=== PATIENT | male | born 1945 | race Caucasian/White ===

== ENCOUNTER 2016-05-08 03:45 | Inpatient (IN) | payer MEDICARE, OTHER ==
[~2016-05-08] VITALS: Ht 177.8 cm; Wt 119.7 kg
[2016-05-08] VITALS (16 sets, daily range): BP systolic 125–166; BP diastolic 60–72; PULSE 86–108; RESP 14–28; TEMP 97.5–98.9; O2SAT 96–100
[~2016-05-08 03:45] MED LIST: ALLO100T PO; ALPR.25 PO; AMLO5 PO; APIX5 PO; CETI10 PO; CODE30TA2; FLUO20TA20 PO; FLUT50SP EACH NARE; FOLI5CAP; GABA300C3 PO; IRON325T2 PO; LEVO.075 PO; LISI-363 PO; MAGN1TAB14; SILD20TA PO; TERA2CAP3 PO; VITA50LO PO; ZOCO80TA PO
[2016-05-08] MEDS ORDERED: PANTOPRAZOLE SODIUM 40 MG VIAL IVP ONE (04:00)
[2016-05-08] MEDS ORDERED: SODIUM CHLORIDE 0.9% FLUSH 5 ML FLUSH IVF PRN (04:00)
[2016-05-08 04:18] LABS: AUTOMATED NEUTROPHIL # 7.2 TH/MM3 (1.8-7.7); BASOPHIL % 0.5 % (0.0-2.0); EOSINOPHIL # 0.2 TH/MM3 (0-0.4); EOSINOPHIL % 2.5 % (0.0-4.0); LYMPH % 12.2 % (9.0-44.0); LYMPHOCYTE # 1.1 TH/MM3 (1.0-4.8); MEAN CELL VOLUME 81.4 FL (80.0-100.0); MEAN CORPUSCULAR HEMOGLOBIN 28.9 PG (27.0-34.0); MEAN CORPUSCULAR HGB CONC 35.5 % (32.0-36.0); MONO % 7.1 % (0.0-8.0); NEUT % 77.7 % (16.0-70.0); PLATELET COUNT 170 TH/MM3 (150-450); RED BLOOD COUNT 1.82 MIL/MM3 (4.50-5.90); RED CELL DISTRIBUTION WIDTH 16.4 % (11.6-17.2); WHITE BLOOD COUNT 9.3 TH/MM3 (4.0-11.0)
[2016-05-08] MEDS ORDERED: SPIR25TA PO (04:18)
[2016-05-08] MEDS ORDERED: MULT-65 PO (04:18)
[2016-05-08] MEDS ORDERED: ALPR.5 PO (04:18)
[2016-05-08] MEDS ORDERED: ATOR20TA15 PO (04:18)
[2016-05-08] MEDS ORDERED: NORC5TAB PO (04:18)
[2016-05-08] MEDS ORDERED: ASPI-110 PO (04:18)
[2016-05-08] MEDS ORDERED: CLOTCRE TOPICAL (04:18)
[2016-05-08] MEDS ORDERED: POTA-163 PO (04:18)
[2016-05-08] MEDS ORDERED: DILT30TA PO (04:18)
[2016-05-08] MEDS ORDERED: FURO1TAB60 PO (04:18)
[2016-05-08 04:25] LABS: HEMO FLAGS DIFF FINAL
[2016-05-08 04:27] LABS: HEMATOCRIT 14.8 % (39.0-51.0)
[2016-05-08 04:29] LABS: APTT (PATIENT) 27.1 SEC (24.3-30.1); INTERNATIONAL NORMALIZED RATIO 1.6 RATIO; PROTHROMBIN TIME - PATIENT 18.5 SEC (9.8-11.6)
[2016-05-08] MEDS ORDERED: SODIUM CHLOR 0.9% 250 ML INJ 250 ML IV ONE (04:30)
--- NOTE | 2016-05-08 04:38 | PD ---
HPI Chief Complaint: Bleeding Time Seen by Provider: 03:50 Travel History International Travel<30 days: No Contact w/Intl Traveler<30days: No Traveled to known affect area: No History of Present Illness HPI The patient is 70 years old. He has a history of rheumatoid arthritis anxiety depression and alcoholism. He arrives from assisted facility because dark red stool is found in his bed about 1 hour prior to ER arrival. During the initial evaluation the patient states "I'm trying to pee." EMS reports the patient is typically a and O 3. Patient was able to report that 4 years prior he underwent colonoscopy which was normal. Secondary to preoccupation with urination the patient cannot provide any additional history at time of arrival to ER or upon reassessment at approximately 30 minutes after arrival at which time a Antonio catheter was placed and urinalysis was sent as well. PFSH Past Medical History Arthritis: Yes (RA) Blood Disorders: No Anxiety: Yes Depression: Yes Heart Rhythm Problems: No Cancer: No Cardiovascular Problems: Yes High Cholesterol: No Chest Pain: No Congestive Heart Failure: No Diabetes: No Endocrine: Yes Gout: Yes Genitourinary: No Hypertension: Yes Musculoskeletal: Yes (RA) Neurologic: No Psychiatric: Yes Reproductive: No Respiratory: Yes Thyroid Disease: Yes Past Surgical History Other Surgery: Yes (shoulder sx) Social History Alcohol Use: Yes (05/17 vodka) Tobacco Use: No Substance Use: No Allergies-Medications (Allergen,Severity, Reaction): Coded Allergies: Buspirone (Verified Allergy, Unknown, 05/08/16) pt states "more anxiety" Reported Meds & Prescriptions Reported Meds & Active Scripts Active Norvasc (Amlodipine Besylate) 5 Mg Tab 5 Mg PO DAILY 30 Days Terazosin Hcl (Terazosin HCl) 2 Mg Cap 4 Mg PO HS Reported Diltiazem (Diltiazem HCl) 30 Mg Tab 30 Mg PO BID Atorvastatin (Atorvastatin Calcium) 20 Mg Tab 20 Mg PO HS Aspirin 81 (Aspirin) 81 Mg Tabdr 81 Mg PO DAILY Lasix (Furosemide) 40 Mg Tab 40 Mg PO BID Clotrimazole-Betamethasone Topical (Betamethasone/Clotrimazole) 1-0.05% Cream 1 Applic TOPICAL BID Potassium Chloride ER (Potassium Chloride) 20 Meq Tab 20 Meq PO DAILY Spironolactone 25 Mg Tab 25 Mg PO BIDPC Xanax (Alprazolam) 0.5 Mg Tab 0.5 Mg PO Q8H PRN [place] (Hydrocodone-Acetaminophen) 5-325 mg Tab 1 Tab PO Q6H PRN Multi-Vitamin Daily (Multiple Vitamin) 1 Tab Tab 1 Tab PO DAILY Fluoxetine Hcl (Fluoxetine HCl) 20MG Cap 40 Mg PO DAILY Iron (Ferrous Sulfate) 325 Mg Tab 325 Mg PO Vitamin B-12 (Cyanocobalamin) 50 Mcg Tab 50 Mcg PO Synthroid (Levothyroxine Sodium) 75 Mcg Tab 75 Mcg PO DAILY Gabapentin 300 Mg Cap 300 Mg PO TID Folic Acid 5 Mg Cap Fluticasone Propionate (Nasal) 50 Mcg Spr 1 [place] EACH NARE BID Allopurinol 100 Mg Tab 100 Mg PO DAILY Review of Systems Except as stated in HPI: all other systems reviewed are Neg Physical Exam Narrative GENERAL: 70-year-old male mild to moderate distress RECTAL: External hemorrhoid. Black stool about anus. Grade 1 pressure would about saccrum with approx 2-3 cm of dermis exposure on the R aspect of saccrum. SKIN: Warm and dry. HEAD: Atraumatic. Normocephalic. EYES: Pupils equal and round. No scleral icterus. No injection or drainage. ENT: No nasal bleeding or discharge. Mucous membranes pink and moist. NECK: Trachea midline. No JVD. CARDIOVASCULAR: Sinus. Tachycardia. RESPIRATORY: No accessory muscle use. Clear to auscultation. Breath sounds equal bilaterally. GASTROINTESTINAL: Abdomen soft, non-tender, nondistended. Hepatic and splenic margins not palpable. MUSCULOSKELETAL: 4+ pitting edema. Moves all extremities normally. Cranial nerves are normal. Patient is AOx3. NEUROLOGICAL: Awake and alert. No obvious cranial nerve deficits. Motor grossly within normal limits. Normal speech. PSYCHIATRIC: Appropriate mood and affect; insight and judgment normal. Data Data Last Documented VS Vital Signs Date Time Temp Pulse Resp B/P Pulse Ox O2 Delivery O2 Flow Rate FiO2 05/08/16 03:59 18 100 Room Air 05/08/16 03:48 97.5 95 125/60 Orders Complete Blood Count With Diff (05/08/16 03:50) Comprehensive Metabolic Panel (05/08/16 03:50) Prothrombin Time / Inr (Pt) (05/08/16 03:50) Act Partial Throm Time (Ptt) (05/08/16 03:50) Urinalysis - C+S If Indicated (05/08/16 03:50) Type And Screen (05/08/16 03:50) Ecg Monitoring (05/08/16 03:50) Iv Access Insert/Monitor (05/08/16 03:50) Oximetry (05/08/16 03:50) Pantoprazole Inj (Protonix Inj) (05/08/16 04:00) Sodium Chloride 0.9% Flush (Ns Flush) (05/08/16 04:00) B-Type Natriuretic Peptide (05/08/16 03:50) Blood Culture (05/08/16 04:04) Lactic Acid (05/08/16 04:04) Blood Product Administration .UPON TRANSFUSION (05/08/16 04:29) Sodium Chlor 0.9% 250 Ml Inj (Ns 250 Ml (05/08/16 04:30) Red Blood Cells (Rbc) (05/08/16 04:00) Urinary Catheter Insert/Apply (05/08/16 04:38) Ceftriaxone Inj (Rocephin Inj) (05/08/16 05:00) Pantoprazole Inj (Protonix Inj) (05/08/16 05:15) Admit Order (Ed Use Only) (05/08/16 05:08) Labs Laboratory Tests Test 05/08/16 05/08/16 05/08/16 05/08/16 04:00 04:06 04:45 04:46 White Blood Count 9.3 TH/MM3 Red Blood Count 1.82 MIL/MM3 Hemoglobin 5.3 GM/DL Hematocrit 14.8 % Mean Corpuscular Volume 81.4 FL Mean Corpuscular Hemoglobin 28.9 PG Mean Corpuscular Hemoglobin 35.5 % Concent Red Cell Distribution Width 16.4 % Platelet Count 170 TH/MM3 Mean Platelet Volume 7.8 FL Neutrophils (%) (Auto) 77.7 % Lymphocytes (%) (Auto) 12.2 % Monocytes (%) (Auto) 7.1 % Eosinophils (%) (Auto) 2.5 % Basophils (%) (Auto) 0.5 % Neutrophils # (Auto) 7.2 TH/MM3 Lymphocytes # (Auto) 1.1 TH/MM3 Monocytes # (Auto) 0.7 TH/MM3 Eosinophils # (Auto) 0.2 TH/MM3 Basophils # (Auto) 0.0 TH/MM3 CBC Comment DIFF FINAL Differential Comment Prothrombin Time 18.5 SEC Prothromb Time International 1.6 RATIO Ratio Activated Partial 27.1 SEC Thromboplast Time Sodium Level 137 MEQ/L Potassium Level 3.4 MEQ/L Chloride Level 103 MEQ/L Carbon Dioxide Level 18.8 MEQ/L Anion Gap 15 MEQ/L Blood Urea Nitrogen 48 MG/DL Creatinine 1.71 MG/DL Estimat Glomerular Filtration 40 ML/MIN Rate Random Glucose 117 MG/DL Calcium Level 8.0 MG/DL Total Bilirubin 1.0 MG/DL Aspartate Amino Transf 33 U/L (AST/SGOT) Alanine Aminotransferase 21 U/L (ALT/SGPT) Alkaline Phosphatase 136 U/L B-Type Natriuretic Peptide 45 PG/ML Total Protein 6.3 GM/DL Albumin 1.9 GM/DL Blood Type O NEGATIVE O NEGATIVE Antibody Screen NEGATIVE Crossmatch Leukocyte-Reduced Red Blood Cells Blood Bank Comment Lactic Acid Level 4.9 mmol/L Urine Color YELLOW Urine Turbidity CLEAR Urine pH 5.5 Urine Specific [place] 1.012 Urine Protein NEG mg/dL Urine Glucose (UA) NEG mg/dL Urine Ketones NEG mg/dL Urine Occult Blood MOD Urine Nitrite NEG Urine Bilirubin NEG Urine Urobilinogen LESS THAN 2.0 MG/DL Urine Leukocyte Esterase NEG Urine RBC 5 /hpf Urine WBC 1 /hpf Urine Renal Epithelial Cells <1 /hpf Urine Bacteria RARE /hpf Urine Hyaline Casts 1 /lpf Microscopic Urinalysis Comment CULT NOT INDICATED MDM Medical Decision Making Medical Screen Exam Complete: Yes Emergency Medical Condition: Yes Medical Record Reviewed: Yes Differential Diagnosis UGIB, LGIB, sepsis, MODS, anemia Narrative Course CBC & BMP Diagram 05/08/16 04:00 LA 4.9 BNP 45 Albumin 1.9 UA: no UTI Coags: 18.5 / 1.6 / 27.1 case d/w Dr Agrawal for GI. Protonix bolus and drip started. Rocephin started. 2 units PRBCs started Case discussed with Dr. Iglesias for casting machine adjuster service. Critical Care Narrative Aggregate critical care time was 35 minutes. Time to perform other separately billable procedures was not included in the critical care time. My time did not include minutes spent treating any other patients simultaneously or on activities that did not directly contribute to the patient's treatment. The services I provided to this patient were to treat and/or prevent clinically significant deterioration that could result in: hemorrhagic shock I provided critical care services requiring my management, as noted below: Chart data review, documentation time, medication orders and management, vital sign assessments/reviewing monitor data, ordering and reviewing lab tests, ordering and interpreting/reviewing x-rays and diagnostic studies, care of the patient and discussion of the patient with the admitting physicians. Sepsis Criteria SIRS Criteria (2 or more): Heart rate over 90, RR > 20 or PaCO2 < 32 Severe Sepsis (+one): Organ Dysfunction Septic Shock Criteria: Lactic acid >=4 Diagnosis Primary Impression: GIB (gastrointestinal bleeding) Qualified Code: K92.2 - Gastrointestinal hemorrhage, unspecified gastrointestinal hemorrhage type Additional Impression: Anemia Qualified Code: D62 - Acute posthemorrhagic anemia Admitting Information Admitting Physician Requests: Admit Jose Loja MD May 08, 2016 04:38
[2016-05-08 04:40] LABS: ALT (GPT) 21 U/L (12-78); ANION GAP 15 MEQ/L (5-15); AST (GOT) 33 U/L (15-37); BICARBONATE 18.8 MEQ/L (21.0-32.0); BLOOD UREA NITROGEN 48 MG/DL (7-18); CHLORIDE 103 MEQ/L (98-107); GLOMERULAR FILTRATION RATE 40 ML/MIN (>89); POTASSIUM 3.4 MEQ/L (3.5-5.1); SODIUM (NA) 137 MEQ/L (136-145)
[2016-05-08 04:43] LABS: ALKALINE PHOSPHATASE 136 U/L (45-117)
[2016-05-08] MEDS ORDERED: cefTRIAXone INJ 1,000 MG in SODIUM CHLORIDE 0.9% INJ 100 ML IV ONE (05:00)
[2016-05-08 05:03] LABS: BACTERIA, URINE RARE /hpf; BLOOD, URINE MOD (NEG); COMMENT (UR) CULT NOT INDICATED; CULTURE IF INDICATED CULT NOT INDICATED; GLUCOSE,URINE NEG (NEG); HYALINE CAST, URINE 1 /lpf (RARE); KETONE, URINE NEG (NEG); NITRITE,URINE NEG (NEG); PH, URINE 5.5 (5.0-8.5); RENAL EPITHELIAL CELLS <1 /hpf; URINE COLOR YELLOW (YELLW/STRAW)
[2016-05-08] MEDS ORDERED: RESP: ALBUTEROL 2.5 MG/IPRATROPIUM 0.5 MG NEB (PRN) INH (05:45)
[2016-05-08] MEDS ORDERED: SODIUM CHLORIDE 0.9% FLUSH 5 ML FLUSH IV FLUSH PRN (05:45)
[2016-05-08] MEDS ORDERED: LORazepam 2 MG/ML VIAL IV PRN (05:45)
[2016-05-08] MEDS ORDERED: ACETAMINOPHEN 325 MG TAB PO PRN (05:45)
[2016-05-08] MEDS ORDERED: MISCELLANEOUS NURSING INFORMATION XX SCH (05:45)
[2016-05-08] MEDS ORDERED: CHLORHEXIDINE GLUCONATE 2 % 1 PACK (2 CLOTHS) TOP PRN (05:45)
[2016-05-08] MEDS ORDERED: ZOLPIDEM TARTRATE 5 MG TAB PO PRN (05:45)
--- NOTE | 2016-05-08 06:09 | HHI.HP ---
HPI Service Critical Care Medicine Primary Care Physician No Primary Care Physician Admission Diagnosis Acute Anemia, GI Bleed Diagnosis: Travel History International Travel<30 Days: No Contact w/Intl Traveler <30 Da: No Traveled to Known Affected Are: No History of Present Illness 70 years old with a history of rheumatoid arthritis anxiety depression and alcoholism. Per patient he didn't have a drink for last months. He arrives from [facility] facility because of dark red stool is found in his bed about 1 hour prior to ER arrival. Review of Systems Constitutional: DENIES: Diaphoretic episodes, Fatigue, Fever, Weight gain, Weight loss, Chills, Dizziness, Change in appetite, Night Sweats Endocrine: DENIES: Heat/cold intolerance, Polydipsia, Polyuria, Polyphagia Eyes: DENIES: Blurred vision, Diplopia, Eye inflammation, Eye pain, Vision loss , Photosensitivity, Double Vision Ears, nose, mouth, throat: DENIES: Tinnitus, Hearing loss, Vertigo, Nasal discharge, Oral lesions, Throat pain, Hoarseness, Ear Pain, Running Nose, Epistaxis, Sinus Pain, Toothache, Odynophagia Respiratory: DENIES: Apneas, Cough, Snoring, Wheezing, Hemoptysis, Sputum production, Shortness of breath Cardiovascular: DENIES: Chest pain, Palpitations, Syncope, Dyspnea on Exertion , PND, Lower Extremity Edema, Orthopnea, Claudication Gastrointestinal: COMPLAINS OF: Abdominal pain, DENIES: Black stools, Bloody stools, Constipation, Diarrhea, Nausea, Vomiting, Difficulty Swallowing, Anorexia Genitourinary: DENIES: Sexual dysfunction, Urinary frequency, Urinary incontinence, Urgency, Hematuria, Dysuria, Nocturia, Penile Discharge, Testicular Pain, Testicular Swelling Musculoskeletal: DENIES: Joint pain, Muscle aches, Stiffness, Joint Swelling, Back pain, Neck pain Integumentary: DENIES: Abnormal pigmentation, Nail changes, Pruritus, Rash Hematologic/lymphatic: DENIES: Bruising, Lymphadenopathy Immunologic/allergic: DENIES: Eczema, Urticaria Neurologic: DENIES: Abnormal gait, Headache, Localized weakness, Paresthesias, Seizures, Speech Problems, Tremor, Poor Balance Psychiatric: DENIES: Anxiety, Confusion, Mood changes, Depression, Hallucinations, Agitation, Suicidal Ideation, Homicidal Ideation, Delusions Past Family Social History Allergies: Coded Allergies: Buspirone (Verified Allergy, Unknown, 05/08/16) pt states "more anxiety" Past Medical History Rheumatoid arthritis Alcohol use Anxiety Reported Medications Reported Meds & Active Scripts Active Norvasc (Amlodipine Besylate) 5 Mg Tab 5 Mg PO DAILY 30 Days Terazosin Hcl (Terazosin HCl) 2 Mg Cap 4 Mg PO HS Reported Diltiazem (Diltiazem HCl) 30 Mg Tab 30 Mg PO BID Atorvastatin (Atorvastatin Calcium) 20 Mg Tab 20 Mg PO HS Aspirin 81 (Aspirin) 81 Mg Tabdr 81 Mg PO DAILY Lasix (Furosemide) 40 Mg Tab 40 Mg PO BID Clotrimazole-Betamethasone Topical (Betamethasone/Clotrimazole) 1-0.05% Cream 1 Applic TOPICAL BID Potassium Chloride ER (Potassium Chloride) 20 Meq Tab 20 Meq PO DAILY Spironolactone 25 Mg Tab 25 Mg PO BIDPC Xanax (Alprazolam) 0.5 Mg Tab 0.5 Mg PO Q8H PRN [place] (Hydrocodone-Acetaminophen) 5-325 mg Tab 1 Tab PO Q6H PRN Multi-Vitamin Daily (Multiple Vitamin) 1 Tab Tab 1 Tab PO DAILY Fluoxetine Hcl (Fluoxetine HCl) 20MG Cap 40 Mg PO DAILY Iron (Ferrous Sulfate) 325 Mg Tab 325 Mg PO Vitamin B-12 (Cyanocobalamin) 50 Mcg Tab 50 Mcg PO Synthroid (Levothyroxine Sodium) 75 Mcg Tab 75 Mcg PO DAILY Gabapentin 300 Mg Cap 300 Mg PO TID Folic Acid 5 Mg Cap Fluticasone Propionate (Nasal) 50 Mcg Spr 1 [place] EACH NARE BID Allopurinol 100 Mg Tab 100 Mg PO DAILY Active Ordered Medications Current Medications Medications (Trade) Dose Ordered Sig/Ana Route PRN Reason Start Time Stop Time Status Last Admin Dose Admin IV Flush 2 ml 2 ml UNSCH PRN IVF FLUSH AFTER USING IV ACCESS 05/08/16 04:00 Sodium Chloride 250 ml @ 15 mls/hr ONCE ONCE IV 05/08/16 04:30 05/08/16 21:09 Pantoprazole Sodium 80 mg/ Sodium Chloride 100 ml @ 10 mls/hr Q10H IV 05/08/16 05:15 Sodium Chloride (NS 1000 ml Inj) 1,000 ml @ 84 mls/hr [id number] IV 05/08/16 05:39 IV Flush (NS Flush) 2 ml UNSCH PRN IV FLUSH FLUSH AFTER USING IV ACCESS 05/08/16 05:45 IV Flush (NS Flush) 2 ml BID IV FLUSH 05/08/16 09:00 Acetaminophen (Tylenol) 650 mg Q6H PRN PO PAIN 1-5 AND/OR FEVER >101F 05/08/16 05:45 Morphine Sulfate (Morphine Inj) 2 mg Q2H PRN IV PAIN SCALE 6 TO 10 05/08/16 05:45 Pantoprazole Sodium (Protonix Inj) 40 mg Q12H IV 05/08/16 18:00 Lorazepam (Ativan Inj) 1 mg Q4H PRN IV Agitation/Sedation 05/08/16 05:45 Docusate Sodium (Colace) 100 mg BID PO 05/08/16 09:00 Zolpidem Tartrate (Ambien) 5 mg HS PRN PO INSOMNIA 05/08/16 05:45 Miscellaneous Information 1 [id number] 05/08/16 05:45 Chlorhexidine Gluconate (Chlorhexidine 2% Cloth) 3 pack Taper DAILY@04 TOP 05/09/16 04:00 05/05/17 03:59 Chlorhexidine Gluconate (Chlorhexidine 2% Cloth) 3 pack UNSCH PRN TOP HYGIENIC CARE 05/08/16 05:45 Alprazolam (Xanax) 0.5 mg Q8H PRN PO ANXIETY 05/08/16 06:15 UNV Atorvastatin Calcium (Lipitor) 20 mg HS PO 05/08/16 21:00 UNV Acetaminophen/ Hydrocodone Bitart ([place] 5-325 Mg) 1 tab Q6H PRN PO PAIN 05/08/16 06:15 UNV Levothyroxine Sodium (Synthroid) 75 mcg DAILY PO 05/08/16 09:00 UNV Multivitamins (Theragran) 1 tab DAILY PO 05/08/16 09:00 UNV Non-Formulary Medication 40 mg DAILY PO 05/08/16 09:00 UNV Family History Noncontributory Social History Quit drinking alcohol about a month ago Negative for smoking or illicit drug abuse Physical Exam Vital Signs Vital Signs Date Time Temp Pulse Resp B/P Pulse Ox O2 Delivery O2 Flow Rate FiO2 05/08/16 05:40 18 100 Room Air 05/08/16 03:59 18 100 Room Air 05/08/16 03:48 97.5 95 22 125/60 100 Laboratory Laboratory Tests Test 05/08/16 05/08/16 05/08/16 05/08/16 04:00 04:06 04:45 04:46 White Blood Count 9.3 Red Blood Count 1.82 Hemoglobin 5.3 Hematocrit 14.8 Mean Corpuscular Volume 81.4 Mean Corpuscular Hemoglobin 28.9 Mean Corpuscular Hemoglobin 35.5 Concent Red Cell Distribution Width 16.4 Platelet Count 170 Mean Platelet Volume 7.8 Neutrophils (%) (Auto) 77.7 Lymphocytes (%) (Auto) 12.2 Monocytes (%) (Auto) 7.1 Eosinophils (%) (Auto) 2.5 Basophils (%) (Auto) 0.5 Neutrophils # (Auto) 7.2 Lymphocytes # (Auto) 1.1 Monocytes # (Auto) 0.7 Eosinophils # (Auto) 0.2 Basophils # (Auto) 0.0 CBC Comment DIFF FINAL Differential Comment Prothrombin Time 18.5 Prothromb Time International 1.6 Ratio Activated Partial 27.1 Thromboplast Time Sodium Level 137 Potassium Level 3.4 Chloride Level 103 Carbon Dioxide Level 18.8 Anion Gap 15 Blood Urea Nitrogen 48 Creatinine 1.71 Estimat Glomerular Filtration 40 Rate Random Glucose 117 Calcium Level 8.0 Total Bilirubin 1.0 Aspartate Amino Transf 33 (AST/SGOT) Alanine Aminotransferase 21 (ALT/SGPT) Alkaline Phosphatase 136 B-Type Natriuretic Peptide 45 Total Protein 6.3 Albumin 1.9 Blood Type O NEGATIVE O NEGATIVE Antibody Screen NEGATIVE Crossmatch Leukocyte-Reduced Red Blood Cells Blood Bank Comment Lactic Acid Level 4.9 Urine Color YELLOW Urine Turbidity CLEAR Urine pH 5.5 Urine Specific [place] 1.012 Urine Protein NEG Urine Glucose (UA) NEG Urine Ketones NEG Urine Occult Blood MOD Urine Nitrite NEG Urine Bilirubin NEG Urine Urobilinogen LESS THAN 2.0 Urine Leukocyte Esterase NEG Urine RBC 5 Urine WBC 1 Urine Renal Epithelial Cells <1 Urine Bacteria RARE Urine Hyaline Casts 1 Microscopic Urinalysis Comment CULT NOT INDICATED Date/Time Procedure Status Source Growth 05/08/16 04:04 Aerobic Blood Culture Received Blood Peripheral Pending 05/08/16 04:04 Anaerobic Blood Culture Received Blood Peripheral Pending Result Diagram: 05/08/1639905/08/16399 Assessment and Plan Problem List: (1) Degenerative disc disease, lumbar ICD Code: M51.36 Status: Chronic (2) GIB (gastrointestinal bleeding) ICD Code: K92.2 Status: Acute (3) Anemia ICD Code: D64.9 Status: Acute Assessment and Plan GI bleed - Protonix IV twice a day - Nothing by mouth - Further per GI consult Anemia - Due to above - Transfuse 4 units of PRBC - Monitor H&H Coagulopathy - Underlying alcohol disease - Vitamin K and FFP's History of alcohol abuse - [facility] protocol - Ativan when necessary - Thiamine folate and multivitamins Rheumatoid arthritis - Supportive care - Pain control Lactic acidosis - IV fluids - Monitor treatment Hypertension - Hold all hypertensive medications now - due to GI bleed DVT GI prophylaxis - Teds SCDs Protonix Critical Care: The total critical care time was 35 minutes. Time to perform other separately billable procedures was not included in the critical care time. Problem Qualifiers (1) GIB (gastrointestinal bleeding): Qualified Code: K92.2 - Gastrointestinal hemorrhage, unspecified gastrointestinal hemorrhage type (2) Anemia: Qualified Code: D62 - Acute posthemorrhagic anemia Wojciech Iglesias MD May 08, 2016 06:09
[2016-05-08] MEDS ORDERED: ALPRAZolam 0.5 MG TAB PO PRN (06:15)
[2016-05-08] MEDS: SODIUM CHLOR 0.9% 1000 ML INJ 1,000 ML IV SCH ×2 (06:21→16:46)
[2016-05-08] MEDS ORDERED: PHYTONADIONE 10 MG/ML VIAL SQ ONE (06:30)
[2016-05-08] MEDS: LEVOTHYROXINE SODIUM 75 MCG TAB PO SCH (06:30)
[2016-05-08] MEDS: PANTOPRAZOLE INJ 80 MG in SODIUM CHLORIDE 0.9% INJ 100 ML IV SCH ×2 (06:54→16:45)
[2016-05-08] MEDS ORDERED: FUROSEMIDE 20 MG/2 ML VIAL IV PUSH ONE (07:45)
[2016-05-08] MEDS: SODIUM CHLORIDE 0.9% FLUSH 5 ML FLUSH IV FLUSH SCH ×2 (09:28→21:00)
[2016-05-08] MEDS: DOCUSATE SODIUM 100 MG CAP PO SCH ×2 (09:29→21:00)
[2016-05-08] MEDS: MORPHINE SULFATE 4 MG/ML INJ IV PRN (09:29)
[2016-05-08] MEDS: FLUoxetine HCL 20 MG CAP PO SCH (09:29)
[2016-05-08] MEDS: MULTIVITAMIN TAB PO SCH (09:29)
--- NOTE | 2016-05-08 10:09 | PD.CONS ---
HPI History of Present Illness This is a 70 year old male who came to the ER for evaluation of rectal bleed. He was admitted to [facility] for UTI/Sepsis/possible pancreatitis on 04/19. While he was there, he was found to have an enlarged liver. He was also told that he would need a egd/colonoscopy as outpatient. He was then discharged to a rehab center for rehabilitation. He woke up last night and was incontinent of a large amount of dark red blood. He does not believe there was any stool mixed within this. He denies any nausea, vomiting, abdominal pain. He reports that his appetite has been okay. He does report that he has probably lost about 25 lbs since August. He last had a colonoscopy with Dr. Delgado 4-5 years ago, and states this was noraml with no polyps. He did have a non-occlusive blood clot in his lower extremity in August and was on Eliquis x 1 month, but has since been off. He does take Ibuprofen every other day up to 4 tablets a day for back pain. He denies any hx of stomach ulcers. He denies any family hx of esophageal, gastric, colon cancer. Of note, he did have a negative cardiac catheterization back in January after having a positive stress test. He does drink daily etoh, sometimes3-4x a day, but has not had any since his hospitalization in the beginning of April. He was told that he had "borderline liver cirrhosis." PFSH Past Medical History Rheumatoid arthritis Suspected CHF Recent positive stress test, s/p cardiac catheterization was negative in January, Dr. Nobles Chronic back pain Gout Neuropathy Hypothyroidism Depression Hepatomegaly, Splenomegaly Suspected liver disease. Recent hospitalization for sepsis, uti, possible pancreatitis Past Surgical History Bilateral hand surgery Lumbar spine injections Coded Allergies: Buspirone (Verified Allergy, Unknown, 05/08/16) pt states "more anxiety" Medications Allergies Coded Allergies Type Severity Reaction Last Updated Verified Buspirone Allergy Unknown 05/08/16 Yes Active Scripts Medications Dose Route/Sig Days Date Category Diltiazem (Diltiazem HCl) 30 Mg Tab 30 Mg PO BID 05/08/16 Reported Atorvastatin (Atorvastatin Calcium) 20 Mg Tab 20 Mg PO HS 05/08/16 Reported Aspirin 81 (Aspirin) 81 Mg Tabdr 81 Mg PO DAILY 05/08/16 Reported Lasix (Furosemide) 40 Mg Tab 40 Mg PO BID 05/08/16 Reported Clotrimazole-Betamethasone Topical (Betamethasone/Clotrimazole) 1-0.05% Cream 1 Applic TOPICAL BID 05/08/16 Reported Potassium Chloride ER (Potassium Chloride) 20 Meq Tab 20 Meq PO DAILY 05/08/16 Reported Spironolactone 25 Mg Tab 25 Mg PO BIDPC 05/08/16 Reported Xanax (Alprazolam) 0.5 Mg Tab 0.5 Mg PO Q8H PRN 05/08/16 Reported [place] (Hydrocodone-Acetaminophen) 5-325 mg Tab 1 Tab PO Q6H PRN 05/08/16 Reported Multi-Vitamin Daily (Multiple Vitamin) 1 Tab Tab 1 Tab PO DAILY 05/08/16 Reported Norvasc (Amlodipine Besylate) 5 Mg Tab 5 Mg PO DAILY 30 09/12/15 Rx Terazosin Hcl (Terazosin HCl) 2 Mg Cap 4 Mg PO HS 09/12/15 Rx Fluoxetine Hcl (Fluoxetine HCl) 20MG Cap 40 Mg PO DAILY 09/10/15 Reported Iron (Ferrous Sulfate) 325 Mg Tab 325 Mg PO 09/10/15 Reported Vitamin B-12 (Cyanocobalamin) 50 Mcg Tab 50 Mcg PO 09/10/15 Reported Synthroid (Levothyroxine Sodium) 75 Mcg Tab 75 Mcg PO DAILY 09/10/15 Reported Gabapentin 300 Mg Cap 300 Mg PO TID 09/10/15 Reported Folic Acid 5 Mg Cap 09/10/15 Reported Fluticasone Propionate (Nasal) 50 Mcg Spr 1 [place] EACH NARE BID 09/10/15 Reported Allopurinol 100 Mg Tab 100 Mg PO DAILY 09/10/15 Reported Family History Mother had carotid artery disease Father had [place] Social History No tobacco. Was drinking 3-4 Vodkas per day up until he was hospitalized on 04/19 , none since that time. Review of Systems Constitutional: COMPLAINS OF: Fatigue, Weight loss, Change in appetite (mild) Ears, nose, mouth, throat: DENIES: Throat pain Respiratory: DENIES: Cough, Shortness of breath Cardiovascular: COMPLAINS OF: Lower Extremity Edema Gastrointestinal: COMPLAINS OF: Bloody stools, Swelling of Abdomen (mild), DENIES: Abdominal pain, Black stools, Constipation, Diarrhea, Anorexia, Heartburn, Hematemesis Musculoskeletal: COMPLAINS OF: Joint pain, Back pain Integumentary: DENIES: Jaundice Neurologic: DENIES: Headache Psychiatric: DENIES: Confusion GI Exam Vitals I&O Vital Signs Date Time Temp Pulse Resp B/P Pulse Ox O2 Delivery O2 Flow Rate FiO2 05/08/16 09:00 97.7 104 16 155/69 100 Nasal Cannula 2 05/08/16 08:43 97.8 104 16 150/72 100 Nasal Cannula 2 05/08/16 07:15 97.7 108 20 151/69 98 Nasal Cannula 2 05/08/16 07:10 97.7 108 20 150/69 98 Nasal Cannula 2 05/08/16 07:10 108 20 98 Nasal Cannula 2 05/08/16 06:57 99 Nasal Cannula 2 05/08/16 06:55 101 18 150/68 96 Room Air 05/08/16 06:19 97.7 96 18 154/65 100 Nasal Cannula 2 05/08/16 05:40 18 100 Room Air 05/08/16 03:59 18 100 Room Air 05/08/16 03:48 97.5 95 22 125/60 100 Laboratory Test 05/08/16 05/08/16 05/08/16 05/08/16 04:00 04:06 04:45 04:46 White Blood Count 9.3 TH/MM3 Red Blood Count 1.82 MIL/MM3 Hemoglobin 5.3 GM/DL Hematocrit 14.8 % Mean Corpuscular Volume 81.4 FL Mean Corpuscular Hemoglobin 28.9 PG Mean Corpuscular Hemoglobin 35.5 % Concent Red Cell Distribution Width 16.4 % Platelet Count 170 TH/MM3 Mean Platelet Volume 7.8 FL Neutrophils (%) (Auto) 77.7 % Lymphocytes (%) (Auto) 12.2 % Monocytes (%) (Auto) 7.1 % Eosinophils (%) (Auto) 2.5 % Basophils (%) (Auto) 0.5 % Neutrophils # (Auto) 7.2 TH/MM3 Lymphocytes # (Auto) 1.1 TH/MM3 Monocytes # (Auto) 0.7 TH/MM3 Eosinophils # (Auto) 0.2 TH/MM3 Basophils # (Auto) 0.0 TH/MM3 CBC Comment DIFF FINAL Differential Comment Prothrombin Time 18.5 SEC Prothromb Time International 1.6 RATIO Ratio Activated Partial 27.1 SEC Thromboplast Time Sodium Level 137 MEQ/L Potassium Level 3.4 MEQ/L Chloride Level 103 MEQ/L Carbon Dioxide Level 18.8 MEQ/L Anion Gap 15 MEQ/L Blood Urea Nitrogen 48 MG/DL Creatinine 1.71 MG/DL Estimat Glomerular Filtration 40 ML/MIN Rate Random Glucose 117 MG/DL Calcium Level 8.0 MG/DL Total Bilirubin 1.0 MG/DL Aspartate Amino Transf 33 U/L (AST/SGOT) Alanine Aminotransferase 21 U/L (ALT/SGPT) Alkaline Phosphatase 136 U/L B-Type Natriuretic Peptide 45 PG/ML Total Protein 6.3 GM/DL Albumin 1.9 GM/DL Blood Type O NEGATIVE O NEGATIVE Antibody Screen NEGATIVE Crossmatch Leukocyte-Reduced Red Blood Cells Blood Bank Comment Lactic Acid Level 4.9 mmol/L Urine Color YELLOW Urine Turbidity CLEAR Urine pH 5.5 Urine Specific [place] 1.012 Urine Protein NEG mg/dL Urine Glucose (UA) NEG mg/dL Urine Ketones NEG mg/dL Urine Occult Blood MOD Urine Nitrite NEG Urine Bilirubin NEG Urine Urobilinogen LESS THAN 2.0 MG/DL Urine Leukocyte Esterase NEG Urine RBC 5 /hpf Urine WBC 1 /hpf Urine Renal Epithelial Cells <1 /hpf Urine Bacteria RARE /hpf Urine Hyaline Casts 1 /lpf Microscopic Urinalysis Comment CULT NOT INDICATED Test 05/08/16 06:19 Crossmatch Leukocyte-Reduced Red Blood Cells Blood Bank Comment Date/Time Procedure Status Source Growth 05/08/16 04:04 Aerobic Blood Culture Received Blood Peripheral Pending 05/08/16 04:04 Anaerobic Blood Culture Received Blood Peripheral Pending Physical Examination HEENT: Normocephalic; atraumatic; no jaundice. Throat is clear. NECK: Neck is supple, no JVD, no lymphadenopathy. CHEST: CTA CARDIAC: RRR ABDOMEN: Soft, mildly bloated, nondistended, nontender; no hepatosplenomegaly; bowel sounds are present in all four quadrants. EXTREMITIES: BLE edema with 4+ pedal edema. SKIN: Normal; no rash; no jaundice. 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 Assessment and Plan Plan ASSESSMENT: - GIB, Rectal bleeding. Woke up with large amount dark red blood from rectum, x 1 episode. Some weight loss. No pain, n/v. Questionable hx of liver disease, was drinking daily 3-4 Vodka's, none since 04/19. Last colonoscopy ~ [address] Delgado and reported by patient as normal. Takes Ibuprofen - Anemia, acute blood loss. Severe anemia with HH 5.3/14.8. Getting 2 units of PRBC. 2 units of FFP. - Mild coagulopathy. PT 18.5, INR 1.6. S/P 2 units FFP - JIMI, Creat 1.71. - Suspected liver disease with hepatomegaly, splenomegaly. Long hx of drinking 3-4 ETOH drinks per day, none since 2016. T. Bili 1.0, AST 33, ALT 21, ALk Phosph 136. Plt okay, mild coagulopathy and hypoalbuminemia. - BLE edema, suspected CHF per family. He had a positive stress test in January and then had a cardiac catheterization with Dr. Nobles and the patient' s son reports this as normal. - Chronic back pain. Pt states that he had a lumbar injection for this in the past and is hoping this can be done during this hospitalization. - Neuropathy, Hypothyroidism, Depression, Gout, RA per primary - Hx nonocclusive dvt in August, was tx'd with Eliquis x 1 month- not on now PLAN: - Plan for egd/colonoscopy in am - Obtain consents - Clear liquids - NPO after MN - Golytely prep - Protonix gtt - Monitor HH - Transfuse as necessary - CBC, BMP in am - Supportive care - Obtain records from [facility], recent hospitalization this month to see what cardiac/liver workup he had. - Further recommendations to follow based on results of above - PT seen and examined by Dr. Liang and myself and this note is written on his behalf Abby Garza May 08, 2016 10:09
[2016-05-08] MEDS ORDERED: PEG (High)/E-LYTE SOLN 4000 ML BTL PO ONE (16:00)
[2016-05-08 17:21] LABS: HEMATOCRIT 20.4 % (39.0-51.0); REVIEW FLAG FINAL
[2016-05-08] MEDS ORDERED: PANTOPRAZOLE SODIUM 40 MG VIAL IV SCH (18:00)
--- NOTE | 2016-05-08 19:37 | EKG ---
Date Performed: 05/08/2016 Time Performed: 03:54:09 PTAGE: 70 years EKG: Sinus rhythm NONSPECIFIC T-WAVE ABNORMALITY BORDERLINE ECG NO PREVIOUS TRACING DOCTOR: Law Loja Interpretating Date/Time 05/08/2016 19:37:19
[2016-05-08] MEDS: ATORVASTATIN 20 MG TAB PO SCH (22:48)
[2016-05-09] VITALS (14 sets, daily range): BP systolic 147–177; BP diastolic 61–74; PULSE 64–95; RESP 22–27; TEMP 97.9–98.2; O2SAT 96–100
[2016-05-09] MEDS: PANTOPRAZOLE INJ 80 MG in SODIUM CHLORIDE 0.9% INJ 100 ML IV SCH ×2 (02:33→15:43)
[2016-05-09] MEDS: CHLORHEXIDINE GLUCONATE 2 % 1 PACK (2 CLOTHS) TOP SCH ×2 (02:46→21:18)
[2016-05-09] MEDS: hydrALAZINE HCL 20 MG/ML VIAL IV PRN ×2 (05:05→09:32)
[2016-05-09] MEDS: LEVOTHYROXINE SODIUM 75 MCG TAB PO SCH (05:05)
[2016-05-09] MEDS: SODIUM CHLOR 0.9% 1000 ML INJ 1,000 ML IV SCH ×2 (05:06→22:47)
[2016-05-09] MEDS: MORPHINE SULFATE 4 MG/ML INJ IV PRN ×3 (05:11→21:11)
[2016-05-09 05:12] LABS: AUTOMATED NEUTROPHIL # 5.8 TH/MM3 (1.8-7.7); BASOPHIL % 0.4 % (0.0-2.0); EOSINOPHIL # 0.4 TH/MM3 (0-0.4); EOSINOPHIL % 5.5 % (0.0-4.0); HEMATOCRIT 28.3 % (39.0-51.0); HEMO FLAGS DIFF FINAL; LYMPH % 15.1 % (9.0-44.0); LYMPHOCYTE # 1.2 TH/MM3 (1.0-4.8); MEAN CORPUSCULAR HEMOGLOBIN 29.3 PG (27.0-34.0); MEAN CORPUSCULAR HGB CONC 34.5 % (32.0-36.0); MONO % 7.1 % (0.0-8.0); NEUT % 71.9 % (16.0-70.0); PLATELET COUNT 118 TH/MM3 (150-450); RED BLOOD COUNT 3.33 MIL/MM3 (4.50-5.90); RED CELL DISTRIBUTION WIDTH 16.2 % (11.6-17.2)
[2016-05-09 05:19] LABS: INTERNATIONAL NORMALIZED RATIO 1.3 RATIO; PROTHROMBIN TIME - PATIENT 14.8 SEC (9.8-11.6)
[2016-05-09 05:50] LABS: ALKALINE PHOSPHATASE 129 U/L (45-117); ALT (GPT) 24 U/L (12-78); ANION GAP 10 MEQ/L (5-15); AST (GOT) 33 U/L (15-37); BICARBONATE 24.5 MEQ/L (21.0-32.0); BLOOD UREA NITROGEN 33 MG/DL (7-18); CHLORIDE 106 MEQ/L (98-107); GLOMERULAR FILTRATION RATE 58 ML/MIN (>89); POTASSIUM 3.2 MEQ/L (3.5-5.1); SODIUM (NA) 140 MEQ/L (136-145); TOTAL BILIRUBIN ADULT 1.6 MG/DL (0.2-1.0)
[2016-05-09] MEDS ORDERED: POTASSIUM CHLOR 20 MEQ PREMIX 100 ML IV ONE (08:45)
[2016-05-09] MEDS: DOCUSATE SODIUM 100 MG CAP PO SCH ×2 (09:00→21:12)
[2016-05-09] MEDS: FLUoxetine HCL 20 MG CAP PO SCH (09:32)
[2016-05-09] MEDS: SODIUM CHLORIDE 0.9% FLUSH 5 ML FLUSH IV FLUSH SCH ×2 (09:32→21:19)
[2016-05-09] MEDS: MULTIVITAMIN TAB PO SCH (09:32)
[2016-05-09] MEDS ORDERED: PHENYLEPH/NS 1000 MCG/10 ML SYR IV ONE (11:10)
[2016-05-09] MEDS ORDERED: PROPOFOL 200 MG/20 ML AMP IV ONE (11:10)
[2016-05-09] MEDS ORDERED: GLYCOPYRROLATE 0.4 MG/2 ML VIAL IV ONE (11:10)
[2016-05-09] MEDS ORDERED: MIDAZOLAM HCL 2 MG/2 ML VIAL ONE (12:53)
[2016-05-09] MEDS ORDERED: KETAMINE HCL 500 MG/5 ML VIAL ONE (12:53)
--- NOTE | 2016-05-09 15:11 | PD.TRANSFR ---
Transfer Summary Admission Date May 08, 2016 at 05:11 Admitting Diagnosis Acute Anemia, GI Bleed Diagnoses: (1) GIB (gastrointestinal bleeding) Diagnosis: Principal (2) Anemia requiring transfusions Diagnosis: Principal (3) DU (duodenal ulcer) Diagnosis: Principal (4) Esophageal varices Diagnosis: Principal (5) Colon polyps Diagnosis: Principal Transfer Summary/Subjective 70 years old with a history of rheumatoid arthritis anxiety depression and alcoholism. Per patient he didn't have a drink for last months. He arrives from custodial facility because of dark red stool is found in his bed about 1 hour prior to ER arrival. His hemoglobin on arrival was 5.3 SUBJ 05/09 received total of 5 units PRBC and 2 units of FFP since admission. Reports no GI bleed now. Getting EGD and colonoscopy today Objective Vital Signs Date Time Temp Pulse Resp B/P Pulse Ox O2 Delivery O2 Flow Rate FiO2 05/09/16 14:00 85 05/09/16 12:04 97.8 12 153/57 95 Nasal Cannula 2 Intake and Output 05/08/16 05/08/16 05/09/16 08:00 16:00 00:00 Intake Total 240 ml 1889 ml Output Total 400 ml 600 ml Balance -160 ml 1289 ml Result Diagram: 05/09/16 0450 05/09/16 0450 Objective Remarks GEN: Lying in bed pain no acute distress HEENT: Normocephalic; atraumatic; no jaundice. Throat is clear. NECK: Neck is supple, no JVD, no lymphadenopathy. CHEST: Air entry equal bilaterally no wheezes or crackles CARDIAC: S1S2 murmurs ABDOMEN: Soft, mildly bloated, nondistended, nontender; no hepatosplenomegaly; bowel sounds are present in all four quadrants. EXTREMITIES: BLE edema with 2+ pedal edema. SKIN: Normal; no rash; no jaundice. 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 A/P Problem List: (1) GIB (gastrointestinal bleeding) ICD Code: K92.2 Status: Acute (2) Anemia ICD Code: D64.9 Status: Acute (3) Degenerative disc disease, lumbar ICD Code: M51.36 Status: Chronic Assessment and Plan GI bleed Duodenal ulcer and esophageal varices - Protonix gtt, started on Inderal 10 mg twice a day - EGD Colonoscopy today. (EGD showed duodenal ulcer and esophageal varices per RN, colonoscopy showed colon polyps-procedure report is pending at this time) - Further recommendations per GI - Rocephin for SBP prophylaxis Anemia - Due to above - Transfused 5 units of PRBC yesterday - Monitor H&H Coagulopathy - Underlying alcoholic liver disease - Vitamin K and FFP's History of alcohol abuse - [facility] protocol - Ativan when necessary - Thiamine folate and multivitamins Rheumatoid arthritis - Supportive care - Pain control Lactic acidosis - IV fluids - Monitor treatment Hypertension - Hold all hypertensive medications now - due to GI bleed DVT GI prophylaxis - TEDs SCDs Protonix Critical Care: Level 2 Consult hospitalist to assume care in am 05/10/16 Problem Qualifiers (1) GIB (gastrointestinal bleeding): Qualified Code: K92.2 - Gastrointestinal hemorrhage, unspecified gastrointestinal hemorrhage type (2) Anemia: Qualified Code: D62 - Acute posthemorrhagic anemia Mary Ordaz MD May 09, 2016 15:11
[2016-05-09] MEDS ORDERED: POTASSIUM CHLOR 20 MEQ PREMIX 100 ML IV PRN ×2 (15:30)
[2016-05-09] MEDS ORDERED: POTASSIUM PHOSPHATE INJ 30 MMOL in SODIUM CHLOR 0.9% 250 ML INJ 250 ML IV PRN (15:30)
[2016-05-09] MEDS ORDERED: POTASSIUM CL 40 MEQ/30 ML LIQ UDC PO/TUBE PRN ×2 (15:30)
[2016-05-09] MEDS ORDERED: MAGNESIUM SULFATE INJ 4 GM in SODIUM CHLORIDE 0.9% INJ 92 ML IV PRN (15:30)
[2016-05-09] MEDS ORDERED: POTASSIUM PHOSPHATE MONOBASIC 500 MG TAB PO PRN (15:30)
[2016-05-09] MEDS ORDERED: POTASSIUM CHLOR 40 MEQ PREMIX 100 ML IV PRN ×2 (15:30)
[2016-05-09] MEDS ORDERED: POTASSIUM PHOSPHATE MONOBASIC 500 MG TAB PO/TUBE PRN (15:30)
[2016-05-09] MEDS ORDERED: MAGNESIUM SULFATE INJ 2 GM in SODIUM CHLORIDE 0.9% INJ 96 ML IV PRN (15:30)
[2016-05-09] MEDS ORDERED: SODIUM PHOSPHATE INJ 30 MMOL in SODIUM CHLOR 0.9% 250 ML INJ 240 ML IV PRN (15:30)
[2016-05-09] MEDS ORDERED: MAGNESIUM OXIDE 400 MG TAB PO PRN (15:30)
[2016-05-09] MEDS: cefTRIAXone INJ 1,000 MG in SODIUM CHLORIDE 0.9% INJ 100 ML IV SCH (15:32)
[2016-05-09] MEDS: PROPRANOLOL HCL 10 MG TAB PO SCH ×2 (15:32→21:12)
[2016-05-09] MEDS: ATORVASTATIN 20 MG TAB PO SCH (21:18)
[2016-05-09 22:41] LABS: REVIEW FLAG FINAL
[2016-05-10] VITALS (14 sets, daily range): BP systolic 132–170; BP diastolic 62–82; PULSE 61–72; RESP 20–43; TEMP 97.9–98.3; O2SAT 93–98
--- NOTE | 2016-05-10 04:42 | RADRPT ---
EXAM DATE/TIME: 05/10/2016 03:43 [place] COMPARISON: No previous studies available for comparison. INDICATIONS : Shortness of breath, possible pulmonary disease. MEDICAL HISTORY : None. SURGICAL HISTORY : None. ENCOUNTER: Initial ACUITY: 1 day PAIN SCORE: 0/10 LOCATION: Bilateral chest FINDINGS: Mild left mid to lower lung parenchymal airspace disease suspected. Cardiomegaly. Degenerative change s of the spine. Right lung is clear. CONCLUSION: Left lung airspace disease. Lauri Clark MD on May 10, 2016 at 4:40 Board Certified Radiologist. This report was verified electronically.
[2016-05-10 05:12] LABS: AUTOMATED NEUTROPHIL # 5.7 TH/MM3 (1.8-7.7); BASOPHIL % 0.4 % (0.0-2.0); EOSINOPHIL # 0.7 TH/MM3 (0-0.4); EOSINOPHIL % 8.3 % (0.0-4.0); HEMATOCRIT 25.7 % (39.0-51.0); HEMO FLAGS DIFF FINAL; LYMPHOCYTE # 1.4 TH/MM3 (1.0-4.8); MEAN CELL VOLUME 86.1 FL (80.0-100.0); MEAN CORPUSCULAR HEMOGLOBIN 30.1 PG (27.0-34.0); MONO % 8.8 % (0.0-8.0); NEUT % 66.5 % (16.0-70.0); PLATELET COUNT 127 TH/MM3 (150-450); RED BLOOD COUNT 2.99 MIL/MM3 (4.50-5.90); RED CELL DISTRIBUTION WIDTH 16.6 % (11.6-17.2); WHITE BLOOD COUNT 8.6 TH/MM3 (4.0-11.0)
[2016-05-10] MEDS: SODIUM CHLOR 0.9% 1000 ML INJ 1,000 ML IV SCH (05:19)
[2016-05-10 05:32] LABS: ALKALINE PHOSPHATASE 126 U/L (45-117); ALT (GPT) 21 U/L (12-78); ANION GAP 9 MEQ/L (5-15); AST (GOT) 29 U/L (15-37); BICARBONATE 24.6 MEQ/L (21.0-32.0); BLOOD UREA NITROGEN 20 MG/DL (7-18); CHLORIDE 106 MEQ/L (98-107); GLOMERULAR FILTRATION RATE 77 ML/MIN (>89); SODIUM (NA) 140 MEQ/L (136-145); TOTAL BILIRUBIN ADULT 1.1 MG/DL (0.2-1.0)
[2016-05-10] MEDS: LEVOTHYROXINE SODIUM 75 MCG TAB PO SCH (06:34)
[2016-05-10] MEDS: PANTOPRAZOLE INJ 80 MG in SODIUM CHLORIDE 0.9% INJ 100 ML IV SCH ×2 (07:15→12:58)
--- NOTE | 2016-05-10 08:25 | HHI.GIFU ---
Subjective Remarks Resting in bed. Tolerating liquid diet. No active bleeding. No abdominal pain , nausea, vomiting. Objective Vitals I&O Vital Signs Date Time Temp Pulse Resp B/P Pulse Ox O2 Delivery O2 Flow Rate FiO2 05/10/16 06:00 61 05/10/16 04:00 97.9 62 26 148/65 96 05/10/16 04:00 62 05/10/16 02:00 63 05/10/16 00:00 98.2 62 30 132/62 94 05/10/16 00:00 62 05/09/16 22:00 64 05/09/16 20:40 96 Nasal Cannula 2.00 05/09/16 20:00 74 26 160/69 97 05/09/16 20:00 74 05/09/16 19:15 98.0 05/09/16 18:00 80 05/09/16 16:00 98.2 76 22 147/61 97 05/09/16 16:00 76 05/09/16 15:48 23 05/09/16 14:00 85 05/09/16 12:04 97.8 101 12 153/57 95 Nasal Cannula 2 05/09/16 12:00 90 05/09/16 12:00 97.9 95 22 147/66 98 05/09/16 10:00 89 I/O 05/09/16 05/09/16 05/09/16 05/10/16 05/10/16 05/10/16 07:00 15:00 23:00 07:00 15:00 23:00 Intake Total 3400 ml 986 ml 600 ml 2319 ml Output Total 1150 ml 1250 ml 825 ml Balance 2250 ml -264 ml 600 ml 1494 ml Intake Oral 2500 ml 480 ml 600 ml 800 ml IV Total 600 ml 506 ml 1519 ml Packed Cells 300 ml Output Urine Total 650 ml 600 ml 825 ml Stool Total 500 ml 650 ml # Bowel Movements 3 Laboratory Laboratory Tests Test 05/09/16 05/10/16 22:30 04:20 Hemoglobin 8.7 9.0 Hematocrit 25.0 25.7 White Blood Count 8.6 Red Blood Count 2.99 Mean Corpuscular Volume 86.1 Mean Corpuscular Hemoglobin 30.1 Mean Corpuscular Hemoglobin 35.0 Concent Red Cell Distribution Width 16.6 Platelet Count 127 Mean Platelet Volume 8.0 Neutrophils (%) (Auto) 66.5 Lymphocytes (%) (Auto) 16.0 Monocytes (%) (Auto) 8.8 Eosinophils (%) (Auto) 8.3 Basophils (%) (Auto) 0.4 Neutrophils # (Auto) 5.7 Lymphocytes # (Auto) 1.4 Monocytes # (Auto) 0.8 Eosinophils # (Auto) 0.7 Basophils # (Auto) 0.0 CBC Comment DIFF FINAL Differential Comment Sodium Level 140 Potassium Level 3.0 Chloride Level 106 Carbon Dioxide Level 24.6 Anion Gap 9 Blood Urea Nitrogen 20 Creatinine 0.97 Estimat Glomerular Filtration 77 Rate Random Glucose 82 Calcium Level 7.7 Total Bilirubin 1.1 Aspartate Amino Transf 29 (AST/SGOT) Alanine Aminotransferase 21 (ALT/SGPT) Alkaline Phosphatase 126 Total Protein 6.7 Albumin 2.1 Date/Time Procedure Status Source Growth 05/08/16 04:04 Aerobic Blood Culture - Preliminary Resulted Blood Peripheral NO GROWTH IN 1 DAY 05/08/16 04:04 Anaerobic Blood Culture - Preliminary Resulted Blood Peripheral NO GROWTH IN 1 DAY Imaging Last Impressions Chest X-Ray 05/10/16 0600 Signed Impressions: Service Date/Time: Thursday, May 10, 2016 03:43 - CONCLUSION: Left lung airspace disease. Lauri Clark MD Physical Exam HEENT: Normocephalic; atraumatic; no jaundice. CHEST: CTA CARDIAC: RRR ABDOMEN: Soft, nondistended, nontender; no hepatosplenomegaly; bowel sounds are present in all four quadrants. EXTREMITIES: BLE edema. SKIN: Normal; no rash; no jaundice. 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 Assessment and Plan Plan ASSESSMENT: - GIB, Rectal bleeding. Woke up with large amount dark red blood from rectum, x 1 episode. Some weight loss. No pain, n/v. Questionable hx of liver disease, was drinking daily 3-4 Vodka's, none since 04/19. Last colonoscopy ~ [address] Delgado and reported by patient as normal. Takes Ibuprofen at home. S/P EGD ()------> Duodenal ulcer, gastropathy, grade II esophageal varices, colon polyps. Pathology pending. Protonix Gtt. S/P 5 units PRBC. 9.0/25.7. - Anemia, acute blood loss. Severe anemia with HH 5.3/14.8 on admission. S/P 5 units PRBC. HH 9.0/25.7. Protonix gtt. - Mild coagulopathy. PT 14.8, INR 1.3. S/P 2 units FFP - JIMI, Improved. - Suspected liver disease with hepatomegaly, splenomegaly. Long hx of drinking 3-4 ETOH drinks per day, none since 2016. T. Bili 1.0, AST 29, ALT 21, ALk Phosph 126. Plt okay, mild coagulopathy and hypoalbuminemia. - BLE edema, suspected CHF per family. He had a positive stress test in January and then had a cardiac catheterization with Dr. Nobles and the patient' s son reports this as normal. - Chronic back pain. Pt states that he had a lumbar injection for this in the past and is hoping this can be done during this hospitalization. - Neuropathy, Hypothyroidism, Depression, Gout, RA per primary - Hx nonocclusive dvt in August, was tx'd with Eliquis x 1 month- not on now PLAN: - Heart healthy diet - Await pathology - D/C Protonix Gtt in am - Start Protonix 40mg po BID in am - Monitor HH - Transfuse as necessary - CBC in am - Supportive care - No NSAIDs- D/W patient - No ETOH- D/W patient - Further recommendations to follow based on results of above - PT seen and examined by Dr. Liang and myself and this note is written on his behalf Abby Garza May 10, 2016 08:25
--- NOTE | 2016-05-10 08:27 | HHI.PR ---
Subjective Remarks Patient reports that he is feeling better. No bleeding. Tolerating his diet. Objective Vitals Vital Signs Date Time Temp Pulse Resp B/P Pulse Ox O2 Delivery O2 Flow Rate FiO2 05/10/16 06:00 61 05/10/16 04:00 97.9 62 26 148/65 96 05/10/16 04:00 62 05/10/16 02:00 63 05/10/16 00:00 98.2 62 30 132/62 94 05/10/16 00:00 62 05/09/16 22:00 64 05/09/16 20:40 96 Nasal Cannula 2.00 05/09/16 20:00 74 26 160/69 97 05/09/16 20:00 74 05/09/16 19:15 98.0 05/09/16 18:00 80 05/09/16 16:00 98.2 76 22 147/61 97 05/09/16 16:00 76 05/09/16 15:48 23 05/09/16 14:00 85 05/09/16 12:04 97.8 101 12 153/57 95 Nasal Cannula 2 05/09/16 12:00 90 05/09/16 12:00 97.9 95 22 147/66 98 05/09/16 10:00 89 I/O 05/09/16 05/09/16 05/09/16 05/10/16 05/10/16 05/10/16 07:00 15:00 23:00 07:00 15:00 23:00 Intake Total 3400 ml 986 ml 600 ml 2319 ml Output Total 1150 ml 1250 ml 825 ml Balance 2250 ml -264 ml 600 ml 1494 ml Intake Oral 2500 ml 480 ml 600 ml 800 ml IV Total 600 ml 506 ml 1519 ml Packed Cells 300 ml Output Urine Total 650 ml 600 ml 825 ml Stool Total 500 ml 650 ml # Bowel Movements 3 Result Diagram: 05/10/1641905/10/16 042 Imaging Last Impressions Chest X-Ray 05/10/16 06 Signed Impressions: Service Date/Time: Tuesday, May 10, 2016 03:43 - CONCLUSION: Left lung airspace disease. Lauri Clark MD Objective Remarks GENERAL: This is a well-nourished, well-developed patient, in no apparent distress. CARDIOVASCULAR: Normal rate and regular rhythm without murmurs, gallops, or rubs. RESPIRATORY: Good respiratory efforts. Breath sounds equal and clear to auscultation bilaterally. GASTROINTESTINAL: Abdomen soft, non-tender, non-distended. Normal active bowel sounds MUSCULOSKELETAL: There are 2+ bilateral lower extremity edema. NEURO: Alert & Oriented x4 to person, place, time, situation. Moves all ext x4 PSYCH: Appropriate mood and affect. A/P Problem List: (1) GIB (gastrointestinal bleeding) ICD Code: K92.2 Status: Acute (2) Anemia requiring transfusions ICD Code: D64.9 Status: Acute (3) DU (duodenal ulcer) ICD Code: K26.9 Status: Acute (4) Esophageal varices ICD Code: I85.00 Status: Acute (5) Colon polyps ICD Code: K63.5 Status: Acute Assessment and Plan 70 Y/O male with GI bleeding: Duodenal ulcer, gastropathy, grade II, esophageal varices, colon polyps on endoscopy. Pathology pending. - Appreciate GI following. Continue Protonix drip. Plan to transition to oral PPI in a.m. per GI. - On Inderal 10 mg twice a day - Rocephin for SBP prophylaxis Anemia secondary to blood loss from GI bleeding. - s/p transfusion of 5 units of PRBC - Monitor H&H and transfuse for hgb<8 Coagulopathy - Underlying alcoholic liver disease - s/p Vitamin K and FFP's Bilateral lower extremity edema: Patient probably has underlying CHF. He is supposed to be on Lasix and Aldactone per his med rec. - We'll give him a dose of IV Lasix 40 mg 1 and resume home dose Lasix. Will obtain a 2-D echocardiogram. History of alcohol abuse - [facility] protocol - Ativan when necessary - Thiamine folate and multivitamins Rheumatoid arthritis - Supportive care - Pain control Hypokalemia: Replace and monitor. Hypertension - Resume home dose antihypertensives. DVT GI prophylaxis - TEDs SCDs Protonix Discharge Planning Stable to transfer to floor today. Problem Qualifiers (1) GIB (gastrointestinal bleeding): Qualified Code: K92.2 - Gastrointestinal hemorrhage, unspecified gastrointestinal hemorrhage type Nichol Weber MD May 10, 2016 08:27
[2016-05-10] MEDS: FLUoxetine HCL 20 MG CAP PO SCH (09:00)
[2016-05-10] MEDS: MULTIVITAMIN TAB PO SCH (09:11)
[2016-05-10] MEDS: DOCUSATE SODIUM 100 MG CAP PO SCH ×2 (09:12→21:00)
[2016-05-10] MEDS: hydrALAZINE HCL 20 MG/ML VIAL IV PRN ×2 (09:12→20:39)
[2016-05-10] MEDS: SODIUM CHLORIDE 0.9% FLUSH 5 ML FLUSH IV FLUSH SCH ×2 (09:12→21:00)
[2016-05-10] MEDS: PROPRANOLOL HCL 10 MG TAB PO SCH ×2 (09:12→21:10)
[2016-05-10] MEDS: MORPHINE SULFATE 4 MG/ML INJ IV PRN ×2 (12:28→21:14)
[2016-05-10] MEDS ORDERED: FUROSEMIDE 40 MG/4 ML VIAL IV PUSH ONE (15:00)
[2016-05-10] MEDS ORDERED: POTASSIUM CHLORIDE 10 MEQ CONTROLLED RELEASE TAB PO ONE (15:00)
[2016-05-10] MEDS: cefTRIAXone INJ 1,000 MG in SODIUM CHLORIDE 0.9% INJ 100 ML IV SCH (16:00)
[2016-05-10] MEDS: ACETAMINOPHEN/HYDROcodone 325 MG/5 MG TAB PO PRN (16:48)
[2016-05-10] MEDS: SPIRONOLACTONE 25 MG TAB PO SCH (16:48)
--- NOTE | 2016-05-10 18:07 | MR ---
cc: LINA LIANG DATE: 05/09/2016. DATE OF : 1945 PROCEDURE PERFORMED: 1. Upper gastrointestinal endoscopy with ablation of gastric ulcer and biopsy. 2. Colonoscopy with ablation of polyps and removal of flat lesion in the ascending colon. ENDOSCOPIST: Lina Liang MD. INDICATIONS FOR THE PROCEDURE: 70-year-old gentleman who has severe anemia, GI bleed. The patient is a heavy alcohol drinker on a daily basis. DESCRIPTION OF THE PROCEDURE IN DETAIL: After informing the patient about the procedure and complications, consent was signed. The patient was placed on his left lateral decubitus and adequate sedation was achieved by propofol. The scope was placed in the mouth and advanced under video guidance to the second portion of the duodenum. The scope was drawn back to the stomach. Retroflexion was performed. Biopsy was done. Ablation of duodenal ulcer was done to prevent bleeding. After that, the scope was drawn back without immediate complication. Rectal exam was performed. The scope was placed in the rectum and advanced under video guidance to the cecum which was identified by the ileocecal valve and appendiceal orifice. The scope was drawn back. There were two small polyp 5 mm each in the ascending colon which were ablated with heat. There was a flat 2 cm lesion in the ascending colon, which was removed in multiple pieces and cauterized and removed via snare. The scope was drawn back to the rectum. Retroflexion was performed and then the scope was drawn back without any immediate complications. FINDINGS: 1. Esophagus: Grade 2 esophageal varices. No active bleeding. Decreased in size with insufflation. 2. Stomach: Gastropathy. Biopsy was done. 3. Duodenum: Large multiple ulcers deep with two of them having obvious vessels that were ablated and most likely that is the source of the bleeding. 4. In the colon, three polyps, two small 5 mm each ablated with heat, and one 2-cm flat lesion that was removed in multiple pieces. 5. Small hemorrhoids. 6. Some stool may have obscured vision of a small lesion. RECOMMENDATIONS: 1. Clear liquids. 2. CBC in the morning. 3. No NSAIDs. 4. No alcohol. 5. Protonix 40 milligrams daily. 6. Inderal 20 milligrams p.o. daily to prevent esophageal varices bleed. 7. Colonoscopy in one year. 8. Followup biopsy. MD REGINA Patel/SHANTEL /11:59 AM /5:58 PM
[2016-05-10] MEDS: DILTIAZEM HCL 30 MG TAB PO SCH (21:09)
[2016-05-10] MEDS: ATORVASTATIN 20 MG TAB PO SCH (21:10)
[2016-05-11] VITALS (10 sets, daily range): BP systolic 122–148; BP diastolic 52–74; PULSE 63–72; RESP 17–37; TEMP 96.6–98.3; O2SAT 95–97
[2016-05-11] MEDS: CHLORHEXIDINE GLUCONATE 2 % 1 PACK (2 CLOTHS) TOP SCH ×2 (04:00→20:00)
[2016-05-11] MEDS: TERAZOSIN HCL 1 MG CAP PO SCH ×2 (05:40→19:59)
[2016-05-11] MEDS: LEVOTHYROXINE SODIUM 75 MCG TAB PO SCH (05:40)
[2016-05-11 07:45] LABS: AUTOMATED NEUTROPHIL # 4.8 TH/MM3 (1.8-7.7); BASOPHIL # 0.1 TH/MM3 (0-0.2); BASOPHIL % 0.7 % (0.0-2.0); EOSINOPHIL # 0.5 TH/MM3 (0-0.4); EOSINOPHIL % 6.6 % (0.0-4.0); HEMATOCRIT 25.9 % (39.0-51.0); HEMO FLAGS DIFF FINAL; LYMPH % 17.9 % (9.0-44.0); LYMPHOCYTE # 1.3 TH/MM3 (1.0-4.8); MEAN CELL VOLUME 87.9 FL (80.0-100.0); MEAN CORPUSCULAR HEMOGLOBIN 29.8 PG (27.0-34.0); MEAN CORPUSCULAR HGB CONC 33.9 % (32.0-36.0); MONO % 9.1 % (0.0-8.0); NEUT % 65.7 % (16.0-70.0); PLATELET COUNT 105 TH/MM3 (150-450); RED BLOOD COUNT 2.94 MIL/MM3 (4.50-5.90); RED CELL DISTRIBUTION WIDTH 17.5 % (11.6-17.2); WHITE BLOOD COUNT 7.2 TH/MM3 (4.0-11.0)
[2016-05-11] MEDS: SPIRONOLACTONE 25 MG TAB PO SCH ×2 (07:56→16:49)
[2016-05-11] MEDS: PROPRANOLOL HCL 10 MG TAB PO SCH ×2 (07:56→20:00)
[2016-05-11] MEDS: PANTOPRAZOLE SOD 40 MG DELAYED RELEASE TAB PO SCH ×2 (07:56→20:00)
[2016-05-11] MEDS: DOCUSATE SODIUM 100 MG CAP PO SCH ×2 (07:56→19:59)
[2016-05-11] MEDS: FLUoxetine HCL 20 MG CAP PO SCH (07:56)
[2016-05-11] MEDS: DILTIAZEM HCL 30 MG TAB PO SCH ×2 (07:56→20:00)
[2016-05-11] MEDS: amLODIPine BESYLATE 5 MG TAB PO SCH (07:56)
[2016-05-11] MEDS: MULTIVITAMIN TAB PO SCH (07:56)
[2016-05-11] MEDS: FUROSEMIDE 40 MG TAB PO SCH ×2 (07:56→16:49)
[2016-05-11] MEDS: SODIUM CHLORIDE 0.9% FLUSH 5 ML FLUSH IV FLUSH SCH ×2 (07:57→19:59)
[2016-05-11] MEDS: MORPHINE SULFATE 4 MG/ML INJ IV PRN ×2 (07:57→10:05)
[2016-05-11 08:09] LABS: BICARBONATE 21.2 MEQ/L (21.0-32.0); POTASSIUM 3.4 MEQ/L (3.5-5.1)
[2016-05-11] MEDS: ACETAMINOPHEN/HYDROcodone 325 MG/5 MG TAB PO PRN ×2 (10:04→16:52)
--- NOTE | 2016-05-11 11:30 | HHI.GIFU ---
Subjective Remarks 70 yo male lying in bed in no apparent distress. Tolerating diet. No active bleeding. No nausea, vomiting, or abdominal pain. Objective Vitals I&O Vital Signs Date Time Temp Pulse Resp B/P Pulse Ox O2 Delivery O2 Flow Rate FiO2 05/11/16 10:00 68 05/11/16 08:33 97 Nasal Cannula 2.00 05/11/16 08:02 16 05/11/16 08:00 98.3 69 37 148/67 96 05/11/16 08:00 71 05/11/16 06:00 68 05/11/16 04:00 98.3 71 37 144/63 96 05/11/16 04:00 71 05/11/16 02:00 68 05/11/16 00:00 72 05/11/16 00:00 98.3 66 31 122/74 95 05/10/16 22:00 72 05/10/16 20:37 95 21 05/10/16 20:00 65 05/10/16 20:00 98.3 67 43 168/72 93 05/10/16 18:05 18 05/10/16 18:00 61 05/10/16 16:00 97.9 72 20 158/82 96 05/10/16 16:00 68 05/10/16 14:00 61 05/10/16 12:00 68 05/10/16 12:00 98.2 69 20 138/63 94 I/O 05/10/16 05/10/16 05/10/16 05/11/16 05/11/16 05/11/16 07:00 15:00 23:00 07:00 15:00 23:00 Intake Total 2319 ml 2506 ml 479 ml Output Total 825 ml 2550 ml 225 ml Balance 1494 ml -44 ml 254 ml Intake Oral 800 ml 960 ml 360 ml IV Total 1519 ml 1546 ml 119 ml Output Urine Total 825 ml 2550 ml 225 ml # Bowel Movements 1 Laboratory Laboratory Tests Test 05/11/16 05/11/16 06:51 06:57 White Blood Count 7.2 Red Blood Count 2.94 Hemoglobin 8.8 Hematocrit 25.9 Mean Corpuscular Volume 87.9 Mean Corpuscular Hemoglobin 29.8 Mean Corpuscular Hemoglobin 33.9 Concent Red Cell Distribution Width 17.5 Platelet Count 105 Mean Platelet Volume 8.1 Neutrophils (%) (Auto) 65.7 Lymphocytes (%) (Auto) 17.9 Monocytes (%) (Auto) 9.1 Eosinophils (%) (Auto) 6.6 Basophils (%) (Auto) 0.7 Neutrophils # (Auto) 4.8 Lymphocytes # (Auto) 1.3 Monocytes # (Auto) 0.7 Eosinophils # (Auto) 0.5 Basophils # (Auto) 0.1 CBC Comment DIFF FINAL Differential Comment Sodium Level 138 Potassium Level 3.4 Chloride Level 105 Carbon Dioxide Level 21.2 Anion Gap 12 Blood Urea Nitrogen 18 Creatinine 1.17 Estimat Glomerular Filtration 62 Rate Random Glucose 71 Calcium Level 7.8 Date/Time Procedure Status Source Growth 05/08/16 04:04 Aerobic Blood Culture - Preliminary Resulted Blood Peripheral NO GROWTH IN 3 DAYS 05/08/16 04:04 Anaerobic Blood Culture - Preliminary Resulted Blood Peripheral NO GROWTH IN 3 DAYS Imaging Last Impressions Chest X-Ray 05/10/16 0600 Signed Impressions: Service Date/Time: Thursday, May 10, 2016 03:43 - CONCLUSION: Left lung airspace disease. Lauri Clark MD Physical Exam HEENT: PERRLA. Normocephalic; atraumatic; no jaundice. CHEST: CTA CARDIAC: RRR ABDOMEN: Soft, nondistended, nontender; no hepatosplenomegaly; bowel sounds x 4 quadrants. EXTREMITIES: BLE edema. SKIN: Normal; no rash; no jaundice. FILM MOUNTER: A&O x 3. Assessment and Plan Plan ASSESSMENT: - GIB, Rectal bleeding. Woke up with large amount dark red blood from rectum, x 1 episode. Some weight loss. No pain, n/v. Questionable hx of liver disease, was drinking daily 3-4 Vodka's, none since 04/19. Last colonoscopy ~ [address] Delgado and reported by patient as normal. Takes Ibuprofen at home. S/P EGD ()------> Duodenal ulcer, gastropathy, grade II esophageal varices, colon polyps. Pathology pending. Protonix Gtt. S/P 5 units PRBC. HH 8.8/25.9. - Anemia, acute blood loss. Severe anemia with HH 5.3/14.8 on admission. S/P 5 units PRBC. HH 8.8/25.9. Protonix gtt. - Mild coagulopathy. PT 14.8, INR 1.3. S/P 2 units FFP - [facility], Improved. - Suspected liver disease with hepatomegaly, splenomegaly. Long hx of drinking 3-4 ETOH drinks per day, none since 2016. T. Bili 1.1, AST 29, ALT 21, ALk Phosph 126. Plt okay, mild coagulopathy and hypoalbuminemia. - BLE edema, suspected CHF per family. He had a positive stress test in January and then had a cardiac catheterization with Dr. Nobles and the patient' s son reports this as normal. - Chronic back pain. Pt states that he had a lumbar injection for this in the past and is hoping this can be done during this hospitalization. - Neuropathy, Hypothyroidism, Depression, Gout, RA per primary - Hx nonocclusive dvt in August, was tx'd with Eliquis x 1 month- not on now PLAN: - [facility] - Await pathology - Protonix 40mg po BID - Monitor HH - Transfuse as necessary - CBC in AM - Supportive care - No NSAIDs- D/W patient - No ETOH- D/W patient - Further recommendations to follow based on results of above PT seen and examined by Dr. Liang and myself and this note is written on his behalf Jaja Anton May 11, 2016 11:30
--- NOTE | 2016-05-11 11:34 | HHI.PR ---
Subjective Remarks Patient reports that he is feeling better compared to yesterday. No bleeding. No chest pressure or increase in shortness of breath. He is agreeable to assisted facility placement. Objective Vitals Vital Signs Date Time Temp Pulse Resp B/P Pulse Ox O2 Delivery O2 Flow Rate FiO2 05/11/16 10:00 68 05/11/16 08:33 97 Nasal Cannula 2.00 05/11/16 08:02 16 05/11/16 08:00 98.3 69 37 148/67 96 05/11/16 08:00 71 05/11/16 06:00 68 05/11/16 04:00 98.3 71 37 144/63 96 05/11/16 04:00 71 05/11/16 02:00 68 05/11/16 00:00 72 05/11/16 00:00 98.3 66 31 122/74 95 05/10/16 22:00 72 05/10/16 20:37 95 21 05/10/16 20:00 65 05/10/16 20:00 98.3 67 43 168/72 93 05/10/16 18:05 18 05/10/16 18:00 61 05/10/16 16:00 97.9 72 20 158/82 96 05/10/16 16:00 68 05/10/16 14:00 61 05/10/16 12:00 68 05/10/16 12:00 98.2 69 20 138/63 94 I/O 05/10/16 05/10/16 05/10/16 05/11/16 05/11/16 05/11/16 07:00 15:00 23:00 07:00 15:00 23:00 Intake Total 2319 ml 2506 ml 479 ml Output Total 825 ml 2550 ml 225 ml Balance 1494 ml -44 ml 254 ml Intake Oral 800 ml 960 ml 360 ml IV Total 1519 ml 1546 ml 119 ml Output Urine Total 825 ml 2550 ml 225 ml # Bowel Movements 1 Result Diagram: 05/11/16 0651 05/11/16 0657 Objective Remarks GENERAL: This is a well-nourished, well-developed patient, in no apparent distress. CARDIOVASCULAR: Normal rate and regular rhythm without murmurs, gallops, or rubs. RESPIRATORY: Good respiratory efforts. Breath sounds equal and clear to auscultation bilaterally. GASTROINTESTINAL: Abdomen soft, non-tender, non-distended. Normal active bowel sounds MUSCULOSKELETAL: There are 2+ bilateral lower extremity pitting edema. NEURO: Alert & Oriented x4 to person, place, time, situation. Moves all ext x4 PSYCH: Appropriate mood and affect. A/P Problem List: (1) GIB (gastrointestinal bleeding) ICD Code: K92.2 Status: Acute (2) Anemia requiring transfusions ICD Code: D64.9 Status: Acute (3) DU (duodenal ulcer) ICD Code: K26.9 Status: Acute (4) Esophageal varices ICD Code: I85.00 Status: Acute (5) Colon polyps ICD Code: K63.5 Status: Acute Assessment and Plan 70 Y/O male with GI bleeding: Duodenal ulcer, gastropathy, grade II, esophageal varices, colon polyps on endoscopy. Pathology pending. - Appreciate GI following. Status post Protonix drip. Transition to oral PPI today. - On Inderal 10 mg twice a day - Patient has been on Rocephin for SBP prophylaxis. Appear to be stable, will discontinue Rocephin. Anemia secondary to blood loss from GI bleeding. - s/p transfusion of 5 units of PRBC - Monitor H&H and transfuse for hgb<8 Coagulopathy - Underlying alcoholic liver disease - s/p Vitamin K and FFP's Bilateral lower extremity edema: Patient probably has underlying CHF. He is supposed to be on Lasix and Aldactone per his med rec. -Status post IV Lasix 40 mg 1. resume home dose Lasix. obtain a 2-D echocardiogram. History of alcohol abuse - [facility] protocol - Ativan when necessary - Thiamine folate and multivitamins Rheumatoid arthritis - Supportive care - Pain control Physical deconditioning: Secondary to above comorbid conditions. Patient needs rehabilitation. He is agreeable to SNF placement. Hypokalemia: Replace and monitor. Hypertension - Resume home dose antihypertensives. DVT GI prophylaxis - TEDs SCDs Protonix Discharge Planning Stable to transfer to floor today. Problem Qualifiers (1) GIB (gastrointestinal bleeding): Qualified Code: K92.2 - Gastrointestinal hemorrhage, unspecified gastrointestinal hemorrhage type Nichol Weber MD May 11, 2016 11:34
--- NOTE | 2016-05-11 13:56 | EC ---
Study Study Date:05/11/2016 STUDY CONCLUSIONS SUMMARY - Left ventricle: The cavity size was normal. Wall thickness was normal. Systolic function was normal. The estimated ejection fraction was in the range of 55% to 60%. Wall motion was normal; there were no regional wall motion abnormalities. - Aortic valve: Valve area: 3.01cm^2(VTI). Valve area: 2.79cm^2 (Vmax). - Mitral valve: Valve area by continuity equation (using LVOT flow): 2.95cm^2. If LV function is below 40, please consider prescribing an ACEI or ARB or document rationale for non-use. PROCEDURE DATA STUDY STATUS: Elective. Procedure: Transthoracic echocardiography. Image quality was good. Scanning was performed from the parasternal, apical, and subcostal acoustic windows. Study completion: The patient tolerated the procedure well. Transthoracic echocardiography. M-mode, complete 2D, complete spectral Doppler, and color Doppler. Height: Height: 70in. Weight: Weight: 248.5lb. Body mass index: BMI: 35.7kg/m^2. Body surface area: BSA: 2.29m^2. Patient status: Inpatient. CARDIAC ANATOMY LEFT VENTRICLE: The cavity size was normal. Wall thickness was normal. Systolic function was normal. The estimated ejection fraction was in the range of 55% to 60%. Wall motion was normal; there were no regional wall motion abnormalities. AORTIC VALVE: Trileaflet; normal thickness leaflets. Doppler: Transvalvular velocity was within the normal range. There was no stenosis. No regurgitation. Valve area: 3.01cm^2(VTI). Indexed valve area: 1.31cm^2/m^2 (VTI). Valve area: 2.79cm^2 (Vmax). Indexed valve area: 1.22cm^2/m^2 (Vmax). Mean gradient: 7mm Hg (S). Peak gradient: 14mm Hg (S). AORTA: Aortic root: The aortic root was normal in size. MITRAL VALVE: Structurally normal valve. Doppler: Transvalvular velocity was within the normal range. There was no evidence for stenosis. No regurgitation. Valve area by continuity equation (using LVOT flow): 2.95cm^2. Indexed valve area by continuity equation (using LVOT flow): 1.29cm^2/m^2. Mean gradient: 1mm Hg (D). Peak gradient: 4mm Hg (D). LEFT ATRIUM: The atrium was normal in size. RIGHT VENTRICLE: The cavity size was normal. Wall thickness was normal. PULMONIC VALVE: Doppler: Transvalvular velocity was within the normal range. There was no evidence for stenosis. No regurgitation. TRICUSPID VALVE: Structurally normal valve. Doppler: Transvalvular velocity was within the normal range. No regurgitation. PULMONARY ARTERY: The main pulmonary artery was normal-sized. Systolic pressure was within the normal range. RIGHT ATRIUM: The atrium was normal in size. PERICARDIUM: There was no pericardial effusion. SYSTEMIC VEINS: Inferior vena cava: The vessel was normal in size. Patient weight: 248.5lb _Ejection fraction:_ 65-75% _Fractional shortening:_ 32% up to 5Kg 5-11.5Kg 11.6-22.9Kg 23-45Kg 45-57Kg Aortic Root 7-13 <17 13-22 17-27 17-27 LA diam 6-13 <23 24-38 33-47 37-40 RVID 10-17 7-15 7-15 7-18 8-17 LVIDd 12-22 <32 24-38 33-47 37-40 LVPW 2-4 3-6 5-7 6-8 7-8 IVS 2-4 3-6 5-7 6-8 7-8 BASIC MEASUREMENTS ADULT NORMAL Left ventricle LV internal dimension, ED, chordal 43.5 mm 43-52 level, PLAX LV internal dimension, ES, chordal 30.1 mm 23-38 level, PLAX Fractional shortening, chordal level, 31 % >29 PLAX LV posterior wall thickness, ED 12 mm IVS/LVPW ratio, ED 1 <1.3 Ventricular septum Septal thickness, ED 12 mm Aortic valve Leaflet separation 21 mm 15-26 Aorta Root diameter, ED 34 mm Left atrium Anterior-posterior dimension 38 mm Anterior-posterior dimension index 1.66 cm/m^2 <2.2 BASIC MEASUREMENTS ADULT NORMAL Aortic valve Leaflet separation 21 mm 15-26 DOPPLER MEASUREMENTS ADULT NORMAL Aortic valve Peak velocity, S 185 cm/s Mean velocity, S 118 cm/s VTI, S 41.8 cm Mean gradient, S 7 mm Hg Peak gradient, S 14 mm Hg Valve area, VTI 3.01 cm^2 Valve area index, VTI 1.31 cm^2/m^2 Valve area, Vmax 2.79 cm^2 Valve area index, Vmax 1.22 cm^2/m^2 Mitral valve Peak E-wave velocity 86.9 cm/s Peak A-wave velocity 73.1 cm/s Mean velocity, D 55.9 cm/s Deceleration time *261 ms 150-230 Mean gradient, D 1 mm Hg Peak gradient, D 4 mm Hg Peak E/A ratio 1.2 Valve area, LVOT continuity 2.95 cm^2 Valve area index, LVOT continuity 1.29 cm^2/m^2 Tricuspid valve Regurgitant peak velocity 101 cm/s Peak RV-RA gradient, S 4 mm Hg Maximal regurgitant velocity 101 cm/s Pulmonic valve Peak velocity, S 85.7 cm/s LEGEND: Mean values are shown as u=mean value. Asterisk (*) sandoval values outside specified normal range. Prepared and signed by Hasmukh Loya [id number]
[2016-05-11] MEDS: cefTRIAXone INJ 1,000 MG in SODIUM CHLORIDE 0.9% INJ 100 ML IV SCH (16:49)
[2016-05-11] MEDS: ATORVASTATIN 20 MG TAB PO SCH (20:00)
[2016-05-12] VITALS: BP 126/60; PULSE 63; RESP 17; TEMP 96; O2SAT 97
[2016-05-12] MEDS: LEVOTHYROXINE SODIUM 75 MCG TAB PO SCH (05:18)
[2016-05-12 08:00] VITALS: BP 136/63; PULSE 77; RESP 18; TEMP 98.4; O2SAT 97
--- NOTE | 2016-05-12 10:22 | HHI.GIFU ---
Subjective Remarks Resting in bed. No n/v. No GI bleeding. No abdominal pain. (Abby Garza) Objective Vitals I&O Vital Signs Date Time Temp Pulse Resp B/P Pulse Ox O2 Delivery O2 Flow Rate FiO2 05/12/16 08:00 98.4 77 18 136/63 97 05/12/16 00:00 96.0 63 17 126/60 97 05/11/16 20:00 96.6 63 17 130/61 97 05/11/16 17:52 20 05/11/16 16:00 97.8 65 19 134/52 95 05/11/16 12:00 97.9 67 20 132/59 96 05/11/16 12:00 71 I/O 05/11/16 05/11/16 05/11/16 05/12/16 05/12/16 05/12/16 07:00 15:00 23:00 07:00 15:00 23:00 Intake Total 479 ml 360 ml 240 ml Output Total 225 ml 900 ml 400 ml Balance 254 ml -540 ml -160 ml Intake Oral 360 ml 360 ml 240 ml IV Total 119 ml Output Urine Total 225 ml 900 ml 400 ml # Bowel Movements 1 1 Laboratory Date/Time Procedure Status Source Growth 05/08/16 04:04 Aerobic Blood Culture - Preliminary Resulted Blood Peripheral NO GROWTH IN 3 DAYS 05/08/16 04:04 Anaerobic Blood Culture - Preliminary Resulted Blood Peripheral NO GROWTH IN 3 DAYS Imaging Last Impressions Chest X-Ray 05/10/16 0600 Signed Impressions: Service Date/Time: Tuesday, May 10, 2016 03:43 - CONCLUSION: Left lung airspace disease. Lauri Clark MD Physical Exam HEENT: PERRLA. Normocephalic; atraumatic; no jaundice. CHEST: CTA CARDIAC: RRR ABDOMEN: Soft, nondistended, nontender; no hepatosplenomegaly; bowel sounds x 4 quadrants. EXTREMITIES: BLE edema. SKIN: Normal; no rash; no jaundice. CARE TRANSITION MGR: A&O x 3. (Abby Garza) Assessment and Plan Plan ASSESSMENT: - GIB, Rectal bleeding. Woke up with large amount dark red blood from rectum, x 1 episode. Some weight loss. No pain, n/v. Questionable hx of liver disease, was drinking daily 3-4 Vodka's, none since 04/19. Last colonoscopy ~ [address] Delgado and reported by patient as normal. Takes Ibuprofen at home. S/P EGD ()------> Duodenal ulcer, gastropathy, grade II esophageal varices, colon polyps. Pathology pending. Protonix Gtt. S/P 5 units PRBC. HH 8.8/25.9 yesterday. - Anemia, acute blood loss. Severe anemia with HH 5.3/14.8 on admission. S/P 5 units PRBC. HH 8.8/25.9 yesterday. Protonix - Mild coagulopathy. S/P 2 units FFP - JIMI, Improved. - Suspected liver disease with hepatomegaly, splenomegaly. Long hx of drinking 3-4 ETOH drinks per day, none since 2016. T. Bili 1.1, AST 29, ALT 21, ALk Phosph 126 on 05/10. Plt okay, mild coagulopathy and hypoalbuminemia. - BLE edema, suspected CHF per family. He had a positive stress test in January and then had a cardiac catheterization with Dr. Nobles and the patient' s son reports this as normal. Per cardiology. S/P 2D echo. - Chronic back pain. Pt states that he had a lumbar injection for this in the past and is hoping this can be done during this hospitalization. - Neuropathy, Hypothyroidism, Depression, Gout, RA per primary - Hx nonocclusive dvt in August, was tx'd with Eliquis x 1 month- not on now PLAN: - CAROL - Await pathology - Protonix 40mg po BID - Monitor HH - Transfuse as necessary - CBC in AM - Supportive care - No NSAIDs- D/W patient - No ETOH- D/W patient - Further recommendations to follow based on results of above - PT seen and examined by Dr. Hernandez and myself and this note is written on his behalf (Abby Garza) Physician Comments Patient seen and examined Agree with above Continue with current supportive care Monitor labs (Rasheed Hernandez MD) Abby Garza May 12, 2016 10:22 Rasheed Hernandez MD May 13, 2016 00:28
[2016-05-12] MEDS: ACETAMINOPHEN/HYDROcodone 325 MG/5 MG TAB PO PRN ×2 (10:54→16:22)
[2016-05-12] MEDS: MULTIVITAMIN TAB PO SCH (10:54)
[2016-05-12] MEDS: amLODIPine BESYLATE 5 MG TAB PO SCH (10:54)
[2016-05-12] MEDS: FUROSEMIDE 40 MG TAB PO SCH ×2 (10:54→16:22)
[2016-05-12] MEDS: SPIRONOLACTONE 25 MG TAB PO SCH ×2 (10:54→16:22)
[2016-05-12] MEDS: FLUoxetine HCL 20 MG CAP PO SCH (10:55)
[2016-05-12] MEDS: DOCUSATE SODIUM 100 MG CAP PO SCH ×2 (10:55→19:45)
[2016-05-12] MEDS: PROPRANOLOL HCL 10 MG TAB PO SCH ×2 (10:55→19:46)
[2016-05-12] MEDS: DILTIAZEM HCL 30 MG TAB PO SCH ×2 (10:56→19:45)
[2016-05-12] MEDS: PANTOPRAZOLE SOD 40 MG DELAYED RELEASE TAB PO SCH ×2 (10:56→19:46)
[2016-05-12] MEDS: MORPHINE SULFATE 4 MG/ML INJ IV PRN ×2 (11:15→18:20)
--- NOTE | 2016-05-12 11:18 | HHI.PR ---
Subjective Remarks Patient reports worsening of his chronic back pain today requiring IV morphine. Otherwise reports feeling better overall. Patient is family requested [facility] instead of going to a alf facility. Objective Vitals Vital Signs Date Time Temp Pulse Resp B/P Pulse Ox O2 Delivery O2 Flow Rate FiO2 05/12/16 08:00 98.4 77 18 136/63 97 05/12/16 00:00 96.0 63 17 126/60 97 05/11/16 20:00 96.6 63 17 130/61 97 05/11/16 17:52 20 05/11/16 16:00 97.8 65 19 134/52 95 05/11/16 12:00 97.9 67 20 132/59 96 05/11/16 12:00 71 I/O 05/11/16 05/11/16 05/11/16 05/12/16 05/12/16 05/12/16 07:00 15:00 23:00 07:00 15:00 23:00 Intake Total 479 ml 360 ml 240 ml Output Total 225 ml 900 ml 400 ml Balance 254 ml -540 ml -160 ml Intake Oral 360 ml 360 ml 240 ml IV Total 119 ml Output Urine Total 225 ml 900 ml 400 ml # Bowel Movements 1 1 Result Diagram: 05/11/16 0651 05/11/16 0657 Objective Remarks GENERAL: This is a well-nourished, well-developed patient, in no apparent distress. SKIN: Some desquamation and redness over the sacral area. CARDIOVASCULAR: Normal rate and regular rhythm without murmurs, gallops, or rubs. RESPIRATORY: Good respiratory efforts. Breath sounds equal and clear to auscultation bilaterally. GASTROINTESTINAL: Abdomen soft, non-tender, non-distended. Normal active bowel sounds MUSCULOSKELETAL: There are 2+ bilateral lower extremity pitting edema. NEURO: Alert & Oriented x4 to person, place, time, situation. Moves all ext x4 PSYCH: Appropriate mood and affect. A/P Problem List: (1) GIB (gastrointestinal bleeding) ICD Code: K92.2 Status: Acute (2) Anemia requiring transfusions ICD Code: D64.9 Status: Acute (3) DU (duodenal ulcer) ICD Code: K26.9 Status: Acute (4) Esophageal varices ICD Code: I85.00 Status: Acute (5) Colon polyps ICD Code: K63.5 Status: Acute Assessment and Plan 70 Y/O male with GI bleeding: Duodenal ulcer, gastropathy, grade II, esophageal varices, colon polyps on endoscopy. Pathology pending. - Appreciate GI following. Status post Protonix drip. Transitioned to oral PPI. - On Inderal 10 mg twice a day - Patient has been on Rocephin for SBP prophylaxis. Appear to be stable, will discontinue antibiotics. Monitor off antibiotics. Anemia secondary to blood loss from GI bleeding. - s/p transfusion of 5 units of PRBC - Monitor H&H and transfuse for hgb<8 Stage 2 sacral pressure ulcer: Present on admission. Consult wound care. Dressing changes per nursing. Coagulopathy - Underlying alcoholic liver disease - s/p Vitamin K and FFP's Bilateral lower extremity edema: Patient reports this comes and goes. Initially denied history of CHF but reports he was diagnosed at an outside hospital. 2-D echocardiogram here revealed preserved LVEF. He is on Lasix and Aldactone at home. -Status post IV Lasix 40 mg 1. Continue home dose Lasix and spironolactone. Monitor I/O's. Monitor for progress. History of alcohol abuse - [facility] protocol - Ativan when necessary - Thiamine folate and multivitamins Rheumatoid arthritis - Supportive care - Pain control Physical deconditioning: Secondary to above comorbid conditions. Patient needs rehabilitation. Family requested [facility]. Will have [facility] evaluate him. If he does not qualify, will need to go to a alf facility. Hypokalemia: Replace and monitor. Hypertension - Resume home dose antihypertensives. DVT GI prophylaxis - TEDs SCDs Protonix Discharge Planning Case management following. [facility] to evaluate. Problem Qualifiers (1) GIB (gastrointestinal bleeding): Qualified Code: K92.2 - Gastrointestinal hemorrhage, unspecified gastrointestinal hemorrhage type Nichol Weber MD May 12, 2016 11:18
[2016-05-12 12:00] VITALS: BP 159/68; PULSE 67; RESP 18; TEMP 97.2; O2SAT 98
[2016-05-12 16:00] VITALS: BP 142/68; PULSE 72; RESP 18; TEMP 98.4; O2SAT 97
[2016-05-12] MEDS: TERAZOSIN HCL 1 MG CAP PO SCH (19:45)
[2016-05-12] MEDS: CHLORHEXIDINE GLUCONATE 2 % 1 PACK (2 CLOTHS) TOP SCH (19:46)
[2016-05-12] MEDS: ATORVASTATIN 20 MG TAB PO SCH (19:46)
[2016-05-12] MEDS: SODIUM CHLORIDE 0.9% FLUSH 5 ML FLUSH IV FLUSH SCH (19:48)
[2016-05-12 20:00] VITALS: BP 108/55; PULSE 69; RESP 18; TEMP 97.5; O2SAT 98
[2016-05-13] VITALS: BP 102/55; PULSE 61; RESP 16; TEMP 96.8; O2SAT 96
[2016-05-13] MEDS: LEVOTHYROXINE SODIUM 75 MCG TAB PO SCH (05:05)
[2016-05-13 06:07] LABS: BICARBONATE 24.2 MEQ/L (21.0-32.0)
[2016-05-13 07:14] LABS: AUTOMATED NEUTROPHIL # 3.4 TH/MM3 (1.8-7.7); BASOPHIL % 0.6 % (0.0-2.0); EOSINOPHIL # 0.4 TH/MM3 (0-0.4); EOSINOPHIL % 7.1 % (0.0-4.0); HEMATOCRIT 26.3 % (39.0-51.0); LYMPH % 21.5 % (9.0-44.0); LYMPHOCYTE # 1.2 TH/MM3 (1.0-4.8); MEAN CELL VOLUME 88.3 FL (80.0-100.0); MEAN CORPUSCULAR HEMOGLOBIN 29.6 PG (27.0-34.0); MEAN CORPUSCULAR HGB CONC 33.5 % (32.0-36.0); MONO % 9.5 % (0.0-8.0); NEUT % 61.3 % (16.0-70.0); PLATELET COUNT 83 TH/MM3 (150-450); RED BLOOD COUNT 2.98 MIL/MM3 (4.50-5.90); RED CELL DISTRIBUTION WIDTH 17.9 % (11.6-17.2); WHITE BLOOD COUNT 5.5 TH/MM3 (4.0-11.0)
[2016-05-13 07:43] LABS: HEMO FLAGS AUTO DIFF
[2016-05-13 07:45] LABS: PLATELET ESTIMATE SMEAR LOW (NORMAL); PLATELET MORPHOLOGY NORMAL (NORMAL); SCAN/DIFF AUTO DIFF CONFIRMED
[2016-05-13 08:30] VITALS: BP 117/56; PULSE 72; RESP 17; TEMP 97.1; O2SAT 97
[2016-05-13] MEDS: SPIRONOLACTONE 25 MG TAB PO SCH (09:00)
[2016-05-13] MEDS: amLODIPine BESYLATE 5 MG TAB PO SCH (09:00)
[2016-05-13] MEDS: PROPRANOLOL HCL 10 MG TAB PO SCH (09:00)
[2016-05-13] MEDS: DILTIAZEM HCL 30 MG TAB PO SCH (09:00)
--- NOTE | 2016-05-13 09:39 | HHI.PR ---
Subjective Remarks Follow-up GI bleed 05/13/16-patient seen and examined, currently stable and denies any GI bleed. BP soft however no complaint of dizziness. Only complains now of back pain. Objective Vitals Vital Signs Date Time Temp Pulse Resp B/P Pulse Ox O2 Delivery O2 Flow Rate FiO2 05/13/16 08:30 97.1 72 17 117/56 97 05/13/16 00:00 96.8 61 16 102/55 96 05/12/16 20:00 97.5 69 18 108/55 98 05/12/16 16:00 98.4 72 18 142/68 97 05/12/16 12:00 97.2 67 18 159/68 98 I/O 05/12/16 05/12/16 05/12/16 05/13/16 05/13/16 05/13/16 07:00 15:00 23:00 07:00 15:00 23:00 Intake Total 240 ml 120 ml 240 ml 240 ml Output Total 400 ml 975 ml 1350 ml 200 ml Balance -160 ml -855 ml -1110 ml 40 ml Intake Oral 240 ml 120 ml 240 ml 240 ml Output Urine Total 400 ml 975 ml 1350 ml 200 ml # Bowel Movements 2 0 0 Result Diagram: 05/13/16 0510 05/13/16 0510 Imaging Last Impressions Chest X-Ray 05/10/16 0600 Signed Impressions: Service Date/Time: Tuesday, May 10, 2016 03:43 - CONCLUSION: Left lung airspace disease. Lauri Clark MD Objective Remarks GENERAL: NAD SKIN: Warm and dry. HEAD: Normocephalic. EYES: No scleral icterus. No injection or drainage. NECK: Supple, trachea midline. No JVD or lymphadenopathy. CARDIOVASCULAR: Regular rate and rhythm without murmurs, gallops, or rubs. RESPIRATORY: Breath sounds equal bilaterally. No accessory muscle use. GASTROINTESTINAL: Abdomen soft, non-tender, nondistended. MUSCULOSKELETAL: No cyanosis; +2 edema. BACK: Nontender without obvious deformity. No CVA tenderness. A/P Problem List: (1) GIB (gastrointestinal bleeding) ICD Code: K92.2 Status: Acute (2) Anemia requiring transfusions ICD Code: D64.9 Status: Acute (3) DU (duodenal ulcer) ICD Code: K26.9 Status: Acute (4) Esophageal varices ICD Code: I85.00 Status: Acute (5) Colon polyps ICD Code: K63.5 Status: Acute Assessment and Plan 70 Y/O male with GI bleeding: Duodenal ulcer, gastropathy, grade II, esophageal varices, colon polyps on endoscopy. Pathology pending. Currently on Protonix 40 mg twice a day and continue and Hold Inderal 10 mg twice a day. Status post Rocephin for SBP prophylaxis. Appreciate input from GI and continue H&H monitoring. Anemia secondary to blood loss from GI bleeding. - s/p transfusion of 5 units of PRBC - Monitor H&H and transfuse for hgb<8 Stage 2 sacral pressure ulcer: Present on admission. Appreciate input from wound care nurse Coagulopathy - Underlying alcoholic liver disease - s/p Vitamin K and FFP's Bilateral lower extremity edema: 2-D echocardiogram here revealed preserved LVEF. Continue home dose Lasix and spironolactone. Monitor I/O's. Monitor for progress. History of alcohol abuse - [facility] protocol - Ativan when necessary - Thiamine folate and multivitamins Rheumatoid arthritis - Supportive care - Pain control Physical deconditioning: Secondary to above comorbid conditions. Continue with PT Hypokalemia: Replace and monitor. Hypertension: Secondary to BPD and soft, will hold Cardizem 30 mg twice a day, Norvasc 5 mg, Inderal 10 mg twice a day, Aldactone 25 mg twice a day, Hytrin 5mg HS. and only give this morning Lasix DVT GI prophylaxis - TEDs SCDs Protonix Problem Qualifiers (1) GIB (gastrointestinal bleeding): Qualified Code: K92.2 - Gastrointestinal hemorrhage, unspecified gastrointestinal hemorrhage type Chaz Gutierrez MD May 13, 2016 09:39
[2016-05-13] MEDS: FUROSEMIDE 40 MG TAB PO SCH (10:18)
[2016-05-13] MEDS: PANTOPRAZOLE SOD 40 MG DELAYED RELEASE TAB PO SCH (10:18)
[2016-05-13] MEDS: DOCUSATE SODIUM 100 MG CAP PO SCH (10:18)
[2016-05-13] MEDS: MULTIVITAMIN TAB PO SCH (10:19)
[2016-05-13] MEDS: ACETAMINOPHEN/HYDROcodone 325 MG/5 MG TAB PO PRN ×2 (10:19→16:18)
[2016-05-13] MEDS: FLUoxetine HCL 20 MG CAP PO SCH (10:21)
[2016-05-13] MEDS: SODIUM CHLORIDE 0.9% FLUSH 5 ML FLUSH IV FLUSH SCH (10:21)
--- NOTE | 2016-05-13 11:02 | HHI.DS ---
Discharge Summary Admission Date May 08, 2016 at 05:11 Discharge Date: May 13, 2016 Admitting Diagnosis Acute Anemia, GI Bleed (1) GIB (gastrointestinal bleeding) ICD Code: K92.2 Diagnosis: Principal (2) Anemia requiring transfusions ICD Code: D64.9 Diagnosis: Principal (3) DU (duodenal ulcer) ICD Code: K26.9 Diagnosis: Principal (4) Esophageal varices ICD Code: I85.00 Diagnosis: Principal (5) Colon polyps ICD Code: K63.5 Diagnosis: Principal Procedures none Brief History - From Admission 70 years old with a history of rheumatoid arthritis anxiety depression and alcoholism. Per patient he didn't have a drink for last months. He arrives from [facility] because of dark red stool is found in his bed about 1 hour prior to ER arrival. CBC/BMP: 05/13/16 0510 05/13/16 0510 Significant Findings Laboratory Tests Test 05/11/16 05/11/16 05/13/16 06:51 06:57 05:10 Red Blood Count 2.94 MIL/MM3 2.98 MIL/MM3 (4.50-5.90) (4.50-5.90) Hemoglobin 8.8 GM/DL 8.8 GM/DL (13.0-17.0) (13.0-17.0) Hematocrit 25.9 % 26.3 % (39.0-51.0) (39.0-51.0) Red Cell Distribution Width 17.5 % 17.9 % (11.6-17.2) (11.6-17.2) Platelet Count 105 TH/MM3 83 TH/MM3 (150-450) (150-450) Monocytes (%) (Auto) 9.1 % (0.0-8.0) 9.5 % (0.0-8.0) Eosinophils (%) (Auto) 6.6 % (0.0-4.0) 7.1 % (0.0-4.0) Eosinophils # (Auto) 0.5 TH/MM3 (0-0.4) Potassium Level 3.4 MEQ/L 3.0 MEQ/L (3.5-5.1) (3.5-5.1) Estimat Glomerular Filtration 62 ML/MIN (>89) 52 ML/MIN (>89) Rate Random Glucose 71 MG/DL (74-106) Calcium Level 7.8 MG/DL 8.0 MG/DL (8.5-10.1) (8.5-10.1) Platelet Estimate LOW (NORMAL) Creatinine 1.36 MG/DL (0.60-1.30) Imaging Last Impressions Chest X-Ray 05/10/16 0600 Signed Impressions: Service Date/Time: Thursday, May 10, 2016 03:43 - CONCLUSION: Left lung airspace disease. Lauri Clark MD PE at Discharge GENERAL: NAD SKIN: Warm and dry. HEAD: Normocephalic. EYES: No scleral icterus. No injection or drainage. NECK: Supple, trachea midline. No JVD or lymphadenopathy. CARDIOVASCULAR: Regular rate and rhythm without murmurs, gallops, or rubs. RESPIRATORY: Breath sounds equal bilaterally. No accessory muscle use. GASTROINTESTINAL: Abdomen soft, non-tender, nondistended. MUSCULOSKELETAL: No cyanosis; +2 edema. BACK: Nontender without obvious deformity. No CVA tenderness. Transfer Summary 70 years old with a history of rheumatoid arthritis anxiety depression and alcoholism. Per patient he didn't have a drink for last months. He arrives from [facility] because of dark red stool is found in his bed about 1 hour prior to ER arrival. His hemoglobin on arrival was 5.3 SUBJ 05/09 received total of 5 units PRBC and 2 units of FFP since admission. Reports no GI bleed now. Getting EGD and colonoscopy today Hospital Course Patient was admitted secondary to GI bleed for which gastroenterology was consulted and he underwent panendoscopy. The serum PPI drip which was subsequently switched to by mouth. He was transfused 5 units of packed red blood cell with serial monitoring of H&H. Coagulopathy resolved with transfusion of vitamin K and FFP. Rally pack and CIWA were initiated secondary to patient history of alcohol abuse. All electrolyte abnormalities were corrected accordingly including hypokalemia. Wound care nurse was consulted secondary to patient history of decubitus ulcer. Treatment for other chronic medical conditions were continued, and physical therapy was consulted. Pt Condition on Discharge: Fair Discharge Disposition: Disch w/ Home Health Serv Discharge Time: > 30 minutes Discharge Instructions DIET: Follow Instructions for: Heart Healthy Diet Activities you can perform: Regular-No Restrictions Follow up Referrals: Gastroenterology PCP Follow-up - 2-3 Days New Medications: Alprazolam (Xanax) 0.5 Mg Tab 0.5 MG PO Q8H PRN ANXIETY #10 TAB Hydrocodone-Acetaminophen (Hydrocodone-Acetaminophen) 5-325 mg Tab 1 TAB PO Q6H PRN PAIN 1-5 #10 TAB Pantoprazole (Pantoprazole) 40 Mg Tab 40 MG PO Q12HR Manage Heartburn #60 TAB Continued Medications: Allopurinol (Allopurinol) 100 Mg Tab 100 MG PO DAILY TAB Aspirin DR (Aspirin 81) 81 Mg Tabdr 81 MG PO DAILY Ref 0 TAB Atorvastatin (Atorvastatin) 20 Mg Tab 20 MG PO HS Cholesterol Management #30 Ref 0 TAB Clotrimazole-Betamethasone Topical (Clotrimazole-Betamethasone Topical) 1-0.05% Cream 1 APPLIC TOPICAL BID Fungal Infection #15 Ref 0 GM Cyanocobalamin (Vitamin B-12) 50 Mcg Tab 50 MCG PO TAB Diltiazem (Diltiazem) 30 Mg Tab 30 MG PO BID Angina #120 Ref 0 TAB Ferrous Sulfate (Iron) 325 Mg Tab 325 MG PO TAB Fluoxetine Hcl (Fluoxetine Hcl) 20MG Cap 40 MG PO DAILY CAP Fluticasone Propionate (Nasal) (Fluticasone Propionate (Nasal)) 50 Mcg Spr 1 SPRAY EACH NARE BID BTLE Folic Acid (Folic Acid) 5 Mg Cap Furosemide (Lasix) 40 Mg Tab 40 MG PO BID #60 Ref 0 TAB Gabapentin (Gabapentin) 300 Mg Cap 300 MG PO TID CAP Levothyroxine Sodium (Synthroid) 75 Mcg Tab 75 MCG PO DAILY TAB Multiple Vitamin (Multi-Vitamin Daily) 1 Tab Tab 1 TAB PO DAILY Nutritional Supplement Ref 0 TAB Potassium Chloride ER (Potassium Chloride ER) 20 Meq Tab 20 MEQ PO DAILY Electrolyte Replacement #30 Ref 0 TAB Spironolactone (Spironolactone) 25 Mg Tab 25 MG PO BIDPC #60 Ref 0 TAB Discontinued Medications: Alprazolam (Xanax) 0.5 Mg Tab 0.5 MG PO Q8H PRN ANXIETY Ref 0 TAB Amlodipine Besylate (Norvasc) 5 Mg Tab 5 MG PO DAILY Blood Pressure Management Days 30 TAB Hydrocodone-Acetaminophen (Delta) 5-325 mg Tab 1 TAB PO Q6H PRN PAIN Ref 0 TAB Terazosin Hcl (Terazosin Hcl) 2 Mg Cap 4 MG PO HS Blood Pressure Management #0 Chaz Hoang MD May 13, 2016 11:02 Fluticasone Propionate (Nasal) (Fluticasone Propionate (Nasal)) 50 Mcg Spr 1 SPRAY EACH NARE BID BTLE Folic Acid (Folic Acid) 5 Mg Cap Furosemide (Lasix) 40 Mg Tab 40 MG PO BID #60 Ref 0 TAB Gabapentin (Gabapentin) 300 Mg Cap 300 MG PO TID CAP Levothyroxine Sodium (Synthroid) 75 Mcg Tab 75 MCG PO DAILY TAB Multiple Vitamin (Multi-Vitamin Daily) 1 Tab Tab 1 TAB PO DAILY Nutritional Supplement Ref 0 TAB Potassium Chloride ER (Potassium Chloride ER) 20 Meq Tab 20 MEQ PO DAILY Electrolyte Replacement #30 Ref 0 TAB Spironolactone (Spironolactone) 25 Mg Tab 25 MG PO BIDPC #60 Ref 0 TAB Discontinued Medications: Alprazolam (Xanax) 0.5 Mg Tab 0.5 MG PO Q8H PRN ANXIETY Ref 0 TAB Amlodipine Besylate (Norvasc) 5 Mg Tab 5 MG PO DAILY Blood Pressure Management Days 30 TAB Hydrocodone-Acetaminophen (Delta) 5-325 mg Tab 1 TAB PO Q6H PRN PAIN Ref 0 TAB Terazosin Hcl (Terazosin Hcl) 2 Mg Cap 4 MG PO HS Blood Pressure Management #0 Chaz Hoang MD May 13, 2016 11:02
[2016-05-13] MEDS ORDERED: ALPR.5 PO (11:05)
[2016-05-13] MEDS ORDERED: PANT40TA3 PO (11:05)
[2016-05-13] MEDS ORDERED: HYDR-3516 PO (11:05)
[2016-05-13 12:30] VITALS: BP 120/63; PULSE 65; RESP 16; TEMP 96.9; O2SAT 99
[2016-05-13 16:06] VITALS: BP 146/65; PULSE 79; RESP 18; TEMP 97.5; O2SAT 97
[2016-05-13] MEDS ORDERED: VITA50TA10 PO (17:50)
[2016-05-13] MEDS ORDERED: FERR325T PO (17:52)
[2016-05-13] MEDS ORDERED: FLUT50SP EACH NARE (17:58)
[2016-05-13] MEDS ORDERED: FLUO20CA4 PO (17:59)
[2016-05-13] MEDS ORDERED: GABA300C5 PO (18:01)
[2016-05-13] MEDS ORDERED: LEVO75TA3 PO (18:02)
[2016-05-22] MEDS ORDERED: WHEEMIS3 (10:44)
[2016-05-27] MEDS ORDERED: METR-1 PO (13:16)
[2016-05-27] MEDS ORDERED: FOLI1TAB4 PO (13:16)
[2016-05-27] MEDS ORDERED: LIDO5DIS35 TD (13:16)
[2016-05-27] MEDS ORDERED: FLUO20CA4 PO (13:16)
[2016-05-27] MEDS ORDERED: VITA100T2 PO (13:16)
[2016-05-27] MEDS ORDERED: POTA20TA5 PO (13:16)
[2016-05-27] MEDS ORDERED: HYDR-3516 PO (13:16)
[2016-05-27] MEDS ORDERED: ALLO100 PO (13:16)
[2016-05-27] MEDS ORDERED: COZA25TA PO (13:16)
[2016-05-27] MEDS ORDERED: FLUT50SP EACH NARE (13:16)
[2016-05-27] MEDS ORDERED: LIPI20TA PO (13:16)
[2016-05-27] MEDS ORDERED: VITA100T PO (13:16)
[2016-05-27] MEDS ORDERED: LACT PO (13:16)
[2016-05-27] MEDS ORDERED: Spironolactone PO (13:16)
[2016-05-27] MEDS ORDERED: ALPR.25 PO (13:16)
[2016-05-27] MEDS ORDERED: FURO20TA PO (13:16)
[2016-05-27] MEDS ORDERED: DILT31TA PO (13:16)
[2016-05-27] MEDS ORDERED: PANT40TA3 PO (13:16)
[2016-05-27] MEDS ORDERED: FERR325T PO (13:16)
[2016-05-27] MEDS ORDERED: NEUR300C PO (13:16)
[2016-05-27] MEDS ORDERED: THERTAB15 PO (13:16)
[2016-05-27] MEDS ORDERED: LOTR15T TOPICAL (13:16)
[2016-05-27] MEDS ORDERED: LEVO.075 PO (13:16)
[2016-05-27] MEDS ORDERED: HYDRO.5%T TOPICAL (13:16)
== END 2016-05-13 16:34 | DRG 378 ==
LOC: NEPC 03:45 → NEDA 05:11 → HIMN 12:10 → N07B 05-11 14:20
PROVIDERS: ADMIT Hospitalist; ATTEND Hospitalist
PROC: 0DBK8ZX Excision of Ascending Colon, Via Natural or Artificial Opening Endoscopic, Diagnostic (ICD-10-PCS; 2016-05-09)
PROC: 0W3P8ZZ Control Bleeding in Gastrointestinal Tract, Via Natural or Artificial Opening Endoscopic (ICD-10-PCS; principal; 2016-05-09 10:30)
PROC: 0DB68ZX Excision of Stomach, Via Natural or Artificial Opening Endoscopic, Diagnostic (ICD-10-PCS; 2016-05-09 10:30)
DX: K26.4 Chronic or unspecified duodenal ulcer with hemorrhage (principal); D62 Acute posthemorrhagic anemia; N17.9 Acute kidney failure, unspecified; E87.2 Acidosis; D68.4 Acquired coagulation factor deficiency; G62.9 Polyneuropathy, unspecified; Y90.0 Blood alcohol level of less than 20 mg/100 ml; F10.20 Alcohol dependence, uncomplicated; F32.9 Major depressive disorder, single episode, unspecified; M51.36 Other intervertebral disc degeneration, lumbar region; I10 Essential (primary) hypertension; M06.9 Rheumatoid arthritis, unspecified; D12.2 Benign neoplasm of ascending colon; F41.9 Anxiety disorder, unspecified; I85.00 Esophageal varices without bleeding; E87.6 Hypokalemia; K70.9 Alcoholic liver disease, unspecified
CPT/HCPCS: 36430; 51702; 71010; 80048; 80053; 81001; 83605; 83880; 84100; 85014; 85018; 85025; 85610; 85730; 86850; 86900; 86901; 86920; 86927; 87040; 87641; 88305; 88312; 93005; 93306; C9113; J0360; J0696; J1940; J2060; J2250; J2270; J2370; J3430; J3480; J7030; J7050; P9016; P9017

== ENCOUNTER 2016-08-11 10:36 | Inpatient (IN) | payer MEDICARE, OTHER ==
[~2016-08-11] VITALS: Ht 175.3 cm; Wt 90.0 kg
[~2016-08-11 10:36] MED LIST changes: +ALLO100 PO; -ALLO100T PO; +ALPR.5 PO; -AMLO5 PO; -APIX5 PO; +ASPI-110 PO; -CETI10 PO; -CODE30TA2; +COZA25TA PO; +DILT31TA PO; +FERR325T PO; +FLUO20CA4 PO; -FLUO20TA20 PO; +FOLI1TAB4 PO; -FOLI5CAP; +FURO1TAB60 PO; +FURO20TA PO; -GABA300C3 PO; +HYDR-3516 PO; +HYDRO.5%T TOPICAL; -IRON325T2 PO; +LACT PO; +LIDO5DIS35 TD; +LIPI20TA PO; -LISI-363 PO; +LOTR15T TOPICAL; -MAGN1TAB14; +METR-1 PO; +MULT-65 PO; +NEUR300C PO; +PANT40TA3 PO; +POTA20TA5 PO; -SILD20TA PO; +Spironolactone PO; -TERA2CAP3 PO; +THERTAB15 PO; +VITA100T PO; +VITA100T2 PO; -VITA50LO PO; +VITA50TA10 PO; +WHEEMIS3; -ZOCO80TA PO
[2016-08-11 10:38] VITALS: BP 133/96; PULSE 106; RESP 28; TEMP 97.7; O2SAT 93
[2016-08-11 10:56] VITALS: BP 172/89; PULSE 94; RESP 19; O2SAT 88
[2016-08-11 12:04] LABS: AUTOMATED NEUTROPHIL # 11.4 TH/MM3 (1.8-7.7); BASOPHIL % 0.1 % (0.0-2.0); EOSINOPHIL # 0.1 TH/MM3 (0-0.4); EOSINOPHIL % 0.6 % (0.0-4.0); HEMATOCRIT 42.4 % (39.0-51.0); LYMPHOCYTE # 0.9 TH/MM3 (1.0-4.8); MEAN CORPUSCULAR HEMOGLOBIN 29.5 PG (27.0-34.0); MEAN CORPUSCULAR HGB CONC 33.9 % (32.0-36.0); MONO % 7.9 % (0.0-8.0); NEUT % 84.4 % (16.0-70.0); PLATELET COUNT 89 TH/MM3 (150-450); RED BLOOD COUNT 4.88 MIL/MM3 (4.50-5.90); WHITE BLOOD COUNT 13.5 TH/MM3 (4.0-11.0)
[2016-08-11 12:09] LABS: HEMO FLAGS AUTO DIFF
--- NOTE | 2016-08-11 12:13 | PD ---
HPI Chief Complaint: Respiratory Symptoms Time Seen by Provider: 11:00 Travel History International Travel<30 days: No Contact w/Intl Traveler<30days: No Traveled to known affect area: No History of Present Illness HPI This 70-year-old male with a history of cirrhosis, GI bleed related to varices and peptic ulcer disease, rheumatoid arthritis, hypertension, presents to the emergency department with worsening fatigue shortness of breath is been ongoing for weeks. Is been some question of CHF in the past. He had an echo that was reportedly fairly normal and a heart catheter that was normal after an abnormal stress test back in January 2016. He states symptoms of been progressively worsening over the past week or so. No nausea or vomiting. He has had some belly pain. No melena. He states his shortness of breath is gotten progressively worse. He has lower extremity edema that is worse today than is typical for him but he reports this is up and down. History Past Medical History Narrative Medical GI bleed Rheumatoid arthritis Cirrhosis Alcoholism, no alcohol since April Hypothyroidism Hypertension Social History Alcohol Use: No ( ) Tobacco Use: No Allergies-Medications (Allergen,Severity, Reaction): Coded Allergies: Buspirone (Verified Allergy, Unknown, 05/08/16) pt states "more anxiety" Reported Meds & Prescriptions Reported Meds & Active Scripts Active Potassium Chloride Microencaps 20 Meq Tab 10 Meq PO DAILY 30 Days Thera/Beta-Carotene (Multiple Vitamin) 1 Tab Tab 1 Tab PO DAILY@1700 30 Days Flagyl (Metronidazole) 500 Mg Tab 500 Mg PO Q8HR 1 Days Cozaar (Losartan Potassium) 25 Mg Tab 50 Mg PO DAILY 30 Days Lidoderm Patch 12 HR (Lidocaine) 5% Patch 1 Patch TD DAILY 30 Days Synthroid (Levothyroxine Sodium) 75 Mcg Tab 75 Mcg PO DAILY@06 30 Days Acidophilus/l-Sporogenes (Lactobacillus Acidophilus) 1 Tab Tab 1 Tab PO TID 30 Days Hydrocortisone Topical (Hydrocortisone) 0.5% Cream 1 Applic TOPICAL Q8H 10 Days Neurontin (Gabapentin) 300 Mg Cap 300 Mg PO TID 30 Days Folate (Folic Acid) 1 Mg Tab 1 Mg PO DAILY@1700 30 Days Fluticasone Nasal Clements 50 Mcg/Act Naspr 1 Clements EACH NARE BID 30 Days Fluoxetine (Fluoxetine HCl) 20 Mg Cap 20 Mg PO DAILY 30 Days Ferrous Sulfate 325 Mg Tab 325 Mg PO BID@12,17 30 Days Cardizem (Diltiazem HCl) 30 Mg Tab 30 Mg PO BID 30 Days Vitamin B-12 (Cyanocobalamin) 100 Mcg Tab 50 Mcg PO DAILY@1700 30 Days Lotrisone Topical (Betamethasone/Clotrimazole) 1-0.05% Cream 1 Applic TOPICAL BID 10 Days Lipitor (Atorvastatin Calcium) 20 Mg Tab 20 Mg PO HS 30 Days Xanax (Alprazolam) 0.25 Mg Tab 0.25 Mg PO Q8HR Zyloprim (Allopurinol) 100 Mg Tab 100 Mg PO DAILY 30 Days Xanax (Alprazolam) 0.5 Mg Tab 0.5 Mg PO Q8H PRN Reported Protonix (Pantoprazole Sodium) 40 Mg Tab 40 Mg PO Q12HR Vitamin B-1 (Thiamine HCl) 100 Mg Tab 100 Mg PO DAILY Aldactone (Spironolactone) 25 Mg Tab 25 Mg PO BIDPC Ferrous Sulfate 325 Mg Tab 325 Mg PO DAILY Vitamin B-12 (Cyanocobalamin) 50 Mcg Tab 50 Mcg PO DAILY Lasix (Furosemide) 40 Mg Tab 40 Mg PO BID Multi-Vitamin Daily (Multiple Vitamin) 1 Tab Tab 1 Tab PO DAILY Review of Systems Except as stated in HPI: all other systems reviewed are Neg Physical Exam Narrative GENERAL: 70-year-old man, mild respiratory distress. SKIN: Focused skin assessment warm/dry. CARDIOVASCULAR: Regular rate and rhythm. No murmur appreciated. RESPIRATORY: Mild respiratory distress, noted was begun. Sentences. Distal bronchial breath sounds on the bottom right. No wheezing or rhonchi. GASTROINTESTINAL: Abdomen soft, non-tender, nondistended. Hepatic and splenic margins not palpable. MUSCULOSKELETAL: No obvious deformities. Marked edema both lower extremities. NEUROLOGICAL: Awake and alert. No obvious cranial nerve deficits. Motor grossly within normal limits. Normal speech. PSYCHIATRIC: Appropriate mood and affect; insight and judgment normal. Data Data Last Documented VS Vital Signs Date Time Temp Pulse Resp B/P Pulse Ox O2 Delivery O2 Flow Rate FiO2 08/11/16 10:59 95 19 88 Nasal Cannula 2 08/11/16 10:56 172/89 08/11/16 10:38 97.7 Orders Complete Blood Count With Diff (08/11/16 11:21) Comprehensive Metabolic Panel (08/11/16 11:21) Chest, Pa & Lat (08/11/16 ) Troponin I (08/11/16 11:21) Electrocardiogram (08/11/16 ) B-Type Natriuretic Peptide (08/11/16 11:28) Electrocardiogram (08/11/16 ) Act Partial Throm Time (Ptt) (08/11/16 13:11) Prothrombin Time / Inr (Pt) (08/11/16 13:11) Vascular Access Team Consult/P PRN (08/11/16 13:11) Vascular Poc Ultrasound (08/11/16 ) Admit Order (Ed Use Only) (08/11/16 ) Labs Laboratory Tests Test 08/11/16 08/11/16 11:50 13:20 White Blood Count 13.5 TH/MM3 Red Blood Count 4.88 MIL/MM3 Hemoglobin 14.4 GM/DL Hematocrit 42.4 % Mean Corpuscular Volume 87.0 FL Mean Corpuscular Hemoglobin 29.5 PG Mean Corpuscular Hemoglobin 33.9 % Concent Red Cell Distribution Width 17.0 % Platelet Count 89 TH/MM3 Mean Platelet Volume 7.6 FL Neutrophils (%) (Auto) 84.4 % Lymphocytes (%) (Auto) 7.0 % Monocytes (%) (Auto) 7.9 % Eosinophils (%) (Auto) 0.6 % Basophils (%) (Auto) 0.1 % Neutrophils # (Auto) 11.4 TH/MM3 Lymphocytes # (Auto) 0.9 TH/MM3 Monocytes # (Auto) 1.1 TH/MM3 Eosinophils # (Auto) 0.1 TH/MM3 Basophils # (Auto) 0.0 TH/MM3 CBC Comment AUTO DIFF Differential Total Cells 100 Counted Neutrophils % (Manual) 91 % Band Neutrophils % 1 % Lymphocytes % 3 % Monocytes % 4 % Neutrophils # (Manual) 12.6 TH/MM3 Metamyelocytes 1 % Differential Comment FINAL DIFF MANUAL Platelet Estimate LOW Platelet Morphology Comment NORMAL Red Cell Morphology Comment NORMAL Sodium Level 131 MEQ/L Potassium Level 4.4 MEQ/L Chloride Level 97 MEQ/L Carbon Dioxide Level 24.3 MEQ/L Anion Gap 10 MEQ/L Blood Urea Nitrogen 27 MG/DL Creatinine 1.21 MG/DL Estimat Glomerular Filtration 59 ML/MIN Rate Random Glucose 89 MG/DL Calcium Level 9.1 MG/DL Total Bilirubin 1.9 MG/DL Aspartate Amino Transf 70 U/L (AST/SGOT) Alanine Aminotransferase 114 U/L (ALT/SGPT) Alkaline Phosphatase 234 U/L Troponin I 0.09 NG/ML B-Type Natriuretic Peptide 116 PG/ML Total Protein 6.5 GM/DL Albumin 3.0 GM/DL Prothrombin Time 11.2 SEC Prothromb Time International 1.0 RATIO Ratio Activated Partial 24.2 SEC Thromboplast Time MDM Medical Decision Making Medical Screen Exam Complete: Yes Emergency Medical Condition: Yes Interpretation(s) My review of EKG: Normal sinus rhythm at a rate of 91, slightly leftward axis, no definite evidence of acute ischemia. LABS: CBC Mild leukocytosis, platelet 89 CMP remarkable for abnormal liver enzymes Troponin 0.09 BNP 116 Chest x-ray: Large opacity in the right hemithorax characteristic of a large pleural effusion with associated volume loss and/or airspace consolidation. Differential Diagnosis Volume overload, pleural effusion, pneumothorax, pneumonia, liver failure, heart failure, other Narrative Course Medical decision making INITIAL: 70 year [facility] emergency department complaining of increasing shortness of breath, abnormal asymmetric lung sounds, marked pitting edema bilateral extremities. We'll check x-ray, labs, reassess. Diagnosis Primary Impression: Pleural effusion Additional Impressions: Hypoxia Respiratory distress Admitting Information Admitting Physician Requests: Admit Wu Perdomo MD August 11, 2016 12:13
[2016-08-11 12:22] LABS: ANION GAP 10 MEQ/L (5-15); AST (GOT) 70 U/L (15-37); BICARBONATE 24.3 MEQ/L (21.0-32.0); BLOOD UREA NITROGEN 27 MG/DL (7-18); CHLORIDE 97 MEQ/L (98-107); GLOMERULAR FILTRATION RATE 59 ML/MIN (>89); POTASSIUM 4.4 MEQ/L (3.5-5.1); SODIUM (NA) 131 MEQ/L (136-145)
[2016-08-11 12:26] LABS: ALKALINE PHOSPHATASE 234 U/L (45-117); ALT (GPT) 114 U/L (12-78); TOTAL BILIRUBIN ADULT 1.9 MG/DL (0.2-1.0)
[2016-08-11] MEDS ORDERED: VITA100T54 PO (12:29)
[2016-08-11] MEDS ORDERED: PROT40TA PO (12:29)
[2016-08-11] MEDS ORDERED: SPIR25 PO (12:29)
--- NOTE | 2016-08-11 12:34 | RADRPT ---
EXAM DATE/TIME: 08/11/2016 12:04 [place] COMPARISON: CHEST SINGLE AP, May 14, 2016, 16:23. INDICATIONS : Short of breath today MEDICAL HISTORY : asthma SURGICAL HISTORY : None. ENCOUNTER: Initial ACUITY: 1 day PAIN SCORE: 0/10 LOCATION: Bilateral chest FINDINGS: AP and lateral views of the chest demonstrate a normal-sized cardiac silhouette. There is a large rig ht pleural-parenchymal opacity. There is little remaining aerated lung in the right upper lung zone. Left lung demonstrates no acute finding. No pneumothorax is seen. Bones and soft tissues demonstrate no acute finding. CONCLUSION: Large opacity in the right hemithorax characteristic of a large pleural effusion with associated volu me loss and/or airspace consolidation. This finding is new compared to the prior study from May. Orlin Nelson MD on August 11, 2016 at 12:31 Board Certified Radiologist. This report was verified electronically.
[2016-08-11 12:40] LABS: BANDS 1 % (0-6); METAMYELOCYTES 1 % (0-1); NEUTROPHIL # MANUAL DIFF 12.6 TH/MM3 (1.8-7.7); PLATELET ESTIMATE SMEAR LOW (NORMAL); PLATELET MORPHOLOGY NORMAL (NORMAL); POLYS (SEG NEUTROPHILS) 91 % (16-70); SCAN/DIFF FINAL DIFF MANUAL; WBC DIFF SAMPLE 100
[2016-08-11 13:36] LABS: APTT (PATIENT) 24.2 SEC (24.3-30.1); PROTHROMBIN TIME - PATIENT 11.2 SEC (9.8-11.6)
[2016-08-11] MEDS ORDERED: SODIUM CHLOR 0.9% 1000 ML INJ 1,000 ML IV SCH (13:51)
[2016-08-11] MEDS ORDERED: SENNOSIDES 8.6 MG TAB PO PRN (14:00)
[2016-08-11] MEDS ORDERED: SODIUM CHLORIDE 0.9% FLUSH 10 ML FLUSH IV FLUSH PRN (14:00)
[2016-08-11] MEDS ORDERED: BISACODYL 10 MG SUPP RECTAL PRN (14:00)
[2016-08-11] MEDS ORDERED: ONDANSETRON HCL 4 MG/2 ML VIAL IVP PRN (14:00)
[2016-08-11] MEDS ORDERED: LACTULOSE SYRUP 20 GM/30 ML CUP PO PRN (14:00)
[2016-08-11] MEDS ORDERED: NALOXONE HCL 0.4 MG/ML AMP IV PRN (14:00)
[2016-08-11] MEDS ORDERED: MAGNESIUM HYDROXIDE SUSP 30 ML CUP PO PRN (14:00)
[2016-08-11] MEDS ORDERED: ACETAMINOPHEN 325 MG TAB PO PRN (14:00)
--- NOTE | 2016-08-11 14:09 | HHI.HP ---
HPI Service [facility] Primary Care Physician Ayla Thomas MD Admission Diagnosis pleural effusion, volume overload Diagnoses: Travel History International Travel<30 Days: No Contact w/Intl Traveler <30 Da: No Traveled to Known Affected Are: No History of Present Illness This is a pleasant 70 y/o Male with Rheumatoid arthritis, Depression, anxiety, Hypertension, EtOH abuse, who was recently admitted to this facility with rectal bleed on May 08, Prior to this patient admission patient was also seen at [facility] and was treated for pancreatitis, UTI, sepsis on 04/19/2016 and was discharged to long term facility [place]. Patient was found to be severely anemic with hemoglobin of 5.3. Patient underwent EGD, and colonoscopy . Patient was found to have a duodenal ulcer, grade 2 esophageal varices, and gastropathy. He also had colon polyps, Coagulopathy with INR 1.6, he was transfused with five unit of PRBCs, FFP, vitamin K, admitted to inpatient Rehab at [facility], on this opportunity he states he has worsening Shortness of breath for weeks, He had an echo that was reportedly fairly normal and a heart catheter that was normal after an abnormal stress test back in January 2016. He states symptoms of been progressively worsening over the past week or so. No nausea or vomiting. He has had some belly pain. No melena. He states his shortness of breath is gotten progressively worse. he has lower extremity edema, Social History Alcohol Use: No ( ) Tobacco Use: No Allergies-Medications Allergies-Medications (Allergen,Severity, Reaction): Coded Allergies: Buspirone (Verified Allergy, Unknown, 05/08/16) pt states "more anxiety" Reported Meds & Prescriptions Reported Meds & Active Scripts Active Potassium Chloride Microencaps 20 Meq Tab 10 Meq PO DAILY 30 Days Thera/Beta-Carotene (Multiple Vitamin) 1 Tab Tab 1 Tab PO DAILY@1700 30 Days Flagyl (Metronidazole) 500 Mg Tab 500 Mg PO Q8HR 1 Days Cozaar (Losartan Potassium) 25 Mg Tab 50 Mg PO DAILY 30 Days Lidoderm Patch 12 HR (Lidocaine) 5% Patch 1 Patch TD DAILY 30 Days Synthroid (Levothyroxine Sodium) 75 Mcg Tab 75 Mcg PO DAILY@06 30 Days Acidophilus/l-Sporogenes (Lactobacillus Acidophilus) 1 Tab Tab 1 Tab PO TID 30 Days Hydrocortisone Topical (Hydrocortisone) 0.5% Cream 1 Applic TOPICAL Q8H 10 Days Neurontin (Gabapentin) 300 Mg Cap 300 Mg PO TID 30 Days Folate (Folic Acid) 1 Mg Tab 1 Mg PO DAILY@1700 30 Days Fluticasone Nasal Blakely 50 Mcg/Act Naspr 1 Blakely EACH NARE BID 30 Days Fluoxetine (Fluoxetine HCl) 20 Mg Cap 20 Mg PO DAILY 30 Days Ferrous Sulfate 325 Mg Tab 325 Mg PO BID@12,17 30 Days Cardizem (Diltiazem HCl) 30 Mg Tab 30 Mg PO BID 30 Days Vitamin B-12 (Cyanocobalamin) 100 Mcg Tab 50 Mcg PO DAILY@1700 30 Days Lotrisone Topical (Betamethasone/Clotrimazole) 1-0.05% Cream 1 Applic TOPICAL BID 10 Days Lipitor (Atorvastatin Calcium) 20 Mg Tab 20 Mg PO HS 30 Days Xanax (Alprazolam) 0.25 Mg Tab 0.25 Mg PO Q8HR Zyloprim (Allopurinol) 100 Mg Tab 100 Mg PO DAILY 30 Days Xanax (Alprazolam) 0.5 Mg Tab 0.5 Mg PO Q8H PRN Reported Protonix (Pantoprazole Sodium) 40 Mg Tab 40 Mg PO Q12HR Vitamin B-1 (Thiamine HCl) 100 Mg Tab 100 Mg PO DAILY Aldactone (Spironolactone) 25 Mg Tab 25 Mg PO BIDPC Ferrous Sulfate 325 Mg Tab 325 Mg PO DAILY Vitamin B-12 (Cyanocobalamin) 50 Mcg Tab 50 Mcg PO DAILY Lasix (Furosemide) 40 Mg Tab 40 Mg PO BID Multi-Vitamin Daily (Multiple Vitamin) 1 Tab Tab 1 Tab PO DAILY ROS Review of Systems Except as stated in HPI: all other systems reviewed are Neg Physical Exam Physical Exam Narrative GENERAL: 70-year-old man, mild respiratory distress. SKIN: Focused skin assessment warm/dry. CARDIOVASCULAR: Regular rate and rhythm. No murmur appreciated. RESPIRATORY: Mild respiratory distress, noted was begun. Sentences. Distal bronchial breath sounds on the bottom right. No wheezing or rhonchi. GASTROINTESTINAL: Abdomen soft, non-tender, nondistended. Hepatic and splenic margins not palpable. MUSCULOSKELETAL: No obvious deformities. Marked edema both lower extremities. NEUROLOGICAL: Awake and alert. No obvious cranial nerve deficits. Motor grossly within normal limits. Normal speech. PSYCHIATRIC: Appropriate mood and affect; insight and judgment normal. Data Data Data Last Documented VS Vital Signs Date Time Temp Pulse Resp B/P Pulse Ox O2 Delivery O2 Flow Rate FiO2 08/11/16 10:59 95 19 88 Nasal Cannula 2 08/11/16 10:56 172/89 08/11/16 10:38 97.7 Orders Complete Blood Count With Diff (08/11/16 11:21) Comprehensive Metabolic Panel (08/11/16 11:21) Chest, Pa & Lat (08/11/16 ) Troponin I (08/11/16 11:21) Electrocardiogram (08/11/16 ) B-Type Natriuretic Peptide (08/11/16 11:28) Electrocardiogram (08/11/16 ) Act Partial Throm Time (Ptt) (08/11/16 13:11) Prothrombin Time / Inr (Pt) (08/11/16 13:11) Vascular Access Team Consult/P PRN (08/11/16 13:11) Vascular Poc Ultrasound (08/11/16 ) Admit Order (Ed Use Only) (08/11/16 ) Labs Laboratory Tests Test 08/11/16 08/11/16 11:50 13:20 White Blood Count 13.5 TH/MM3 Red Blood Count 4.88 MIL/MM3 Hemoglobin 14.4 GM/DL Hematocrit 42.4 % Mean Corpuscular Volume 87.0 FL Mean Corpuscular Hemoglobin 29.5 PG Mean Corpuscular Hemoglobin 33.9 % Concent Red Cell Distribution Width 17.0 % Platelet Count 89 TH/MM3 Mean Platelet Volume 7.6 FL Neutrophils (%) (Auto) 84.4 % Lymphocytes (%) (Auto) 7.0 % Monocytes (%) (Auto) 7.9 % Eosinophils (%) (Auto) 0.6 % Basophils (%) (Auto) 0.1 % Neutrophils # (Auto) 11.4 TH/MM3 Lymphocytes # (Auto) 0.9 TH/MM3 Monocytes # (Auto) 1.1 TH/MM3 Eosinophils # (Auto) 0.1 TH/MM3 Basophils # (Auto) 0.0 TH/MM3 CBC Comment AUTO DIFF Differential Total Cells 100 Counted Neutrophils % (Manual) 91 % Band Neutrophils % 1 % Lymphocytes % 3 % Monocytes % 4 % Neutrophils # (Manual) 12.6 TH/MM3 Metamyelocytes 1 % Differential Comment FINAL DIFF MANUAL Platelet Estimate LOW Platelet Morphology Comment NORMAL Red Cell Morphology Comment NORMAL Sodium Level 131 MEQ/L Potassium Level 4.4 MEQ/L Chloride Level 97 MEQ/L Carbon Dioxide Level 24.3 MEQ/L Anion Gap 10 MEQ/L Blood Urea Nitrogen 27 MG/DL Creatinine 1.21 MG/DL Estimat Glomerular Filtration 59 ML/MIN Rate Random Glucose 89 MG/DL Calcium Level 9.1 MG/DL Total Bilirubin 1.9 MG/DL Aspartate Amino Transf 70 U/L (AST/SGOT) Alanine Aminotransferase 114 U/L (ALT/SGPT) Alkaline Phosphatase 234 U/L Troponin I 0.09 NG/ML B-Type Natriuretic Peptide 116 PG/ML Total Protein 6.5 GM/DL Albumin 3.0 GM/DL Prothrombin Time 11.2 SEC Prothromb Time International 1.0 RATIO Ratio Activated Partial 24.2 SEC Thromboplast Time Exceptions Exceptions [facility] Medical Decision Making Medical Screen Exam Complete: Yes Emergency Medical Condition: Yes Interpretation(s) My review of EKG: Normal sinus rhythm at a rate of 91, slightly leftward axis, no definite evidence of acute ischemia. LABS: CBC Mild leukocytosis, platelet 89 CMP remarkable for abnormal liver enzymes Troponin 0.09 BNP 116 Chest x-ray: Large opacity in the right hemithorax characteristic of a large pleural effusion with associated volume loss and/or airspace consolidation. Differential Diagnosis Volume overload, pleural effusion, pneumothorax, pneumonia, liver failure, heart failure, other Narrative Course Medical decision making INITIAL: 70 year [facility] emergency department complaining of increasing shortness of breath, abnormal asymmetric lung sounds, marked pitting edema bilateral extremities. We'll check x-ray, labs, reassess. Diagnosis Primary Impression: Pleural effusion Additional Impressions: Hypoxia Respiratory distress Admitting Information Admitting Physician Requests: Admit Wu Perdomo MD August 11, 2016 12:13 Review of Systems Respiratory: COMPLAINS OF: Shortness of breath Past Family Social History Past Medical History Anxiety Depression Alcoholism Rheumatoid arthritis Cirrhosis GI bleed Alcoholism, no alcohol since April Hypothyroidism Hypertension Past Surgical History Status post EGD, colonoscopy for duodenal ulcer Reported Medications Reported Meds & Active Scripts Active Potassium Chloride Microencaps 20 Meq Tab 10 Meq PO DAILY 30 Days Thera/Beta-Carotene (Multiple Vitamin) 1 Tab Tab 1 Tab PO DAILY@1700 30 Days Flagyl (Metronidazole) 500 Mg Tab 500 Mg PO Q8HR 1 Days Cozaar (Losartan Potassium) 25 Mg Tab 50 Mg PO DAILY 30 Days Lidoderm Patch 12 HR (Lidocaine) 5% Patch 1 Patch TD DAILY 30 Days Synthroid (Levothyroxine Sodium) 75 Mcg Tab 75 Mcg PO DAILY@06 30 Days Acidophilus/l-Sporogenes (Lactobacillus Acidophilus) 1 Tab Tab 1 Tab PO TID 30 Days Hydrocortisone Topical (Hydrocortisone) 0.5% Cream 1 Applic TOPICAL Q8H 10 Days Neurontin (Gabapentin) 300 Mg Cap 300 Mg PO TID 30 Days Folate (Folic Acid) 1 Mg Tab 1 Mg PO DAILY@1700 30 Days Fluticasone Nasal Blakely 50 Mcg/Act Naspr 1 Blakely EACH NARE BID 30 Days Fluoxetine (Fluoxetine HCl) 20 Mg Cap 20 Mg PO DAILY 30 Days Ferrous Sulfate 325 Mg Tab 325 Mg PO BID@,17 30 Days Cardizem (Diltiazem HCl) 30 Mg Tab 30 Mg PO BID 30 Days Vitamin B-12 (Cyanocobalamin) 100 Mcg Tab 50 Mcg PO DAILY@1700 30 Days Lotrisone Topical (Betamethasone/Clotrimazole) 1-0.05% Cream 1 Applic TOPICAL BID 10 Days Lipitor (Atorvastatin Calcium) 20 Mg Tab 20 Mg PO HS 30 Days Xanax (Alprazolam) 0.25 Mg Tab 0.25 Mg PO Q8HR Zyloprim (Allopurinol) 100 Mg Tab 100 Mg PO DAILY 30 Days Xanax (Alprazolam) 0.5 Mg Tab 0.5 Mg PO Q8H PRN Reported Protonix (Pantoprazole Sodium) 40 Mg Tab 40 Mg PO Q12HR Vitamin B-1 (Thiamine HCl) 100 Mg Tab 100 Mg PO DAILY Aldactone (Spironolactone) 25 Mg Tab 25 Mg PO BIDPC Ferrous Sulfate 325 Mg Tab 325 Mg PO DAILY Vitamin B-12 (Cyanocobalamin) 50 Mcg Tab 50 Mcg PO DAILY Lasix (Furosemide) 40 Mg Tab 40 Mg PO BID Multi-Vitamin Daily (Multiple Vitamin) 1 Tab Tab 1 Tab PO DAILY Allergies: Coded Allergies: Buspirone (Verified Allergy, Unknown, 05/08/16) pt states "more anxiety" Active Ordered Medications Current Medications Medications (Trade) Dose Ordered Sig/Ana Route Start Time Stop Time Status Last Admin (Zyloprim) 100 mg DAILY PO 08/12/16 09:00 (Lipitor) 20 mg HS PO 08/11/16 21:00 (Cardizem) 30 mg BID PO 08/11/16 21:00 (PROzac) 20 mg DAILY PO 08/12/16 09:00 (Flonase Benji Spr) 1 spray BID EACH NARE 08/11/16 21:00 (Folate) 1 mg DAILY@1700 PO 08/11/16 17:00 (Neurontin) 300 mg TID PO 08/11/16 18:00 (Synthroid) 75 mcg DAILY@06 PO 08/12/16 06:00 (Cozaar) 50 mg DAILY PO 08/12/16 09:00 (Protonix) 40 mg Q12HR PO 08/11/16 21:00 (Aldactone) 25 mg BIDPC PO 08/11/16 18:00 Thiamine HCl 100 mg 100 mg DAILY PO 08/12/16 09:00 (NS 1000 ml Inj) 1,000 ml @ 83 mls/hr Q12H3M IV 08/11/16 13:51 UNV (NS Flush) 2 ml UNSCH PRN IV FLUSH 08/11/16 14:00 UNV (NS Flush) 2 ml BID IV FLUSH 08/11/16 21:00 UNV (Tylenol) 650 mg Q4H PRN PO 08/11/16 14:00 UNV (Zofran Inj) 4 mg Q6H PRN IVP 08/11/16 14:00 UNV (Narcan Inj) 0.4 mg UNSCH PRN IV 08/11/16 14:00 UNV (Paula-Colace) 1 tab BID PO 08/11/16 21:00 UNV (Milk Of Magnesia Liq) 30 ml Q12H PRN PO 08/11/16 14:00 UNV (Senokot) 17.2 mg Q12H PRN PO 08/11/16 14:00 UNV (Dulcolax Supp) 10 mg DAILY PRN RECTAL 08/11/16 14:00 UNV (Lactulose Liq) 30 ml DAILY PRN PO 08/11/16 14:00 UNV Family History Mother with ovarian cancer, stroke, CAD Father with heart disease Social History denies Tobacco dependence or other Toxic habits other than alcohol that he does not drink alcohol since April this year. Physical Exam Vital Signs Vital Signs Date Time Temp Pulse Resp B/P Pulse Ox O2 Delivery O2 Flow Rate FiO2 08/11/16 10:59 95 19 88 Nasal Cannula 2 08/11/16 10:56 94 19 172/89 88 Nasal Cannula 2 08/11/16 10:38 97.7 106 28 133/96 93 Room Air Physical Exam GENERAL: Well-developed patient, in no apparent distress. SKIN: Ecchymosis on both arms and legs. HEAD: Atraumatic. Normocephalic. No temporal or scalp tenderness. EYES: Pupils equal round and reactive. Extraocular motions intact. No scleral icterus. No injection or drainage. ENT: Nose without bleeding, purulent drainage or septal hematoma. Throat without erythema, tonsillar hypertrophy or exudate. Uvula midline. Airway patent. NECK: Trachea midline. No JVD or lymphadenopathy. Supple, nontender, no meningeal signs. CARDIOVASCULAR: Regular rate and rhythm without murmurs, gallops, or rubs. RESPIRATORY: Severe decreased breath sounds on right side, no wheezing or crackles. GASTROINTESTINAL: Abdomen soft, non-tender, mild distension. MUSCULOSKELETAL: Extremities without clubbing, cyanosis, has Edema 3+ NEUROLOGICAL: Awake and alert. Cranial nerves II through XII intact. Motor and sensory grossly within normal limits. Five out of 5 muscle strength in all muscle groups. Normal speech. Laboratory Laboratory Tests Test 08/11/16 08/11/16 11:50 13:20 White Blood Count 13.5 Red Blood Count 4.88 Hemoglobin 14.4 Hematocrit 42.4 Mean Corpuscular Volume 87.0 Mean Corpuscular Hemoglobin 29.5 Mean Corpuscular Hemoglobin 33.9 Concent Red Cell Distribution Width 17.0 Platelet Count 89 Mean Platelet Volume 7.6 Neutrophils (%) (Auto) 84.4 Lymphocytes (%) (Auto) 7.0 Monocytes (%) (Auto) 7.9 Eosinophils (%) (Auto) 0.6 Basophils (%) (Auto) 0.1 Neutrophils # (Auto) 11.4 Lymphocytes # (Auto) 0.9 Monocytes # (Auto) 1.1 Eosinophils # (Auto) 0.1 Basophils # (Auto) 0.0 CBC Comment AUTO DIFF Differential Total Cells 100 Counted Neutrophils % (Manual) 91 Band Neutrophils % 1 Lymphocytes % 3 Monocytes % 4 Neutrophils # (Manual) 12.6 Metamyelocytes 1 Differential Comment FINAL DIFF MANUAL Platelet Estimate LOW Platelet Morphology Comment NORMAL Red Cell Morphology Comment NORMAL Sodium Level 131 Potassium Level 4.4 Chloride Level 97 Carbon Dioxide Level 24.3 Anion Gap 10 Blood Urea Nitrogen 27 Creatinine 1.21 Estimat Glomerular Filtration 59 Rate Random Glucose 89 Calcium Level 9.1 Total Bilirubin 1.9 Aspartate Amino Transf 70 (AST/SGOT) Alanine Aminotransferase 114 (ALT/SGPT) Alkaline Phosphatase 234 Troponin I 0.09 B-Type Natriuretic Peptide 116 Total Protein 6.5 Albumin 3.0 Prothrombin Time 11.2 Prothromb Time International 1.0 Ratio Activated Partial 24.2 Thromboplast Time Result Diagram: 08/11/16 1150 08/11/16 1150 Imaging Last Impressions Chest X-Ray 08/11/16 0000 Signed Impressions: Service Date/Time: Thursday, August 11, 2016 12:04 - CONCLUSION: Large opacity in the right hemithorax characteristic of a large pleural effusion with associated volume loss and/or airspace consolidation. This finding is new compared to the prior study from May 2016. Orlin Nelson MD Assessment and Plan Assessment and Plan 1. Respiratory Insufficiency secondary to Right Pleural Effusion, non suspected Pneumonia at this time will perform Right Thoracentesis, his most probable reason will be Cirrhosis , Hypoalbuminemia. Bronchodilator, Mucolytic, incentive spirometry, engagement specialist consult. 2. GI bleed history Duodenal ulcer, Gastropathy, Grade II esophageal varices, colon polyps on endoscopy, hemoglobin 14.4 no further GI bleed. 3. recent admission at [facility] for Pancreatitis and UTI sepsis. 4. Recent Anemia secondary to acute blood loss, GI bleed, had Coagulopathy, status post blood transfusion of 5 units or PRBCs, FFP, and was given vitamin K. now hemoglobin 14.4 5. History of Stage II sacral pressure Ulcer by history continue Wound care for evaluation. 6. Alcoholic liver disease strongly recommended to stop drinking behavior. 7. Rheumatoid arthritis by history. 8. Hypertension mild uncontrol will give low dose of TRICIA inhibitor for systolic blood pressure in 160 mm Hg or over. 9. Anxiety disorder/Depression continue Home medicines. 10. Cirrhosis by history 11. Hypothyroidism continue Hormonal replacement 12. Leukocytosis, probable Pneumonia started on Empiric antibiotics management following blood culture and legionella and Pneumococcal antigen. DVT prop SCDs. Patient unable to anticoagulate secondary to recent GI bleed. GI prop pantoprazole Code Status Full Code Discussed Condition With with patient and Son and Daughter in Law in emergency room all questions answered to the best of my abilities. with ER specialist. Physician Certification 2 Midnight Certification Type: Admission for Inpatient Services Order for Inpatient Services The services are ordered in accordance with Medicare regulations or non- Medicare payer requirements, as applicable. In the case of services not specified as inpatient-only, they are appropriately provided as inpatient services in accordance with the 2-midnight benchmark. Estimated LOS (days): 3 days is the estimated time the patient will need to remain in the hospital, assuming treatment plan goals are met and no additional complications. Post-Hospital Plan: Not yet determined Corey Anderson MD August 11, 2016 14:09
[2016-08-11 15:02] VITALS: BP 179/108; PULSE 100; RESP 20
[2016-08-11 16:00] VITALS: BP 186/110; PULSE 98; RESP 24; TEMP 97; O2SAT 96
[2016-08-11] MEDS: RESP: ALBUTEROL 2.5 MG/IPRATROPIUM 0.5 MG NEB (SCH) NEB ×3 (16:10→23:32)
[2016-08-11] MEDS ORDERED: FURO40TA PO (16:34)
[2016-08-11] MEDS ORDERED: PROZ20CA11 PO (16:34)
[2016-08-11] MEDS: SPIRONOLACTONE 25 MG TAB PO SCH (16:59)
[2016-08-11] MEDS: GABAPENTIN 300 MG CAP PO SCH (16:59)
[2016-08-11] MEDS: CEFEPIME INJ 1,000 MG in SODIUM CHLORIDE 0.9% INJ 100 ML IV SCH (16:59)
[2016-08-11] MEDS: FOLIC ACID 1 MG TAB PO SCH (16:59)
[2016-08-11] MEDS: PIPERACIL-TAZO 3.375 GM PREMIX 50 ML IV SCH (18:11)
--- NOTE | 2016-08-11 18:46 | MB ---
cc: JACK FLOR DATE OF CONSULTATION 08/11/[address] Marcello Johnson REASON FOR CONSULTATION Evaluation for pleural effusion and shortness of breath. HISTORY OF PRESENT ILLNESS Mr. Delgado is a 70-year-old white male with a history of cirrhosis of the liver, recent GI bleed from the varices, he required 5 units of old blood. Also, history of recent pancreatitis and urosepsis. The patient came to the hospital with worsening of his shortness of breath for 1 week but more so over the last 3 days. He is able to walk a mile. He has swelling in his legs. Does not have fever or chills. No cough or sputum production. No wheezing. He does admit to some chronic bronchitis and chronic sinus problem. Does not use an inhaler or nebulizer machine at home. LABORATORY DATA The patient was evaluated in the hospital. His WBC count 13.5, hemoglobin 14.4, hematocrit 42.4, MCV 87, platelet count 89, sodium 131, potassium 4.4, chloride 97, CO2 24, BUN 27, creatinine 1.21, troponin 0.09, albumin 3.0, AST 70, ALT 114. IMAGING STUDIES He had a chest x-ray done which shows a large opacity in the right hemithorax likely pleural effusion associated with atelectasis of underlying pneumonia. PAST MEDICAL HISTORY His past medical history is significant for history of cirrhosis of the liver, rheumatoid arthritis. GI bleed, hypothyroidism, hypertension. Chronic sinus problem. MEDICATIONS He is currently takin. Allopurinol 100 milligrams daily. 2. Prozac 20 milligrams daily. 3. Losartan 50 milligrams daily. 4. Thiamine 100 milligrams daily. 5. Levothyroxine 75 micrograms a day. 6. Lipitor 20 milligrams a day. 7. Diltiazem 30 milligrams twice a day. 8. Flonase nasal spray. 9. Protonix 40 milligrams a day. 10. Neurontin 300 milligrams three times a day. 11. Aldactone 25 milligrams twice a day. 12. Folic acid 1 milligram a day. ALLERGIES HE IS ALLERGIC TO BUSPIRONE. SOCIAL HISTORY He is twice. He lives with his sister. 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 He has two children, one boy and one girl. No history of smoking. History of heavy drinking which he quit two months ago. REVIEW OF SYSTEMS Normally he is up, around and active. He is able to walk about a mile. No DVT or pulmonary embolism. No seizure, stroke or epilepsy. No DVT or ___ malignancy. PHYSICAL EXAMINATION GENERAL: Well-built, well-nourished male not in any acute distress. VITAL SIGNS: Blood pressure 179/108, heart rate 100, respirations 22, temperature 97.7, saturation 93% on room air. HEENT: On examination pupils are equal and reactive to light. Oral mucosa, nasal mucosa normal. NECK: Supple. JVP not raised. CHEST: He has dullness to percussion, markedly decreased breath sounds on the right. CHEST: S1-S2 normal. ABDOMEN: Soft, mildly distended. Bowel sounds present. EXTREMITIES: 2+ pedal edema. 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 No focal deficit. IMPRESSION 1. Large pleural effusion with possible atelectasis and infiltrates. 2. Cirrhosis of the liver. 3. History of recent GI bleed. 4. Hypertension. 5. History of alcohol use. 6. History of pancreatitis. 7. History of recent urosepsis. PLAN I discussed with the patient and his sister he will need a thoracentesis. Interventional radiology is already consulted for ultrasound-guided thoracentesis. Check the pleural fluid studies. Continue his present medications. He is being diuresed. Monitor electrolytes. Further treatment will depend on the course in the hospital. Thank you Dr. Armendariz for this consultation. MD COURT Goldberg/ALLISON /3:28 PM /6:25 PM
[2016-08-11 20:00] VITALS: BP 166/96; PULSE 90; RESP 20; TEMP 97.3; O2SAT 97
[2016-08-11] MEDS ORDERED: FUROSEMIDE 40 MG/4 ML VIAL IV PUSH ONE (20:00)
[2016-08-11] MEDS ORDERED: MORPHINE SULFATE 4 MG/ML INJ IV PUSH ONE (20:00)
--- NOTE | 2016-08-11 20:09 | PD.RAD ---
Post US Procedure Prog Note Pre Procedure Diagnosis: (1) Pleural effusion Post Procedure Diagnosis: (1) Pleural effusion Procedure Date: August 11, 2016 Supervising Radiologist: Orlin Schneider Proceduralist/Assist: Dianne Olivas RDMS Anesthesia: Local Plan of Activity Patient to Unit: Nursing Unit Patient Condition: Fair See PACS Report for procedural detail/treatment Drainage Procedure Procedure 1 Imaging Guidance: Ultrasound Side: Right Procedure Type: Thoracentesis Singaporean: 6 Drainage: Suction Fluid Description: Bhumika, Orlin Blanco MD August 11, 2016 20:09
[2016-08-11] MEDS: SODIUM CHLORIDE 0.9% FLUSH 10 ML FLUSH IV FLUSH SCH (21:00)
[2016-08-11] MEDS: FLUTICASONE PROPIONATE 50 MCG/ACT 16 GM NASAL SPRAY EACH NARE SCH (21:00)
--- NOTE | 2016-08-11 21:03 | RADRPT ---
EXAM DATE/TIME: 08/11/2016 20:13 [facility] COMPARISON: No previous studies available for comparison. INDICATIONS : Post thoracentesis. MEDICAL HISTORY : None. SURGICAL HISTORY : None. ENCOUNTER: Initial ACUITY: 1 day PAIN SCORE: 0/10 LOCATION: Right chest FINDINGS: There is no evidence of pneumothorax status-post right thoracentesis. A tiny right pleural effusion is noted. The heart is normal. The pulmonary vascular pattern is normal. Degenerative changes are noted throughout the thoracic spine. CONCLUSION: 1. No pneumothorax status-post right thoracentesis. 2. Tiny residual right pleural effusion. Reg Michelle MD on August 11, 2016 at 20:41 Board Certified Radiologist. This report was verified electronically.
[2016-08-11] MEDS: DILTIAZEM HCL 30 MG TAB PO SCH (21:16)
[2016-08-11] MEDS: guaiFENesin E.R. 600 MG TAB PO SCH (21:16)
[2016-08-11] MEDS: ATORVASTATIN 20 MG TAB PO SCH (21:16)
[2016-08-11] MEDS: PANTOPRAZOLE SOD 40 MG DELAYED RELEASE TAB PO SCH (21:16)
[2016-08-11] MEDS: DOCUSATE SODIUM 50 MG/SENNA 8.6 MG TAB PO SCH (21:16)
[2016-08-11] MEDS ORDERED: traMADol HCL 50 MG TAB PO ONE (22:00)
[2016-08-11 22:11] LABS: TOTAL PROTEIN,PLEURAL FLUID 0.4 GM/DL
[2016-08-11 22:26] VITALS: PULSE 86
[2016-08-11 22:55] LABS: PLEURAL FLUID LYMPHS 16 %
--- NOTE | 2016-08-11 23:20 | RADRPT ---
EXAM DATE/TIME: 08/11/2016 19:32 [facility] COMPARISON: CHEST EXPIRATION ONLY, August 11, 2016, 20:13. INDICATIONS : Right pleural effusion. MEDICAL HISTORY : Hypercholesterolemia. Arthritis. Thyroid disease. Tinnitus. HTN. Ashtma. Dyspnea. GI bleed. Duodenal ulcer. GERD. Gout. Chronic sciatica. Disc degeneration. Liver disease. PTSD. Anxiety. Clotting probl ems. Cdiff. SURGICAL HISTORY : Cardiac cath. Left rotator cuff. Right hand. Blood transfusions. ENCOUNTER: Initial ACUITY: 1 week PAIN SCORE: 03/25 LOCATION: Right chest FLUID: Total volume of 4450 cc of cloudy, yellow fluid was removed. Fluid was sent to lab for ordered studies. TECHNIQUE: 1. Ultrasound guidance for thoracentesis. 2. Thoracentesis. The risks, benefits, and alternatives to ultrasound guided thoracentesis were explained to the patien t in lay simple terms, including the risk of bleeding and infection. Written and verbal informed con sent was obtained. Appropriate area for thoracentesis was marked under ultrasound guidance with the patient in the uprig ht position. Overlying skin was prepped and draped in the usual sterile fashion and with local anest hetic, a dermatotomy was made with an 11 blade scalpel. A 6 Italian thoracentesis catheter was placed in the pleural space and fluid was removed. Catheter was then removed and a sterile dressing applie d. There were no immediate complications. The patient tolerated the procedure well and the left the ultrasound suite in stable condition. Chest radiograph is to be obtained. CONCLUSION: Uncomplicated ultrasound guided thoracentesis. Orlin Schneider MD on August 11, 2016 at 23:17 Board Certified Radiologist. This report was verified electronically.
[2016-08-12] VITALS (11 sets, daily range): BP systolic 94–161; BP diastolic 51–90; PULSE 88–100; RESP 13–20; TEMP 95.7–98; O2SAT 94–97
[2016-08-12] MEDS: PIPERACIL-TAZO 3.375 GM PREMIX 50 ML IV SCH ×4 (00:10→16:22)
[2016-08-12] MEDS: CEFEPIME INJ 1,000 MG in SODIUM CHLORIDE 0.9% INJ 100 ML IV SCH ×3 (00:10→16:23)
--- NOTE | 2016-08-12 01:14 | HHI.PR ---
Addendum to Inpatient Note Addendum Reason: Additional Documentation Additional Information I was called by patient's nurse because the lactic acid on repeat was elevated at 4.9. Patient had large pleural effusion for which we were initially called prior to his thoracocentesis. At that time, patient was hypertensive which initially was thought to be secondary to anxiety. We had given him Lasix 40 mg IV at that time for hypertension likely secondary to distress from pleural effusion. Patient did well after this and was able to undergo thoracocentesis. 4 L was drained as per nursing report. We were then called because of his labs which includes cardiac enzymes and lactic acid. Repeat serial enzymes and lactic acid were ordered at that time and now reported as elevated. Chart reviewed. Patient admitted with suspected pneumonia and obvious pleural effusions. I do believe that his increased lactic acid is secondary to respiratory issues for which he presented initially and now is more of a washout of lactate. Nurse also confirms that patient is quite stable and doing well without any evidence of hypotension/fever/tachycardia. Therefore will not act on this number at present. We'll continue to monitor patient overnight. Alice Finney MD August 12, 2016 01:14
[2016-08-12 01:37] LABS: BLOOD GAS BASE EXCESS -1.8 mmol/L (-2-2); BLOOD GAS CARBOXYHEMOGLOBIN 1.5 % (0-4); BLOOD GAS HCO3 21 mmol/L (22-26); BLOOD GAS O2 HGB SATURATION 88 % (90-100); BLOOD GAS OXYGEN CONTENT 17.1 Vol % (12.0-20.0); BLOOD GAS PCO2 28 mmHg (38-42); BLOOD GAS PO2 56 mmHg (61-120); BLOOD GAS TOTAL HGB 13.9 G/DL (12.0-16.0); TEMP CORR TO 98.6
[2016-08-12 01:39] LABS: CRITICAL VALUE YES
[2016-08-12 01:40] LABS: DRAW SITE LT RADIAL; FIO2 21 %; NUMBER OF ARTERIAL PUNCTURES 1; OXYGEN DEVICE ROOM AIR; STAT YES; ULNAR PULSE PRESENT
[2016-08-12 02:10] LABS: LACTIC ACID GHOST NOT REPORTABLE
[2016-08-12] MEDS: RESP: ALBUTEROL 2.5 MG/IPRATROPIUM 0.5 MG NEB (SCH) NEB ×5 (03:16→20:43)
[2016-08-12 03:21] LABS: AUTOMATED NEUTROPHIL # 20.2 TH/MM3 (1.8-7.7); BASOPHIL % 0.1 % (0.0-2.0); EOSINOPHIL # 0.1 TH/MM3 (0-0.4); EOSINOPHIL % 0.3 % (0.0-4.0); HEMATOCRIT 41.6 % (39.0-51.0); LYMPH % 3.7 % (9.0-44.0); LYMPHOCYTE # 0.8 TH/MM3 (1.0-4.8); MEAN CELL VOLUME 87.1 FL (80.0-100.0); MEAN CORPUSCULAR HEMOGLOBIN 29.3 PG (27.0-34.0); MEAN CORPUSCULAR HGB CONC 33.7 % (32.0-36.0); MONO % 5.7 % (0.0-8.0); NEUT % 90.2 % (16.0-70.0); PLATELET COUNT 82 TH/MM3 (150-450); RED BLOOD COUNT 4.77 MIL/MM3 (4.50-5.90); RED CELL DISTRIBUTION WIDTH 17.1 % (11.6-17.2); WHITE BLOOD COUNT 22.4 TH/MM3 (4.0-11.0)
[2016-08-12 03:36] LABS: BICARBONATE 25.5 MEQ/L (21.0-32.0); POTASSIUM 4.4 MEQ/L (3.5-5.1)
[2016-08-12 03:39] LABS: HEMO FLAGS AUTO DIFF
[2016-08-12 04:00] LABS: PLATELET ESTIMATE SMEAR LOW (NORMAL); PLATELET MORPHOLOGY NORMAL (NORMAL); SCAN/DIFF AUTO DIFF CONFIRMED
[2016-08-12] MEDS: LEVOTHYROXINE SODIUM 75 MCG TAB PO SCH (06:02)
[2016-08-12] MEDS: GABAPENTIN 300 MG CAP PO SCH ×3 (08:22→16:23)
[2016-08-12] MEDS: PANTOPRAZOLE SOD 40 MG DELAYED RELEASE TAB PO SCH ×2 (08:22→19:45)
[2016-08-12] MEDS: LOSARTAN 25 MG TAB PO SCH (08:22)
[2016-08-12] MEDS: SPIRONOLACTONE 25 MG TAB PO SCH ×2 (08:23→16:23)
[2016-08-12] MEDS: FLUoxetine HCL 20 MG CAP PO SCH (08:23)
[2016-08-12] MEDS: SODIUM CHLORIDE 0.9% FLUSH 10 ML FLUSH IV FLUSH SCH ×2 (08:23→19:47)
[2016-08-12] MEDS: guaiFENesin E.R. 600 MG TAB PO SCH ×2 (08:23→19:44)
[2016-08-12] MEDS: DILTIAZEM HCL 30 MG TAB PO SCH ×2 (08:23→21:00)
[2016-08-12] MEDS: DOCUSATE SODIUM 50 MG/SENNA 8.6 MG TAB PO SCH ×2 (08:23→19:47)
[2016-08-12] MEDS: THIAMINE HCL 100 MG TAB PO SCH (08:23)
[2016-08-12] MEDS: ALLOPURINOL 100 MG TAB PO SCH (08:23)
[2016-08-12] MEDS: FLUTICASONE PROPIONATE 50 MCG/ACT 16 GM NASAL SPRAY EACH NARE SCH ×2 (08:24→19:48)
--- NOTE | 2016-08-12 08:32 | EKG ---
Date Performed: 08/11/2016 Time Performed: 11:41:40 PTAGE: 70 years EKG: Sinus rhythm SEPTAL MYOCARDIAL INFARCTION ABNORMAL ECG NO PREVIOUS TRACING DOCTOR: Alex Poe Interpretating Date/Time 08/12/2016 08:31:07
--- NOTE | 2016-08-12 11:32 | HHI.PR ---
Subjective Remarks Follow-up large pleural effusion/pulmonary infiltrate 08/12/16-patient seen and examined, he is status post right thoracentesis with significant improvement of shortness of breath. Currently afebrile. Objective Vitals Vital Signs Date Time Temp Pulse Resp B/P Pulse Ox O2 Delivery O2 Flow Rate FiO2 08/12/16 08:31 94 08/12/16 08:31 94 Nasal Cannula 2.00 08/12/16 08:05 94 Nasal Cannula 3.00 08/12/16 08:00 96.1 94 20 161/85 94 08/12/16 04:00 97.4 89 20 147/88 97 08/12/16 01:56 94 Nasal Cannula 2.00 08/12/16 01:51 94 Nasal Cannula 2.00 08/12/16 00:00 98.0 88 20 152/90 95 08/11/16 22:26 86 08/11/16 20:00 97.3 90 20 166/96 97 08/11/16 16:00 97.0 98 24 186/110 96 08/11/16 15:02 100 20 179/108 08/11/16 14:41 Nasal Cannula 2.00 I/O 08/11/16 08/11/16 08/11/16 08/12/16 08/12/16 08/12/16 07:00 15:00 23:00 07:00 15:00 23:00 Intake Total 586 ml 420 ml Output Total 0 ml 450 ml Balance 586 ml -30 ml Intake Oral 220 ml 220 ml IV Total 366 ml 200 ml Output Urine Total 0 ml 450 ml # Bowel Movements 0 1 Result Diagram: 08/12/16 0309 08/12/16 0309 Imaging Last Impressions Thoracentesis Ultrasound 08/11/16 0000 Signed Impressions: Service Date/Time: Thursday, August 11, 2016 19:32 - CONCLUSION: Uncomplicated ultrasound guided thoracentesis. Orlin Schneider MD Chest X-Ray 08/11/16 0000 Signed Impressions: Service Date/Time: Thursday, August 11, 2016 20:13 - CONCLUSION: 1. No pneumothorax status-post right thoracentesis. 2. Tiny residual right pleural effusion. Reg Michelle MD Objective Remarks GENERAL: NAD SKIN: Warm and dry. HEAD: Normocephalic. EYES: No scleral icterus. No injection or drainage. NECK: Supple, trachea midline. No JVD or lymphadenopathy. CARDIOVASCULAR: Regular rate and rhythm without murmurs, gallops, or rubs. RESPIRATORY: Breath sounds equal bilaterally. No accessory muscle use. GASTROINTESTINAL: Abdomen soft, non-tender, nondistended. MUSCULOSKELETAL: No cyanosis, or edema. BACK: Nontender without obvious deformity. No CVA tenderness. A/P Problem List: (1) Pleural effusion ICD Code: J90 Status: Acute (2) Pulmonary infiltrate in right lung on chest x-ray ICD Code: R91.8 Status: Acute (3) Bacterial pneumonia ICD Code: J15.9 Status: Acute Assessment and Plan 70-year-old man with Respiratory Insufficiency secondary to Right Pleural Effusion Status post right thoracentesis Large pleural effusion Status post right thoracentesis and appreciate input from pulmonary medicine pending pleural fluid analysis and cytology Continue current treatment including DuoNeb when necessary, maintain oxygen saturation above 90% Bacterial pneumonia Continue with cefepime IV and Zosyn ; monitor culture Pneumococcal and Legionella antigens negative Elevated cardiac enzyme Likely secondary to pleural effusion Denies any chest pain History of GI bleed history Duodenal ulcer, Gastropathy, Grade II esophageal varices, colon polyps on endoscopy, hemoglobin 14.4 no further GI bleed. Recent Anemia secondary to acute blood loss, GI bleed, had Coagulopathy, status post blood transfusion of 5 units or PRBCs, FFP, and was given vitamin K. now hemoglobin 14.4 History of Stage II sacral pressure Ulcer by history continue Wound care for evaluation. Alcoholic liver disease strongly recommended to stop drinking behavior. Rheumatoid arthritis: Chronic continue to monitor. Will resume Toradol the RN Hypertension : Continue Cardizem, Cozaar Anxiety disorder/Depression continue Home medicines. Resume Xanax Cirrhosis by history : Continue Aldactone, lactulose. Monitor ammonia level Hypothyroidism continue Hormonal replacement DVT prop SCDs. Patient unable to anticoagulate secondary to recent GI bleed. GI prop pantoprazole Chaz Gutierrez MD August 12, 2016 11:32
[2016-08-12] MEDS ORDERED: ALPR0.25 PO (15:20)
[2016-08-12] MEDS ORDERED: TRAM50TA PO (15:20)
[2016-08-12] MEDS: FOLIC ACID 1 MG TAB PO SCH (16:23)
[2016-08-12] MEDS: traMADol HCL 50 MG TAB PO PRN (16:24)
[2016-08-12] MEDS: ALPRAZolam 0.5 MG TAB PO PRN (18:02)
--- NOTE | 2016-08-12 19:29 | HHI.PR ---
Subjective Remarks 70 YOWM with large pl eff Had TC 4 Lit fluid removed Breathing much better Objective Vital Signs Vital Signs Date Time Temp Pulse Resp B/P Pulse Ox O2 Delivery O2 Flow Rate FiO2 08/12/16 16:32 97 Nasal Cannula 3.00 08/12/16 16:00 96.0 98 18 94/51 97 08/12/16 12:00 96.4 99 18 130/64 96 08/12/16 08:31 94 08/12/16 08:31 94 Nasal Cannula 2.00 08/12/16 08:05 94 Nasal Cannula 3.00 08/12/16 08:00 96.1 94 20 161/85 94 08/12/16 04:00 97.4 89 20 147/88 97 08/12/16 01:56 94 Nasal Cannula 2.00 08/12/16 01:51 94 Nasal Cannula 2.00 08/12/16 00:00 98.0 88 20 152/90 95 08/11/16 22:26 86 08/11/16 20:00 97.3 90 20 166/96 97 I/O 08/11/16 08/11/16 08/11/16 08/12/16 08/12/16 08/12/16 07:00 15:00 23:00 07:00 15:00 23:00 Intake Total 586 ml 420 ml 800 ml Output Total 0 ml 450 ml 600 ml Balance 586 ml -30 ml 200 ml Intake Oral 220 ml 220 ml 800 ml IV Total 366 ml 200 ml Output Urine Total 0 ml 450 ml 600 ml # Bowel Movements 0 1 0 Result Diagram: 08/12/16 0309 08/12/16 0309 Objective Remarks GENERAL: WBWn male.NAD SKIN: Warm and dry. HEAD: Normocephalic. EYES: No scleral icterus. No injection or drainage. NECK: Supple, trachea midline. No JVD or lymphadenopathy. CARDIOVASCULAR: Regular rate and rhythm without murmurs, gallops, or rubs. RESPIRATORY: Breath sounds equal bilaterally. No accessory muscle use. GASTROINTESTINAL: Abdomen soft, non-tender, nondistended. MUSCULOSKELETAL: No cyanosis, or edema. BACK: Nontender without obvious deformity. No CVA tenderness. A/P Assessment and Plan Large pl effusion, s/p TC / Cirrhosis of liver Recent GIB PLAN: Check pl fluid reuslts Cont Abx Supplement 02 Aneja,Cheikh Dev MD August 12, 2016 19:29
[2016-08-12] MEDS: ATORVASTATIN 20 MG TAB PO SCH (19:45)
[2016-08-13] VITALS (8 sets, daily range): BP systolic 100–127; BP diastolic 53–62; PULSE 90–114; RESP 16–22; TEMP 95.8–98.5; O2SAT 95–97
[2016-08-13] MEDS: PIPERACIL-TAZO 3.375 GM PREMIX 50 ML IV SCH ×4 (00:02→17:00)
[2016-08-13] MEDS: CEFEPIME INJ 1,000 MG in SODIUM CHLORIDE 0.9% INJ 100 ML IV SCH ×3 (00:02→17:00)
[2016-08-13] MEDS: RESP: ALBUTEROL 2.5 MG/IPRATROPIUM 0.5 MG NEB (SCH) NEB ×6 (01:05→20:56)
[2016-08-13 05:16] LABS: BASOPHIL % 0.3 % (0.0-2.0); EOSINOPHIL # 0.1 TH/MM3 (0-0.4); EOSINOPHIL % 0.6 % (0.0-4.0); HEMATOCRIT 38.6 % (39.0-51.0); LYMPH % 4.9 % (9.0-44.0); LYMPHOCYTE # 0.7 TH/MM3 (1.0-4.8); MEAN CELL VOLUME 89.7 FL (80.0-100.0); MEAN CORPUSCULAR HEMOGLOBIN 29.2 PG (27.0-34.0); MEAN CORPUSCULAR HGB CONC 32.6 % (32.0-36.0); MONO % 7.7 % (0.0-8.0); NEUT % 86.5 % (16.0-70.0); PLATELET COUNT 56 TH/MM3 (150-450); RED CELL DISTRIBUTION WIDTH 17.5 % (11.6-17.2); WHITE BLOOD COUNT 13.9 TH/MM3 (4.0-11.0)
[2016-08-13] MEDS: LEVOTHYROXINE SODIUM 75 MCG TAB PO SCH (05:17)
[2016-08-13 05:25] LABS: HEMO FLAGS DIFF FINAL
[2016-08-13 05:44] LABS: ALKALINE PHOSPHATASE 166 U/L (45-117); ALT (GPT) 74 U/L (12-78); ANION GAP 10 MEQ/L (5-15); AST (GOT) 51 U/L (15-37); BICARBONATE 24.7 MEQ/L (21.0-32.0); BLOOD UREA NITROGEN 40 MG/DL (7-18); CHLORIDE 99 MEQ/L (98-107); GLOMERULAR FILTRATION RATE 32 ML/MIN (>89); POTASSIUM 4.3 MEQ/L (3.5-5.1); SODIUM (NA) 134 MEQ/L (136-145)
[2016-08-13] MEDS: guaiFENesin E.R. 600 MG TAB PO SCH ×2 (07:20→22:00)
[2016-08-13] MEDS: ALLOPURINOL 100 MG TAB PO SCH (07:20)
[2016-08-13] MEDS: FLUoxetine HCL 20 MG CAP PO SCH (07:21)
[2016-08-13] MEDS: SPIRONOLACTONE 25 MG TAB PO SCH ×2 (07:21→16:58)
[2016-08-13] MEDS: PANTOPRAZOLE SOD 40 MG DELAYED RELEASE TAB PO SCH ×2 (07:21→21:59)
[2016-08-13] MEDS: THIAMINE HCL 100 MG TAB PO SCH (07:21)
[2016-08-13] MEDS: DILTIAZEM HCL 30 MG TAB PO SCH ×2 (07:21→21:00)
[2016-08-13] MEDS: DOCUSATE SODIUM 50 MG/SENNA 8.6 MG TAB PO SCH ×2 (07:21→21:00)
[2016-08-13] MEDS: GABAPENTIN 300 MG CAP PO SCH ×3 (07:21→16:59)
[2016-08-13] MEDS: LOSARTAN 25 MG TAB PO SCH (07:21)
[2016-08-13] MEDS: traMADol HCL 50 MG TAB PO PRN ×3 (07:26→22:02)
[2016-08-13] MEDS: ALPRAZolam 0.5 MG TAB PO PRN ×2 (07:26→17:04)
[2016-08-13] MEDS: SODIUM CHLORIDE 0.9% FLUSH 10 ML FLUSH IV FLUSH SCH ×2 (07:29→21:00)
[2016-08-13] MEDS: FLUTICASONE PROPIONATE 50 MCG/ACT 16 GM NASAL SPRAY EACH NARE SCH ×2 (07:29→22:04)
--- NOTE | 2016-08-13 10:03 | HHI.PR ---
Subjective Remarks Follow-up large pleural effusion/pulmonary infiltrate 08/12/16-patient seen and examined, he is status post right thoracentesis with significant improvement of shortness of breath. Currently afebrile. 08/13/16-patient seen and examined; denies any shortness of breath and states he is breathing a lot easier now Objective Vitals Vital Signs Date Time Temp Pulse Resp B/P Pulse Ox O2 Delivery O2 Flow Rate FiO2 08/13/16 08:17 97 Nasal Cannula 2.00 08/13/16 08:00 98.3 104 19 127/61 97 08/13/16 07:26 Nasal Cannula 2.00 08/13/16 04:00 98.5 97 16 101/55 96 08/13/16 00:00 95.8 94 16 105/54 95 08/12/16 20:25 93 08/12/16 20:00 95.7 100 13 94/51 96 08/12/16 19:41 2 Nasal Cannula 2.00 08/12/16 16:32 97 Nasal Cannula 3.00 08/12/16 16:00 96.0 98 18 94/51 97 08/12/16 12:00 96.4 99 18 130/64 96 I/O 08/12/16 08/12/16 08/12/16 08/13/16 08/13/16 08/13/16 07:00 15:00 23:00 07:00 15:00 23:00 Intake Total 420 ml 800 ml 350 ml 200 ml Output Total 450 ml 600 ml 75 ml 200 ml Balance -30 ml 200 ml 275 ml 0 ml Intake Oral 220 ml 800 ml 350 ml IV Total 200 ml 200 ml Output Urine Total 450 ml 600 ml 75 ml 200 ml # Bowel Movements 1 0 0 Result Diagram: 08/13/16 0455 08/13/16 0455 Imaging Last Impressions Thoracentesis Ultrasound 08/11/16 0000 Signed Impressions: Service Date/Time: Thursday, August 11, 2016 19:32 - CONCLUSION: Uncomplicated ultrasound guided thoracentesis. Orlin Schneider MD Chest X-Ray 08/11/16 0000 Signed Impressions: Service Date/Time: Thursday, August 11, 2016 20:13 - CONCLUSION: 1. No pneumothorax status-post right thoracentesis. 2. Tiny residual right pleural effusion. Reg Michelle MD Objective Remarks GENERAL: NAD SKIN: Warm and dry. HEAD: Normocephalic. EYES: No scleral icterus. No injection or drainage. NECK: Supple, trachea midline. No JVD or lymphadenopathy. CARDIOVASCULAR: Regular rate and rhythm without murmurs, gallops, or rubs. RESPIRATORY: Breath sounds equal bilaterally. No accessory muscle use. GASTROINTESTINAL: Abdomen soft, non-tender, nondistended. MUSCULOSKELETAL: No cyanosis, or edema. BACK: Nontender without obvious deformity. No CVA tenderness. A/P Problem List: (1) Pleural effusion ICD Code: J90 Status: Acute (2) Pulmonary infiltrate in right lung on chest x-ray ICD Code: R91.8 Status: Acute (3) Bacterial pneumonia ICD Code: J15.9 Status: Acute (4) HTN (hypertension) ICD Code: I10 Status: Chronic (5) Acute renal failure superimposed on stage 3 chronic kidney disease ICD Code: N17.9 Status: Acute (6) Thrombocytopenia ICD Code: D69.6 Status: Acute Assessment and Plan 70-year-old man with Respiratory Insufficiency secondary to Right Pleural Effusion Status post right thoracentesis Large pleural effusion Status post right thoracentesis and appreciate input from pulmonary medicine pending pleural fluid analysis and cytology as well as culture Continue current treatment including DuoNeb when necessary, maintain oxygen saturation above 90% Bacterial pneumonia Continue with cefepime IV and Zosyn ; monitor culture Pneumococcal and Legionella antigens negative Elevated cardiac enzyme Likely secondary to pleural effusion Denies any chest pain History of GI bleed history Duodenal ulcer, Gastropathy, Grade II esophageal varices, colon polyps on endoscopy, hemoglobin 14.4 no further GI bleed. Recent Anemia secondary to acute blood loss, GI bleed, had Coagulopathy, status post blood transfusion of 5 units or PRBCs, FFP, and was given vitamin K. now hemoglobin 14.4 History of Stage II sacral pressure Ulcer by history continue Wound care for evaluation. Alcoholic liver disease strongly recommended to stop drinking behavior. Rheumatoid arthritis: Chronic continue to monitor. continueToradol the RN Hypertension : Continue Cardizem, Cozaar Anxiety disorder/Depression continue Home medicines. Resume Xanax Cirrhosis by history : Continue Aldactone, lactulose. Monitor ammonia level Hypothyroidism continue Hormonal replacement Thrombocytopenia: Secondary to liver disease, continue to monitor Acute on chronic kidney disease: Secondary to volume loss; monitor BUN and creatinine DVT prop SCDs. Patient unable to anticoagulate secondary to recent GI bleed. GI prop pantoprazole Chaz Gutierrez MD August 13, 2016 10:02
[2016-08-13] MEDS: FOLIC ACID 1 MG TAB PO SCH (16:58)
--- NOTE | 2016-08-13 20:50 | HHI.PR ---
Subjective Remarks 70 YOWM with large pl eff Had TC 4 Lit fluid removed Breathing much better No CP,Fever or chills Objective Vital Signs Vital Signs Date Time Temp Pulse Resp B/P Pulse Ox O2 Delivery O2 Flow Rate FiO2 08/13/16 20:39 95 Nasal Cannula 1.00 08/13/16 16:00 98.5 114 18 111/62 96 08/13/16 12:00 97.9 90 18 100/53 97 08/13/16 08:17 97 Nasal Cannula 2.00 08/13/16 08:00 98.3 104 19 127/61 97 08/13/16 07:26 Nasal Cannula 2.00 08/13/16 04:00 98.5 97 16 101/55 96 08/13/16 00:00 95.8 94 16 105/54 95 I/O 08/12/16 08/12/16 08/12/16 08/13/16 08/13/16 08/13/16 07:00 15:00 23:00 07:00 15:00 23:00 Intake Total 420 ml 800 ml 350 ml 200 ml 240 ml Output Total 450 ml 600 ml 75 ml 200 ml 250 ml Balance -30 ml 200 ml 275 ml 0 ml -10 ml Intake Oral 220 ml 800 ml 350 ml 240 ml IV Total 200 ml 200 ml Output Urine Total 450 ml 600 ml 75 ml 200 ml 250 ml # Bowel Movements 1 0 0 1 Result Diagram: 08/13/16 0455 08/13/16 0455 Objective Remarks GENERAL: WBWn male.NAD SKIN: Warm and dry. HEAD: Normocephalic. EYES: No scleral icterus. No injection or drainage. NECK: Supple, trachea midline. No JVD or lymphadenopathy. CARDIOVASCULAR: Regular rate and rhythm without murmurs, gallops, or rubs. RESPIRATORY: Breath sounds equal bilaterally. No accessory muscle use. GASTROINTESTINAL: Abdomen soft, non-tender, nondistended. MUSCULOSKELETAL: No cyanosis, or edema. BACK: Nontender without obvious deformity. No CVA tenderness. A/P Assessment and Plan Large pl effusion, s/p TC / Cirrhosis of liver Recent GIB PLAN: Check pl fluid reuslts Cont Abx Supplement 02 OOB And ambulate DW pt and his sister at Cheikh Goetz MD August 13, 2016 20:49
[2016-08-13] MEDS: ATORVASTATIN 20 MG TAB PO SCH (22:00)
[2016-08-14] VITALS (10 sets, daily range): BP systolic 116–142; BP diastolic 56–68; PULSE 91–103; RESP 16–22; TEMP 95.1–96.7; O2SAT 92–97
[2016-08-14] MEDS: RESP: ALBUTEROL 2.5 MG/IPRATROPIUM 0.5 MG NEB (SCH) NEB ×6 (00:08→20:12)
[2016-08-14] MEDS: PIPERACIL-TAZO 3.375 GM PREMIX 50 ML IV SCH ×2 (05:00)
[2016-08-14] MEDS: traMADol HCL 50 MG TAB PO PRN ×4 (05:00→21:05)
[2016-08-14] MEDS: ALPRAZolam 0.5 MG TAB PO PRN ×2 (05:01→21:05)
[2016-08-14 05:57] LABS: AUTOMATED NEUTROPHIL # 14.3 TH/MM3 (1.8-7.7); BASOPHIL % 0.1 % (0.0-2.0); EOSINOPHIL # 0.1 TH/MM3 (0-0.4); EOSINOPHIL % 0.5 % (0.0-4.0); HEMATOCRIT 40.6 % (39.0-51.0); LYMPH % 5.6 % (9.0-44.0); LYMPHOCYTE # 0.9 TH/MM3 (1.0-4.8); MEAN CELL VOLUME 89.8 FL (80.0-100.0); MEAN CORPUSCULAR HEMOGLOBIN 30.2 PG (27.0-34.0); MEAN CORPUSCULAR HGB CONC 33.6 % (32.0-36.0); MONO % 4.5 % (0.0-8.0); NEUT % 89.3 % (16.0-70.0); PLATELET COUNT 58 TH/MM3 (150-450); RED BLOOD COUNT 4.53 MIL/MM3 (4.50-5.90); RED CELL DISTRIBUTION WIDTH 17.5 % (11.6-17.2); WHITE BLOOD COUNT 16.1 TH/MM3 (4.0-11.0)
[2016-08-14] MEDS: LEVOTHYROXINE SODIUM 75 MCG TAB PO SCH (06:00)
[2016-08-14 06:01] LABS: HEMO FLAGS AUTO DIFF
[2016-08-14 06:20] LABS: ALT (GPT) 88 U/L (12-78); ANION GAP 11 MEQ/L (5-15); AST (GOT) 68 U/L (15-37); BICARBONATE 21.6 MEQ/L (21.0-32.0); BLOOD UREA NITROGEN 50 MG/DL (7-18); CHLORIDE 99 MEQ/L (98-107); GLOMERULAR FILTRATION RATE 26 ML/MIN (>89); POTASSIUM 4.3 MEQ/L (3.5-5.1); SODIUM (NA) 132 MEQ/L (136-145)
[2016-08-14 06:22] LABS: ALKALINE PHOSPHATASE 187 U/L (45-117); TOTAL BILIRUBIN ADULT 1.1 MG/DL (0.2-1.0)
[2016-08-14 06:53] LABS: SCAN/DIFF AUTO DIFF CONFIRMED
[2016-08-14] MEDS: SODIUM CHLORIDE 0.9% FLUSH 10 ML FLUSH IV FLUSH SCH ×2 (09:00→21:06)
[2016-08-14] MEDS: ALLOPURINOL 100 MG TAB PO SCH (09:39)
[2016-08-14] MEDS: SPIRONOLACTONE 25 MG TAB PO SCH (09:39)
[2016-08-14] MEDS: PANTOPRAZOLE SOD 40 MG DELAYED RELEASE TAB PO SCH ×2 (09:39→21:06)
[2016-08-14] MEDS: DILTIAZEM HCL 30 MG TAB PO SCH ×2 (09:39→21:05)
[2016-08-14] MEDS: GABAPENTIN 300 MG CAP PO SCH ×2 (09:39→14:55)
[2016-08-14] MEDS: FLUoxetine HCL 20 MG CAP PO SCH (09:39)
[2016-08-14] MEDS: THIAMINE HCL 100 MG TAB PO SCH (09:39)
[2016-08-14] MEDS: LOSARTAN 25 MG TAB PO SCH (09:39)
[2016-08-14] MEDS: DOCUSATE SODIUM 50 MG/SENNA 8.6 MG TAB PO SCH ×2 (09:39→21:00)
[2016-08-14] MEDS: guaiFENesin E.R. 600 MG TAB PO SCH ×2 (09:40→21:05)
[2016-08-14] MEDS: CEFEPIME INJ 1,000 MG in SODIUM CHLORIDE 0.9% INJ 100 ML IV SCH ×3 (09:40)
[2016-08-14] MEDS: FLUTICASONE PROPIONATE 50 MCG/ACT 16 GM NASAL SPRAY EACH NARE SCH ×2 (09:40→21:07)
--- NOTE | 2016-08-14 10:33 | HHI.PR ---
Subjective Remarks Follow-up for pulmonary fusion Shortness of breath stable, better than yesterday, a febrile. Lives at home. Not short of breath. No nausea or vomiting. No pain. Objective Vitals Vital Signs Date Time Temp Pulse Resp B/P Pulse Ox O2 Delivery O2 Flow Rate FiO2 08/14/16 08:00 95.7 91 16 136/68 97 08/14/16 07:50 92 Nasal Cannula 1.00 08/14/16 04:00 96.0 99 22 119/58 97 08/14/16 00:10 96 Nasal Cannula 1.00 08/14/16 00:00 96.7 97 22 116/56 95 08/13/16 21:45 96 Nasal Cannula 2.00 08/13/16 20:39 95 Nasal Cannula 1.00 08/13/16 20:00 96.9 107 22 100/56 95 08/13/16 16:00 98.5 114 18 111/62 96 08/13/16 12:00 97.9 90 18 100/53 97 I/O 08/13/16 08/13/16 08/13/16 08/14/16 08/14/16 08/14/16 07:00 15:00 23:00 07:00 15:00 23:00 Intake Total 200 ml 240 ml 664 ml 445 ml Output Total 200 ml 250 ml 50 ml 300 ml Balance 0 ml -10 ml 614 ml 145 ml Intake Oral 240 ml 480 ml 240 ml IV Total 200 ml 184 ml 205 ml Output Urine Total 200 ml 250 ml 50 ml 300 ml # Voids 1 # Bowel Movements 1 1 0 Result Diagram: 08/14/16 0538 08/14/16 0538 Objective Remarks GENERAL: NAD SKIN: Warm and dry. HEAD: Normocephalic. EYES: No scleral icterus. No injection or drainage. NECK: Supple, trachea midline. No JVD or lymphadenopathy. CARDIOVASCULAR: Regular rate and rhythm without murmurs, gallops, or rubs. RESPIRATORY: Decreased breath sounds in the right, occasional crackles on the right base, no wheezing. GASTROINTESTINAL: Abdomen soft, non-tender, nondistended. MUSCULOSKELETAL: 1-2+ edema, small bleeding wound left anterior tibial area. BACK: Nontender without obvious deformity. No CVA tenderness. A/P Problem List: (1) Pleural effusion ICD Code: J90 Status: Acute (2) Pulmonary infiltrate in right lung on chest x-ray ICD Code: R91.8 Status: Acute (3) Bacterial pneumonia ICD Code: J15.9 Status: Acute (4) HTN (hypertension) ICD Code: I10 Status: Chronic (5) Acute renal failure superimposed on stage 3 chronic kidney disease ICD Code: N17.9 Status: Acute (6) Thrombocytopenia ICD Code: D69.6 Status: Acute Assessment and Plan 70-year-old man with Respiratory Insufficiency secondary to Right Pleural Effusion-status post thoracenteses 08/11/16, pulmonary following. Pleural fluid analysis showed transudative effusion, likely hepatic. Doubt parapneumonic. Cytology pending, culture pending. Continue duo nebs, oxygen support as needed. Post thoracentesis chest x-ray reviewed showed resolution of consolidation. Stop antibiotics. Pneumococcal legionella antigens negative. Doubt cardiac, echocardiogram recently showed ejection fraction 55-60%. Thrombocytopenia-could be secondary to Zosyn and cefepime, stop antibiotics, follow-up culture results from effusion. Repeat CBC tomorrow, check HIDA panel and TREY.. May also be secondary to cirrhosis Acute renal failure on top of chronic-stop diuretics and losartan, start IVF, monitor creatinine daily. Mildly elevated troponin-likely demand mediated, denies any chest pain. No further workup other than as outpatient. History of GI bleed history Duodenal ulcer, Gastropathy, Grade II esophageal varices, colon polyps on endoscopy, hemoglobin 14.4 no further GI bleed. Recent Anemia secondary to acute blood loss, GI bleed, had Coagulopathy, status post blood transfusion of 5 units or PRBCs, FFP, and was given vitamin K. now hemoglobin 14.4 History of Stage II sacral pressure Ulcer by history continue Wound care for evaluation. Alcoholic liver disease strongly recommended to stop drinking behavior. LFTs stable, monitor. Rheumatoid arthritis: Chronic continue to monitor. continueToradol the RN Hypertension : Continue Cardizem, Cozaar on hold Anxiety disorder/Depression continue Home medicines. Resume Xanax Cirrhosis by history : Continue lactulose. Ammonia within normal limits, hold Aldactone. Hypothyroidism continue Hormonal replacement DVT prop SCDs. Patient unable to anticoagulate secondary to recent GI bleed. GI prop pantoprazole Discharge Planning Consult physical therapy, would likely need home with home healthcare for discharge. Joselo Leon MD Aug 14, 2016 10:33
[2016-08-14] MEDS: SODIUM CHLOR 0.9% 1000 ML INJ 1,000 ML IV SCH ×2 (11:27→21:07)
[2016-08-14] MEDS: FOLIC ACID 1 MG TAB PO SCH (17:08)
--- NOTE | 2016-08-14 20:08 | HHI.PR ---
Subjective Remarks 70 YOWM with large pl eff Had TC 4 Lit fluid removed Breathing much better No CP,Fever or chills Objective Vital Signs Vital Signs Date Time Temp Pulse Resp B/P Pulse Ox O2 Delivery O2 Flow Rate FiO2 08/14/16 16:00 95.3 96 18 139/65 97 08/14/16 12:00 95.1 103 16 127/62 97 08/14/16 10:30 Nasal Cannula 2.00 08/14/16 08:00 95.7 91 16 136/68 97 08/14/16 07:50 92 Nasal Cannula 1.00 08/14/16 04:00 96.0 99 22 119/58 97 08/14/16 00:10 96 Nasal Cannula 1.00 08/14/16 00:00 96.7 97 22 116/56 95 08/13/16 21:45 96 Nasal Cannula 2.00 08/13/16 20:39 95 Nasal Cannula 1.00 I/O 08/13/16 08/13/16 08/13/16 08/14/16 08/14/16 08/14/16 07:00 15:00 23:00 07:00 15:00 23:00 Intake Total 200 ml 240 ml 664 ml 445 ml 903 ml Output Total 200 ml 250 ml 50 ml 300 ml 100 ml Balance 0 ml -10 ml 614 ml 145 ml 803 ml Intake Oral 240 ml 480 ml 240 ml 540 ml IV Total 200 ml 184 ml 205 ml 363 ml Output Urine Total 200 ml 250 ml 50 ml 300 ml 100 ml # Voids 1 2 # Bowel Movements 1 1 0 1 Result Diagram: 08/14/16 0538 08/14/16 0538 Objective Remarks GENERAL: WBWn male.NAD SKIN: Warm and dry. HEAD: Normocephalic. EYES: No scleral icterus. No injection or drainage. NECK: Supple, trachea midline. No JVD or lymphadenopathy. CARDIOVASCULAR: Regular rate and rhythm without murmurs, gallops, or rubs. RESPIRATORY: Breath sounds equal bilaterally. No accessory muscle use. GASTROINTESTINAL: Abdomen soft, non-tender, nondistended. MUSCULOSKELETAL: No cyanosis, or edema. BACK: Nontender without obvious deformity. No CVA tenderness. A/P Assessment and Plan Large pl effusion, s/p TC / Cirrhosis of liver Recent GIB PLAN: Cont Abx Supplement 02 OOB And ambulate DW pt and his sister at [facility] Pleural fluid cytology negative. Cheikh Goetz MD Aug 14, 2016 20:08
[2016-08-14] MEDS: ATORVASTATIN 20 MG TAB PO SCH (21:05)
[2016-08-15] VITALS (10 sets, daily range): BP systolic 111–148; BP diastolic 58–68; PULSE 68–113; RESP 16–21; TEMP 96.1–99.2; O2SAT 93–99
[2016-08-15] MEDS: RESP: ALBUTEROL 2.5 MG/IPRATROPIUM 0.5 MG NEB (SCH) NEB ×6 (00:58→20:44)
[2016-08-15 05:46] LABS: AUTOMATED NEUTROPHIL # 13.3 TH/MM3 (1.8-7.7); BASOPHIL % 0.2 % (0.0-2.0); EOSINOPHIL # 0.1 TH/MM3 (0-0.4); EOSINOPHIL % 0.8 % (0.0-4.0); HEMATOCRIT 40.9 % (39.0-51.0); LYMPH % 6.3 % (9.0-44.0); MEAN CELL VOLUME 90.1 FL (80.0-100.0); MEAN CORPUSCULAR HEMOGLOBIN 29.7 PG (27.0-34.0); MEAN CORPUSCULAR HGB CONC 32.9 % (32.0-36.0); MONO % 6.3 % (0.0-8.0); NEUT % 86.4 % (16.0-70.0); PLATELET COUNT 66 TH/MM3 (150-450); RED BLOOD COUNT 4.54 MIL/MM3 (4.50-5.90); RED CELL DISTRIBUTION WIDTH 17.3 % (11.6-17.2); WHITE BLOOD COUNT 15.4 TH/MM3 (4.0-11.0)
[2016-08-15 05:49] LABS: HEMO FLAGS AUTO DIFF
[2016-08-15] MEDS: LEVOTHYROXINE SODIUM 75 MCG TAB PO SCH (05:50)
[2016-08-15] MEDS: traMADol HCL 50 MG TAB PO PRN ×4 (05:51→21:05)
[2016-08-15 06:07] LABS: BICARBONATE 21.7 MEQ/L (21.0-32.0)
[2016-08-15 06:57] LABS: SCAN/DIFF AUTO DIFF CONFIRMED
[2016-08-15] MEDS: SODIUM CHLOR 0.9% 1000 ML INJ 1,000 ML IV SCH ×2 (08:14→21:05)
[2016-08-15] MEDS: FLUTICASONE PROPIONATE 50 MCG/ACT 16 GM NASAL SPRAY EACH NARE SCH ×2 (08:15→21:07)
[2016-08-15] MEDS: SODIUM CHLORIDE 0.9% FLUSH 10 ML FLUSH IV FLUSH SCH ×2 (08:15→21:00)
[2016-08-15] MEDS: DILTIAZEM HCL 30 MG TAB PO SCH ×2 (08:15→21:04)
[2016-08-15] MEDS: guaiFENesin E.R. 600 MG TAB PO SCH ×2 (08:15→21:04)
[2016-08-15] MEDS: ALLOPURINOL 100 MG TAB PO SCH (08:15)
[2016-08-15] MEDS: FLUoxetine HCL 20 MG CAP PO SCH (08:16)
[2016-08-15] MEDS: GABAPENTIN 300 MG CAP PO SCH (08:16)
[2016-08-15] MEDS: THIAMINE HCL 100 MG TAB PO SCH (08:16)
[2016-08-15] MEDS: DOCUSATE SODIUM 50 MG/SENNA 8.6 MG TAB PO SCH ×3 (08:16→21:05)
[2016-08-15] MEDS: PANTOPRAZOLE SOD 40 MG DELAYED RELEASE TAB PO SCH ×2 (08:16→21:05)
[2016-08-15] MEDS: ALPRAZolam 0.5 MG TAB PO PRN ×2 (11:47→21:05)
--- NOTE | 2016-08-15 15:11 | HHI.PR ---
Subjective Remarks Follow for effusion No fever, no chills. Shortness of breath is better. Creatinine is improving. No nausea or vomiting. Objective Vitals Vital Signs Date Time Temp Pulse Resp B/P Pulse Ox O2 Delivery O2 Flow Rate FiO2 08/15/16 12:00 97.0 106 19 128/60 96 08/15/16 08:30 96 Nasal Cannula 2.00 08/15/16 08:29 97 Nasal Cannula 1.00 08/15/16 08:00 96.1 113 20 112/58 96 08/15/16 04:06 96.4 70 18 130/58 94 08/15/16 04:05 97 Nasal Cannula 1.00 08/15/16 00:59 96 Nasal Cannula 1.00 08/15/16 00:05 98.0 68 21 128/68 93 08/14/16 20:18 96.6 100 21 142/64 96 08/14/16 20:13 96 Nasal Cannula 1.00 08/14/16 20:00 Nasal Cannula 2.00 08/14/16 20:00 100 08/14/16 16:00 95.3 96 18 139/65 97 I/O 08/14/16 08/14/16 08/14/16 08/15/16 08/15/16 08/15/16 07:00 15:00 23:00 07:00 15:00 23:00 Intake Total 445 ml 903 ml 857 ml 783 ml 360 ml Output Total 300 ml 100 ml 500 ml Balance 145 ml 803 ml 857 ml 283 ml 360 ml Intake Oral 240 ml 540 ml 480 ml 380 ml 360 ml IV Total 205 ml 363 ml 377 ml 403 ml Output Urine Total 300 ml 100 ml 500 ml # Voids 2 2 3 # Bowel Movements 0 1 1 1 Result Diagram: 08/15/1642608/15/16426 Objective Remarks GENERAL: NAD SKIN: Warm and dry. HEAD: Normocephalic. EYES: No scleral icterus. No injection or drainage. NECK: Supple, trachea midline. No JVD or lymphadenopathy. CARDIOVASCULAR: Regular rate and rhythm without murmurs, gallops, or rubs. RESPIRATORY: Clear breath sounds bilaterally, mildly decreased at bases GASTROINTESTINAL: Abdomen soft, non-tender, nondistended. MUSCULOSKELETAL: 1+ edema, small bleeding wound left anterior tibial area. BACK: Nontender without obvious deformity. No CVA tenderness. A/P Problem List: (1) Pleural effusion ICD Code: J90 Status: Acute (2) Pulmonary infiltrate in right lung on chest x-ray ICD Code: R91.8 Status: Acute (3) Bacterial pneumonia ICD Code: J15.9 Status: Acute (4) HTN (hypertension) ICD Code: I10 Status: Chronic (5) Acute renal failure superimposed on stage 3 chronic kidney disease ICD Code: N17.9 Status: Acute (6) Thrombocytopenia ICD Code: D69.6 Status: Acute Assessment and Plan 70-year-old man with Respiratory Insufficiency secondary to Right Pleural Effusion-status post thoracenteses 08/11/16, pulmonary following. Pleural fluid analysis showed transudative effusion, likely hepatic. Doubt parapneumonic. Cytology pending, culture pending. Continue duo nebs, oxygen support as needed. Post thoracentesis chest x-ray reviewed showed resolution of consolidation. Stop antibiotics. Pneumococcal legionella antigens negative. Doubt cardiac, echocardiogram recently showed ejection fraction 55-60%. Cytology is negative. Repeat chest x-ray tomorrow Thrombocytopenia-could be secondary to Zosyn and cefepime, stop antibiotics, cultures are negative. Platelets are improving, follow-up HIT panel and TREY.. May also be secondary to cirrhosis Acute renal failure on top of chronic-stop diuretics and losartan, continue IVF , creatinine improving, baseline is around 1.2, recheck BMP tomorrow Mildly elevated troponin-likely demand mediated, denies any chest pain. No further workup other than as outpatient. History of GI bleed history Duodenal ulcer, Gastropathy, Grade II esophageal varices, colon polyps on endoscopy, hemoglobin 14.4 no further GI bleed. Recent Anemia secondary to acute blood loss, GI bleed, had Coagulopathy, status post blood transfusion of 5 units or PRBCs, FFP, and was given vitamin K. now hemoglobin 14.4 History of Stage II sacral pressure Ulcer by history continue Wound care for evaluation. Alcoholic liver disease strongly recommended to stop drinking behavior. LFTs stable, monitor. Rheumatoid arthritis: Chronic continue to monitor. continueToradol the RN Hypertension : Continue Cardizem, Cozaar on hold Anxiety disorder/Depression continue Home medicines. Resume Xanax Cirrhosis by history : Continue lactulose. Ammonia within normal limits, hold Aldactone. Hypothyroidism continue Hormonal replacement DVT prop SCDs. Patient unable to anticoagulate secondary to recent GI bleed. GI prop pantoprazole Discharge Planning Physical therapy cleared patient for home discharge, discharged once kidney function is obviously better Joselo Leon MD Aug 15, 2016 15:10
[2016-08-15] MEDS: FOLIC ACID 1 MG TAB PO SCH (16:20)
--- NOTE | 2016-08-15 18:43 | HHI.PR ---
Subjective Remarks 70 YOWM with large pl eff Had TC 4 Lit fluid removed. Breathing much better No CP,Fever or chills No New complaint Objective Vital Signs Vital Signs Date Time Temp Pulse Resp B/P Pulse Ox O2 Delivery O2 Flow Rate FiO2 08/15/16 16:00 96.3 99 20 148/62 97 08/15/16 15:59 99 Nasal Cannula 1.00 08/15/16 12:00 97.0 106 19 128/60 96 08/15/16 08:30 96 Nasal Cannula 2.00 08/15/16 08:29 97 Nasal Cannula 1.00 08/15/16 08:00 96.1 113 20 112/58 96 08/15/16 04:06 96.4 70 18 130/58 94 08/15/16 04:05 97 Nasal Cannula 1.00 08/15/16 00:59 96 Nasal Cannula 1.00 08/15/16 00:05 98.0 68 21 128/68 93 08/14/16 20:18 96.6 100 21 142/64 96 08/14/16 20:13 96 Nasal Cannula 1.00 08/14/16 20:00 Nasal Cannula 2.00 08/14/16 20:00 100 I/O 08/14/16 08/14/16 08/14/16 08/15/16 08/15/16 08/15/16 06:59 14:59 22:59 06:59 14:59 22:59 Intake Total 445 ml 903 ml 857 ml 783 ml 360 ml 2223 ml Output Total 300 ml 100 ml 500 ml Balance 145 ml 803 ml 857 ml 283 ml 360 ml 2223 ml Intake Oral 240 ml 540 ml 480 ml 380 ml 360 ml IV Total 205 ml 363 ml 377 ml 403 ml 2223 ml Output Urine Total 300 ml 100 ml 500 ml # Voids 2 2 3 # Bowel Movements 0 1 1 1 Result Diagram: 08/15/1642608/15/16426 Objective Remarks GENERAL: WBWn male.NAD SKIN: Warm and dry. HEAD: Normocephalic. EYES: No scleral icterus. No injection or drainage. NECK: Supple, trachea midline. No JVD or lymphadenopathy. CARDIOVASCULAR: Regular rate and rhythm without murmurs, gallops, or rubs. RESPIRATORY: Breath sounds equal bilaterally. No accessory muscle use. GASTROINTESTINAL: Abdomen soft, non-tender, nondistended. MUSCULOSKELETAL: No cyanosis, or edema. BACK: Nontender without obvious deformity. No CVA tenderness. A/P Assessment and Plan Large pl effusion, s/p TC / Cirrhosis of liver Recent GIB PLAN: Cont Abx Supplement 02 OOB And ambulate DW pt and his sister at BS Pleural fluid cytology negative. Stable from pulm standpoint Cheikh Goetz MD Aug 15, 2016 18:43
[2016-08-15] MEDS: ATORVASTATIN 20 MG TAB PO SCH (21:05)
[2016-08-16] VITALS (9 sets, daily range): BP systolic 135–167; BP diastolic 68–88; PULSE 67–118; RESP 18–20; TEMP 95.9–97.3; O2SAT 95–98
[2016-08-16] MEDS: RESP: ALBUTEROL 2.5 MG/IPRATROPIUM 0.5 MG NEB (SCH) NEB ×6 (04:24→20:54)
[2016-08-16 05:34] LABS: BICARBONATE 18.4 MEQ/L (21.0-32.0); POTASSIUM 5.1 MEQ/L (3.5-5.1)
[2016-08-16] MEDS: LEVOTHYROXINE SODIUM 75 MCG TAB PO SCH (05:46)
--- NOTE | 2016-08-16 08:21 | RADRPT ---
EXAM DATE/TIME: 08/16/2016 08:06 [facility] COMPARISON: CHEST PA & LAT, August 11, 2016, 12:04. INDICATIONS : Short of Breath MEDICAL HISTORY : None. SURGICAL HISTORY : None. ENCOUNTER: Subsequent ACUITY: 4 - 6 days PAIN SCORE: 0/10 LOCATION: Bilateral chest FINDINGS: PA and lateral views of the chest. Decrease in size of right pleural effusion. Pleural effusion remai ns moderate to large in size. Right mid to lower lung consolidation versus atelectasis. No evidence o f pneumothorax. CONCLUSION: Decrease in size of right pleural effusion. Persistent right mid to lower lung consolidation versus a telectasis. Derik Stone MD on August 16, 2016 at 8:16 Board Certified Radiologist. This report was verified electronically.
[2016-08-16] MEDS: guaiFENesin E.R. 600 MG TAB PO SCH ×2 (08:49→21:45)
[2016-08-16] MEDS: THIAMINE HCL 100 MG TAB PO SCH (08:49)
[2016-08-16] MEDS: PANTOPRAZOLE SOD 40 MG DELAYED RELEASE TAB PO SCH ×2 (08:49→21:45)
[2016-08-16] MEDS: GABAPENTIN 300 MG CAP PO SCH (08:49)
[2016-08-16] MEDS: FLUTICASONE PROPIONATE 50 MCG/ACT 16 GM NASAL SPRAY EACH NARE SCH ×2 (08:50→21:00)
[2016-08-16] MEDS: ALLOPURINOL 100 MG TAB PO SCH (08:50)
[2016-08-16] MEDS: FLUoxetine HCL 20 MG CAP PO SCH (08:50)
[2016-08-16] MEDS: DILTIAZEM HCL 30 MG TAB PO SCH ×2 (08:50→21:45)
[2016-08-16] MEDS: SODIUM CHLOR 0.9% 1000 ML INJ 1,000 ML IV SCH ×2 (08:51→22:20)
[2016-08-16] MEDS: SODIUM CHLORIDE 0.9% FLUSH 10 ML FLUSH IV FLUSH SCH ×2 (08:51→21:00)
[2016-08-16] MEDS: DOCUSATE SODIUM 50 MG/SENNA 8.6 MG TAB PO SCH ×2 (08:51→21:00)
[2016-08-16] MEDS: ALPRAZolam 0.5 MG TAB PO PRN ×2 (09:24→17:26)
[2016-08-16] MEDS: traMADol HCL 50 MG TAB PO PRN ×3 (09:25→21:56)
[2016-08-16] MEDS: SODIUM CHLORIDE 1 GRAM TAB PO SCH ×2 (12:15→17:26)
--- NOTE | 2016-08-16 13:23 | HHI.PR ---
Subjective Remarks Follow-up for hyponatremia and shortness of breath shortness of breath a lot better, almost back to baseline, patient wants to go home, he does not have oxygen at home. Does not use incentive spirometry. Good urine output Objective Vitals Vital Signs Date Time Temp Pulse Resp B/P Pulse Ox O2 Delivery O2 Flow Rate FiO2 08/16/16 12:00 96.4 111 20 138/73 97 08/16/16 08:52 95 21 08/16/16 08:50 Nasal Cannula 2.00 08/16/16 08:00 96.0 67 18 167/68 98 08/16/16 04:30 98 Nasal Cannula 1.00 08/16/16 04:00 95.9 103 18 144/73 98 08/16/16 00:00 97.1 102 18 152/75 97 08/15/16 20:49 99.2 80 16 111/65 96 08/15/16 20:22 Nasal Cannula 2.00 08/15/16 16:00 96.3 99 20 148/62 97 08/15/16 15:59 99 Nasal Cannula 1.00 I/O 08/15/16 08/15/16 08/15/16 08/16/16 08/16/16 08/16/16 07:00 15:00 23:00 07:00 15:00 23:00 Intake Total 783 ml 360 ml 3013 ml 787 ml Output Total 500 ml 600 ml Balance 283 ml 360 ml 2413 ml 787 ml Intake Oral 380 ml 360 ml 480 ml 120 ml IV Total 403 ml 2533 ml 667 ml Output Urine Total 500 ml 600 ml # Voids 3 2 1 # Bowel Movements 1 2 0 Result Diagram: 08/15/16 0427 08/16/16 0435 Objective Remarks GENERAL: NAD NECK: Supple, trachea midline. No JVD or lymphadenopathy. CARDIOVASCULAR: Regular rate and rhythm without murmurs, gallops, or rubs. RESPIRATORY: Clear breath sounds bilaterally, mildly decreased at bases GASTROINTESTINAL: Abdomen soft, non-tender, nondistended. MUSCULOSKELETAL: 1+ edema, small bleeding wound left anterior tibial area. BACK: Nontender without obvious deformity. No CVA tenderness. A/P Problem List: (1) Pleural effusion ICD Code: J90 Status: Acute (2) Pulmonary infiltrate in right lung on chest x-ray ICD Code: R91.8 Status: Acute (3) Bacterial pneumonia ICD Code: J15.9 Status: Acute (4) HTN (hypertension) ICD Code: I10 Status: Chronic (5) Acute renal failure superimposed on stage 3 chronic kidney disease ICD Code: N17.9 Status: Acute (6) Thrombocytopenia ICD Code: D69.6 Status: Acute Assessment and Plan 70-year-old man with Respiratory Insufficiency secondary to Right Pleural Effusion-status post thoracenteses 08/11/16, pulmonary following. Pleural fluid analysis showed transudative effusion, likely hepatic. Continue duo nebs, oxygen support as needed. Wean from oxygen. Post thoracentesis chest x-ray reviewed showed resolution of consolidation. Stop antibiotics. Pneumococcal legionella antigens negative. Doubt cardiac, echocardiogram recently showed ejection fraction 55-60%. Cytology is negative. Chest x-ray stable however still with right sided atelectasis, incentive spirometry. Thrombocytopenia-could be secondary to Zosyn and cefepime, stop antibiotics, cultures are negative. Platelets are improving, follow-up HIT panel and TREY, results are pending.. May also be secondary to cirrhosis Acute renal failure on top of chronic-stop diuretics and losartan, continue IVF , creatinine improving, recheck BMP tomorrow, baseline is 1.2. Better today. Mildly elevated troponin-likely demand mediated, denies any chest pain. No further workup other than as outpatient. History of GI bleed history Duodenal ulcer, Gastropathy, Grade II esophageal varices, colon polyps on endoscopy, hemoglobin 14.4 no further GI bleed. Recent Anemia secondary to acute blood loss, GI bleed, had Coagulopathy, status post blood transfusion of 5 units or PRBCs, FFP, and was given vitamin K. now hemoglobin 14.4 History of Stage II sacral pressure Ulcer by history continue Wound care for evaluation. Alcoholic liver disease strongly recommended to stop drinking behavior. LFTs stable, monitor. Rheumatoid arthritis: Chronic continue to monitor. continueToradol the RN Hypertension : Continue Cardizem, Cozaar on hold Anxiety disorder/Depression continue Home medicines. Continue Xanax Cirrhosis by history : Continue lactulose. Ammonia within normal limits, hold Aldactone. Hypothyroidism continue Hormonal replacement DVT prop SCDs. Patient unable to anticoagulate secondary to recent GI bleed. GI prop pantoprazole Respiratory walk fit test, might need oxygen and discharge, wean from oxygen. Discharge Planning Physical therapy cleared patient for home discharge, discharged once kidney function is obviously better, likely tomorrow with home healthcare Joselo Leon MD Aug 16, 2016 13:23
--- NOTE | 2016-08-16 13:25 | HHI.FF ---
Face to Face Verification Diagnosis: (1) Acute renal failure superimposed on stage 3 chronic kidney disease (2) HTN (hypertension) (3) Bacterial pneumonia (4) Hypoxia Home Health Nursing Order: Medical education Oxygen administration education Nursing assessment with vital signs I have seen patient Bright Delgado on 08/16/16. My clinical findings support the need for the requested home health care services because: Limited ability to care for self I certify that my clinical findings support that this patient is homebound because: Unsteady gait/balance Joselo Leon MD Aug 16, 2016 13:25
--- NOTE | 2016-08-16 14:02 | HHI.PR ---
Subjective Remarks 70 YOWM with large pl eff Had TC 4 Lit fluid removed. Breathing much better No CP,Fever or chills Objective Vital Signs Vital Signs Date Time Temp Pulse Resp B/P Pulse Ox O2 Delivery O2 Flow Rate FiO2 08/16/16 12:00 96.4 111 20 138/73 97 08/16/16 08:52 95 21 08/16/16 08:50 Nasal Cannula 2.00 08/16/16 08:00 96.0 67 18 167/68 98 08/16/16 04:30 98 Nasal Cannula 1.00 08/16/16 04:00 95.9 103 18 144/73 98 08/16/16 00:00 97.1 102 18 152/75 97 08/15/16 20:49 99.2 80 16 111/65 96 08/15/16 20:22 Nasal Cannula 2.00 08/15/16 16:00 96.3 99 20 148/62 97 08/15/16 15:59 99 Nasal Cannula 1.00 I/O 08/15/16 08/15/16 08/15/16 08/16/16 08/16/16 08/16/16 07:00 15:00 23:00 07:00 15:00 23:00 Intake Total 783 ml 360 ml 3013 ml 787 ml Output Total 500 ml 600 ml Balance 283 ml 360 ml 2413 ml 787 ml Intake Oral 380 ml 360 ml 480 ml 120 ml IV Total 403 ml 2533 ml 667 ml Output Urine Total 500 ml 600 ml # Voids 3 2 1 # Bowel Movements 1 2 0 Result Diagram: 08/15/16 0427 08/16/16 0435 Objective Remarks GENERAL: WBWn male.NAD SKIN: Warm and dry. HEAD: Normocephalic. EYES: No scleral icterus. No injection or drainage. NECK: Supple, trachea midline. No JVD or lymphadenopathy. CARDIOVASCULAR: Regular rate and rhythm without murmurs, gallops, or rubs. RESPIRATORY: Breath sounds equal bilaterally. No accessory muscle use. GASTROINTESTINAL: Abdomen soft, non-tender, nondistended. MUSCULOSKELETAL: No cyanosis, or edema. BACK: Nontender without obvious deformity. No CVA tenderness. A/P Assessment and Plan Large pl effusion, s/p TC / Cirrhosis of liver Recent GIB PLAN: Cont Abx Supplement 02 OOB And ambulate DW pt and his sister at Pleural fluid cytology negative. Stable from pulm standpoint DC plans underway for home. Cheikh Goetz MD Aug 16, 2016 14:02
[2016-08-16] MEDS: FOLIC ACID 1 MG TAB PO SCH (17:26)
[2016-08-16] MEDS: ATORVASTATIN 20 MG TAB PO SCH (21:45)
[2016-08-17] VITALS (7 sets, daily range): BP systolic 153–168; BP diastolic 81–98; PULSE 109–119; RESP 18–21; TEMP 95.6–97.5; O2SAT 95–99
[2016-08-17] MEDS: RESP: ALBUTEROL 2.5 MG/IPRATROPIUM 0.5 MG NEB (SCH) NEB ×5 (00:35→15:13)
[2016-08-17] MEDS: ALPRAZolam 0.5 MG TAB PO PRN (03:03)
[2016-08-17 04:59] LABS: AUTOMATED NEUTROPHIL # 14.8 TH/MM3 (1.8-7.7); BASOPHIL % 0.1 % (0.0-2.0); EOSINOPHIL # 0.2 TH/MM3 (0-0.4); EOSINOPHIL % 1.4 % (0.0-4.0); HEMATOCRIT 41.9 % (39.0-51.0); HEMO FLAGS AUTO DIFF; LYMPH % 6.3 % (9.0-44.0); LYMPHOCYTE # 1.1 TH/MM3 (1.0-4.8); MEAN CORPUSCULAR HEMOGLOBIN 30.2 PG (27.0-34.0); MEAN CORPUSCULAR HGB CONC 33.5 % (32.0-36.0); MONO % 7.7 % (0.0-8.0); NEUT % 84.5 % (16.0-70.0); PLATELET COUNT 97 TH/MM3 (150-450); RED BLOOD COUNT 4.66 MIL/MM3 (4.50-5.90); RED CELL DISTRIBUTION WIDTH 17.6 % (11.6-17.2); WHITE BLOOD COUNT 17.5 TH/MM3 (4.0-11.0)
[2016-08-17 05:10] LABS: BICARBONATE 18.9 MEQ/L (21.0-32.0)
[2016-08-17 05:13] LABS: POTASSIUM 5.2 MEQ/L (3.5-5.1)
[2016-08-17] MEDS: LEVOTHYROXINE SODIUM 75 MCG TAB PO SCH (05:17)
[2016-08-17 05:26] LABS: PLATELET ESTIMATE SMEAR LOW (NORMAL); PLATELET MORPHOLOGY NORMAL (NORMAL); SCAN/DIFF AUTO DIFF CONFIRMED
[2016-08-17] MEDS: FLUTICASONE PROPIONATE 50 MCG/ACT 16 GM NASAL SPRAY EACH NARE SCH (08:26)
[2016-08-17] MEDS: SODIUM CHLORIDE 1 GRAM TAB PO SCH (08:27)
[2016-08-17] MEDS: ALLOPURINOL 100 MG TAB PO SCH (08:27)
[2016-08-17] MEDS: THIAMINE HCL 100 MG TAB PO SCH (08:27)
[2016-08-17] MEDS: PANTOPRAZOLE SOD 40 MG DELAYED RELEASE TAB PO SCH (08:27)
[2016-08-17] MEDS: guaiFENesin E.R. 600 MG TAB PO SCH (08:27)
[2016-08-17] MEDS: LOSARTAN 25 MG TAB PO SCH (08:27)
[2016-08-17] MEDS: DILTIAZEM HCL 30 MG TAB PO SCH (08:27)
[2016-08-17] MEDS: GABAPENTIN 300 MG CAP PO SCH (08:28)
[2016-08-17] MEDS: FLUoxetine HCL 20 MG CAP PO SCH (08:28)
[2016-08-17] MEDS: DOCUSATE SODIUM 50 MG/SENNA 8.6 MG TAB PO SCH (08:28)
[2016-08-17] MEDS: SODIUM CHLORIDE 0.9% FLUSH 10 ML FLUSH IV FLUSH SCH (08:32)
[2016-08-17] MEDS ORDERED: OXYGENTANK NAS.CANULA (09:45)
[2016-08-17] MEDS: SODIUM CHLOR 0.9% 1000 ML INJ 1,000 ML IV SCH (10:15)
[2016-08-17] MEDS: FUROSEMIDE 40 MG TAB PO SCH ×2 (10:30→18:00)
--- NOTE | 2016-08-17 14:04 | HHI.PR ---
Subjective Remarks Follow-up for shortness of breath Shortness of breath a lot better, respiratory walk fit test failed. Cough has improved. No fever or chills. Objective Vitals Vital Signs Date Time Temp Pulse Resp B/P Pulse Ox O2 Delivery O2 Flow Rate FiO2 08/17/16 12:00 97.5 116 20 158/83 95 08/17/16 08:27 96 Nasal Cannula 3.00 08/17/16 08:20 109 08/17/16 08:20 98 Nasal Cannula 2.00 08/17/16 08:00 95.8 111 18 160/82 98 08/17/16 04:00 95.6 112 18 168/91 99 08/17/16 00:00 95.8 114 18 163/81 97 08/16/16 20:54 98 Nasal Cannula 3.00 08/16/16 20:00 96.1 110 18 135/85 97 08/16/16 20:00 Nasal Cannula 2.00 08/16/16 16:00 97.3 118 20 150/88 98 I/O 08/16/16 08/16/16 08/16/16 08/17/16 08/17/16 08/17/16 07:00 15:00 23:00 07:00 15:00 23:00 Intake Total 787 ml 672 ml 240 ml 240 ml 240 ml Output Total 300 ml Balance 787 ml 672 ml 240 ml -60 ml 240 ml Intake Oral 120 ml 240 ml 240 ml 240 ml IV Total 667 ml 672 ml Output Urine Total 300 ml # Voids 2 1 5 # Bowel Movements 2 0 Result Diagram: 08/17/16 0332 08/17/16 0322 Objective Remarks GENERAL: NAD NECK: Supple, trachea midline. No JVD or lymphadenopathy. CARDIOVASCULAR: Regular rate and rhythm without murmurs, gallops, or rubs. RESPIRATORY: Clear breath sounds bilaterally, mildly decreased at bases but breath sounds present GASTROINTESTINAL: Abdomen soft, non-tender, nondistended. MUSCULOSKELETAL: 1+ edema, small bleeding wound left anterior tibial area. BACK: Nontender without obvious deformity. No CVA tenderness. A/P Problem List: (1) Pleural effusion ICD Code: J90 Status: Acute (2) Pulmonary infiltrate in right lung on chest x-ray ICD Code: R91.8 Status: Acute (3) Bacterial pneumonia ICD Code: J15.9 Status: Acute (4) HTN (hypertension) ICD Code: I10 Status: Chronic (5) Acute renal failure superimposed on stage 3 chronic kidney disease ICD Code: N17.9 Status: Acute (6) Thrombocytopenia ICD Code: D69.6 Status: Acute Assessment and Plan 70-year-old man with Respiratory Insufficiency secondary to Right Pleural Effusion-status post thoracenteses 08/11/16, pulmonary following. Pleural fluid analysis showed transudative effusion, likely hepatic. Continue duo nebs, oxygen support as needed. Wean from oxygen. Post thoracentesis chest x-ray reviewed showed resolution of consolidation. Stop antibiotics. Pneumococcal legionella antigens negative. Doubt cardiac, echocardiogram recently showed ejection fraction 55-60%. Cytology is negative. Chest x-ray stable however still with right sided atelectasis, incentive spirometry. Thrombocytopenia-could be secondary to Zosyn and cefepime, culture negative, antibiotics were stopped. Platelets are improving, follow-up HIT panel and TREY , results are pending, doubt they will be positive. May also be secondary to cirrhosis Acute renal failure on top of chronic-stop diuretics and losartan, creatinine improving, BMP stable, almost at baseline of 1.2. Stop IVF. Mildly elevated troponin-likely demand mediated, denies any chest pain. No further workup other than as outpatient. History of GI bleed history Duodenal ulcer, Gastropathy, Grade II esophageal varices, colon polyps on endoscopy, hemoglobin 14.4 no further GI bleed. Recent Anemia secondary to acute blood loss, GI bleed, had Coagulopathy, status post blood transfusion of 5 units or PRBCs, FFP, and was given vitamin K. now hemoglobin 14.4 History of Stage II sacral pressure Ulcer by history continue Wound care for evaluation. Alcoholic liver disease strongly recommended to stop drinking behavior. LFTs stable, monitor. Rheumatoid arthritis: Chronic continue to monitor. continueToradol the RN Hypertension : Continue Cardizem, Cozaar on hold Anxiety disorder/Depression continue Home medicines. Continue Xanax Cirrhosis by history : Continue lactulose. Ammonia within normal limits, hold Aldactone. Hypothyroidism continue Hormonal replacement Mild hyponatremia-could be from hypervolemic hyponatremia, restart Lasix. Hyperkalemia-will restart Lasix. Recheck BMP in a few days. Check BMP today. DVT prop SCDs. Patient unable to anticoagulate secondary to recent GI bleed. GI prop pantoprazole Patient will need oxygen on discharge. Discussed with son, possible discharge today if BMP is better Discharge Planning Physical therapy cleared patient for home discharge, if sodium and potassium are better. Discharge with home health care Joselo Leon MD Aug 17, 2016 14:04
--- NOTE | 2016-08-17 14:06 | HHI.DS ---
Discharge Summary Admission Date August 11, 2016 at 13:47 Discharge Date: Aug 17, 2016 Admitting Diagnosis pleural effusion, volume overload (1) Pleural effusion ICD Code: J90 Diagnosis: Principal (2) Pulmonary infiltrate in right lung on chest x-ray ICD Code: R91.8 Diagnosis: Secondary (3) Bacterial pneumonia ICD Code: J15.9 Diagnosis: Secondary (4) HTN (hypertension) ICD Code: I10 Diagnosis: Secondary (5) Acute renal failure superimposed on stage 3 chronic kidney disease ICD Code: N17.9 Diagnosis: Secondary (6) Thrombocytopenia ICD Code: D69.6 Diagnosis: Secondary Procedures Thoracenteses. Brief History - From Admission This is a pleasant 70 y/o Male with Rheumatoid arthritis, Depression, anxiety, Hypertension, EtOH abuse, who was recently admitted to this facility with rectal bleed on May 08, Prior to this patient admission patient was also seen at [facility] and was treated for pancreatitis, UTI, sepsis on 04/19/2016 and was discharged to halfway facility [facility]. Patient was found to be severely anemic with hemoglobin of 5.3. Patient underwent EGD, and colonoscopy . Patient was found to have a duodenal ulcer, grade 2 esophageal varices, and gastropathy. He also had colon polyps, Coagulopathy with INR 1.6, he was transfused with five unit of PRBCs, FFP, vitamin K, admitted to inpatient Rehab at [place], on this opportunity he states he has worsening Shortness of breath for weeks, He had an echo that was reportedly fairly normal and a heart catheter that was normal after an abnormal stress test back in January 2016. He states symptoms of been progressively worsening over the past week or so. No nausea or vomiting. He has had some belly pain. No melena. He states his shortness of breath is gotten progressively worse. he has lower extremity edema, Social History Alcohol Use: No ( ) Tobacco Use: No Allergies-Medications Allergies-Medications (Allergen,Severity, Reaction): Coded Allergies: Buspirone (Verified Allergy, Unknown, 05/08/16) pt states "more anxiety" Reported Meds & Prescriptions Reported Meds & Active Scripts Active Potassium Chloride Microencaps 20 Meq Tab 10 Meq PO DAILY 30 Days Thera/Beta-Carotene (Multiple Vitamin) 1 Tab Tab 1 Tab PO DAILY@1700 30 Days Flagyl (Metronidazole) 500 Mg Tab 500 Mg PO Q8HR 1 Days Cozaar (Losartan Potassium) 25 Mg Tab 50 Mg PO DAILY 30 Days Lidoderm Patch 12 HR (Lidocaine) 5% Patch 1 Patch TD DAILY 30 Days Synthroid (Levothyroxine Sodium) 75 Mcg Tab 75 Mcg PO DAILY@06 30 Days Acidophilus/l-Sporogenes (Lactobacillus Acidophilus) 1 Tab Tab 1 Tab PO TID 30 Days Hydrocortisone Topical (Hydrocortisone) 0.5% Cream 1 Applic TOPICAL Q8H 10 Days Neurontin (Gabapentin) 300 Mg Cap 300 Mg PO TID 30 Days Folate (Folic Acid) 1 Mg Tab 1 Mg PO DAILY@1700 30 Days Fluticasone Nasal [place] 50 Mcg/Act Naspr 1 [place] EACH NARE BID 30 Days Fluoxetine (Fluoxetine HCl) 20 Mg Cap 20 Mg PO DAILY 30 Days Ferrous Sulfate 325 Mg Tab 325 Mg PO BID@12,17 30 Days Cardizem (Diltiazem HCl) 30 Mg Tab 30 Mg PO BID 30 Days Vitamin B-12 (Cyanocobalamin) 100 Mcg Tab 50 Mcg PO DAILY@1700 30 Days Lotrisone Topical (Betamethasone/Clotrimazole) 1-0.05% Cream 1 Applic TOPICAL BID 10 Days Lipitor (Atorvastatin Calcium) 20 Mg Tab 20 Mg PO HS 30 Days Xanax (Alprazolam) 0.25 Mg Tab 0.25 Mg PO Q8HR Zyloprim (Allopurinol) 100 Mg Tab 100 Mg PO DAILY 30 Days Xanax (Alprazolam) 0.5 Mg Tab 0.5 Mg PO Q8H PRN Reported Protonix (Pantoprazole Sodium) 40 Mg Tab 40 Mg PO Q12HR Vitamin B-1 (Thiamine HCl) 100 Mg Tab 100 Mg PO DAILY Aldactone (Spironolactone) 25 Mg Tab 25 Mg PO BIDPC Ferrous Sulfate 325 Mg Tab 325 Mg PO DAILY Vitamin B-12 (Cyanocobalamin) 50 Mcg Tab 50 Mcg PO DAILY Lasix (Furosemide) 40 Mg Tab 40 Mg PO BID Multi-Vitamin Daily (Multiple Vitamin) 1 Tab Tab 1 Tab PO DAILY ROS Review of Systems Except as stated in HPI: all other systems reviewed are Neg Physical Exam Physical Exam Narrative GENERAL: 70-year-old man, mild respiratory distress. SKIN: Focused skin assessment warm/dry. CARDIOVASCULAR: Regular rate and rhythm. No murmur appreciated. RESPIRATORY: Mild respiratory distress, noted was begun. Sentences. Distal bronchial breath sounds on the bottom right. No wheezing or rhonchi. GASTROINTESTINAL: Abdomen soft, non-tender, nondistended. Hepatic and splenic margins not palpable. MUSCULOSKELETAL: No obvious deformities. Marked edema both lower extremities. NEUROLOGICAL: Awake and alert. No obvious cranial nerve deficits. Motor grossly within normal limits. Normal speech. PSYCHIATRIC: Appropriate mood and affect; insight and judgment normal. Data Data Data Last Documented VS Vital Signs Date Time Temp Pulse Resp B/P Pulse Ox O2 Delivery O2 Flow Rate FiO2 08/11/16 10:59 95 19 88 Nasal Cannula 2 08/11/16 10:56 172/89 08/11/16 10:38 97.7 Orders Complete Blood Count With Diff (08/11/16 11:21) Comprehensive Metabolic Panel (08/11/16 11:21) Chest, Pa & Lat (08/11/16 ) Troponin I (08/11/16 11:21) Electrocardiogram (08/11/16 ) B-Type Natriuretic Peptide (08/11/16 11:28) Electrocardiogram (08/11/16 ) Act Partial Throm Time (Ptt) (08/11/16 13:11) Prothrombin Time / Inr (Pt) (08/11/16 13:11) Vascular Access Team Consult/P PRN (08/11/16 13:11) Vascular Poc Ultrasound (08/11/16 ) Admit Order (Ed Use Only) (08/11/16 ) Labs Laboratory Tests Test 08/11/16 08/11/16 11:50 13:20 White Blood Count 13.5 TH/MM3 Red Blood Count 4.88 MIL/MM3 Hemoglobin 14.4 GM/DL Hematocrit 42.4 % Mean Corpuscular Volume 87.0 FL Mean Corpuscular Hemoglobin 29.5 PG Mean Corpuscular Hemoglobin 33.9 % Concent Red Cell Distribution Width 17.0 % Platelet Count 89 TH/MM3 Mean Platelet Volume 7.6 FL Neutrophils (%) (Auto) 84.4 % Lymphocytes (%) (Auto) 7.0 % Monocytes (%) (Auto) 7.9 % Eosinophils (%) (Auto) 0.6 % Basophils (%) (Auto) 0.1 % Neutrophils # (Auto) 11.4 TH/MM3 Lymphocytes # (Auto) 0.9 TH/MM3 Monocytes # (Auto) 1.1 TH/MM3 Eosinophils # (Auto) 0.1 TH/MM3 Basophils # (Auto) 0.0 TH/MM3 CBC Comment AUTO DIFF Differential Total Cells 100 Counted Neutrophils % (Manual) 91 % Band Neutrophils % 1 % Lymphocytes % 3 % Monocytes % 4 % Neutrophils # (Manual) 12.6 TH/MM3 Metamyelocytes 1 % Differential Comment FINAL DIFF MANUAL Platelet Estimate LOW Platelet Morphology Comment NORMAL Red Cell Morphology Comment NORMAL Sodium Level 131 MEQ/L Potassium Level 4.4 MEQ/L Chloride Level 97 MEQ/L Carbon Dioxide Level 24.3 MEQ/L Anion Gap 10 MEQ/L Blood Urea Nitrogen 27 MG/DL Creatinine 1.21 MG/DL Estimat Glomerular Filtration 59 ML/MIN Rate Random Glucose 89 MG/DL Calcium Level 9.1 MG/DL Total Bilirubin 1.9 MG/DL Aspartate Amino Transf 70 U/L (AST/SGOT) Alanine Aminotransferase 114 U/L (ALT/SGPT) Alkaline Phosphatase 234 U/L Troponin I 0.09 NG/ML B-Type Natriuretic Peptide 116 PG/ML Total Protein 6.5 GM/DL Albumin 3.0 GM/DL Prothrombin Time 11.2 SEC Prothromb Time International 1.0 RATIO Ratio Activated Partial 24.2 SEC Thromboplast Time Exceptions Exceptions [facility] Medical Decision Making Medical Screen Exam Complete: Yes Emergency Medical Condition: Yes Interpretation(s) My review of EKG: Normal sinus rhythm at a rate of 91, slightly leftward axis, no definite evidence of acute ischemia. LABS: CBC Mild leukocytosis, platelet 89 CMP remarkable for abnormal liver enzymes Troponin 0.09 BNP 116 Chest x-ray: Large opacity in the right hemithorax characteristic of a large pleural effusion with associated volume loss and/or airspace consolidation. Differential Diagnosis Volume overload, pleural effusion, pneumothorax, pneumonia, liver failure, heart failure, other Narrative Course Medical decision making INITIAL: 70 year [facility] emergency department complaining of increasing shortness of breath, abnormal asymmetric lung sounds, marked pitting edema bilateral extremities. We'll check x-ray, labs, reassess. Diagnosis Primary Impression: Pleural effusion Additional Impressions: Hypoxia Respiratory distress Admitting Information Admitting Physician Requests: Admit Wu Perdomo MD August 11, 2016 12:13 CBC/BMP: 08/17/16 0332 08/17/16 0322 Significant Findings Laboratory Tests Test 08/15/16 08/16/16 08/17/16 08/17/16 04:27 04:35 03:22 03:32 White Blood Count 15.4 TH/MM3 17.5 TH/MM3 (4.0-11.0) (4.0-11.0) Red Cell Distribution Width 17.3 % 17.6 % (11.6-17.2) (11.6-17.2) Platelet Count 66 TH/MM3 97 TH/MM3 (150-450) (150-450) Neutrophils (%) (Auto) 86.4 % 84.5 % (16.0-70.0) (16.0-70.0) Lymphocytes (%) (Auto) 6.3 % 6.3 % (9.0-44.0) (9.0-44.0) Neutrophils # (Auto) 13.3 TH/MM3 14.8 TH/MM3 (1.8-7.7) (1.8-7.7) Monocytes # (Auto) 1.0 TH/MM3 1.3 TH/MM3 (0-0.9) (0-0.9) Sodium Level 129 MEQ/L 128 MEQ/L 129 MEQ/L (136-145) (136-145) (136-145) Chloride Level 97 MEQ/L (98-107) Blood Urea Nitrogen 50 MG/DL (7-18) 54 MG/DL (7-18) 44 MG/DL (7-18) Creatinine 2.04 MG/DL 1.82 MG/DL 1.35 MG/DL (0.60-1.30) (0.60-1.30) (0.60-1.30) Estimat Glomerular Filtration 33 ML/MIN (>89) 37 ML/MIN (>89) 52 ML/MIN (>89) Rate Carbon Dioxide Level 18.4 MEQ/L 18.9 MEQ/L (21.0-32.0) (21.0-32.0) Potassium Level 5.2 MEQ/L (3.5-5.1) Platelet Estimate LOW (NORMAL) Imaging Last Impressions Chest X-Ray 08/16/16 2556 Signed Impressions: Service Date/Time: Tuesday, August 16, 2016 08:06 - CONCLUSION: Decrease in size of right pleural effusion. Persistent right mid to lower lung consolidation versus atelectasis. Derik Stone MD Thoracentesis Ultrasound 08/11/16 0000 Signed Impressions: Service Date/Time: Thursday, August 11, 2016 19:32 - CONCLUSION: Uncomplicated ultrasound guided thoracentesis. Orlin Schneider MD PE at Discharge GENERAL: NAD NECK: Supple, trachea midline. No JVD or lymphadenopathy. CARDIOVASCULAR: Regular rate and rhythm without murmurs, gallops, or rubs. RESPIRATORY: Clear breath sounds bilaterally, mildly decreased at bases but breath sounds present GASTROINTESTINAL: Abdomen soft, non-tender, nondistended. MUSCULOSKELETAL: 1+ edema, small bleeding wound left anterior tibial area. BACK: Nontender without obvious deformity. No CVA tenderness. Hospital Course This is a 70-year-old man hospitalized for respiratory insufficiency secondary to right Pleural Effusion, he was status post thoracenteses 08/11/16, pulmonary consulted. Pleural fluid analysis showed transudative effusion, likely hepatic. Patient was also placed on empiric antibiotics. Continue duo nebs, oxygen support as needed. Post thoracentesis chest x-ray reviewed showed resolution of consolidation. Pneumococcal legionella antigens negative. Doubt cardiac, echocardiogram recently showed ejection fraction 55-60%. Cytology is negative. Chest x-ray stable however still with right sided atelectasis, incentive spirometry. He should finish his course of antibiotics with Zosyn and cefepime which were also stopped because of thrombocytopenia. Effusion culture remained negative. HIT panel was negative including TREY. Thrombocytopenia thought to be secondary to liver cirrhosis. Patient also had acute renal failure and top of chronic, diuretics regimen was changed and held temporarily but restarted upon discharge.. Renal failure improved. Patient also had mild troponin elevation which is likely demand mediated without any chest pain. No further workup other than as outpatient. Pt Condition on Discharge: Good Discharge Disposition: Disch w/ Home Health Serv Discharge Time: > 30 minutes Discharge Instructions DIET: Follow Instructions for: As Tolerated, No Restrictions, Renal Failure Diet Activities you can perform: Regular-No Restrictions Follow up Referrals: Appointment for Follow Up - As Per Protocol with Cheikh Goetz MD PCP Follow-up - 1 Week New Orders: BASIC METABOLIC PROF - 2-3 Days New Medications: Oxygen tank (Oxygen tank) 1 Ea Tank 2 LITER FELISHA.CANULA CONTINUOUS Oxygen Concentrator Portable Gaseous 2 L/min via Nasal Cannula Continuous For 99 months HYPOXEMIA PREVENTION #1 CYLINDER Continued Medications: Allopurinol (Zyloprim) 100 Mg Tab 100 MG PO DAILY Days 30 TAB Alprazolam (Alprazolam) 0.25 Mg Tab 0.25 MG PO Q8H PRN ANXIETY Ref 0 TAB Atorvastatin (Lipitor) 20 Mg Tab 20 MG PO HS Days 30 TAB Diltiazem (Cardizem) 30 Mg Tab 30 MG PO BID Days 30 TAB Fluoxetine (Prozac) 20 Mg Cap 20 MG PO DAILY #30 Ref 0 CAP Fluticasone Nasal [place] (Fluticasone Nasal [place]) 50 Mcg/Act Naspr 1 SPRAY EACH NARE BID Days 30 BOTTLE Furosemide (Furosemide) 40 Mg Tab 40 MG PO BID #60 Ref 0 TAB Gabapentin (Neurontin) 300 Mg Cap 300 MG PO TID Days 30 CAP Lactobacillus Acidophilus (Acidophilus/l-Sporogenes) 1 Tab Tab 1 TAB PO TID Days 30 TAB Levothyroxine (Synthroid) 75 Mcg Tab 75 MCG PO DAILY@06 Days 30 TAB Losartan (Cozaar) 25 Mg Tab 50 MG PO DAILY Days 30 TAB Multiple Vitamin (Multi-Vitamin Daily) 1 Tab Tab 1 TAB PO DAILY Nutritional Supplement Ref 0 TAB Pantoprazole (Protonix) 40 Mg Tab 40 MG PO Q12HR Reflux #30 Ref 0 TAB Thiamine (Vitamin B-1) 100 Mg Tab 100 MG PO DAILY Nutritional Supplement Ref 0 TAB Tramadol (Tramadol) 50 Mg Tab 50 MG PO Q4H PRN PAIN Ref 0 TAB Discontinued Medications: Alprazolam (Xanax) 0.5 Mg Tab 0.5 MG PO Q8H PRN ANXIETY #10 TAB Alprazolam (Xanax) 0.25 Mg Tab 0.25 MG PO Q8HR #30 TAB Ferrous Sulfate (Ferrous Sulfate) 325 Mg Tab 325 MG PO DAILY Nutritional Supplement #30 Ref 0 TAB Metronidazole (Flagyl) 500 Mg Tab 500 MG PO Q8HR Days 1 TAB Potassium Chloride Microencaps (Potassium Chloride Microencaps) 20 Meq Tab 10 MEQ PO DAILY Days 30 TAB Spironolactone (Aldactone) 25 Mg Tab 25 MG PO BIDPC #60 Ref 0 TAB Joselo Leon MD Aug 17, 2016 14:06
--- NOTE | 2016-08-17 14:47 | HHI.PR ---
Subjective Remarks 70 YOWM with large pl eff Had TC 4 Lit fluid removed. Breathing much better No CP,Fever or chills Ambulates in hallway Objective Vital Signs Vital Signs Date Time Temp Pulse Resp B/P Pulse Ox O2 Delivery O2 Flow Rate FiO2 08/17/16 12:00 97.5 116 20 158/83 95 08/17/16 08:27 96 Nasal Cannula 3.00 08/17/16 08:20 109 08/17/16 08:20 98 Nasal Cannula 2.00 08/17/16 08:00 95.8 111 18 160/82 98 08/17/16 04:00 95.6 112 18 168/91 99 08/17/16 00:00 95.8 114 18 163/81 97 08/16/16 20:54 98 Nasal Cannula 3.00 08/16/16 20:00 96.1 110 18 135/85 97 08/16/16 20:00 Nasal Cannula 2.00 08/16/16 16:00 97.3 118 20 150/88 98 I/O 08/16/16 08/16/16 08/16/16 08/17/16 08/17/16 08/17/16 07:00 15:00 23:00 07:00 15:00 23:00 Intake Total 787 ml 672 ml 240 ml 240 ml 240 ml Output Total 300 ml Balance 787 ml 672 ml 240 ml -60 ml 240 ml Intake Oral 120 ml 240 ml 240 ml 240 ml IV Total 667 ml 672 ml Output Urine Total 300 ml # Voids 2 1 5 # Bowel Movements 2 0 Result Diagram: 08/17/16 0332 08/17/16 0322 Objective Remarks GENERAL: WBWn male.NAD SKIN: Warm and dry. HEAD: Normocephalic. EYES: No scleral icterus. No injection or drainage. NECK: Supple, trachea midline. No JVD or lymphadenopathy. CARDIOVASCULAR: Regular rate and rhythm without murmurs, gallops, or rubs. RESPIRATORY: Breath sounds equal bilaterally. No accessory muscle use. GASTROINTESTINAL: Abdomen soft, non-tender, nondistended. MUSCULOSKELETAL: No cyanosis, or edema. BACK: Nontender without obvious deformity. No CVA tenderness. A/P Assessment and Plan Large pl effusion, s/p TC / Cirrhosis of liver Recent GIB PLAN: Cont Abx Supplement 02 OOB And ambulate DW pt and his sister at Pleural fluid cytology negative. DC plans underway for home. Cheikh Goetz MD Aug 17, 2016 14:47
[2016-08-17 16:42] LABS: BICARBONATE 17.5 MEQ/L (21.0-32.0); POTASSIUM 4.7 MEQ/L (3.5-5.1)
[2016-08-17] MEDS: FOLIC ACID 1 MG TAB PO SCH (17:18)
[2016-08-17] MEDS ORDERED: SODIUM CHLORIDE 1 GRAM TAB PO SCH (21:00)
[2016-08-18 10:54] LABS: HEPARIN INDUCED PLATELET AB NEGATIVE (NEGATIVE)
[2016-08-19 23:54] LABS: UFH SEROTONIN RELEASE RESULT NEGATIVE (NEGATIVE)
== END 2016-08-17 18:13 | disposition home health service (06) | DRG 186 ==
LOC: NEPC 10:36 → NEDA 13:47 → N07B 15:45
PROVIDERS: ADMIT Hospitalist; ATTEND Hospitalist
PROC: 0W993ZZ Drainage of Right Pleural Cavity, Percutaneous Approach (ICD-10-PCS; principal; 2016-08-11)
DX: J90 Pleural effusion, not elsewhere classified (principal); J15.9 Unspecified bacterial pneumonia; N17.9 Acute kidney failure, unspecified; D69.59 Other secondary thrombocytopenia; K70.30 Alcoholic cirrhosis of liver without ascites; E87.1 Hypo-osmolality and hyponatremia; E87.70 Fluid overload, unspecified; N18.3 Chronic kidney disease, stage 3 (moderate); J98.11 Atelectasis; I12.9 Hypertensive chronic kidney disease with stage 1 through stage 4 chronic kidney disease, or unspecified chronic kidney disease; E87.5 Hyperkalemia; M06.9 Rheumatoid arthritis, unspecified; R09.02 Hypoxemia; E03.9 Hypothyroidism, unspecified; F41.9 Anxiety disorder, unspecified; F32.9 Major depressive disorder, single episode, unspecified; E78.00 Pure hypercholesterolemia, unspecified; M19.90 Unspecified osteoarthritis, unspecified site; K21.9 Gastro-esophageal reflux disease without esophagitis; M10.9 Gout, unspecified; F43.10 Post-traumatic stress disorder, unspecified; F10.21 Alcohol dependence, in remission; Z86.010 Personal history of colon polyps; Z87.11 Personal history of peptic ulcer disease; R60.0 Localized edema
CPT/HCPCS: 32555; 36600; 71010; 71020; 76937; 80048; 80053; 82140; 82150; 82550; 82805; 82945; 83605; 83615; 83880; 83986; 84157; 84484; 85007; 85025; 85027; 85610; 85730; 86022; 87015; 87040; 87070; 87102; 87116; 87205; 87206; 87449; 88112; 88305; 89051; 93005; 94150; 94640; 94664; 99285; C1729; J0692; J2543; J7030

== ENCOUNTER 2016-08-21 15:09 | Inpatient (IN) | payer MEDICARE, OTHER ==
[~2016-08-21] VITALS: Ht 175.3 cm; Wt 80.0 kg
[~2016-08-21 15:09] MED LIST changes: -ALPR.25 PO; -ALPR.5 PO; +ALPR0.25 PO; -ASPI-110 PO; -FLUO20CA4 PO; -FURO1TAB60 PO; -FURO20TA PO; +FURO40TA PO; -HYDR-3516 PO; -METR-1 PO; +OXYGENTANK NAS.CANULA; -PANT40TA3 PO; -POTA20TA5 PO; +PROT40TA PO; +PROZ20CA11 PO; -Spironolactone PO; +TRAM50TA PO; -VITA100T2 PO; +VITA100T54 PO; -VITA50TA10 PO; -WHEEMIS3
[2016-08-21 15:52] VITALS: BP 174/98; PULSE 108; RESP 20; TEMP 97.7; O2SAT 93
[2016-08-21 15:55] VITALS: BP 174/98; PULSE 105; RESP 25; O2SAT 98
--- NOTE | 2016-08-21 15:59 | PD ---
HPI Chief Complaint: Edema Time Seen by Provider: 15:59 Travel History International Travel<30 days: No Contact w/Intl Traveler<30days: No Traveled to known affect area: No History of Present Illness HPI 70-year-old male with a history of hypertension, RA, depression, anxiety, pleural effusion with chronic supplemental oxygen presents to the emergency department by EMS for evaluation of lower extremity edema and shortness of breath. The patient has had 3 prolonged hospitalizations over the last 4 months. The initial hospitalization for UTI and sepsis with discharge to rehabilitation facility, second hospitalization for GI bleed with discharge to rehabilitation facility and his most recent hospitalization for pleural effusion requiring thoracentesis with discharge to home. Patient was just discharged 4 days ago to home. The patient states that over the past 4 days he' s had worsening swelling in his legs and feet which causes him pain and states he is unable to walk on his feet due to the pain. States that he is unable to get himself up and go to the bathroom or take care of himself. He states he feels as though his shortness of breath has worsened as well over the past several days. He denies any chest pain, lightheadedness, dizziness, nausea, vomiting, abdominal pain, diarrhea. No other complaints. PFSH Past Medical History Arthritis: Yes Asthma: Yes Blood Disorders: No Anxiety: Yes Depression: Yes Heart Rhythm Problems: No Cancer: No Cardiovascular Problems: No High Cholesterol: Yes Chemotherapy: No Chest Pain: No Congestive Heart Failure: No COPD: No Cerebrovascular Accident: No Diabetes: No Endocrine: Yes Gastrointestinal Disorders: Yes (GI BLEED) GERD: Yes Gout: Yes Genitourinary: No Hiatal Hernia: No Hypertension: Yes Immune Disorder: No Implanted Vascular Access Dvce: Yes Kidney Stones: No Musculoskeletal: Yes Neurologic: No Psychiatric: Yes Reproductive: No Respiratory: Yes Migraines: No Radiation Therapy: No Renal Failure: No Seizures: No Sickle Cell Disease: No Sleep Apnea: No Thyroid Disease: Yes Ulcer: Yes (duodenal ulcer) Past Surgical History Abdominal Surgery: No AICD: No Arteriovenous Shunt: No Body Medical Devices: Antonio Cardiac Surgery: Yes (cath) Ear Surgery: No Endocrine Surgery: No Eye Surgery: No Genitourinary Surgery: No Gynecologic Surgery: No Insulin Pump: No Joint Replacement: Yes (right hand/wrist) Neurologic Surgery: Yes (carpal tunnel) Oral Surgery: No Pacemaker: No Thoracic Surgery: No Other Surgery: Yes (shoulder sx) Social History Alcohol Use: No ( ) Tobacco Use: No Substance Use: No Allergies-Medications (Allergen,Severity, Reaction): Coded Allergies: Buspirone (Verified Allergy, Unknown, 05/08/16) pt states "more anxiety" Reported Meds & Prescriptions Reported Meds & Active Scripts Active Oxygen tank (Oxygen) 1 Ea Tank 2 Liter FELISHA.CANULA CONTINUOUS Oxygen Concentrator Portable Gaseous 2 L/min via Nasal Cannula Continuous For 99 months Cozaar (Losartan Potassium) 25 Mg Tab 50 Mg PO DAILY 30 Days Synthroid (Levothyroxine Sodium) 75 Mcg Tab 75 Mcg PO DAILY@06 30 Days Acidophilus/l-Sporogenes (Lactobacillus Acidophilus) 1 Tab Tab 1 Tab PO TID 30 Days Neurontin (Gabapentin) 300 Mg Cap 300 Mg PO TID 30 Days Fluticasone Nasal [place] 50 Mcg/Act Naspr 1 [place] EACH NARE BID 30 Days Cardizem (Diltiazem HCl) 30 Mg Tab 30 Mg PO BID 30 Days Lipitor (Atorvastatin Calcium) 20 Mg Tab 20 Mg PO HS 30 Days Zyloprim (Allopurinol) 100 Mg Tab 100 Mg PO DAILY 30 Days Reported Folic Acid 400 Mcg Tab 1 Mg PO DAILY Feosol (Ferrous Sulfate) 200 Mg Tab 325 Mg PO BID Vitamin B-12 (Cyanocobalamin) 500 Mcg Tab 50 Mcg PO HS Tramadol (Tramadol HCl) 50 Mg Tab 50 Mg PO Q4H PRN Alprazolam 0.25 Mg Tab 0.25 Mg PO Q8H PRN Prozac (Fluoxetine HCl) 20 Mg Cap 20 Mg PO DAILY Furosemide 40 Mg Tab 40 Mg PO BID Protonix (Pantoprazole Sodium) 40 Mg Tab 40 Mg PO Q12HR Vitamin B-1 (Thiamine HCl) 100 Mg Tab 100 Mg PO DAILY Multi-Vitamin Daily (Multiple Vitamin) 1 Tab Tab 1 Tab PO DAILY Review of Systems Except as stated in HPI: all other systems reviewed are Neg Physical Exam Narrative GENERAL: Well-nourished and well-developed male patient in no acute distress but with mild work of breathing. SKIN: Warm and dry. HEAD: Normocephalic and atraumatic. EYES: No injection, drainage, or hyphema noted. PERRLA. EOMI. ENT: No nasal drainage noted. Oropharynx is clear. NECK: Supple and the trachea is midline. CARDIOVASCULAR: Regular rate and rhythm. RESPIRATORY: Breath sounds are equal bilaterally with no accessory muscle use, wheezing, rhonchi, or crackles. GASTROINTESTINAL: Abdomen is soft, non-tender, and nondistended. MUSCULOSKELETAL: Significant lower extremity edema bilaterally with weeping. No obvious deformities, cyanosis, or ecchymosis is present throughout the upper and lower extremities. Patient has full range of motion without any signs of neurovascular compromise. NEUROLOGICAL: Awake, alert, and oriented. Normal speech and gait. Cranial nerves are grossly intact. Data Data Last Documented VS Vital Signs Date Time Temp Pulse Resp B/P Pulse Ox O2 Delivery O2 Flow Rate FiO2 08/21/16 16:52 99 Nasal Cannula 3 08/21/16 15:55 105 25 174/98 08/21/16 15:52 97.7 Orders Complete Blood Count With Diff (08/21/16 15:56) Comprehensive Metabolic Panel (08/21/16 15:56) B-Type Natriuretic Peptide (08/21/16 15:56) Act Partial Throm Time (Ptt) (08/21/16 15:56) Prothrombin Time / Inr (Pt) (08/21/16 15:56) Iv Access Insert/Monitor (08/21/16 15:56) Electrocardiogram (08/21/16 15:56) Ecg Monitoring (08/21/16 15:56) Oximetry (08/21/16 15:56) Oxygen Administration (08/21/16 15:56) Chest, Single Ap (08/21/16 15:56) Sodium Chloride 0.9% Flush (Ns Flush) (08/21/16 16:00) Troponin I (08/21/16 15:56) Us Leg Venous Doppler Bilat (08/21/16 ) Vascular Access Team Consult/P PRN (08/21/16 16:25) Vascular Poc Ultrasound (08/21/16 ) Us Guided Thoracentesis (08/21/16 ) Consent (08/21/16 18:08) ^ Have Supplies At Bedside (08/21/16 18:08) Invasive Rad Dept Consult (08/21/16 ) Admit Order (Ed Use Only) (08/21/16 19:13) Labs Laboratory Tests Test 08/21/16 17:30 White Blood Count 14.1 TH/MM3 Red Blood Count 4.74 MIL/MM3 Hemoglobin 14.1 GM/DL Hematocrit 42.6 % Mean Corpuscular Volume 90.0 FL Mean Corpuscular Hemoglobin 29.8 PG Mean Corpuscular Hemoglobin 33.1 % Concent Red Cell Distribution Width 17.6 % Platelet Count 117 TH/MM3 Mean Platelet Volume 8.3 FL Neutrophils (%) (Auto) 88.0 % Lymphocytes (%) (Auto) 4.7 % Monocytes (%) (Auto) 6.9 % Eosinophils (%) (Auto) 0.2 % Basophils (%) (Auto) 0.2 % Neutrophils # (Auto) 12.4 TH/MM3 Lymphocytes # (Auto) 0.7 TH/MM3 Monocytes # (Auto) 1.0 TH/MM3 Eosinophils # (Auto) 0.0 TH/MM3 Basophils # (Auto) 0.0 TH/MM3 CBC Comment DIFF FINAL Differential Comment Prothrombin Time 11.1 SEC Prothromb Time International 1.0 RATIO Ratio Activated Partial 23.9 SEC Thromboplast Time Sodium Level 131 MEQ/L Potassium Level 5.9 MEQ/L Chloride Level 101 MEQ/L Carbon Dioxide Level 21.1 MEQ/L Anion Gap 9 MEQ/L Blood Urea Nitrogen 49 MG/DL Creatinine 1.28 MG/DL Estimat Glomerular Filtration 56 ML/MIN Rate Random Glucose 94 MG/DL Calcium Level 10.1 MG/DL Total Bilirubin 1.3 MG/DL Aspartate Amino Transf 138 U/L (AST/SGOT) Alanine Aminotransferase 137 U/L (ALT/SGPT) Alkaline Phosphatase 312 U/L Troponin I 0.11 NG/ML B-Type Natriuretic Peptide 189 PG/ML Total Protein 6.2 GM/DL Albumin 2.5 GM/DL [facility] Medical Decision Making Medical Screen Exam Complete: Yes Emergency Medical Condition: Yes Differential Diagnosis Pleural effusion versus pneumonia versus heart failure versus DVT versus dependent edema Narrative Course 70-year-old male presents to the emergency department for evaluation of lower extremity edema and shortness of breath. Patient is afebrile. He is tachycardic with a heart rate of 105 bpm. He does have increased respirations but is in no acute distress. Oxygen saturations maintained at 98% on 3 L of O2. IV access was obtained, labs drawn and sent. Bilateral lower extremity ultrasound is negative for DVT. Chest x-ray shows complete opacification of the right hemithorax in part due to effusion. This is a new finding. CBC shows an elevated white blood cell count of 14.1, otherwise unremarkable. Coags are unremarkable. CMP shows hyperkalemia 5.9 but noted hemolysis. Elevated LFTs consistent with previous labs. Troponin is elevated at 0.11, this is the same as previous labs. BNP is 189. Patient has remained stable while here in the emergency department. He has a right pleural effusion that will need thoracentesis performed tomorrow morning. It is worth considering he may need a pleurex catheter for future draining. I discussed the case with my attending physician Dr. Drummond who is aware of the patients history, physical examination findings, and treatment plan. Physician Communication Physician Communication I spoke with Dr. Mcguire interventional radiology who agrees to take the patient for therapeutic ultrasound-guided or centesis of the right pleural effusion first thing tomorrow morning. I spoke with Dr. Bazan [facility] who agrees to admit the patient to her service. Diagnosis Primary Impression: Pleural effusion Additional Impression: Bilateral lower extremity edema Admitting Information Admitting Physician Requests: Admit Dianne Box Aug 21, 2016 15:59
[2016-08-21] MEDS ORDERED: SODIUM CHLORIDE 0.9% FLUSH 10 ML FLUSH IVF PRN (16:00)
[2016-08-21] MEDS ORDERED: FERR200T PO (16:50)
[2016-08-21] MEDS ORDERED: VITA500T4 PO (16:50)
[2016-08-21] MEDS ORDERED: FOLI400T PO (16:50)
--- NOTE | 2016-08-21 17:29 | RADRPT ---
EXAM DATE/TIME: 08/21/2016 16:37 [facility] COMPARISON: US GUIDED THORACENTESIS RIGHT, August 11, 2016, 19:32. INDICATIONS : Bilateral leg edema and swelling. MEDICAL HISTORY : Hypercholesterolemia. Hypertension. Gastroesophageal reflux disease. Thyroid disease. Asthma. Gastroi ntestinal bleeding. Ulcer. Arthritis. Gout. Chronic sciatica. Liver disease. Clostridium difficile. SURGICAL HISTORY : Carpal tunnel. Cardiac catheter. Left rotator cuff. Right hand and wrist joint replacement. ENCOUNTER: Initial ACUITY: 3 weeks PAIN SCORE: 3/10 LOCATION: Bilateral legs. TECHNIQUE: Venous ultrasound of the left and right leg was performed from the inguinal ligament to the proximal calf. Real-time, color Doppler and spectral tracing, compression and augmentation techniques were us ed. FINDINGS: RIGHT LEG: There is normal compressibility of the deep venous system from the inguinal region to the proximal ca lf. No echogenic clot is seen in the lumen of the common femoral, femoral, popliteal, and posterior tibial veins. There is a normal response of the venous system to proximal and distal augmentation an d respiration. LEFT LEG: There is normal compressibility of the deep venous system from the inguinal region to the proximal ca lf. No echogenic clot is seen in the lumen of the common femoral, femoral, popliteal, and posterior tibial veins. There is a normal response of the venous system to proximal and distal augmentation an d respiration. CONCLUSION: 1. No DVT identified within either lower extremity. 2. Diffuse edema within both lower extremities. Jose Pederson MD on August 21, 2016 at 17:26 Board Certified Radiologist. This report was verified electronically.
--- NOTE | 2016-08-21 17:51 | RADRPT ---
EXAM DATE/TIME: 08/21/2016 17:32 [facility] COMPARISON: CHEST PA & LAT, August 16, 2016, 8:06. CHEST SINGLE AP, May 14, 2016, 16:23. INDICATIONS : Short of breath. MEDICAL HISTORY : None. SURGICAL HISTORY : None. ENCOUNTER: Initial ACUITY: 1 day PAIN SCORE: 0/10 LOCATION: Bilateral chest FINDINGS: A single portable frontal view the chest shows complete opacification of the right hemithorax. Medias tinal structures are shifted slightly towards the left. Left lung is clear. No effusion on the left. A degenerative spine observed. CONCLUSION: Complete opacification of the right hemithorax in part due to effusion. This is a new finding. Juan Jose Mcguire Jr., MD on August 21, 2016 at 17:48 Board Certified Radiologist. This report was verified electronically.
[2016-08-21 18:04] LABS: AUTOMATED NEUTROPHIL # 12.4 TH/MM3 (1.8-7.7); BASOPHIL % 0.2 % (0.0-2.0); EOSINOPHIL % 0.2 % (0.0-4.0); HEMATOCRIT 42.6 % (39.0-51.0); HEMO FLAGS DIFF FINAL; LYMPH % 4.7 % (9.0-44.0); LYMPHOCYTE # 0.7 TH/MM3 (1.0-4.8); MEAN CORPUSCULAR HEMOGLOBIN 29.8 PG (27.0-34.0); MEAN CORPUSCULAR HGB CONC 33.1 % (32.0-36.0); MONO % 6.9 % (0.0-8.0); PLATELET COUNT 117 TH/MM3 (150-450); RED BLOOD COUNT 4.74 MIL/MM3 (4.50-5.90); RED CELL DISTRIBUTION WIDTH 17.6 % (11.6-17.2); WHITE BLOOD COUNT 14.1 TH/MM3 (4.0-11.0)
[2016-08-21 18:14] LABS: APTT (PATIENT) 23.9 SEC (24.3-30.1); PROTHROMBIN TIME - PATIENT 11.1 SEC (9.8-11.6)
[2016-08-21 18:20] LABS: ALKALINE PHOSPHATASE 312 U/L (45-117); ALT (GPT) 137 U/L (12-78); TOTAL BILIRUBIN ADULT 1.3 MG/DL (0.2-1.0)
[2016-08-21 18:23] LABS: ANION GAP 9 MEQ/L (5-15); AST (GOT) 138 U/L (15-37); BICARBONATE 21.1 MEQ/L (21.0-32.0); BLOOD UREA NITROGEN 49 MG/DL (7-18); CHLORIDE 101 MEQ/L (98-107); GLOMERULAR FILTRATION RATE 56 ML/MIN (>89); SODIUM (NA) 131 MEQ/L (136-145)
[2016-08-21 18:25] LABS: POTASSIUM 5.9 MEQ/L (3.5-5.1)
[2016-08-21] MEDS ORDERED: BISACODYL 10 MG SUPP RECTAL PRN (19:45)
[2016-08-21] MEDS ORDERED: INSULIN HUMAN REGULAR 1,000 UNITS/10 ML VIAL IV PUSH ONE (19:45)
[2016-08-21] MEDS ORDERED: MORPHINE SULFATE 4 MG/ML INJ IV PRN (19:45)
[2016-08-21] MEDS ORDERED: LACTULOSE SYRUP 20 GM/30 ML CUP PO PRN (19:45)
[2016-08-21] MEDS ORDERED: ONDANSETRON HCL 4 MG/2 ML VIAL IVP PRN (19:45)
[2016-08-21] MEDS ORDERED: MAGNESIUM HYDROXIDE SUSP 30 ML CUP PO PRN (19:45)
[2016-08-21] MEDS ORDERED: SENNOSIDES 8.6 MG TAB PO PRN (19:45)
[2016-08-21] MEDS ORDERED: FUROSEMIDE 40 MG/4 ML VIAL IV PUSH ONE (19:45)
[2016-08-21] MEDS ORDERED: ACETAMINOPHEN 325 MG TAB PO PRN (19:45)
[2016-08-21] MEDS ORDERED: RESP: ALBUTEROL 2.5 MG/IPRATROPIUM 0.5 MG NEB (PRN) NEB (19:45)
[2016-08-21] MEDS ORDERED: CALCIUM GLUCONATE 10% 1 GM/10 ML VIAL IV PUSH ONE (19:45)
[2016-08-21] MEDS ORDERED: ALPRAZolam 0.25 MG TAB PO PRN (19:45)
[2016-08-21] MEDS ORDERED: DEXTROSE 50% IN WATER 50 ML SYRINGE IV ONE (19:45)
--- NOTE | 2016-08-21 19:46 | HHI.HP ---
HPI Service [facility] Primary Care Physician Unknown Admission Diagnosis Right Sided Pleural Effusion, Bilateral Lower Extremity Edema Diagnoses: (1) Pleural effusion Diagnosis: Principal (2) Elevated troponin Diagnosis: Principal (3) Hyperkalemia Diagnosis: Principal (4) Thrombocytopenia Diagnosis: Principal (5) Cirrhosis Diagnosis: Principal (6) HTN (hypertension) Diagnosis: Principal (7) H/O: GI bleed Diagnosis: Principal (8) Sacral decubitus ulcer, stage II Diagnosis: Principal (9) Alcohol abuse Diagnosis: Principal Travel History International Travel<30 Days: No Contact w/Intl Traveler <30 Da: No Traveled to Known Affected Are: No History of Present Illness This is a 70-year-old male with a PMH of HTN, Anxiety, Depression, Hepatitis C, Cirrhosis, Grade II Esophageal Varices, h/o GI Bleed, Thrombocytopenia, h/o Alcohol Abuse and Stage II Sacral Decubitus Ulcer who was brought to the ER by EMS secondary to SOB and worsening lower extremity edema x3-4 days. Recent admit 08/11- for similar complaints, noted to have right pleural effusion , s/p Thoracentesis by IR w/ transudate likely secondary to cirrhosis. Now w/ recurrent symptoms. On arrival, BP 174/98, HR 108, O2 sat 93% on RA, Afebrile. WBC 14.1. Platelets 117, previously 97 on 08/17/16. Chemistry essentially at baseline except for K+5.9. Trop 0.11. LFTs mildly increased in comparison to previous. INR 1.0. CXR with complete opacification of right hemithorax due to effusion. IR consulted by ER physician, plan is for Thoracentesis in am. Pt currently stable from respiratory standpoint. LE Doppler negative for DVT. Review of Systems Except as stated in HPI: all other systems reviewed are Neg ROS: 14 point review of systems otherwise negative. Past Family Social History Past Medical History PMH: HTN, Anxiety, Depression, Hepatitis C, Cirrhosis, Grade II Esophageal Varices, h/o GI Bleed, Thrombocytopenia, h/o Alcohol Abuse and Stage II Sacral Decubitus Ulcer Past Surgical History PAST SURGICAL HISTORY: Right Hand Surgery, Shoulder Surgery Allergies: Coded Allergies: Buspirone (Verified Allergy, Unknown, 05/08/16) pt states "more anxiety" Family History PAST FAMILY HISTORY: Reviewed. No h/o DM or CAD Social History PAST SOCIAL HISTORY: History of alcohol abuse, reports quitting few months ago. Negative for tobacco or drugs. Physical Exam Vital Signs Vital Signs Date Time Temp Pulse Resp B/P Pulse Ox O2 Delivery O2 Flow Rate FiO2 08/21/16 16:52 99 Nasal Cannula 3 08/21/16 15:55 105 25 174/98 98 Nasal Cannula 3 08/21/16 15:52 97.7 108 20 174/98 93 Physical Exam PE: GENERAL: Middle-aged white male in no acute distress. Mild dyspnea with speech although no respiratory distress. HEENT: PERRLA, EOMI. No scleral icterus or conjunctival pallor. No lid lag or facial droop. CARDIOVASCULAR: Regular rate and rhythm. No obvious murmurs to auscultation. No chest tenderness to palpation. RESPIRATORY: No obvious rhonchi or wheezing. Decreased breath sounds right lung , otherwise clear to auscultation. GASTROINTESTINAL: Abdomen soft, non-tender, nondistended. BS normal. MUSCULOSKELETAL: Extremities without clubbing, cyanosis. 3+ bilateral lower extremity edema. No obvious deformities. NEUROLOGICAL: Awake, alert and oriented x4. No focal neurologic deficits. Moving both upper and lower extremities spontaneously. Laboratory Laboratory Tests Test 08/21/16 17:30 White Blood Count 14.1 Red Blood Count 4.74 Hemoglobin 14.1 Hematocrit 42.6 Mean Corpuscular Volume 90.0 Mean Corpuscular Hemoglobin 29.8 Mean Corpuscular Hemoglobin 33.1 Concent Red Cell Distribution Width 17.6 Platelet Count 117 Mean Platelet Volume 8.3 Neutrophils (%) (Auto) 88.0 Lymphocytes (%) (Auto) 4.7 Monocytes (%) (Auto) 6.9 Eosinophils (%) (Auto) 0.2 Basophils (%) (Auto) 0.2 Neutrophils # (Auto) 12.4 Lymphocytes # (Auto) 0.7 Monocytes # (Auto) 1.0 Eosinophils # (Auto) 0.0 Basophils # (Auto) 0.0 CBC Comment DIFF FINAL Differential Comment Prothrombin Time 11.1 Prothromb Time International 1.0 Ratio Activated Partial 23.9 Thromboplast Time Sodium Level 131 Potassium Level 5.9 Chloride Level 101 Carbon Dioxide Level 21.1 Anion Gap 9 Blood Urea Nitrogen 49 Creatinine 1.28 Estimat Glomerular Filtration 56 Rate Random Glucose 94 Calcium Level 10.1 Total Bilirubin 1.3 Aspartate Amino Transf 138 (AST/SGOT) Alanine Aminotransferase 137 (ALT/SGPT) Alkaline Phosphatase 312 Troponin I 0.11 B-Type Natriuretic Peptide 189 Total Protein 6.2 Albumin 2.5 Result Diagram: 08/21/16 1730 08/21/16 173 Assessment and Plan Problem List: (1) Pleural effusion ICD Code: J90 Status: Acute (2) Elevated troponin ICD Code: R74.8 Status: Acute (3) Hyperkalemia ICD Code: E87.5 Status: Acute (4) Thrombocytopenia ICD Code: D69.6 Status: Acute (5) Cirrhosis ICD Code: K74.60 Status: Acute (6) HTN (hypertension) ICD Code: I10 Status: Chronic (7) H/O: GI bleed ICD Code: Z87.19 Status: Acute (8) Alcohol abuse ICD Code: F10.10 Status: Acute (9) Sacral decubitus ulcer, stage II ICD Code: L89.152 Status: Acute Assessment and Plan A/P: 1. Right Pleural Effusion: Recurrent. Recent admit 08/11-08/17/16 for similar, s /p Thoracentesis by IR 08/11/16 w/ removal of 4450cc fluid, transudate thought to be secondary to Cirrhosis. Now w/ recurrent right pleural effusion and SOB. CXR w/ complete opacification of right hemithorax due to effusion, images reviewed by me. IR consulted by ER physician, plan is for Thoracentesis in am. S/p eval by Dr. Goetz on last admission, will re-consult for further evaluation. Continue diuresis, Lasix 40mg IV x1 now and will resume home diuretics. Echo 05/11/16 w/ EF 55-60%. 2. Elevated Trop: Trop 0.11, similar to previous admit, no c/o chest pain, EKG w/ no acute changes. Likely secondary to cirrhosis, strain from large effusion. Poor candidate for anticoagulation in light of thrombocytopenia, coagulopathy and previous h/o GI Bleed w/ Esophageal Varices. Will check serial enzymes for trend. 3. Hyperkalemia: K+ 5.9, Ca/Insulin/D50, recheck labs, telemetry. 4. HTN: Uncontrolled. BP 190's systolic, likely compounded by large right effusion and respiratory distress on arrival. Monitor BP, resume home medications, Lopressor IV x1 now. 5. Cirrhosis: H/o Alcohol Abuse and Hepatitis C w/ h/o Cirrhosis, LFTs mildly increased from previous labs 08/14/16. INR 1.0. Resume Lasix, add Aldactone and Propranolol. 6. Thrombocytopenia: Chronic. Stable. Platelets 117, previously 97 on . No active bleeding at this time. Monitor closely. 7. H/o GI Bleed: secondary to Alcohol Abuse/Cirrhosis/Grade II Esophageal Varices, no signs of bleeding at this time. Hgb stable at 14.1. Platelets 117. Monitor closely. 8. Alcohol Abuse: h/o Alcohol Abuse, 1pint Vodka/day, states he quit 05/2016. Continue Thiamine/Folate/MVT replacement. 9. Sacral Decubitus Ulcer: Stage II. Present on arrival. Wound Consult for further evaluation. 10. DVT Prophylaxis: Pharmacologic contraindication secondary to h/o GI Bleed , Varices and Thrombocytopenia. Mechanical contraindication secondary to significant edema. 11. Social work for d/c planning as needed. 12. Case discussed w/ ER physician at length. Physician Certification 2 Midnight Certification Type: Admission for Inpatient Services Order for Inpatient Services The services are ordered in accordance with Medicare regulations or non- Medicare payer requirements, as applicable. In the case of services not specified as inpatient-only, they are appropriately provided as inpatient services in accordance with the 2-midnight benchmark. Estimated LOS (days): 2 days is the estimated time the patient will need to remain in the hospital, assuming treatment plan goals are met and no additional complications. Post-Hospital Plan: Not yet determined Stefani Bazan MD Aug 21, 2016 19:46
[2016-08-21 20:26] VITALS: BP 190/91; PULSE 108; RESP 18; O2SAT 97
[2016-08-21] MEDS ORDERED: METOPROLOL TARTRATE 5 MG/5 ML VIAL IV PUSH ONE (20:45)
[2016-08-21] MEDS: PANTOPRAZOLE SOD 40 MG DELAYED RELEASE TAB PO SCH (21:18)
[2016-08-21] MEDS: DOCUSATE SODIUM 50 MG/SENNA 8.6 MG TAB PO SCH (21:25)
[2016-08-21] MEDS: FERROUS SULFATE 325 MG (65 MG ELEMENTAL IRON) TAB PO SCH (21:25)
[2016-08-21] MEDS: DILTIAZEM HCL 30 MG TAB PO SCH (21:25)
[2016-08-21] MEDS: CYANOCOBALAMIN 1,000 MCG TAB PO SCH (21:26)
[2016-08-21] MEDS: SODIUM CHLORIDE 0.9% FLUSH 10 ML FLUSH IV FLUSH SCH (21:26)
[2016-08-21 21:28] VITALS: BP 202/82; PULSE 112; RESP 18; O2SAT 98
[2016-08-21 22:49] VITALS: BP 160/81; PULSE 109; RESP 22; O2SAT 97
[2016-08-21 23:10] VITALS: BP 171/81; PULSE 109; RESP 15; TEMP 97.2; O2SAT 100
[2016-08-22] VITALS (32 sets, daily range): BP systolic 77–202; BP diastolic 49–99; PULSE 59–106; RESP 13–34; TEMP 97.2–97.9; O2SAT 83–99
[2016-08-22] MEDS ORDERED: METOPROLOL TARTRATE 5 MG/5 ML VIAL IV PUSH ONE (02:15)
[2016-08-22] MEDS: SODIUM CHLORIDE 0.9% FLUSH 10 ML FLUSH IV FLUSH PRN (02:28)
[2016-08-22 03:59] LABS: POTASSIUM 5.3 MEQ/L (3.5-5.1)
[2016-08-22] MEDS: LEVOTHYROXINE SODIUM 75 MCG TAB PO SCH (05:22)
[2016-08-22] MEDS ORDERED: cloNIDine HCL 0.1 MG TAB PO ONE (06:30)
[2016-08-22 07:05] LABS: AUTOMATED NEUTROPHIL # 10.6 TH/MM3 (1.8-7.7); BASOPHIL % 0.1 % (0.0-2.0); EOSINOPHIL % 0.3 % (0.0-4.0); HEMATOCRIT 40.5 % (39.0-51.0); LYMPH % 7.4 % (9.0-44.0); LYMPHOCYTE # 0.9 TH/MM3 (1.0-4.8); MEAN CELL VOLUME 89.5 FL (80.0-100.0); MEAN CORPUSCULAR HEMOGLOBIN 30.8 PG (27.0-34.0); MEAN CORPUSCULAR HGB CONC 34.4 % (32.0-36.0); MONO % 5.1 % (0.0-8.0); NEUT % 87.1 % (16.0-70.0); PLATELET COUNT 93 TH/MM3 (150-450); RED BLOOD COUNT 4.52 MIL/MM3 (4.50-5.90); RED CELL DISTRIBUTION WIDTH 17.5 % (11.6-17.2); WHITE BLOOD COUNT 12.1 TH/MM3 (4.0-11.0)
[2016-08-22 07:06] LABS: HEMO FLAGS AUTO DIFF
[2016-08-22 07:25] LABS: ANION GAP 8 MEQ/L (5-15); AST (GOT) 111 U/L (15-37); BICARBONATE 22.8 MEQ/L (21.0-32.0); BLOOD UREA NITROGEN 48 MG/DL (7-18); CHLORIDE 103 MEQ/L (98-107); GLOMERULAR FILTRATION RATE 61 ML/MIN (>89); SODIUM (NA) 134 MEQ/L (136-145)
[2016-08-22 07:29] LABS: ALKALINE PHOSPHATASE 251 U/L (45-117); ALT (GPT) 133 U/L (12-78); TOTAL BILIRUBIN ADULT 1.5 MG/DL (0.2-1.0)
[2016-08-22] MEDS: MULTIVITAMIN TAB PO SCH (08:04)
[2016-08-22] MEDS: FERROUS SULFATE 325 MG (65 MG ELEMENTAL IRON) TAB PO SCH ×2 (08:04→21:49)
[2016-08-22] MEDS: SPIRONOLACTONE 50 MG TAB PO SCH (08:04)
[2016-08-22] MEDS: PANTOPRAZOLE SOD 40 MG DELAYED RELEASE TAB PO SCH ×2 (08:04→21:49)
[2016-08-22] MEDS: THIAMINE HCL 100 MG TAB PO SCH (08:05)
[2016-08-22] MEDS: LACTOBACILLUS ACIDOPHILUS TAB PO SCH ×3 (08:05→17:57)
[2016-08-22] MEDS: FOLIC ACID 1 MG TAB PO SCH (08:05)
[2016-08-22] MEDS: GABAPENTIN 300 MG CAP PO SCH ×3 (08:05→17:57)
[2016-08-22] MEDS: FUROSEMIDE 40 MG TAB PO SCH ×2 (08:05→17:57)
[2016-08-22] MEDS: FLUoxetine HCL 20 MG CAP PO SCH (08:05)
[2016-08-22] MEDS: DOCUSATE SODIUM 50 MG/SENNA 8.6 MG TAB PO SCH ×2 (08:05→21:00)
[2016-08-22] MEDS: DILTIAZEM HCL 30 MG TAB PO SCH ×2 (08:05→21:48)
[2016-08-22] MEDS: PROPRANOLOL HCL 10 MG TAB PO SCH ×2 (08:05→21:48)
[2016-08-22] MEDS: SODIUM CHLORIDE 0.9% FLUSH 10 ML FLUSH IV FLUSH SCH ×2 (08:05→21:49)
[2016-08-22 08:10] LABS: PLATELET ESTIMATE SMEAR LOW (NORMAL); PLATELET MORPHOLOGY NORMAL (NORMAL); SCAN/DIFF AUTO DIFF CONFIRMED
--- NOTE | 2016-08-22 11:25 | RADRPT ---
EXAM DATE/TIME: 08/22/2016 10:50 [facility] COMPARISON: CHEST SINGLE AP, August 21, 2016, 17:32. CHEST EXPIRATION ONLY, August 11, 2016, 20:13. INDICATIONS : Post right side thoracentesis. MEDICAL HISTORY : Chronic obstructive pulmonary disease. Hypercholesterolemia. Hypertension. thyroid disease, asthm a SURGICAL HISTORY : None. ENCOUNTER: Initial ACUITY: 1 day PAIN SCORE: 0/10 LOCATION: Right chest FINDINGS: 2 portable frontal views of the chest show considerable reduction in the size of the right pleural ef fusion following thoracentesis. Bibasilar consolidation remains. No pneumothorax. Heart is normal in size. CONCLUSION: No pneumothorax following thoracentesis. Juan Jose Mcguire Jr., MD on August 22, 2016 at 11:22 Board Certified Radiologist. This report was verified electronically.
[2016-08-22] MEDS ORDERED: LIDOCAINE HCL 1% PF 30 ML VIAL ONE (11:41)
--- NOTE | 2016-08-22 11:49 | HHI.PR ---
Subjective Remarks Patient laying in bed he is somnolent, woke up to verbal stimuli but go right back to sleep not able to answer in question Son and sister at the bedside I discussed with them in length, the son who is the POA wants DNR status and he woke up the patient in front of me and asked him and the patient stated "no "for an answer if he wants resuscitation and a hard stop. So discussed with him palliative care consult as it can help prevent unnecessary hospitalization. Objective Vitals Vital Signs Date Time Temp Pulse Resp B/P Pulse Ox O2 Delivery O2 Flow Rate FiO2 08/22/16 10:58 66 18 141/73 99 08/22/16 06:00 89 08/22/16 04:00 97.7 87 13 202/99 98 08/22/16 04:00 87 08/22/16 02:00 106 08/22/16 00:00 103 08/22/16 00:00 97.2 105 16 178/96 97 08/21/16 23:10 97.2 109 15 171/81 100 08/21/16 22:49 109 22 160/81 97 Nasal Cannula 3 08/21/16 21:28 112 18 202/82 98 Nasal Cannula 2 08/21/16 20:27 109 20 97 Nasal Cannula 2 08/21/16 20:26 108 18 190/91 97 Nasal Cannula 2 08/21/16 16:52 99 Nasal Cannula 3 08/21/16 15:55 105 25 174/98 98 Nasal Cannula 3 08/21/16 15:52 97.7 108 20 174/98 93 I/O 08/21/16 08/21/16 08/21/16 08/22/16 08/22/16 08/22/16 07:00 15:00 23:00 07:00 15:00 23:00 Intake Total 350 ml Output Total 600 ml Balance -250 ml Intake Oral 350 ml Output Urine Total 600 ml Result Diagram: 08/22/1601 08/22/1601 Imaging Last Impressions Thoracentesis Ultrasound 08/22/16 0000 Signed Impressions: Service Date/Time: Monday, August 22, 2016 10:00 - CONCLUSION: Uncomplicated ultrasound guided thoracentesis. Que Beard MD Chest X-Ray 08/22/16 0000 Signed Impressions: Service Date/Time: Monday, August 22, 2016 10:50 - CONCLUSION: No pneumothorax following thoracentesis. Juan Jose Mcguire Jr., MD Lower Extremity Ultrasound 08/21/16 0000 Signed Impressions: Service Date/Time: August 16:37 - CONCLUSION: 1. No DVT identified within either lower extremity. 2. Diffuse edema within both lower extremities. Jose Pederson MD Objective Remarks GENERAL: 70 years old male in no acute distress. Drowsy and somnolent HEENT: PERRLA, EOMI. No scleral icterus or conjunctival pallor. No lid lag or facial droop. CARDIOVASCULAR: Regular rate and rhythm. No obvious murmurs to auscultation. No chest tenderness to palpation. RESPIRATORY: No obvious rhonchi or wheezing. Decreased breath sounds right lung , otherwise clear to auscultation. GASTROINTESTINAL: Abdomen soft, non-tender, nondistended. BS normal. MUSCULOSKELETAL: Extremities without clubbing, cyanosis. 3+ bilateral lower extremity edema. No obvious deformities. NEUROLOGICAL: Patient is somnolent responsive to verbal stimuli but he goes right back to sleep A/P Problem List: (1) Pleural effusion ICD Code: J90 Status: Acute (2) Elevated troponin ICD Code: R74.8 Status: Acute (3) Hyperkalemia ICD Code: E87.5 Status: Acute (4) Thrombocytopenia ICD Code: D69.6 Status: Acute (5) Cirrhosis ICD Code: K74.60 Status: Acute (6) HTN (hypertension) ICD Code: I10 Status: Chronic (7) H/O: GI bleed ICD Code: Z87.19 Status: Acute (8) Alcohol abuse ICD Code: F10.10 Status: Acute (9) Sacral decubitus ulcer, stage II ICD Code: L89.152 Status: Acute Assessment and Plan 08/22: BMP in a.m., continue diuresis ,a status post thoracentesis, consult palliative care A/P: 1. Right Pleural Effusion: Recurrent. Recent admit 08/11-08/17/16 for similar, s /p Thoracentesis by IR 08/11/16 w/ removal of 4450cc fluid, transudate thought to be secondary to Cirrhosis. Now w/ recurrent right pleural effusion and SOB. CXR w/ complete opacification of right hemithorax due to effusion, images reviewed by me. Status post Thoracentesis . Reconsult Dr. Goetz patient known to him. Continue diuresis, Lasix 40mg IV x1 now and will resume home diuretics. Echo 05/11/16 w/ EF 55-60%. 2. Elevated Trop: Trop 0.11, similar to previous admit, no c/o chest pain, EKG w/ no acute changes. Likely secondary to cirrhosis, strain from large effusion. Poor candidate for anticoagulation in light of thrombocytopenia, coagulopathy and previous h/o GI Bleed w/ Esophageal Varices. Will check serial enzymes for trend. 3. Hyperkalemia: K+ 5.9-5, Ca/Insulin/D50, telemetry continue monitoring 4. HTN: Better controlled today. Monitor BP, resume home medications 5. Cirrhosis: H/o Alcohol Abuse and Hepatitis C w/ h/o Cirrhosis, LFTs mildly increased from previous labs 08/14/16. INR 1.0. Resume Lasix, add Aldactone and Propranolol. 6. Thrombocytopenia: Chronic. Stable. Platelets 117, previously 97 on . No active bleeding at this time. Monitor closely. 7. H/o GI Bleed: secondary to Alcohol Abuse/Cirrhosis/Grade II Esophageal Varices, no signs of bleeding at this time. Hgb stable at 14.1. Platelets 117. Monitor closely. 8. Alcohol Abuse: h/o Alcohol Abuse, 1pint Vodka/day, states he quit 05/2016. Continue Thiamine/Folate/MVT replacement. 9. Sacral Decubitus Ulcer: Stage II. Present on arrival. Wound Consult for further evaluation. 10. DVT Prophylaxis: Pharmacologic contraindication secondary to h/o GI Bleed , Varices and Thrombocytopenia. Mechanical contraindication secondary to significant edema. Leland Johnson MD Aug 22, 2016 11:49
--- NOTE | 2016-08-22 13:18 | RADRPT ---
EXAM DATE/TIME: 08/22/2016 10:00 [facility] COMPARISON: US GUIDED THORACENTESIS RIGHT, August 11, 2016, 19:32. INDICATIONS : Pleural effusion. MEDICAL HISTORY : Hypercholesterolemia. Arthritis. Gastroesophageal reflux disease. Thyroid disease. Tinnitus. Hyperten sharif. Ashtma. Dyspnea. GI bleed. Duodenal ulcer. Gout. Chronic sciatica. Disc degeneration. Liver dis ease. PTSD. Anxiety. Clotting problems. Cdiff. SURGICAL HISTORY : Cardiac cath. Left rotator cuff. Right hand. Blood transfusions. ENCOUNTER: Subsequent ACUITY: 1 week PAIN SCORE: 6/10 LOCATION: Right chest FLUID: Total volume of 3,000 cc of clear, yellow fluid was removed. Fluid was discarded. Thoracentesis was therapeutic only. TECHNIQUE: 1. Ultrasound guidance for thoracentesis. 2. Thoracentesis. The risks, benefits, and alternatives to ultrasound guided thoracentesis were explained to the patien t in lay simple terms, including the risk of bleeding and infection. Written and verbal informed con sent was obtained. Appropriate area for thoracentesis was marked under ultrasound guidance with the patient in the uprig ht position. Overlying skin was prepped and draped in the usual sterile fashion and with local anest hetic, a dermatotomy was made with an 11 blade scalpel. A 6 American thoracentesis catheter was placed in the pleural space and fluid was removed. Catheter was then removed and a sterile dressing applie d. There were no immediate complications. The patient tolerated the procedure well and the left the ultrasound suite in stable condition. Chest radiograph is to be obtained. CONCLUSION: Uncomplicated ultrasound guided thoracentesis. Que Beard MD on August 22, 2016 at 13:16 Board Certified Radiologist. This report was verified electronically.
--- NOTE | 2016-08-22 13:38 | PD.WCN.NOT ---
Wound Consult Description: Wound Care Consulted for wound management of sacral area per Dr Bazan. Patient was seen on [facility] with PATRICIA Devlin. Patient was positioned to his right side for assessment. Patient presents with blanchable erythema noted to sacrum, coccyx and bilateral buttocks with no open areas noted. Patient had a bm and was cleansed before placing a new underpad for moisture collection. Patient was positioned to his left side before leaving room. Communicated with: SERENA Colon was off unit and Nereyda Washington RN covering for her was notified of findings and recommendations. Recommendation: Calazime skin protectant paste to bilateral buttocks BID and PRN for moisture and incontinence. Additional Information: Please continue to turn and reposition patient every 2 hours and PRN for comfort while in bed. Nusrat Raymundo [facility] Aug 22, 2016 13:38
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
--- NOTE | 2016-08-22 17:32 | MB ---
cc: JACK FLOR DATE OF CONSULTATION 08/22/[address] Beni Ko REASON FOR CONSULTATION Evaluate for pleural effusion. HISTORY OF PRESENT ILLNESS Mr. Delgado is a 70-year-old male with history of cirrhosis of the liver, GI bleed and history of pancreatitis and urosepsis. The patient was recently discharged from this hospital. He had a thoracentesis done at the time. He was getting physical therapy and occupational therapy at home. His sister noticed that his breathing was getting worse. He was using oxygen up to 4 liters nasal cannula, has increased swelling in his legs. Because of the worsening of symptoms he was brought to the hospital. He was found to have again worsening of his pleural effusion. He had a right thoracentesis done. 3000 cc of fluid is removed. The patient feels a little better. PAST MEDICAL HISTORY His past medical history is significant for history of recurrent pleural effusion. Cirrhosis of the liver. GI bleed. History of pancreatitis, hypertension, chronic sinus problem. MEDICATIONS He is currently takin. Lasix 40 milligrams twice a day. 2. Prozac 20 milligrams a day. 3. Folic acid 1 milligram a day. 4. Neurontin 300 milligrams three times a day. 5. Thiamine 100 milligrams a day. 6. Spironolactone 50 milligrams a day. 7. Propranolol 10 milligrams q.12 hourly. 8. Levothyroxine 75 micrograms a day. 9. Cyanocobalamin 50 micrograms a day. 10. Diltiazem 30 milligrams twice a day. 11. Protonix 40 milligrams a day. 12. Ferrous sulfate 325 milligrams a day. ALLERGIES He is allergic to buspirone. SOCIAL HISTORY He is twice. He lives with his sister. 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 He has two children, one boy and one girl. No history of smoking. He has alcohol use history, quit two months ago. REVIEW OF SYSTEMS The patient has gained weight. He barely walks with the help of a walker, has swelling and has had no seizure, stroke or epilepsy. PHYSICAL EXAMINATION GENERAL: Obese, male, mild short of breath. VITAL SIGNS: Blood pressure 129/67, heart 64, respirations 18, temperature 98. HEENT: Pupils are equal and reactive. Oral mucosa, nasal mucosa normal. NECK: Supple. JVP not raised. CHEST: Equal bilaterally. He has decreased breath sounds at the bases. CARDIOVASCULAR: S1-S2 are normal. ABDOMEN: Soft, nondistended. Bowel sounds are present. EXTREMITIES: 2-3+ pedal edema and he has sacral decubitus. IMPRESSION 1. Large right pleural effusion status post thoracentesis. 2. Hypertension. 3. Cirrhosis of the liver. 4. GI bleed. 5. Sacral decubitus. PLAN I have discussed with the patient and his sister. He has recurrent pleural effusion and cirrhosis. The patient's sister is considering palliative care. We will continue diuresis, supplemental his oxygen and if he has recurrence of the effusion will need thoracentesis. Further treatment will depend on the course in the hospital. Thank you Dr. Beni Ko for this consultation. MD COURT Goldberg/EO /4:27 PM /4:57 PM
--- NOTE | 2016-08-22 17:51 | EKG ---
Date Performed: 08/21/2016 Time Performed: 16:37:06 PTAGE: 70 years EKG: SINUS TACHYCARDIA NONSPECIFIC ST & T-WAVE ABNORMALITY ABNORMAL RHYTHM ECG PREVIOUS TRACING : 08/11/2016 11.41 Compared to prior tracing no significant change DOCTOR: Walter Goyal Interpretating Date/Time 08/22/2016 17:49:10
[2016-08-22] MEDS: ACETAMINOPHEN/HYDROcodone 325 MG/5 MG TAB PO PRN (17:57)
[2016-08-22] MEDS: CYANOCOBALAMIN 1,000 MCG TAB PO SCH (21:48)
[2016-08-23] VITALS (21 sets, daily range): BP systolic 126–180; BP diastolic 64–81; PULSE 63–96; RESP 16–55; TEMP 97.5–98; O2SAT 96–99
[2016-08-23] MEDS: LEVOTHYROXINE SODIUM 75 MCG TAB PO SCH (05:16)
[2016-08-23 08:11] LABS: AUTOMATED NEUTROPHIL # 9.1 TH/MM3 (1.8-7.7); BASOPHIL % 0.2 % (0.0-2.0); EOSINOPHIL # 0.1 TH/MM3 (0-0.4); EOSINOPHIL % 1.1 % (0.0-4.0); HEMATOCRIT 40.7 % (39.0-51.0); LYMPHOCYTE # 1.2 TH/MM3 (1.0-4.8); MEAN CORPUSCULAR HGB CONC 33.4 % (32.0-36.0); MONO % 5.5 % (0.0-8.0); NEUT % 82.2 % (16.0-70.0); PLATELET COUNT 89 TH/MM3 (150-450); RED BLOOD COUNT 4.52 MIL/MM3 (4.50-5.90); RED CELL DISTRIBUTION WIDTH 17.7 % (11.6-17.2); WHITE BLOOD COUNT 11.1 TH/MM3 (4.0-11.0)
[2016-08-23 08:13] LABS: HEMO FLAGS AUTO DIFF
[2016-08-23 08:47] LABS: BICARBONATE 19.8 MEQ/L (21.0-32.0); INDIRECT BILIRUBIN 0.9 MG/DL (0.0-0.8); POTASSIUM 4.8 MEQ/L (3.5-5.1); TOTAL BILIRUBIN ADULT 1.3 MG/DL (0.2-1.0)
[2016-08-23] MEDS: SODIUM CHLORIDE 0.9% FLUSH 10 ML FLUSH IV FLUSH PRN (09:16)
[2016-08-23] MEDS: SODIUM CHLORIDE 0.9% FLUSH 10 ML FLUSH IV FLUSH SCH ×2 (09:16→20:22)
[2016-08-23] MEDS: SPIRONOLACTONE 50 MG TAB PO SCH (09:16)
[2016-08-23] MEDS: LACTOBACILLUS ACIDOPHILUS TAB PO SCH ×3 (09:17→18:39)
[2016-08-23] MEDS: PROPRANOLOL HCL 10 MG TAB PO SCH ×2 (09:17→20:20)
[2016-08-23] MEDS: DOCUSATE SODIUM 50 MG/SENNA 8.6 MG TAB PO SCH ×2 (09:17→20:21)
[2016-08-23] MEDS: GABAPENTIN 300 MG CAP PO SCH ×3 (09:17→18:41)
[2016-08-23] MEDS: DILTIAZEM HCL 30 MG TAB PO SCH ×2 (09:17→20:19)
[2016-08-23] MEDS: FUROSEMIDE 40 MG TAB PO SCH ×2 (09:17→18:40)
[2016-08-23] MEDS: FERROUS SULFATE 325 MG (65 MG ELEMENTAL IRON) TAB PO SCH ×2 (09:17→20:19)
[2016-08-23] MEDS: FOLIC ACID 1 MG TAB PO SCH (09:17)
[2016-08-23] MEDS: THIAMINE HCL 100 MG TAB PO SCH (09:18)
[2016-08-23] MEDS: PANTOPRAZOLE SOD 40 MG DELAYED RELEASE TAB PO SCH ×2 (09:18→20:20)
[2016-08-23] MEDS: MULTIVITAMIN TAB PO SCH (09:18)
[2016-08-23] MEDS: FLUoxetine HCL 20 MG CAP PO SCH (09:18)
--- NOTE | 2016-08-23 10:04 | RADRPT ---
EXAM DATE/TIME: 08/23/2016 09:10 [place] COMPARISON: US GUIDED THORACENTESIS RIGHT, August 22, 2016, 10:00. CHEST SINGLE AP, August 21, 2016, 17:32. INDICATIONS : Shortness of breath. MEDICAL HISTORY : Chronic obstructive pulmonary disease. Hypercholesterolemia. Hypertension.thyroid disease, asthma SURGICAL HISTORY : None. ENCOUNTER: Initial ACUITY: 1 day PAIN SCORE: 0/10 LOCATION: Bilateral chest FINDINGS: There has been rapid reaccumulation of the right effusion with near-complete opacification of the rig ht hemithorax. The left lung remains clear. Pulmonary vascularity is normal. CONCLUSION: Rapid reaccumulation of the right pleural effusion. Discussed with Dr. Garrison Denton chest tube will be p laced on the right. Eduar Pederson MD FACR on August 23, 2016 at 9:57 Board Certified Radiologist. This report was verified electronically.
[2016-08-23 11:15] LABS: PLATELET ESTIMATE SMEAR LOW (NORMAL); PLATELET MORPHOLOGY NORMAL (NORMAL); SCAN/DIFF AUTO DIFF CONFIRMED
--- NOTE | 2016-08-23 13:28 | HHI.PR ---
Subjective Remarks Patient laying in bed awake alert but confused Chest x-ray today showed the rapid 3 accumulation of the pleural fluid, patient going for chest tube, Reviewed palliative care note showed that the family and the patient change their mind to be aggressive treatment with a full code Objective Vitals Vital Signs Date Time Temp Pulse Resp B/P Pulse Ox O2 Delivery O2 Flow Rate FiO2 08/23/16 12:00 98.0 63 31 140/73 98 08/23/16 12:00 64 08/23/16 11:00 65 55 151/67 99 08/23/16 10:00 71 08/23/16 10:00 71 31 146/72 97 08/23/16 09:00 75 24 148/74 97 08/23/16 08:00 98.0 74 16 144/77 97 08/23/16 08:00 75 08/23/16 07:58 98 Nasal Cannula 3.00 08/23/16 07:00 75 22 139/71 98 08/23/16 06:00 74 08/23/16 04:00 97.9 77 40 146/74 96 08/23/16 04:00 77 08/23/16 02:00 71 08/23/16 00:00 72 08/23/16 00:00 97.7 72 31 126/64 97 08/22/16 22:00 75 08/22/16 20:00 97.7 67 27 125/71 97 08/22/16 20:00 67 08/22/16 19:02 97 Nasal Cannula 3.00 08/22/16 17:01 69 27 142/61 97 08/22/16 17:00 69 32 96 08/22/16 16:31 69 32 120/60 97 08/22/16 16:00 97.8 68 34 163/67 92 08/22/16 15:00 63 27 129/67 83 08/22/16 14:31 64 18 128/57 97 08/22/16 14:00 59 16 148/70 98 08/22/16 13:30 60 19 142/67 97 I/O 08/22/16 08/22/16 08/22/16 08/23/16 08/23/16 08/23/16 07:00 15:00 23:00 07:00 15:00 23:00 Intake Total 350 ml 400 ml 200 ml 150 ml Output Total 600 ml 450 ml 550 ml 500 ml Balance -250 ml -50 ml -350 ml -350 ml Intake Oral 350 ml 400 ml 200 ml 150 ml Output Urine Total 600 ml 450 ml 550 ml 500 ml # Bowel Movements 1 2 1 Result Diagram: 08/23/1645 08/23/1645 Objective Remarks GENERAL: 70 years old male in no acute distress. Drowsy and somnolent HEENT: PERRLA, EOMI. No scleral icterus or conjunctival pallor. No lid lag or facial droop. CARDIOVASCULAR: Regular rate and rhythm. No obvious murmurs to auscultation. No chest tenderness to palpation. RESPIRATORY: No obvious rhonchi or wheezing. Decreased breath sounds right lung , otherwise clear to auscultation. GASTROINTESTINAL: Abdomen soft, non-tender, nondistended. BS normal. MUSCULOSKELETAL: Extremities without clubbing, cyanosis. 3+ bilateral lower extremity edema. No obvious deformities. NEUROLOGICAL: Patient is somnolent responsive to verbal stimuli but he goes right back to sleep A/P Problem List: (1) Pleural effusion ICD Code: J90 Status: Acute (2) Elevated troponin ICD Code: R74.8 Status: Acute (3) Hyperkalemia ICD Code: E87.5 Status: Acute (4) Thrombocytopenia ICD Code: D69.6 Status: Acute (5) Cirrhosis ICD Code: K74.60 Status: Acute (6) HTN (hypertension) ICD Code: I10 Status: Chronic (7) H/O: GI bleed ICD Code: Z87.19 Status: Acute (8) Alcohol abuse ICD Code: F10.10 Status: Acute (9) Sacral decubitus ulcer, stage II ICD Code: L89.152 Status: Acute Assessment and Plan 08/22: BMP in a.m., continue diuresis ,a status post thoracentesis, consult palliative care 08/23: Reaccumulation rapidly of the pleural effusion, patient going for a chest tube, continue diuresing, palliative care consult appreciated, family and patient changed her mind they want aggressive treatment in full code at this point A/P: 1. Right Pleural Effusion: Recurrent. Recent admit 08/11-08/17/16 for similar, s /p Thoracentesis by IR 08/11/16 w/ removal of 4450cc fluid, transudate thought to be secondary to Cirrhosis. Now w/ recurrent right pleural effusion and SOB. CXR w/ complete opacification of right hemithorax due to effusion, images reviewed by me. Status post Thoracentesis . Reconsult Dr. Goetz patient known to him. Continue diuresis, Lasix 40mg IV x1 now and will resume home diuretics. Echo 05/11/16 w/ EF 55-60%. 2. Elevated Trop: Trop 0.11, similar to previous admit, no c/o chest pain, EKG w/ no acute changes. Likely secondary to cirrhosis, strain from large effusion. Poor candidate for anticoagulation in light of thrombocytopenia, coagulopathy and previous h/o GI Bleed w/ Esophageal Varices. Will check serial enzymes for trend. 3. Hyperkalemia: K+ 5.9-5, Ca/Insulin/D50, telemetry continue monitoring 4. HTN: Better controlled today. Monitor BP, resume home medications 5. Cirrhosis: H/o Alcohol Abuse and Hepatitis C w/ h/o Cirrhosis, LFTs mildly increased from previous labs 08/14/16. INR 1.0. Resume Lasix, add Aldactone and Propranolol. 6. Thrombocytopenia: Chronic. Stable. Platelets 117, previously 97 on . No active bleeding at this time. Monitor closely. 7. H/o GI Bleed: secondary to Alcohol Abuse/Cirrhosis/Grade II Esophageal Varices, no signs of bleeding at this time. Hgb stable at 14.1. Platelets 117. Monitor closely. 8. Alcohol Abuse: h/o Alcohol Abuse, 1pint Vodka/day, states he quit 05/2016. Continue Thiamine/Folate/MVT replacement. 9. Sacral Decubitus Ulcer: Stage II. Present on arrival. Wound Consult for further evaluation. 10. DVT Prophylaxis: Pharmacologic contraindication secondary to h/o GI Bleed , Varices and Thrombocytopenia. Mechanical contraindication secondary to significant edema. Lealnd Johnson MD Aug 23, 2016 13:28
[2016-08-23] MEDS ORDERED: MIDAZOLAM HCL 2 MG/2 ML VIAL ONE (16:22)
[2016-08-23] MEDS ORDERED: LIDOCAINE HCL 1% 20 ML VIAL ONE (16:31)
--- NOTE | 2016-08-23 18:01 | PD.RAD ---
Post CT Procedure Prog Note Pre Procedure Diagnosis: (1) Cirrhosis (2) Pleural effusion Post Procedure Diagnosis: (1) Cirrhosis (2) Pleural effusion Procedure Date: Aug 23, 2016 Supervising Radiologist: Juan Jose Mcguire JR Anesthesia: Local Plan of Activity Patient to Unit: Critical Care Patient Condition: Fair See PACS Report for procedural detail/treatment Drainage Procedure Procedure 1 Imaging Guidance: CT Side: Right Procedure Type: Chest Tube Non-Tunneled Procedure: Placement [place]: 10 Fluid Description: Clear Findings: Placed right sided chest tube. Clear fluid obtained. No sampling request. Plan will drain slowly. See orders for rate. Jr. Maynor,Juan Jose Newby MD Aug 23, 2016 18:01
[2016-08-23 19:53] LABS: PLEURAL FLUID LYMPHS 17 %
[2016-08-23] MEDS: CYANOCOBALAMIN 1,000 MCG TAB PO SCH (20:20)
[2016-08-23] MEDS: ACETAMINOPHEN/HYDROcodone 325 MG/5 MG TAB PO PRN (20:25)
[2016-08-24] VITALS (21 sets, daily range): BP systolic 111–143; BP diastolic 54–72; PULSE 52–72; RESP 14–40; TEMP 97.4–97.8; O2SAT 94–99
[2016-08-24] MEDS: LEVOTHYROXINE SODIUM 75 MCG TAB PO SCH (04:46)
[2016-08-24] MEDS: ACETAMINOPHEN/HYDROcodone 325 MG/5 MG TAB PO PRN ×3 (05:05→16:04)
[2016-08-24] MEDS: PROPRANOLOL HCL 10 MG TAB PO SCH ×2 (08:51→22:51)
[2016-08-24] MEDS: DILTIAZEM HCL 30 MG TAB PO SCH ×2 (08:51→22:53)
[2016-08-24] MEDS: SODIUM CHLORIDE 0.9% FLUSH 10 ML FLUSH IV FLUSH SCH ×2 (08:51→22:53)
[2016-08-24] MEDS: FOLIC ACID 1 MG TAB PO SCH (08:51)
[2016-08-24] MEDS: FERROUS SULFATE 325 MG (65 MG ELEMENTAL IRON) TAB PO SCH ×2 (08:51→22:49)
[2016-08-24] MEDS: SPIRONOLACTONE 50 MG TAB PO SCH (08:51)
[2016-08-24] MEDS: MULTIVITAMIN TAB PO SCH (08:52)
[2016-08-24] MEDS: GABAPENTIN 300 MG CAP PO SCH ×3 (08:52→18:05)
[2016-08-24] MEDS: FLUoxetine HCL 20 MG CAP PO SCH (08:52)
[2016-08-24] MEDS: FUROSEMIDE 40 MG TAB PO SCH ×2 (08:52→18:05)
[2016-08-24] MEDS: PANTOPRAZOLE SOD 40 MG DELAYED RELEASE TAB PO SCH ×2 (08:52→22:49)
[2016-08-24] MEDS: LACTOBACILLUS ACIDOPHILUS TAB PO SCH ×3 (08:52→18:05)
[2016-08-24] MEDS: THIAMINE HCL 100 MG TAB PO SCH (08:52)
[2016-08-24] MEDS: DOCUSATE SODIUM 50 MG/SENNA 8.6 MG TAB PO SCH ×2 (09:00→22:48)
--- NOTE | 2016-08-24 11:31 | HHI.PR ---
Subjective Remarks Patient is awake alert today but he still confused and not able to answering question, family at the bedside I discussed with the daughter, plan for family meeting tomorrow with palliative care Chest tube placed on 08/23 Objective Vitals Vital Signs Date Time Temp Pulse Resp B/P Pulse Ox O2 Delivery O2 Flow Rate FiO2 08/24/16 10:00 52 08/24/16 09:00 63 21 136/63 98 08/24/16 08:00 72 08/24/16 08:00 97.6 62 14 123/58 99 08/24/16 07:58 99 Nasal Cannula 2.00 08/24/16 07:00 59 14 121/59 99 08/24/16 07:00 99 Nasal Cannula 2.00 08/24/16 06:00 57 08/24/16 04:00 97.6 62 14 118/59 94 08/24/16 04:00 62 08/24/16 02:00 64 08/24/16 00:00 97.4 66 27 111/54 95 08/24/16 00:00 66 08/23/16 22:00 64 08/23/16 20:00 97.5 96 25 161/76 97 08/23/16 20:00 97 Nasal Cannula 2.00 08/23/16 20:00 76 08/23/16 19:45 99 Nasal Cannula 2.00 08/23/16 19:00 74 35 180/81 97 08/23/16 18:28 74 16 158/74 98 08/23/16 18:00 71 08/23/16 16:00 71 08/23/16 16:00 97.6 71 22 139/69 98 08/23/16 15:00 70 17 157/71 99 08/23/16 14:00 68 08/23/16 14:00 69 31 151/70 97 08/23/16 13:00 67 31 163/74 99 08/23/16 12:00 98.0 63 31 140/73 98 08/23/16 12:00 64 I/O 08/23/16 08/23/16 08/23/16 08/24/16 08/24/16 08/24/16 07:00 15:00 23:00 07:00 15:00 23:00 Intake Total 150 ml 222 ml 240 ml 60 ml Output Total 500 ml 450 ml 900 ml 3850 ml Balance -350 ml -228 ml -660 ml -3790 ml Intake Oral 150 ml 222 ml 240 ml 60 ml Output Urine Total 500 ml 450 ml 400 ml 450 ml Chest Tube Drainage Total 500 ml 3400 ml # Bowel Movements 1 3 0 1 Result Diagram: 08/23/16 0645 08/23/16 0645 Objective Remarks GENERAL: 70 years old male in no acute distress. Drowsy and somnolent HEENT: PERRLA, EOMI. No scleral icterus or conjunctival pallor. No lid lag or facial droop. CARDIOVASCULAR: Regular rate and rhythm. No obvious murmurs to auscultation. No chest tenderness to palpation. RESPIRATORY: . Decreased breath sounds, , Chest tube in place GASTROINTESTINAL: Abdomen soft, non-tender, nondistended. BS normal. MUSCULOSKELETAL: Extremities without clubbing, cyanosis. 3+ bilateral lower extremity edema. No obvious deformities. NEUROLOGICAL: Patient is somnolent responsive to verbal stimuli but he goes right back to sleep A/P Problem List: (1) Pleural effusion ICD Code: J90 Status: Acute (2) Elevated troponin ICD Code: R74.8 Status: Acute (3) Hyperkalemia ICD Code: E87.5 Status: Acute (4) Thrombocytopenia ICD Code: D69.6 Status: Acute (5) Cirrhosis ICD Code: K74.60 Status: Acute (6) HTN (hypertension) ICD Code: I10 Status: Chronic (7) H/O: GI bleed ICD Code: Z87.19 Status: Acute (8) Alcohol abuse ICD Code: F10.10 Status: Acute (9) Sacral decubitus ulcer, stage II ICD Code: L89.152 Status: Acute Assessment and Plan 08/22: BMP in a.m., continue diuresis ,a status post thoracentesis, consult palliative care 08/23: Reaccumulation rapidly of the pleural effusion, patient going for a chest tube, continue diuresing, palliative care consult appreciated, family and patient changed her mind they want aggressive treatment in full code at this point 08/24: No change in clinical picture,Plan: For a family meeting tomorrow with the palliative care A/P: 1. Right Pleural Effusion: Recurrent. Recent admit 08/11-08/17/16 for similar, s /p Thoracentesis by IR 08/11/16 w/ removal of 4450cc fluid, transudate thought to be secondary to Cirrhosis. Now w/ recurrent right pleural effusion and SOB. CXR w/ complete opacification of right hemithorax due to effusion, images reviewed by me. Status post Thoracentesis . Reconsult Dr. Goetz patient known to him. Continue diuresis, Lasix 40mg IV x1 now and will resume home diuretics. Echo 05/11/16 w/ EF 55-60%. 2. Elevated Trop: Trop 0.11, similar to previous admit, no c/o chest pain, EKG w/ no acute changes. Likely secondary to cirrhosis, strain from large effusion. Poor candidate for anticoagulation in light of thrombocytopenia, coagulopathy and previous h/o GI Bleed w/ Esophageal Varices. Will check serial enzymes for trend. 3. Hyperkalemia: K+ 5.9-5, Ca/Insulin/D50, telemetry continue monitoring 4. HTN: Better controlled today. Monitor BP, resume home medications 5. Cirrhosis: H/o Alcohol Abuse and Hepatitis C w/ h/o Cirrhosis, LFTs mildly increased from previous labs 08/14/16. INR 1.0. Resume Lasix, add Aldactone and Propranolol. 6. Thrombocytopenia: Chronic. Stable. Platelets 117, previously 97 on . No active bleeding at this time. Monitor closely. 7. H/o GI Bleed: secondary to Alcohol Abuse/Cirrhosis/Grade II Esophageal Varices, no signs of bleeding at this time. Hgb stable at 14.1. Platelets 117. Monitor closely. 8. Alcohol Abuse: h/o Alcohol Abuse, 1pint Vodka/day, states he quit 05/2016. Continue Thiamine/Folate/MVT replacement. 9. Sacral Decubitus Ulcer: Stage II. Present on arrival. Wound Consult for further evaluation. 10. DVT Prophylaxis: Pharmacologic contraindication secondary to h/o GI Bleed , Varices and Thrombocytopenia. Mechanical contraindication secondary to significant edema. Leland Johnson MD Aug 24, 2016 11:31
--- NOTE | 2016-08-24 18:08 | RADRPT ---
EXAM DATE/TIME: 08/23/2016 17:29 INDICATIONS : Rapid recurrence of a right sided pleural effusion. DEVICE(S): 1.) 18 gauge [place] blunt needle 2.) 10 Fr [place] FLUID: Total volume [id number] cc of clear, yellow fluid was removed. Fluid was sent for laboratory ordered studies. MEDICAL HISTORY : Hypertension. SURGICAL HISTORY : cardiac catheterization ENCOUNTER: Initial ACUITY: 1 day PAIN SCORE: 0/10 LOCATION: Bilateral chest PROCEDURE: 1.) Conscious sedation with continuous EKG and oximetry monitoring. 2.) EKG and oximetry remained stable throughout the procedure. PROCEDURE : 1. CT guided chest tube placement. 2. Conscious sedation with continuous EKG and oximetry monitoring. The risks, benefits and alternatives to the procedure were explained and verbal and written consent w as obtained. The site was prepped in sterile fashion. Full sterile technique was used, including ca p, mask, sterile gloves and gown and a large sterile sheet. Hand hygiene and 2% chlorhexidine and/or betadine/alcohol prep was utilized per protocol for cutaneous antisepsis. The skin and subcutaneous tissues were infiltrated with local anesthetic solution. Using automated exposure control and adjus tment of the mA and/or kV according to patient size, radiation dose was kept as low as reasonably ach ievable to obtain optimal diagnostic quality images. With CT guidance the chest was punctured and the prescribed catheter was placed in the lung apex. Wal l suction was applied. Post procedure images demonstrate satisfactory position of the tube. The cat heter was sutured in place and a Percu-Stay was applied. Conscious sedation was performed with the prescribed dosages and duration as above. The patient kandis ated the procedure well and there were no complications. EKG and oximetry remained stable throughout the procedure. The patient was sent to post anesthesia recovery in stable condition. CONCLUSION: Uncomplicated right chest tube placement as above. Effusion will be drained slowly over the ensuing h ours. Juan Jose Mcguire Jr., MD on August 24, 2016 at 18:03 Board Certified Radiologist. This report was verified electronically.
[2016-08-24 19:23] LABS: HEMATOCRIT 44.3 % (39.0-51.0); MEAN CELL VOLUME 91.8 FL (80.0-100.0); MEAN CORPUSCULAR HEMOGLOBIN 30.3 PG (27.0-34.0); PLATELET COUNT 86 TH/MM3 (150-450); RED BLOOD COUNT 4.83 MIL/MM3 (4.50-5.90); WHITE BLOOD COUNT 13.8 TH/MM3 (4.0-11.0)
[2016-08-24 19:25] LABS: HEMO FLAGS AUTO DIFF
[2016-08-24 19:45] LABS: BANDS 2 % (0-6); NEUTROPHIL # MANUAL DIFF 12.8 TH/MM3 (1.8-7.7); POLYS (SEG NEUTROPHILS) 91 % (16-70); WBC DIFF SAMPLE 100
[2016-08-24 19:47] LABS: PLATELET ESTIMATE SMEAR LOW (NORMAL); PLATELET MORPHOLOGY NORMAL (NORMAL); SCAN/DIFF FINAL DIFF MANUAL
[2016-08-24] MEDS: CYANOCOBALAMIN 1,000 MCG TAB PO SCH (22:49)
[2016-08-25] VITALS (20 sets, daily range): BP systolic 131–179; BP diastolic 60–86; PULSE 66–79; RESP 16–57; TEMP 97.3–98.1; O2SAT 94–100
[2016-08-25] MEDS: LEVOTHYROXINE SODIUM 75 MCG TAB PO SCH (05:54)
[2016-08-25] MEDS: FLUoxetine HCL 20 MG CAP PO SCH (09:32)
[2016-08-25] MEDS: LACTOBACILLUS ACIDOPHILUS TAB PO SCH ×4 (09:32→17:14)
[2016-08-25] MEDS: PANTOPRAZOLE SOD 40 MG DELAYED RELEASE TAB PO SCH ×2 (09:32→21:16)
[2016-08-25] MEDS: THIAMINE HCL 100 MG TAB PO SCH (09:32)
[2016-08-25] MEDS: DOCUSATE SODIUM 50 MG/SENNA 8.6 MG TAB PO SCH ×2 (09:33→21:00)
[2016-08-25] MEDS: MULTIVITAMIN TAB PO SCH (09:33)
[2016-08-25] MEDS: FERROUS SULFATE 325 MG (65 MG ELEMENTAL IRON) TAB PO SCH ×2 (09:33→21:16)
[2016-08-25] MEDS: DILTIAZEM HCL 30 MG TAB PO SCH ×2 (09:33→21:16)
[2016-08-25] MEDS: GABAPENTIN 300 MG CAP PO SCH ×4 (09:33→17:14)
[2016-08-25] MEDS: PROPRANOLOL HCL 10 MG TAB PO SCH ×2 (09:33→21:16)
[2016-08-25] MEDS: FOLIC ACID 1 MG TAB PO SCH (09:33)
[2016-08-25] MEDS: SPIRONOLACTONE 50 MG TAB PO SCH (09:33)
[2016-08-25] MEDS: FUROSEMIDE 40 MG TAB PO SCH ×2 (09:33→17:14)
[2016-08-25] MEDS: SODIUM CHLORIDE 0.9% FLUSH 10 ML FLUSH IV FLUSH SCH ×2 (09:33→21:16)
--- NOTE | 2016-08-25 11:22 | HHI.HCPN ---
Reason for visit a. To assist with evaluation and management of symptoms including: Dyspnea, edema, abdominal pain, anxiety b. To assist medical decision maker(s) with: better understanding of current medical conditions; weighing benefits/burdens of medical treatment options; making medical treatment decisions. (Marisa Brink) Subjective/Interval History This is a 70-year-old male seen in the intensive care unit status post placement of right chest tube for recurrent pleural effusion. He does have a history of alcoholic cirrhosis, quitting alcohol use April 2016, and is experiencing more frequent hospitalizations. This is his second hospitalization for pleural effusions since 08/11/16 where a total volume of 4450 cc of fluid was removed then subsequently readmitted 08/21/16 and underwent thoracentesis draining 3000 cc of clear yellow fluid on 08/22/16, 11 days later. 2 days later, on 08/24/16 his chest x-ray again showed complete opacification of the right hemithorax and a chest tube was placed with initial drainage of 3900 mL followed by subsequent drainage of 1135 mL. His chest tube continues to drain serous fluid to Pleur-evac. Family has requested a family meeting with palliative care to explore options and provide patient support. Laboratory studies show a white blood cell count of 13.8, hemoglobin 14.6, hematocrit 44.3, platelets 86, down from 117 on admission. Chemistry show sodium 133, potassium 4.8, BUN 54, creatinine 1.28, total bilirubin 1.3, direct bilirubin 0.4, indirect bilirubin 0.9, AST is 79, ALT 115, and alkaline phosphatase 239. Total protein remains low at 5.4 and albumin at 2.1. Cytology for pleural fluid drawn 08/11/16 was negative for malignant cells showing mesothelial cells, histiocytes and small lymphocytes present. Gram stain for 610 pleural fluid from thoracentesis shows no growth in 48 hours, acid fast stain and mycobacterial culture are pending. Cytology for the pleural specimen is pending. Family has followed with Dr. Zhou for GI evaluations in the past and did have a pending EGD scheduled. They realize that liver transplantation is an unlikely event, however, would like to discuss this with GI prior to determining further course. This was discussed with Dr. Arriaga and a GI consult has been requested to discuss any further treatment possibilities prior to considering hospice. . Family/friend interactions An extensive family meeting was held with his son, Lupillo and his in addition to the patient's 3 sisters. Patient was alert and oriented participating in the meeting. Palliative care's role and purpose was discussed as well as the patient's functional decline, as well as his recurrent hospitalizations in the past pathology underlying his recurrent pleural effusions. Recent laboratory and imaging studies were discussed of his underlying comorbid conditions. Treatment options were discussed with the patient who stated he did not wish to be resuscitated, intubated or defibrillated. His son clarified that he wanted a DO NOT RESUSCITATE status which the patient affirmed. Further discussion was held regarding options care and a discussion of hospice versus palliative care ensued with multiple questions from the family which were answered to their satisfaction. The patient is considering hospice if unable to undergo a liver transplant or regain some quality of his prior life style. Once all questions were answered, the meeting was ended to allow patient family to consider information given prior to making further decisions. Palliative care will follow for further support. (Marisa Brink) Advance Directives Living Will: Copy in medical record Health Care Surrogate: Copy in medical record Durable Power of Hand Frame Surgical Elastic Knitter: Copy in medical record (Marisa Brink) Advance Directive Specifics Health Care Surrogate(s): Lupillo Delgado Documented care wishes: DO NOT RESUSCITATE Significant change in goals: After extensive discussion with patient and family he decided on less aggressive goals due to the burden of undergoing further treatment which is unlikely to restore patient to prior state of health. . (Marisa Brink) Objective Vital Signs Date Time Temp Pulse Resp B/P Pulse Ox O2 Delivery O2 Flow Rate FiO2 08/25/16 10:00 78 08/25/16 08:17 98 Nasal Cannula 2.00 08/25/16 08:00 98.1 74 21 173/78 97 08/25/16 08:00 74 08/25/16 07:00 98 Nasal Cannula 2.00 08/25/16 06:00 73 08/25/16 04:00 72 08/25/16 04:00 97.6 72 20 148/86 98 08/25/16 02:00 66 08/25/16 00:00 97.3 66 20 131/61 97 08/25/16 00:00 69 08/24/16 22:00 66 08/24/16 20:29 98 Nasal Cannula 3.00 08/24/16 20:00 97.5 69 20 139/72 97 08/24/16 20:00 69 08/24/16 19:00 68 40 129/61 95 08/24/16 19:00 98 Nasal Cannula 2.00 08/24/16 18:00 63 08/24/16 18:00 63 19 130/60 97 08/24/16 17:00 62 22 129/61 97 08/24/16 16:00 61 08/24/16 16:00 97.6 61 37 143/63 98 08/24/16 15:00 61 23 134/63 99 08/24/16 14:00 58 27 129/61 99 08/24/16 14:00 58 08/24/16 13:00 56 28 132/61 98 08/24/16 12:00 97.8 52 23 113/57 97 08/24/16 12:00 52 08/24/16 11:00 54 25 124/60 96 Intake & Output 08/25/16 08/25/16 07:00 19:00 Output Total 650 ml Balance -650 ml Output Urine Total 650 ml # Bowel Movements 1 Physical Exam CONSTITUTIONAL/GENERAL: This is an adequately nourished patient, in no apparent distress. TUBES/LINES/DRAINS: Left forearm PIV SKIN: Mild jaundice, bilateral upper extremity skin tears. Ecchymoses on upper extremities. HEAD: Atraumatic. Normocephalic. ENT: Hearing diminished. Voice hoarse. CARDIOVASCULAR: Regular rate and rhythm without murmurs, gallops, or rubs. No JVD. Peripheral pulses difficult to palpate due to 2+ edema. Extremities warm RESPIRATORY/CHEST: Symmetric, unlabored respirations. Clear to auscultation. Breath sounds equal bilaterally. No wheezes, rales, or rhonchi. GASTROINTESTINAL: Abdomen soft, tender to palpation, mildly distended. Bowel sounds present. GENITOURINARY: Without palpable bladder distension. Condom catheter intact MUSCULOSKELETAL: Extremities without clubbing, cyanosis. 2+ dependent edema, no weeping seen at this evaluation NEUROLOGICAL: Alert, oriented, participating in discussion. Motor and sensory grossly within normal limits. Follows commands. Moves all extremities. PSYCHIATRIC: Calm, cooperative . (Marisa Brink) Diagnostic Tests Laboratory Laboratory Tests Test 08/23/16 08/23/16 08/24/16 06:45 18:00 19:12 White Blood Count 11.1 TH/MM3 13.8 TH/MM3 (4.0-11.0) (4.0-11.0) Red Blood Count 4.52 MIL/MM3 4.83 MIL/MM3 (4.50-5.90) (4.50-5.90) Hemoglobin 13.6 GM/DL 14.6 GM/DL (13.0-17.0) (13.0-17.0) Hematocrit 40.7 % 44.3 % (39.0-51.0) (39.0-51.0) Mean Corpuscular Volume 90.0 FL 91.8 FL (80.0-100.0) (80.0-100.0) Mean Corpuscular Hemoglobin 30.0 PG 30.3 PG (27.0-34.0) (27.0-34.0) Mean Corpuscular Hemoglobin 33.4 % 33.0 % Concent (32.0-36.0) (32.0-36.0) Red Cell Distribution Width 17.7 % 18.0 % (11.6-17.2) (11.6-17.2) Platelet Count 89 TH/MM3 86 TH/MM3 (150-450) (150-450) Mean Platelet Volume 8.4 FL 8.4 FL (7.0-11.0) (7.0-11.0) Neutrophils (%) (Auto) 82.2 % % (16.0-70.0) (16.0-70.0) Lymphocytes (%) (Auto) 11.0 % % (9.0-44.0) (9.0-44.0) Monocytes (%) (Auto) 5.5 % (0.0-8.0) % (0.0-8.0) Eosinophils (%) (Auto) 1.1 % (0.0-4.0) % (0.0-4.0) Basophils (%) (Auto) 0.2 % (0.0-2.0) % (0.0-2.0) Neutrophils # (Auto) 9.1 TH/MM3 TH/MM3 (1.8-7.7) (1.8-7.7) Lymphocytes # (Auto) 1.2 TH/MM3 TH/MM3 (1.0-4.8) (1.0-4.8) Monocytes # (Auto) 0.6 TH/MM3 TH/MM3 (0-0.9) (0-0.9) Eosinophils # (Auto) 0.1 TH/MM3 TH/MM3 (0-0.4) (0-0.4) Basophils # (Auto) 0.0 TH/MM3 TH/MM3 (0-0.2) (0-0.2) CBC Comment AUTO DIFF AUTO DIFF Differential Comment AUTO DIFF FINAL DIFF CONFIRMED MANUAL Platelet Estimate LOW (NORMAL) LOW (NORMAL) Platelet Morphology Comment NORMAL NORMAL (NORMAL) (NORMAL) Sodium Level 133 MEQ/L (136-145) Potassium Level 4.8 MEQ/L (3.5-5.1) Chloride Level 101 MEQ/L (98-107) Carbon Dioxide Level 19.8 MEQ/L (21.0-32.0) Anion Gap 12 MEQ/L (5-15) Blood Urea Nitrogen 54 MG/DL (7-18) Creatinine 1.28 MG/DL (0.60-1.30) Estimat Glomerular Filtration 56 ML/MIN (>89) Rate Random Glucose 83 MG/DL (74-106) Calcium Level 9.6 MG/DL (8.5-10.1) Total Bilirubin 1.3 MG/DL (0.2-1.0) Direct Bilirubin 0.4 MG/DL (0.0-0.2) Indirect Bilirubin 0.9 MG/DL (0.0-0.8) Aspartate Amino Transf 79 U/L (15-37) (AST/SGOT) Alanine Aminotransferase 115 U/L (12-78) (ALT/SGPT) Alkaline Phosphatase 239 U/L (45-117) Total Protein 5.4 GM/DL (6.4-8.2) Albumin 2.1 GM/DL (3.4-5.0) Pleural Fluid pH 8.0 Pleural Fluid WBC 18 /MM3 (0-10) Pleural Fluid RBC 120 /MM3 (0-0) Pleural Fluid Neutrophils 50 % Pleural Fluid Lymphocytes 17 % Pleural Fluid Monocytes 4 % Pleural Fluid Histiocytes 27 % Pleural Fluid Mesothelial 2 % Cells Differential Total Cells 100 Counted Neutrophils % (Manual) 91 % (16-70) Band Neutrophils % 2 % (0-6) Lymphocytes % 7 % (9-44) Neutrophils # (Manual) 12.8 TH/MM3 (1.8-7.7) (Marisa Brink) Result Diagram: 08/24/16 19108/23/16 0645 Microbiology Microbiology Date/Time Procedure Status Source Growth 08/23/16 18:00 Gram Stain - Final Resulted Fluid Pleural Fluid 08/23/16 18:00 Body Fluid Culture - Preliminary Resulted Fluid Pleural Fluid NO GROWTH IN 48 HOURS. 08/23/16 18:00 Acid Fast Stain Received Fluid Pleural Fluid Pending 08/23/16 18:00 Mycobacterial Culture Received Fluid Pleural Fluid Pending Imaging Last Impressions Chest X-Ray 08/23/16 0000 Signed Impressions: Service Date/Time: Tuesday, August 23, 2016 09:10 - CONCLUSION: Rapid reaccumulation of the right pleural effusion. Discussed with Dr. Garrison Denton chest tube will be placed on the right. Eduar Pederson MD FACR Chest Tube Insertion 08/23/16 0000 Signed Impressions: Service Date/Time: Tuesday, August 23, 2016 17:29 - CONCLUSION: Uncomplicated right chest tube placement as above. Effusion will be drained slowly over the ensuing hours. Juan Jose Mcguire Jr., MD Thoracentesis Ultrasound 08/22/16 0000 Signed Impressions: Service Date/Time: Monday, August 22, 2016 10:00 - CONCLUSION: Uncomplicated ultrasound guided thoracentesis. Que Beard MD Lower Extremity Ultrasound 08/21/16 0000 Signed Impressions: Service Date/Time: August 16:37 - CONCLUSION: 1. No DVT identified within either lower extremity. 2. Diffuse edema within both lower extremities. Jose Pederson MD Procedures 08/22/16-thoracentesis 08/23/16-chest tube insertion . (Marisa Brink) Assessment and Plan Disease Oriented Problem List: (1) Back pain (2) Anemia (3) HLD (hyperlipidemia) (4) Gout (5) Hyperlipidemia (6) Depression (7) Anemia requiring transfusions (8) Esophageal varices (9) Neuropathic pain (10) Respiratory distress (11) Bilateral lower extremity edema (12) Hyperkalemia (13) Cirrhosis (14) Pleural effusion (15) Thrombocytopenia (16) HTN (hypertension) (17) Elevated troponin (18) Impaired mobility and activities of daily living Symptom Scale: (1) Abdominal pain 0-10 Scale: Unable to quantify (2) Edema 0-10 Scale: Unable to quantify (3) Anxiety 0-10 Scale: Unable to quantify (4) Dyspnea and respiratory abnormalities 0-10 Scale: Unable to quantify Pertinent Non-Medical Issues Psychosocial:He was born in [place], [place], but moved frequently as his father worked construction. He moved to [place] 35 years to assist in caring for his mother. 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 He was and twice and has 2 children one boy Lupillo, who is the healthcare surrogate and a daughter. He is a [place] of the [employer] service, exposed to agent orange from which he suffered decreased hearing and tinnitus. His sister provides much of his care after moving to [place] 3 years ago. He was raised [employer]ism but is currently not attending tenriism. Per his sister he would appreciate vp director of creative strategy visits. Spiritual: Raised [employer], would accept vp director of creative strategy visits. Legal: DURABLE POWER OF DAY GUARD naming his son Lupillo Delgado, living will, designation of healthcare surrogate naming his son Lupillo Delgado are scanned into the chart. Ethical issues impacting care: Important Contacts Son-Lupillo Delgado [phone] Sister-Kelsey Armstrong Prognosis His prognosis is poor. He is having recurrent pleural effusions greater than 3 L reoccurring every 3-4 days with significant bilateral lower extremity edema, likely related to cirrhosis of the liver. He has also experienced recent gastrointestinal bleed, thrombocytopenia, weakness and dyspnea. His liver compromise is contributing to risk of bleeding, poor healing of skin wound, sepsis and continued decline. His past medical history is extensive to include hepatitis C, cirrhosis, grade 2 esophageal varices, history of GI bleed , thrombocytopenia, stage II sacral decubitus ulcer, rheumatoid arthritis, chronic kidney disease and recurrent pancreatitis. His functional status is declining and his readmissions to the hospital increase at shorter intervals. Code Status: Full Code Plan PLAN: Legal decision maker: SonLupillo Goals: Currently conservative, has requested DNR CODE STATUS: DNR SYMPTOMS: * Abdominal pain-abdomen is tender to palpation over the right upper quadrant, likely related to liver disease. No significant fluctuance noted in abdominal exam. Recommend GI evaluation for recommendations. Consult issued per Dr. Arriaga. Patient/family request information regarding possible liver transplant. * Edema-likely related to liver disease, low protein stores, on furosemide 40 mg twice a day. May benefit from a nutritional consult for supplementation. * Dyspnea-having recurrent pleural effusions, previous cytology negative for malignancy, thought to be related to cirrhosis. Remains dyspneic, right chest tube with total output 5035 at this evaluation. * Anxiety-has PTSD status post [place] era , remains on Prozac with when necessary Xanax. Currently signs of mild anxiety. In summary, this is a 70-year-old male with a long history of ETOH use, now with liver cirrhosis, and sequelae of recurrent pleural effusions, able to participate in decision-making with his designated healthcare surrogate, his son , Lupillo and other family members. While understanding that it is unlikely, they would like to explore the possibility of liver transplant with GI prior to making further determinations. That has been ordered and palliative care will follow for continued support and symptom management. Palliative care will continue to follow the patient during hospital course as condition evolves, to assist patient/decision-maker with understanding of their medical conditions, weighing benefits/burdens of treatment options, for clarification of goals of treatment. Additionally will assist with any symptoms of palliative concern (Marisa Brink) Attestation To help prompt me to consider important information that might be impacting today's encounter and assessment, information from prior notes written by myself or my colleagues may have been "brought forward" into today's note. My signature on this note, however, is an attestation that I personally performed the exam, history, and/or decision-making noted today, and, unless otherwise indicated, the interactions with patient, family, and staff as well as the review of records all occurred today. I also attest that the listed assessment and stated plan reflect my best clinical judgment today based on the combination of historical information, prior notes, and today's exam/ interactions. When time spent is documented, it refers only to time spent today by the signer, or if indicated, combined time spent today by collaborating physician/nurse practitioner. (Marisa Brink) Collaborating MD Comments Discussed with KENNETH, agree with assessment and plan (Odin Drummond MD) Marisa Brink Aug 25, 2016 11:22 Odin Drummond MD Aug 27, 2016 13:43
--- NOTE | 2016-08-25 12:53 | HHI.PR ---
Subjective Remarks laying in bed Stable no fever or chills Objective Vitals Vital Signs Date Time Temp Pulse Resp B/P Pulse Ox O2 Delivery O2 Flow Rate FiO2 08/25/16 10:00 78 08/25/16 08:17 98 Nasal Cannula 2.00 08/25/16 08:00 98.1 74 21 173/78 97 08/25/16 08:00 74 08/25/16 07:00 98 Nasal Cannula 2.00 08/25/16 06:00 73 08/25/16 04:00 72 08/25/16 04:00 97.6 72 20 148/86 98 08/25/16 02:00 66 08/25/16 00:00 97.3 66 20 131/61 97 08/25/16 00:00 69 08/24/16 22:00 66 08/24/16 20:29 98 Nasal Cannula 3.00 08/24/16 20:00 97.5 69 20 139/72 97 08/24/16 20:00 69 08/24/16 19:00 68 40 129/61 95 08/24/16 19:00 98 Nasal Cannula 2.00 08/24/16 18:00 63 08/24/16 18:00 63 19 130/60 97 08/24/16 17:00 62 22 129/61 97 08/24/16 16:00 61 08/24/16 16:00 97.6 61 37 143/63 98 08/24/16 15:00 61 23 134/63 99 08/24/16 14:00 58 27 129/61 99 08/24/16 14:00 58 08/24/16 13:00 56 28 132/61 98 I/O 08/24/16 08/24/16 08/24/16 08/25/16 08/25/16 08/25/16 07:00 15:00 23:00 07:00 15:00 23:00 Intake Total 60 ml 50 ml Output Total 3850 ml 1510 ml 300 ml 350 ml Balance -3790 ml -1460 ml -300 ml -350 ml Intake Oral 60 ml 50 ml Output Urine Total 450 ml 375 ml 300 ml 350 ml Chest Tube Drainage Total 3400 ml 1135 ml # Bowel Movements 1 1 2 0 Result Diagram: 08/24/16 19108/23/16 0645 Objective Remarks GENERAL: 70 years old male in no acute distress. Drowsy and somnolent HEENT: PERRLA, EOMI. No scleral icterus or conjunctival pallor. No lid lag or facial droop. CARDIOVASCULAR: Regular rate and rhythm. No obvious murmurs to auscultation. No chest tenderness to palpation. RESPIRATORY: . Decreased breath sounds, , Chest tube in place GASTROINTESTINAL: Abdomen soft, non-tender, nondistended. BS normal. MUSCULOSKELETAL: Extremities without clubbing, cyanosis. 3+ bilateral lower extremity edema. No obvious deformities. NEUROLOGICAL: Patient is somnolent responsive to verbal stimuli but he goes right back to sleep A/P Problem List: (1) Pleural effusion ICD Code: J90 Status: Acute (2) Elevated troponin ICD Code: R74.8 Status: Acute (3) Hyperkalemia ICD Code: E87.5 Status: Acute (4) Thrombocytopenia ICD Code: D69.6 Status: Acute (5) Cirrhosis ICD Code: K74.60 Status: Acute (6) HTN (hypertension) ICD Code: I10 Status: Chronic (7) H/O: GI bleed ICD Code: Z87.19 Status: Acute (8) Alcohol abuse ICD Code: F10.10 Status: Acute (9) Sacral decubitus ulcer, stage II ICD Code: L89.152 Status: Acute Assessment and Plan last update:continue diuresis ,a status post thoracentesis, consult palliative care Reaccumulation rapidly of the pleural effusion, s/p chest tube, continue diuresing, palliative care consult appreciated, family and patient changed her mind they want aggressive treatment in full code at this point for family meeting tomorrow with the palliative care today A/P: 1. Right Pleural Effusion: Recurrent. Recent admit 08/11-08/17/16 for similar, s /p Thoracentesis by IR 08/11/16 w/ removal of 4450cc fluid, transudate thought to be secondary to Cirrhosis. Now w/ recurrent right pleural effusion and SOB. CXR w/ complete opacification of right hemithorax due to effusion, images reviewed by me. Status post Thoracentesis . Reconsult Dr. Goetz patient known to him. Continue diuresis, Lasix 40mg IV x1 now and will resume home diuretics. Echo 05/11/16 w/ EF 55-60%. 2. Elevated Trop: Trop 0.11, similar to previous admit, no c/o chest pain, EKG w/ no acute changes. Likely secondary to cirrhosis, strain from large effusion. Poor candidate for anticoagulation in light of thrombocytopenia, coagulopathy and previous h/o GI Bleed w/ Esophageal Varices. Will check serial enzymes for trend. 3. Hyperkalemia: K+ 5.9-5, Ca/Insulin/D50, telemetry continue monitoring 4. HTN: Better controlled today. Monitor BP, resume home medications 5. Cirrhosis: H/o Alcohol Abuse and Hepatitis C w/ h/o Cirrhosis, LFTs mildly increased from previous labs 08/14/16. INR 1.0. Resume Lasix, add Aldactone and Propranolol. 6. Thrombocytopenia: Chronic. Stable. Platelets 117, previously 97 on . No active bleeding at this time. Monitor closely. 7. H/o GI Bleed: secondary to Alcohol Abuse/Cirrhosis/Grade II Esophageal Varices, no signs of bleeding at this time. Hgb stable at 14.1. Platelets 117. Monitor closely. 8. Alcohol Abuse: h/o Alcohol Abuse, 1pint Vodka/day, states he quit 05/2016. Continue Thiamine/Folate/MVT replacement. 9. Sacral Decubitus Ulcer: Stage II. Present on arrival. Wound Consult for further evaluation. 10. DVT Prophylaxis: Pharmacologic contraindication secondary to h/o GI Bleed , Varices and Thrombocytopenia. Mechanical contraindication secondary to significant edema. Leland Johnson MD Aug 25, 2016 12:53
--- NOTE | 2016-08-25 13:05 | PD.CONS ---
HPI History of Present Illness This is a 70 year old with liver cirrhosis secondary to history of ETOH abuse. GI has been consulted for consideration for liver transplant. He is currently extremely lethargic and unable to provide any history and therefore the history has been obtained from family members, EMR, and outpatient records. He has been evaluated by the [facility] and our service in the past. He has a hx of alcohol abuse, but stopped drinking completely on 04/19/16, when he was told by a physician that they suspected that he had liver disease. [facility] Iron saturation 11%, HBsAg negative, HBsAb negative , HCV nonreactive. We saw him in April of 2016 while he was hospitalized for rectal bleeding. He was evaluated with EGD (05/10/16) and this revealed duodenal ulcer, gastropathy, grade II esophageal varices, colon polyps. Pathology revealed stomach antrum with superficially denuded gastric mucosa, and ascending colon polyp with tubular adenoma. He is scheduled for a repeat EGD on 09/05/16 as outpatient with our service. He is currently in the medical ICU being treated for dyspnea and pleural effusion, as well as his chronic medical problems of back pain, anemia, hyperlipidemia, depression, anemia, esophageal varices, bilateral lower extremity edema, hyperkalemia, thrombocytopenia, hypertension. His prognosis is poor and he is being followed by the Palliative care service. His son Lupillo Delgado is his durable power of commercial real estate attorney/healthcare surrogate. His phone number is . According to the nurse and palliative care note, the family is interested in discussing the possibility of a liver transplant. His Platelets are 86,000. PT 11.1, INR 1.0, APTT 23.9. T. Bilirubin 1.3, Direct bilirubin 0.4, Indirect 0.9, AST 79, ALT 115, Alk Phosph 239. His MELD score is 10. Again, he stopped drinking on . (Abby Garza) PFSH Past Medical History HTN Anxiety Depression Cirrhosis Grade II Esophageal Varices h/o GI Bleed Thrombocytopenia h/o Alcohol Abuse Stage II Sacral Decubitus Ulcer Rheumatoid arthritis Pneumonia Chronic kidney disease stage III Pancreatitis Gout Chronic back pain Neuropathy Duodenal ulcer PTSD Past Surgical History Right Hand Surgery Shoulder Surgery EGD/Colonoscopy (Garza,Abby Nicole CATALOGUE MAKER) Coded Allergies: Buspirone (Verified Allergy, Unknown, 05/08/16) pt states "more anxiety" Medications Allergies Coded Allergies Type Severity Reaction Last Updated Verified Buspirone Allergy Unknown 05/08/16 Yes Active Scripts Medications Dose Route/Sig Days Date Category Dose Instructions Folic Acid 400 Mcg Tab 1 Mg PO DAILY 08/21/16 Reported Feosol (Ferrous Sulfate) 200 Mg Tab 325 Mg PO BID 08/21/16 Reported Vitamin B-12 (Cyanocobalamin) 500 Mcg Tab 50 Mcg PO HS 08/21/16 Reported Oxygen tank (Oxygen) 1 Ea Tank 2 Liter FELISHA.CANULA CONTINUOUS 08/17/16 Rx Oxygen Concentrator Portable Gaseous 2 L/min via Nasal Cannula Continuous For 99 months Tramadol (Tramadol HCl) 50 Mg Tab 50 Mg PO Q4H PRN 08/12/16 Reported Alprazolam 0.25 Mg Tab 0.25 Mg PO Q8H PRN 08/12/16 Reported Prozac (Fluoxetine HCl) 20 Mg Cap 20 Mg PO DAILY 08/11/16 Reported Furosemide 40 Mg Tab 40 Mg PO BID 08/11/16 Reported Protonix (Pantoprazole Sodium) 40 Mg Tab 40 Mg PO Q12HR 08/11/16 Reported Vitamin B-1 (Thiamine HCl) 100 Mg Tab 100 Mg PO DAILY 08/11/16 Reported Cozaar (Losartan Potassium) 25 Mg Tab 50 Mg PO DAILY 30 05/27/16 Rx Synthroid (Levothyroxine Sodium) 75 Mcg Tab 75 Mcg PO DAILY@06 30 05/27/16 Rx Acidophilus/l-Sporogenes (Lactobacillus Acidophilus) 1 Tab Tab 1 Tab PO TID 30 05/27/16 Rx Neurontin (Gabapentin) 300 Mg Cap 300 Mg PO TID 30 05/27/16 Rx Fluticasone Nasal [place] 50 Mcg/Act Naspr 1 [place] EACH NARE BID 30 05/27/16 Rx Cardizem (Diltiazem HCl) 30 Mg Tab 30 Mg PO BID 30 05/27/16 Rx Lipitor (Atorvastatin Calcium) 20 Mg Tab 20 Mg PO HS 30 05/27/16 Rx Zyloprim (Allopurinol) 100 Mg Tab 100 Mg PO DAILY 30 05/27/16 Rx Multi-Vitamin Daily (Multiple Vitamin) 1 Tab Tab 1 Tab PO DAILY 05/08/16 Reported Family History Father at age 52 from a myocardial infarction with a significant ETOH history. Mother at age 86 of a cerebrovascular accident. Social History History of alcohol abuse, quit on 04/19/16. Negative for tobacco or drugs. (Abby Garza) Review of Systems Constitutional: COMPLAINS OF: Fatigue Psychiatric: COMPLAINS OF: Confusion ROS Unable to obtain secondary to mental status (Abby Garza) GI Exam Vitals I&O Vital Signs Date Time Temp Pulse Resp B/P Pulse Ox O2 Delivery O2 Flow Rate FiO2 08/25/16 12:00 66 08/25/16 10:00 78 08/25/16 08:17 98 Nasal Cannula 2.00 08/25/16 08:00 98.1 74 21 173/78 97 08/25/16 08:00 74 08/25/16 07:00 98 Nasal Cannula 2.00 08/25/16 06:00 73 08/25/16 04:00 72 08/25/16 04:00 97.6 72 20 148/86 98 08/25/16 02:00 66 08/25/16 00:00 97.3 66 20 131/61 97 08/25/16 00:00 69 08/24/16 22:00 66 08/24/16 20:29 98 Nasal Cannula 3.00 08/24/16 20:00 97.5 69 20 139/72 97 08/24/16 20:00 69 08/24/16 19:00 68 40 129/61 95 08/24/16 19:00 98 Nasal Cannula 2.00 08/24/16 18:00 63 08/24/16 18:00 63 19 130/60 97 08/24/16 17:00 62 22 129/61 97 08/24/16 16:00 61 08/24/16 16:00 97.6 61 37 143/63 98 08/24/16 15:00 61 23 134/63 99 08/24/16 14:00 58 27 129/61 99 08/24/16 14:00 58 I/O 08/24/16 08/24/16 08/24/16 08/25/16 08/25/16 08/25/16 07:00 15:00 23:00 07:00 15:00 23:00 Intake Total 60 ml 50 ml 500 ml Output Total 3850 ml 1510 ml 300 ml 350 ml 750 ml Balance -3790 ml -1460 ml -300 ml -350 ml -250 ml Intake Oral 60 ml 50 ml 500 ml Output Urine Total 450 ml 375 ml 300 ml 350 ml Chest Tube Drainage Total 3400 ml 1135 ml 750 ml # Voids 4 # Bowel Movements 1 1 2 0 1 Imaging Last Impressions Chest X-Ray 08/23/16 0000 Signed Impressions: Service Date/Time: Tuesday, August 23, 2016 09:10 - CONCLUSION: Rapid reaccumulation of the right pleural effusion. Discussed with Dr. Garrison Denton chest tube will be placed on the right. Eduar Pederson MD FACR Chest Tube Insertion 08/23/16 0000 Signed Impressions: Service Date/Time: Tuesday, August 23, 2016 17:29 - CONCLUSION: Uncomplicated right chest tube placement as above. Effusion will be drained slowly over the ensuing hours. Juan Jose Mcguire Jr., MD Thoracentesis Ultrasound 08/22/16 0000 Signed Impressions: Service Date/Time: Monday, August 22, 2016 10:00 - CONCLUSION: Uncomplicated ultrasound guided thoracentesis. Que Beard MD Lower Extremity Ultrasound 08/21/16 0000 Signed Impressions: Service Date/Time: August 16:37 - CONCLUSION: 1. No DVT identified within either lower extremity. 2. Diffuse edema within both lower extremities. Jose Pederson MD Laboratory Test 08/24/16 19:12 White Blood Count 13.8 TH/MM3 Red Blood Count 4.83 MIL/MM3 Hemoglobin 14.6 GM/DL Hematocrit 44.3 % Mean Corpuscular Volume 91.8 FL Mean Corpuscular Hemoglobin 30.3 PG Mean Corpuscular Hemoglobin 33.0 % Concent Red Cell Distribution Width 18.0 % Platelet Count 86 TH/MM3 Mean Platelet Volume 8.4 FL Neutrophils (%) (Auto) % Lymphocytes (%) (Auto) % Monocytes (%) (Auto) % Eosinophils (%) (Auto) % Basophils (%) (Auto) % Neutrophils # (Auto) TH/MM3 Lymphocytes # (Auto) TH/MM3 Monocytes # (Auto) TH/MM3 Eosinophils # (Auto) TH/MM3 Basophils # (Auto) TH/MM3 CBC Comment AUTO DIFF Differential Total Cells 100 Counted Neutrophils % (Manual) 91 % Band Neutrophils % 2 % Lymphocytes % 7 % Neutrophils # (Manual) 12.8 TH/MM3 Differential Comment FINAL DIFF MANUAL Platelet Estimate LOW Platelet Morphology Comment NORMAL Date/Time Procedure Status Source Growth 08/23/16 18:00 Gram Stain - Final Resulted Fluid Pleural Fluid 08/23/16 18:00 Body Fluid Culture - Preliminary Resulted Fluid Pleural Fluid NO GROWTH IN 48 HOURS. 08/23/16 18:00 Acid Fast Stain Received Fluid Pleural Fluid Pending 08/23/16 18:00 Mycobacterial Culture Received Fluid Pleural Fluid Pending Physical Examination HEENT: Normocephalic; atraumatic; no jaundice. CHEST: Resp even/unlabored, diminished. Right sided chest tube. CARDIAC: RRR ABDOMEN: Soft, nondistended, nontender; no hepatosplenomegaly; bowel sounds are present in all four quadrants. EXTREMITIES: BLE edema. SKIN: Multiple ecchymotic areas CASINO OPERATIONS SUPERVISOR: Lethargic, somnolent (Abby Garza) Assessment and Plan Plan ASSESSMENT: - Liver Cirrhosis. He has a hx of alcohol abuse, but stopped drinking completely on 04/19/16, when he was told by a physician that they suspected that he had liver disease. [facility] Iron saturation 11%, HBsAg negative, HBsAb negative, HCV nonreactive. He is currently in the ICU for pleural effusion/respiratory issues. His prognosis is poor and he is being followed by the Palliative care service. His son Lupillo Delgado is his durable power of commercial real estate attorney/healthcare surrogate. His phone number is . According to the nurse and palliative care note , the family is interested in discussing the possibility of a liver transplant. His Platelets are 86,000. PT 11.1, INR 1.0, APTT 23.9. T. Bilirubin 1.3, Direct bilirubin 0.4, Indirect 0.9, AST 79, ALT 115, Alk Phosph 239. His MELD score is 10. His MELD Score is a 10. At this point, he is not a candidate for a liver transplant given the fact that his MELD Score is 10 and that he quit drinking 04/19/16. D/W family. Attempted to call son, no answer, left message. Will get the rest of the liver workup, should his condition improve for outpatient evaluation after he has been ETOH free x 6 months or should his condition worsens. - Esophageal varices and hx of duodenal ulcer. Had EGD (05/10/16) and this revealed duodenal ulcer, gastropathy, grade II esophageal varices, colon polyps. Pathology revealed stomach antrum with superficially denuded gastric mucosa, and ascending colon polyp with tubular adenoma. He is scheduled for a repeat EGD on 09/05/16 as outpatient with our service. He is not currently having any active bleeding. - Pleural Effusion. Has CT right by IR. Pulmonology following. - HTN, Anxiety/Depression, RA, CKD, Gout, Neuropathy, Chronic back pain per primary PLAN: - CAROL - AFP level - JOSE, ASMA, AMA - Ferritin - Ceruloplasmin - Alpha 1 Antitrypsin - RUQ US - Monitor LFT, PT/INR, CBC - Cont. Lasix, Aldactone - Cont. Propranolol - Cont. Protonix - Supportive care - Further recommendations to follow based on results of above - EGD only if active bleeding - Pt seen and examined by Dr. Perez and myself and this note is written on his behalf (Abby Garza) Physician Comments Seen and examined with Ms. Greg COOPER, appears to have liver cirrhosis from ETOH. Additional labs ordered to complete liver beavers. MELD score 10. Recent etoh, not a candidate for liver transplant at this time. This was addressed with the family by Ms. Garza in detail. Will follow. Thank you (Lorelei Perez MD) Abby Garza Aug 25, 2016 13:05 Lorelei Perez MD Aug 25, 2016 15:01
--- NOTE | 2016-08-25 20:16 | HHI.PR ---
Subjective Remarks 70 YOWM with recurrent pl effusion Had right chest tube placed Breathing better No Fever Dry mouth Objective Vital Signs Vital Signs Date Time Temp Pulse Resp B/P Pulse Ox O2 Delivery O2 Flow Rate FiO2 08/25/16 18:00 69 08/25/16 18:00 69 23 157/69 100 08/25/16 17:31 70 25 149/71 99 08/25/16 17:00 69 40 98 08/25/16 16:00 66 08/25/16 16:00 98.0 66 28 150/70 97 08/25/16 16:00 66 28 150/70 97 08/25/16 15:00 66 23 140/65 98 08/25/16 14:00 66 08/25/16 14:00 66 16 133/63 98 08/25/16 13:00 68 19 134/60 96 08/25/16 12:00 66 18 132/60 98 08/25/16 12:00 98.0 66 18 132/60 98 08/25/16 12:00 66 08/25/16 11:01 72 33 145/68 98 08/25/16 11:00 71 39 94 08/25/16 10:00 78 31 175/78 98 08/25/16 10:00 78 08/25/16 09:00 79 57 179/81 98 08/25/16 08:17 98 Nasal Cannula 2.00 08/25/16 08:00 74 21 173/78 97 08/25/16 08:00 98.1 74 21 173/78 97 08/25/16 08:00 74 08/25/16 07:00 98 Nasal Cannula 2.00 08/25/16 06:00 73 08/25/16 04:00 72 08/25/16 04:00 97.6 72 20 148/86 98 08/25/16 02:00 66 08/25/16 00:00 97.3 66 20 131/61 97 08/25/16 00:00 69 08/24/16 22:00 66 08/24/16 20:29 98 Nasal Cannula 3.00 I/O 08/24/16 08/24/16 08/24/16 08/25/16 08/25/16 08/25/16 07:00 15:00 23:00 07:00 15:00 23:00 Intake Total 60 ml 50 ml 500 ml Output Total 3850 ml 1510 ml 300 ml 350 ml 750 ml Balance -3790 ml -1460 ml -300 ml -350 ml -250 ml Intake Oral 60 ml 50 ml 500 ml Output Urine Total 450 ml 375 ml 300 ml 350 ml Chest Tube Drainage Total 3400 ml 1135 ml 750 ml # Voids 5 1 # Bowel Movements 1 1 2 0 1 1 Result Diagram: 08/24/16191108/23/16 0645 Objective Remarks GENERAL: MBMN WM mild sob SKIN: Warm and dry. HEAD: Normocephalic. EYES: No scleral icterus. No injection or drainage. NECK: Supple, trachea midline. No JVD or lymphadenopathy. CARDIOVASCULAR: Regular rate and rhythm without murmurs, gallops, or rubs. RESPIRATORY: Breath sounds equal bilaterally. No accessory muscle use. Right chest tube draining GASTROINTESTINAL: Abdomen soft, non-tender, nondistended. MUSCULOSKELETAL: No cyanosis, or edema. BACK: Nontender without obvious deformity. No CVA tenderness. A/P Assessment and Plan Recurrent pl effusion right chest tube placement cirrhosis of liver HTN PLAN: Chest tube to suction Supplement 02 US abd family Cheikh Goetz MD Aug 25, 2016 20:16
--- NOTE | 2016-08-25 20:58 | RADRPT ---
EXAM DATE/TIME: 08/25/2016 20:06 [facility] COMPARISON: No previous studies available for comparison. INDICATIONS : Cirrhosis. MEDICAL HISTORY : Cirrhosis. Gastroesophageal reflux disease. Hypercholesterolemia. GI bleed. Esophageal varices. Sacra l decubitus ulcer. Rheumatoid arthritis. Pancreatitis. Chronic kidney disease. Gout. Duodenal ulcer. Neuropathy. Anxiety. Depression. Hypertension. ETOH abuse. Thyroid disease. Thrombocytopenia. PTSD. C .diff. SURGICAL HISTORY : Right hand surgery. Left shoulder surgery. ENCOUNTER: Initial ACUITY: 1 day PAIN SCORE: 7/10 LOCATION: Abdomen. MEASUREMENTS: LIVER: 15.3 cm length COMMON DUCT: 5 mm RIGHT KIDNEY: 10.6 x 4.9 x 5.2 cm SPLEEN: 13.9 cm length FINDINGS: LIVER: Small nodular liver. No focal hepatic lesions seen. No perceptible flow in the main portal vein. No b iliary distention. There is mild perihepatic ascites. COMMON DUCT: No intraluminal mass or stone visualized. GALLBLADDER: No sludge or stones. No pericholecystic fluid. No wall thickening given the degree of distention. No sonographic Rob sign. PANCREAS: The visualized portions are within normal limits. RIGHT KIDNEY: No hydronephrosis, stone or mass. SPLEEN: Mildly enlarged. Mild perisplenic ascites. CONCLUSION: 1. 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 No focal hepatic lesion demonstrated. 2. No evidence of acute cholecystitis or biliary obstruction. 3. Mild splenomegaly. 4. Mild ascites. Orlin Mooney MD on August 25, 2016 at 20:53 Board Certified Radiologist. This report was verified electronically.
[2016-08-25] MEDS: CYANOCOBALAMIN 1,000 MCG TAB PO SCH (21:16)
[2016-08-26] VITALS (14 sets, daily range): BP systolic 109–170; BP diastolic 56–85; PULSE 55–72; RESP 18–26; TEMP 96.5–97.9; O2SAT 97–99
[2016-08-26] MEDS: LEVOTHYROXINE SODIUM 75 MCG TAB PO SCH (06:12)
[2016-08-26] MEDS: DOCUSATE SODIUM 50 MG/SENNA 8.6 MG TAB PO SCH ×2 (08:19→21:00)
[2016-08-26] MEDS: GABAPENTIN 300 MG CAP PO SCH ×3 (08:26→17:02)
[2016-08-26] MEDS: PROPRANOLOL HCL 10 MG TAB PO SCH ×2 (08:26→22:50)
[2016-08-26] MEDS: FLUoxetine HCL 20 MG CAP PO SCH (08:26)
[2016-08-26] MEDS: SPIRONOLACTONE 50 MG TAB PO SCH (08:26)
[2016-08-26] MEDS: PANTOPRAZOLE SOD 40 MG DELAYED RELEASE TAB PO SCH ×2 (08:26→22:50)
[2016-08-26] MEDS: FOLIC ACID 1 MG TAB PO SCH (08:26)
[2016-08-26] MEDS: DILTIAZEM HCL 30 MG TAB PO SCH ×2 (08:26→22:50)
[2016-08-26] MEDS: FUROSEMIDE 40 MG TAB PO SCH ×2 (08:26→17:02)
[2016-08-26] MEDS: SODIUM CHLORIDE 0.9% FLUSH 10 ML FLUSH IV FLUSH SCH ×2 (08:26→22:51)
[2016-08-26] MEDS: THIAMINE HCL 100 MG TAB PO SCH (08:26)
[2016-08-26] MEDS: MULTIVITAMIN TAB PO SCH (08:26)
[2016-08-26] MEDS: FERROUS SULFATE 325 MG (65 MG ELEMENTAL IRON) TAB PO SCH ×2 (08:26→22:50)
[2016-08-26] MEDS: LACTOBACILLUS ACIDOPHILUS TAB PO SCH ×3 (08:26→17:02)
--- NOTE | 2016-08-26 10:59 | HHI.GIFU ---
Subjective Remarks Resting in bed in no apparent distress. Resp. shallow/even. Pt lethargic and does not respond appropriately to questions. (Abby Garza) Objective Vitals I&O Vital Signs Date Time Temp Pulse Resp B/P Pulse Ox O2 Delivery O2 Flow Rate FiO2 08/26/16 10:00 55 08/26/16 08:00 96.5 72 26 170/85 99 08/26/16 08:00 72 08/26/16 07:53 99 Nasal Cannula 2.00 08/26/16 07:00 100 Nasal Cannula 2.00 08/26/16 06:00 68 08/26/16 04:00 96.5 67 23 149/70 98 08/26/16 04:00 67 08/26/16 02:00 63 08/26/16 00:00 97.0 59 21 122/56 98 08/26/16 00:00 59 08/25/16 22:00 67 08/25/16 20:00 72 08/25/16 20:00 97.7 72 26 154/73 97 08/25/16 19:00 97 Nasal Cannula 2.00 08/25/16 18:00 69 08/25/16 18:00 69 23 157/69 100 08/25/16 17:31 70 25 149/71 99 08/25/16 17:00 69 40 98 08/25/16 16:00 66 08/25/16 16:00 98.0 66 28 150/70 97 08/25/16 16:00 66 28 150/70 97 08/25/16 15:00 66 23 140/65 98 08/25/16 14:00 66 08/25/16 14:00 66 16 133/63 98 08/25/16 13:00 68 19 134/60 96 08/25/16 12:00 66 18 132/60 98 08/25/16 12:00 98.0 66 18 132/60 98 08/25/16 12:00 66 08/25/16 11:01 72 33 145/68 98 08/25/16 11:00 71 39 94 I/O 08/25/16 08/25/16 08/25/16 08/26/16 08/26/16 08/26/16 07:00 15:00 23:00 07:00 15:00 23:00 Intake Total 500 ml 300 ml 100 ml Output Total 350 ml 750 ml 1420 ml 975 ml Balance -350 ml -250 ml -1120 ml -875 ml Intake Oral 500 ml 300 ml 100 ml Output Urine Total 350 ml 350 ml 350 ml Chest Tube Drainage Total 750 ml 1070 ml 625 ml # Voids 5 1 # Bowel Movements 0 1 3 1 Laboratory Laboratory Tests Test 08/25/16 17:02 Ferritin 282 Tumor Marker Alpha Fetoprotein 0.8 Date/Time Procedure Status Source Growth 08/23/16 18:00 Gram Stain - Final Complete Fluid Pleural Fluid 08/23/16 18:00 Body Fluid Culture - Final Complete Fluid Pleural Fluid NO GROWTH IN 72 HRS.--AEROBICALLY OR ... 08/23/16 18:00 Acid Fast Stain Received Fluid Pleural Fluid Pending 08/23/16 18:00 Mycobacterial Culture Received Fluid Pleural Fluid Pending Imaging Last Impressions Liver Ultrasound 08/25/16 0000 Signed Impressions: Service Date/Time: Thursday, August 25, 2016 20:06 - CONCLUSION: 1. 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 No focal hepatic lesion demonstrated. 2. No evidence of acute cholecystitis or biliary obstruction. 3. Mild splenomegaly. 4. Mild ascites. Orlin Mooney MD Chest X-Ray 08/23/16 0000 Signed Impressions: Service Date/Time: Tuesday, August 23, 2016 09:10 - CONCLUSION: Rapid reaccumulation of the right pleural effusion. Discussed with Dr. Garrison Denton chest tube will be placed on the right. Eduar Pederson MD FACR Chest Tube Insertion 08/23/16 0000 Signed Impressions: Service Date/Time: Tuesday, August 23, 2016 17:29 - CONCLUSION: Uncomplicated right chest tube placement as above. Effusion will be drained slowly over the ensuing hours. Juan Jose Mcguire Jr., MD Thoracentesis Ultrasound 08/22/16 0000 Signed Impressions: Service Date/Time: Monday, August 22, 2016 10:00 - CONCLUSION: Uncomplicated ultrasound guided thoracentesis. Que Beard MD Lower Extremity Ultrasound 08/21/16 0000 Signed Impressions: Service Date/Time: August 16:37 - CONCLUSION: 1. No DVT identified within either lower extremity. 2. Diffuse edema within both lower extremities. Jose T. Miles, MD Physical Exam HEENT: Pupils round and reactive to light; normocephalic; atraumatic; no jaundice. Throat is clear. NECK: Neck is supple, no JVD, no lymphadenopathy. CHEST: Chest is clear to auscultation and percussion. CARDIAC: Regular rate and rhythm with no murmur gallop or rubs. ABDOMEN: Soft, nondistended, nontender; no hepatosplenomegaly; bowel sounds are present in all four quadrants. EXTREMITIES: No clubbing, cyanosis, or edema. SKIN: Normal; no rash; no jaundice. CARE PROFESSIONAL: No focal deficits; alert and oriented times three. (Abby Garza) Assessment and Plan Plan ASSESSMENT: - Liver Cirrhosis. He has a hx of alcohol abuse, but stopped drinking completely on 04/19/16, when he was told by a physician that they suspected that he had liver disease. [facility] Iron saturation 11%, HBsAg negative, HBsAb negative, HCV nonreactive. He is currently in the ICU for pleural effusion/respiratory issues. His prognosis is poor and he is being followed by the Palliative care service. His son Lupillo Delgado is his durable power of divorce attorney/healthcare surrogate. His phone number is . Spoke to son/sisters re: not a candidate for liver transplant at this time secondary to MELD score 10, has not been ETOH free x 6 months, and likely because of overall condition at this time. Verbalizes understanding. Liver Ultrasound (08/25/16)----> 1. 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 No focal hepatic lesion demonstrated. 2. No evidence of acute cholecystitis or biliary obstruction. 3. Mild splenomegaly. 4. Mild ascites. JOSE pending, AMA pending, ASMA pending, Alpha 1 Antitrypsin pending, ceruloplasmin pending. AFP 0.8. Ferritin 282. Will get LFTs. 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 No prior imaging to compare. Platelets 86,000. Will get hematology evaluation for further recommendations. - Esophageal varices and hx of duodenal ulcer. Had EGD (05/10/16) and this revealed duodenal ulcer, gastropathy, grade II esophageal varices, colon polyps. Pathology revealed stomach antrum with superficially denuded gastric mucosa, and ascending colon polyp with tubular adenoma. He is scheduled for a repeat EGD on 09/05/16 as outpatient with our service. He is not currently having any active bleeding. - Pleural Effusion. Has CT right by IR. Pulmonology following. - HTN, Anxiety/Depression, RA, CKD, Gout, Neuropathy, Chronic back pain per primary PLAN: - CAROL - Hematology evaluation - Await JOSE, ASMA, AMA - Await Ceruloplasmin, Alpha 1 Antitrypsin - Cont. Lasix, Aldactone - Cont. Propranolol - Cont. Protonix - Monitor CBC, LFT - Supportive care - Further recommendations to follow based on results of above - EGD only if active bleeding - Pt seen and examined by Dr. Perez and myself and this note is written on his behalf (Abby Garza) Physician Comments Seen and examined, liver beavers in progress. Hematology consult for portal vein thrombosis. (Lorelei Perez MD) Abby Garza Aug 26, 2016 10:59 Lorelei Perez MD Aug 26, 2016 14:31
[2016-08-26 13:12] LABS: INDIRECT BILIRUBIN 1.1 MG/DL (0.0-0.8); TOTAL BILIRUBIN ADULT 2.1 MG/DL (0.2-1.0)
--- NOTE | 2016-08-26 17:04 | HHI.HCPN ---
Reason for visit a. To assist with evaluation and management of symptoms including: Dyspnea, edema, abdominal pain, anxiety b. To assist medical decision maker(s) with: better understanding of current medical conditions; weighing benefits/burdens of medical treatment options; making medical treatment decisions. Subjective/Interval History This is a very pleasant 70-year-old male with alcoholic liver cirrhosis, seen in ICU for follow-up on goals of care and symptoms of dyspnea, abdominal pain, edema, anxiety appearing very weak. He has several family members at his side and his son and healthcare surrogate, Lupillo, attending via telephone conference. In initial evaluation family had requested information on liver transplant and GI consultation was requested for that evaluation, with the recommendation that he is not currently available to be evaluated for transplant as his MELD score is only 10 and his last alcohol intake was April 19, 2016. They recommended follow-up evaluation in October to reevaluate. Family did express questions regarding that and questions were answered and handout was provided explaining the MELD score. It was the request of the patient and family that he be evaluated for [facility], where he was previously undergoing therapy. They were advised that physical and occupational therapy evaluations would be necessary prior to that and the patient stated he would participate in that. During family meeting yesterday patient stated that he did not wish mechanical ventilation, intubation or CPR. DO NOT RESUSCITATE status had been entered. As the patient is seeking rehabilitation a [place] DNR form was discussed with the family, the healthcare surrogate, Lupillo, via phone conference and the patient. The patient did reconfirm that he did not wish these aggressive measures and signed the [place] DNR form, which was placed on the chart. Laboratory evaluation showed total bilirubin increased from 1.3-2.1, direct bilirubin increased from 0.4-1.0, indirect bilirubin increased from 0.9-1.1, AST 62, ALT 96, alkaline phosphatase 207, albumin 1.9, total protein 5.6. 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 No focal hepatic lesion demonstrated, no evidence of acute cholecystitis or biliary obstruction, mild splenomegaly, mild ascites. Advance Directives Living Will: Copy in medical record Health Care Surrogate: Copy in medical record Durable Power of Product Manager: Copy in medical record Advance Directive Specifics Health Care Surrogate(s): Lupillo Delgado Documented care wishes: DO NOT RESUSCITATE Objective Vital Signs Date Time Temp Pulse Resp B/P Pulse Ox O2 Delivery O2 Flow Rate FiO2 08/26/16 16:00 68 08/26/16 16:00 97.9 68 18 136/62 98 08/26/16 15:25 20 08/26/16 14:00 69 08/26/16 12:00 97.8 62 26 149/73 97 08/26/16 12:00 62 08/26/16 10:00 55 08/26/16 08:00 96.5 72 26 170/85 99 08/26/16 08:00 72 08/26/16 07:53 99 Nasal Cannula 2.00 08/26/16 07:00 100 Nasal Cannula 2.00 08/26/16 06:00 68 08/26/16 04:00 96.5 67 23 149/70 98 08/26/16 04:00 67 08/26/16 02:00 63 08/26/16 00:00 97.0 59 21 122/56 98 08/26/16 00:00 59 08/25/16 22:00 67 08/25/16 20:00 72 08/25/16 20:00 97.7 72 26 154/73 97 08/25/16 19:00 97 Nasal Cannula 2.00 08/25/16 18:00 69 08/25/16 18:00 69 23 157/69 100 08/25/16 17:31 70 25 149/71 99 08/25/16 17:00 69 40 98 Intake & Output 08/26/16 08/26/16 07:00 19:00 Intake Total 400 ml 750 ml Output Total 2395 ml 710 ml Balance -1995 ml 40 ml Intake Oral 400 ml 750 ml IV Total 0 ml Output Urine Total 700 ml 350 ml Chest Tube Drainage Total 1695 ml 360 ml # Bowel Movements 3 Physical Exam CONSTITUTIONAL/GENERAL: This is an adequately nourished patient, in no apparent distress. TUBES/LINES/DRAINS: Left forearm PIV SKIN: Mild jaundice, bilateral upper extremity skin tears. Ecchymoses on upper extremities. HEAD: Atraumatic. Normocephalic. ENT: Hearing diminished. Voice hoarse. CARDIOVASCULAR: Regular rate and rhythm without murmurs, gallops, or rubs. Peripheral pulses difficult to palpate due to 2+ edema. Extremities warm RESPIRATORY/CHEST: Symmetric, unlabored respirations. Clear to auscultation. Breath sounds diminished bilaterally. No wheezes, rales, or rhonchi. Right Chest tube draining serous fluid to Pleur-evac. No airleak GASTROINTESTINAL: Abdomen soft, tender to palpation, mildly distended. Bowel sounds present. GENITOURINARY: Without palpable bladder distension. Condom catheter intact MUSCULOSKELETAL: Extremities without clubbing, cyanosis. 2+ dependent edema, no weeping seen at this evaluation NEUROLOGICAL: Lethargic, oriented. Generalized weakness. PSYCHIATRIC: Calm, cooperative . Diagnostic Tests Laboratory Laboratory Tests Test 08/23/16 08/24/16 08/25/16 08/26/16 18:00 19:12 17:02 12:34 Pleural Fluid pH 8.0 Pleural Fluid WBC 18 /MM3 (0-10) Pleural Fluid RBC 120 /MM3 (0-0) Pleural Fluid Neutrophils 50 % Pleural Fluid Lymphocytes 17 % Pleural Fluid Monocytes 4 % Pleural Fluid Histiocytes 27 % Pleural Fluid Mesothelial 2 % Cells Body Fluid Amylase Source PLEURAL FLUID (()) Body Fluid Amylase 11 U/L (()) White Blood Count 13.8 TH/MM3 (4.0-11.0) Red Blood Count 4.83 MIL/MM3 (4.50-5.90) Hemoglobin 14.6 GM/DL (13.0-17.0) Hematocrit 44.3 % (39.0-51.0) Mean Corpuscular Volume 91.8 FL (80.0-100.0) Mean Corpuscular Hemoglobin 30.3 PG (27.0-34.0) Mean Corpuscular Hemoglobin 33.0 % Concent (32.0-36.0) Red Cell Distribution Width 18.0 % (11.6-17.2) Platelet Count 86 TH/MM3 (150-450) Mean Platelet Volume 8.4 FL (7.0-11.0) Neutrophils (%) (Auto) % (16.0-70.0) Lymphocytes (%) (Auto) % (9.0-44.0) Monocytes (%) (Auto) % (0.0-8.0) Eosinophils (%) (Auto) % (0.0-4.0) Basophils (%) (Auto) % (0.0-2.0) Neutrophils # (Auto) TH/MM3 (1.8-7.7) Lymphocytes # (Auto) TH/MM3 (1.0-4.8) Monocytes # (Auto) TH/MM3 (0-0.9) Eosinophils # (Auto) TH/MM3 (0-0.4) Basophils # (Auto) TH/MM3 (0-0.2) CBC Comment AUTO DIFF Differential Total Cells 100 Counted Neutrophils % (Manual) 91 % (16-70) Band Neutrophils % 2 % (0-6) Lymphocytes % 7 % (9-44) Neutrophils # (Manual) 12.8 TH/MM3 (1.8-7.7) Differential Comment FINAL DIFF MANUAL Platelet Estimate LOW (NORMAL) Platelet Morphology Comment NORMAL (NORMAL) Ferritin 282 NG/ML (26-388) Tumor Marker Alpha Fetoprotein 0.8 NG/ML (0.5-8.0) Total Bilirubin 2.1 MG/DL (0.2-1.0) Direct Bilirubin 1.0 MG/DL (0.0-0.2) Indirect Bilirubin 1.1 MG/DL (0.0-0.8) Aspartate Amino Transf 62 U/L (15-37) (AST/SGOT) Alanine Aminotransferase 96 U/L (12-78) (ALT/SGPT) Alkaline Phosphatase 207 U/L (45-117) Total Protein 5.6 GM/DL (6.4-8.2) Albumin 1.9 GM/DL (3.4-5.0) Result Diagram: 08/24/16191108/23/16 0645 Microbiology Microbiology Date/Time Procedure Status Source Growth 08/23/16 18:00 Gram Stain - Final Complete Fluid Pleural Fluid 08/23/16 18:00 Body Fluid Culture - Final Complete Fluid Pleural Fluid NO GROWTH IN 72 HRS.--AEROBICALLY OR ... 08/23/16 18:00 Acid Fast Stain - Final Resulted Fluid Pleural Fluid NO ACID FAST BACILLI SEEN 08/23/16 18:00 Mycobacterial Culture Resulted Fluid Pleural Fluid Pending Imaging Last Impressions Liver Ultrasound 08/25/16 0000 Signed Impressions: Service Date/Time: Thursday, August 25, 2016 20:06 - CONCLUSION: 1. 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 No focal hepatic lesion demonstrated. 2. No evidence of acute cholecystitis or biliary obstruction. 3. Mild splenomegaly. 4. Mild ascites. Orlin Mooney MD Chest X-Ray 08/23/16 0000 Signed Impressions: Service Date/Time: Tuesday, August 23, 2016 09:10 - CONCLUSION: Rapid reaccumulation of the right pleural effusion. Discussed with Dr. Garrison Denton chest tube will be placed on the right. Eduar Pederson MD FACR Chest Tube Insertion 08/23/16 0000 Signed Impressions: Service Date/Time: Tuesday, August 23, 2016 17:29 - CONCLUSION: Uncomplicated right chest tube placement as above. Effusion will be drained slowly over the ensuing hours. Juan Jose Mcguire Jr., MD Thoracentesis Ultrasound 08/22/16 0000 Signed Impressions: Service Date/Time: Monday, August 22, 2016 10:00 - CONCLUSION: Uncomplicated ultrasound guided thoracentesis. Que Beard MD Lower Extremity Ultrasound 08/21/16 0000 Signed Impressions: Service Date/Time: August 16:37 - CONCLUSION: 1. No DVT identified within either lower extremity. 2. Diffuse edema within both lower extremities. Jose Pederson MD Procedures 08/22/16-thoracentesis 08/23/16-chest tube insertion . Assessment and Plan Disease Oriented Problem List: (1) Back pain (2) Anemia (3) HLD (hyperlipidemia) (4) Gout (5) Hyperlipidemia (6) Depression (7) Anemia requiring transfusions (8) Esophageal varices (9) Neuropathic pain (10) Respiratory distress (11) Bilateral lower extremity edema (12) Hyperkalemia (13) Cirrhosis (14) Pleural effusion (15) Thrombocytopenia (16) HTN (hypertension) (17) Elevated troponin (18) Impaired mobility and activities of daily living Symptom Scale: (1) Abdominal pain 0-10 Scale: Unable to quantify (2) Edema 0-10 Scale: Unable to quantify (3) Anxiety 0-10 Scale: Unable to quantify (4) Dyspnea and respiratory abnormalities 0-10 Scale: Unable to quantify Pertinent Non-Medical Issues Psychosocial:He was born in [place], [place], but moved frequently as his father worked construction. He moved to [place] 35 years to assist in caring for his mother. 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 He was and twice and has 2 children one boy Lupillo, who is the healthcare surrogate and a daughter. He is a [place] of the [employer] service, exposed to agent orange from which he suffered decreased hearing and tinnitus. His sister provides much of his care after moving to [place] 3 years ago. He was raised Sikh but is currently not attending methodist. 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 Spiritual: Raised Sikh, would accept button tufting machine operator visits. 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 Ethical issues impacting care: Important Contacts Son-Lupillo Delgado [phone] Sister-Kelsey Armstrong Prognosis His prognosis is poor. He is having recurrent pleural effusions greater than 3 L reoccurring every 3-4 days with significant bilateral lower extremity edema, likely related to cirrhosis of the liver. He has also experienced recent gastrointestinal bleed, thrombocytopenia, weakness and dyspnea. His liver compromise is contributing to risk of bleeding, poor healing of skin wound, sepsis and continued decline. His past medical history is extensive to include hepatitis C, cirrhosis, grade 2 esophageal varices, history of GI bleed , thrombocytopenia, stage II sacral decubitus ulcer, rheumatoid arthritis, chronic kidney disease and recurrent pancreatitis. His functional status is declining and his readmissions to the hospital increase at shorter intervals. Code Status: No Code Plan PLAN: Legal decision maker: SonLupillo Goals: Currently conservative, has requested DNR CODE STATUS: DNR SYMPTOMS: * Abdominal pain-abdomen is mildly tender to palpation over the right upper quadrant, likely related to liver disease. No significant fluctuance noted in abdominal exam. GI following. * Edema-likely related to liver disease, low protein stores, on furosemide 40 mg twice a day. May benefit from a nutritional consult for supplementation. * Dyspnea-having recurrent pleural effusions, previous cytology negative for malignancy, thought to be related to cirrhosis. Remains dyspneic, right chest tube with 2800 mL out in the last 24 hours. * Anxiety-has PTSD status post [place] era , remains on Prozac with when necessary Xanax. Currently signs of mild anxiety. Family continues to wish patient to be readmitted to a rehabilitation facility and would prefer he returned to [facility]. This was discussed with Dr. Arriaga and a PT/OT evaluation will be requested as a preliminary measure to that. Patient is very weak and rehabilitation may not be an option for him. Hospice has been discussed with the family and this will be revisited after PT/ OT evaluation and decision from [facility]. Palliative care will continue to follow the patient during hospital course as condition evolves, to assist patient/decision-maker with understanding of their medical conditions, weighing benefits/burdens of treatment options, for clarification of goals of treatment. Additionally will assist with any symptoms of palliative concern Attestation To help prompt me to consider important information that might be impacting today's encounter and assessment, information from prior notes written by myself or my colleagues may have been "brought forward" into today's note. My signature on this note, however, is an attestation that I personally performed the exam, history, and/or decision-making noted today, and, unless otherwise indicated, the interactions with patient, family, and staff as well as the review of records all occurred today. I also attest that the listed assessment and stated plan reflect my best clinical judgment today based on the combination of historical information, prior notes, and today's exam/ interactions. When time spent is documented, it refers only to time spent today by the signer, or if indicated, combined time spent today by collaborating physician/nurse practitioner. Marisa Brink Aug 26, 2016 17:04
--- NOTE | 2016-08-26 17:27 | HHI.PR ---
Subjective Remarks The patient was lethargic. He would wake to whisper inaudible words. Family was at the bedside and their questions were answered. Discussed with nursing. Objective Vitals Vital Signs Date Time Temp Pulse Resp B/P Pulse Ox O2 Delivery O2 Flow Rate FiO2 08/26/16 16:00 68 08/26/16 16:00 97.9 68 18 136/62 98 08/26/16 15:25 20 08/26/16 14:00 69 08/26/16 12:00 97.8 62 26 149/73 97 08/26/16 12:00 62 08/26/16 10:00 55 08/26/16 08:00 96.5 72 26 170/85 99 08/26/16 08:00 72 08/26/16 07:53 99 Nasal Cannula 2.00 08/26/16 07:00 100 Nasal Cannula 2.00 08/26/16 06:00 68 08/26/16 04:00 96.5 67 23 149/70 98 08/26/16 04:00 67 08/26/16 02:00 63 08/26/16 00:00 97.0 59 21 122/56 98 08/26/16 00:00 59 08/25/16 22:00 67 08/25/16 20:00 72 08/25/16 20:00 97.7 72 26 154/73 97 08/25/16 19:00 97 Nasal Cannula 2.00 08/25/16 18:00 69 08/25/16 18:00 69 23 157/69 100 08/25/16 17:31 70 25 149/71 99 I/O 08/25/16 08/25/16 08/25/16 08/26/16 08/26/16 08/26/16 07:00 15:00 23:00 07:00 15:00 23:00 Intake Total 500 ml 300 ml 100 ml 750 ml Output Total 350 ml 750 ml 1420 ml 975 ml 710 ml Balance -350 ml -250 ml -1120 ml -875 ml 40 ml Intake Oral 500 ml 300 ml 100 ml 750 ml IV Total 0 ml Output Urine Total 350 ml 350 ml 350 ml 350 ml Chest Tube Drainage Total 750 ml 1070 ml 625 ml 360 ml # Voids 5 1 # Bowel Movements 0 1 3 1 Result Diagram: 08/24/16191108/23/16 0645 Imaging Last Impressions Liver Ultrasound 08/25/16 0000 Signed Impressions: Service Date/Time: Thursday, August 25, 2016 20:06 - CONCLUSION: 1. 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 No focal hepatic lesion demonstrated. 2. No evidence of acute cholecystitis or biliary obstruction. 3. Mild splenomegaly. 4. Mild ascites. Orlin Mooney MD Chest X-Ray 08/23/16 0000 Signed Impressions: Service Date/Time: Tuesday, August 23, 2016 09:10 - CONCLUSION: Rapid reaccumulation of the right pleural effusion. Discussed with Dr. Garrison Denton chest tube will be placed on the right. Eduar Pederson MD FACR Chest Tube Insertion 08/23/16 0000 Signed Impressions: Service Date/Time: Tuesday, August 23, 2016 17:29 - CONCLUSION: Uncomplicated right chest tube placement as above. Effusion will be drained slowly over the ensuing hours. Juan Jose Mcguire Jr., MD Thoracentesis Ultrasound 08/22/16 0000 Signed Impressions: Service Date/Time: Monday, August 22, 2016 10:00 - CONCLUSION: Uncomplicated ultrasound guided thoracentesis. Que Beard MD Lower Extremity Ultrasound 08/21/16 0000 Signed Impressions: Service Date/Time: August 16:37 - CONCLUSION: 1. No DVT identified within either lower extremity. 2. Diffuse edema within both lower extremities. Jose Pederson MD Objective Remarks GENERAL: No acute distress. Drowsy. HEENT: PERRLA, EOMI. No scleral icterus or conjunctival pallor. No lid lag or facial droop. CARDIOVASCULAR: Regular rate and rhythm. No obvious murmurs to auscultation. No chest tenderness to palpation. RESPIRATORY: Decreased breath sounds. Chest tube in place. GASTROINTESTINAL: Abdomen soft, non-tender, nondistended. BS normal. MUSCULOSKELETAL: Extremities without clubbing, cyanosis. 2+ bilateral lower extremity edema. No obvious deformities. NEUROLOGICAL: Patient is somnolent, responsive to verbal stimuli but he goes right back to sleep. PSYCH: Flattened affect. Medications and IVs Current Medications Medications (Trade) Dose Ordered Sig/Ana Route Start Time Stop Time Status Last Admin (Lasix) 40 mg BID@,18 PO 08/22/16 09:00 08/26/16 17:02 (NS Flush) 2 ml UNSCH PRN IV FLUSH 08/21/16 19:45 08/23/16 09:16 (NS Flush) 2 ml BID IV FLUSH 08/21/16 21:00 08/26/16 08:26 (Zofran Inj) 4 mg Q6H PRN IVP 08/21/16 19:45 (Tylenol) 650 mg Q6H PRN PO 08/21/16 19:45 ([place] 5-325 Mg) 1 tab Q4H PRN PO 08/21/16 19:45 08/24/16 16:04 (Morphine Inj) 2 mg Q3H PRN IV 08/21/16 19:45 08/26/16 15:20 (Paula-Colace) 1 tab BID PO 08/21/16 21:00 08/25/16 09:33 (Milk Of Magnesia Liq) 30 ml Q12H PRN PO 08/21/16 19:45 (Senokot) 17.2 mg Q12H PRN PO 08/21/16 19:45 (Dulcolax Supp) 10 mg DAILY PRN RECTAL 08/21/16 19:45 (Lactulose Liq) 30 ml DAILY PRN PO 08/21/16 19:45 (Xanax) 0.25 mg Q8H PRN PO 08/21/16 19:45 (Vitamin B12) 50 mcg HS PO 08/21/16 21:00 08/25/16 21:16 (Cardizem) 30 mg BID PO 08/21/16 21:00 08/26/16 08:26 (Ferrous Sulfate) 325 mg BID PO 08/21/16 21:00 08/25/16 21:16 (PROzac) 20 mg DAILY PO 08/22/16 09:00 08/26/16 08:26 (Folate) 1 mg DAILY PO 08/22/16 09:00 08/26/16 08:26 (Neurontin) 300 mg TID PO 08/22/16 09:00 08/26/16 17:02 (Lactinex) 1 tab TID PO 08/22/16 09:00 08/26/16 17:02 (Synthroid) 75 mcg DAILY@06 PO 08/22/16 06:00 08/26/16 06:12 (Protonix) 40 mg Q12HR PO 08/21/16 21:00 08/26/16 08:26 (Vitamin B1) 100 mg DAILY PO 08/22/16 09:00 08/26/16 08:26 (Theragran) 1 tab DAILY PO 08/22/16 09:00 08/26/16 08:26 (Aldactone) 50 mg DAILY PO 08/22/16 09:00 08/26/16 08:26 (Inderal) 10 mg Q12HR PO 08/22/16 09:00 08/26/16 08:26 A/P Problem List: (1) Pleural effusion ICD Code: J90 Status: Acute (2) Elevated troponin ICD Code: R74.8 Status: Acute (3) Hyperkalemia ICD Code: E87.5 Status: Acute (4) Thrombocytopenia ICD Code: D69.6 Status: Acute (5) Cirrhosis ICD Code: K74.60 Status: Acute (6) HTN (hypertension) ICD Code: I10 Status: Chronic (7) H/O: GI bleed ICD Code: Z87.19 Status: Acute (8) Alcohol abuse ICD Code: F10.10 Status: Acute (9) Sacral decubitus ulcer, stage II ICD Code: L89.152 Status: Acute Assessment and Plan Right Pleural Effusion Recurrent. Recent admit 08/11-08/17/16 for similar. S/p thoracentesis by IR w/ removal of 4450cc fluid, transudate thought to be secondary to cirrhosis. Now w/ recurrent right pleural effusion and SOB. CXR w/ complete opacification of right hemithorax due to effusion. Status post thoracentesis. - Continue diuresis. - follow up with pulmonology. Elevated Trop Trop 0.11, similar to previous admit, no c/o chest pain, EKG w/ no acute changes. Likely secondary to cirrhosis, strain from large effusion. Poor candidate for anticoagulation in light of thrombocytopenia, coagulopathy and previous h/o GI bleed w/ esophageal varices. - continue cardiac regimen. Hyperkalemia S/p Ca/Insulin/D50. - telemetry. - continue monitoring. HTN Relatively well controlled. - Monitor BP, resume home medications. Cirrhosis/ Failure to thrive H/o alcohol abuse and Hepatitis C w/ h/o cirrhosis. GI consult appreciated. - resume Lasix, add Aldactone and propranolol. - follow with palliative care. Consider hospice. - ST/ PT/ OT. - add standing lactulose TID and check an ammonia level. Thrombocytopenia Chronic. Stable. No active bleeding at this time. - Monitor closely. H/o GI bleed Secondary to alcohol abuse/cirrhosis/grade II esophageal varices, no signs of bleeding at this time. Hgb stable. - monitor. Alcohol Abuse h/o alcohol abuse, 1pint Vodka/day, states he quit 05/2016. - Continue Thiamine/Folate/MVT replacement. Sacral Decubitus Ulcer Stage II. Present on arrival. - Wound Consult for further evaluation. DVT Prophylaxis: Pharmacologic contraindication secondary to h/o GI Bleed, Varices and Thrombocytopenia. Mechanical contraindication secondary to significant edema. Discharge Planning Awaiting clinical improvement. Emerson Pruitt DO Aug 26, 2016 17:27
[2016-08-26] MEDS: LACTULOSE SYRUP 20 GM/30 ML CUP PO SCH (18:12)
[2016-08-26] MEDS: cefTRIAXone INJ 1,000 MG in SODIUM CHLORIDE 0.9% INJ 100 ML IV SCH (18:13)
--- NOTE | 2016-08-26 19:45 | HHI.PR ---
Subjective Remarks 70 YOWM with recurrent pl effusion Had right chest tube placed Breathing better No Fever Chest tube draining Objective Vital Signs Vital Signs Date Time Temp Pulse Resp B/P Pulse Ox O2 Delivery O2 Flow Rate FiO2 08/26/16 18:00 68 08/26/16 16:00 68 08/26/16 16:00 97.9 68 18 136/62 98 08/26/16 15:25 20 08/26/16 14:00 69 08/26/16 12:00 97.8 62 26 149/73 97 08/26/16 12:00 62 08/26/16 10:00 55 08/26/16 08:00 96.5 72 26 170/85 99 08/26/16 08:00 72 08/26/16 07:53 99 Nasal Cannula 2.00 08/26/16 07:00 100 Nasal Cannula 2.00 08/26/16 06:00 68 08/26/16 04:00 96.5 67 23 149/70 98 08/26/16 04:00 67 08/26/16 02:00 63 08/26/16 00:00 97.0 59 21 122/56 98 08/26/16 00:00 59 08/25/16 22:00 67 08/25/16 20:00 72 08/25/16 20:00 97.7 72 26 154/73 97 I/O 08/25/16 08/25/16 08/25/16 08/26/16 08/26/16 08/26/16 07:00 15:00 23:00 07:00 15:00 23:00 Intake Total 500 ml 300 ml 100 ml 750 ml Output Total 350 ml 750 ml 1420 ml 975 ml 710 ml Balance -350 ml -250 ml -1120 ml -875 ml 40 ml Intake Oral 500 ml 300 ml 100 ml 750 ml IV Total 0 ml Output Urine Total 350 ml 350 ml 350 ml 350 ml Chest Tube Drainage Total 750 ml 1070 ml 625 ml 360 ml # Voids 5 1 # Bowel Movements 0 1 3 1 Result Diagram: 08/24/16191108/23/1645 Objective Remarks GENERAL: MBMN WM mild sob SKIN: Warm and dry. HEAD: Normocephalic. EYES: No scleral icterus. No injection or drainage. NECK: Supple, trachea midline. No JVD or lymphadenopathy. CARDIOVASCULAR: Regular rate and rhythm without murmurs, gallops, or rubs. RESPIRATORY: Breath sounds equal bilaterally. No accessory muscle use. Right chest tube draining GASTROINTESTINAL: Abdomen soft, non-tender, nondistended. MUSCULOSKELETAL: No cyanosis, or edema. BACK: Nontender without obvious deformity. No CVA tenderness. A/P Assessment and Plan Recurrent pl effusion right chest tube placement cirrhosis of liver HTN PLAN: Chest tube to suction Supplement 02 Humidify 02 DW family Cheikh Goetz MD Aug 26, 2016 19:45
[2016-08-26] MEDS ORDERED: MORPHINE SULFATE 4 MG/ML INJ IV PRN (20:45)
[2016-08-26 21:17] LABS: ALKALINE PHOSPHATASE 212 U/L (45-117); ALT (GPT) 101 U/L (12-78); ANION GAP 11 MEQ/L (5-15); AST (GOT) 100 U/L (15-37); BLOOD UREA NITROGEN 77 MG/DL (7-18); CHLORIDE 100 MEQ/L (98-107); GLOMERULAR FILTRATION RATE 40 ML/MIN (>89); SODIUM (NA) 129 MEQ/L (136-145); TOTAL BILIRUBIN ADULT 1.7 MG/DL (0.2-1.0)
[2016-08-26 21:18] LABS: POTASSIUM 5.4 MEQ/L (3.5-5.1)
[2016-08-26] MEDS: CYANOCOBALAMIN 1,000 MCG TAB PO SCH (22:50)
[2016-08-27] VITALS (14 sets, daily range): BP systolic 116–165; BP diastolic 56–80; PULSE 56–71; RESP 12–33; TEMP 96.7–97.9; O2SAT 96–98
[2016-08-27 04:42] LABS: BODY FLUID LDH 37 U/L (()); BODY FLUID LDH SOURCE PLEURAL (())
--- NOTE | 2016-08-27 05:46 | MB ---
cc: ANISH MORRISON MD DATE OF 1945. DATE OF CONSULTATION August 26, 2016 REASON FOR CONSULTATION Patient with a diagnosis of liver disease, liver cirrhosis, portal hypertension, esophageal varices who was found to have portal vein thrombosis. CHIEF COMPLAINT The patient is currently encephalopathic. HISTORY OF PRESENT ILLNESS This is a 70-year-old male who has multiple medical problems including history of hepatitis C, liver cirrhosis/liver disease, grade 2 esophageal varices, history of alcohol abuse, history of GI bleeding, chronic thrombocytopenia and a history of a Stage II decubitus ulcer who was brought to the emergency department with worsening lower extremity edema and dyspnea. He has had recurrent admissions to the hospital. He has had a right pleural effusion which was drained previously. The patient was admitted to the hospital. During the course of his admission a liver ultrasound was completed and this shows cirrhotic changes of the liver and a suspected thrombosis in the portal vein which appears to be chronic. Hematology has been consulted to make further recommendations. The patient is currently being evaluated by Palliative Care. He has advanced liver disease. He was found to be not a candidate for liver transplantation. REVIEW OF SYSTEMS Unable to be completed due to the patient's mental status. PAST MEDICAL HISTORY 1. Liver disease. 2. Liver cirrhosis. 3. Hepatitis C. 4. Esophageal varices. 5. History of GI bleed. 6. Chronic thrombocytopenia. 7. Alcohol abuse. 8. Sacral decubitus. 9. Rheumatoid arthritis. 10. Pneumonia. 11. Chronic kidney disease Stage III. 12. Pancreatitis. 13. Gout. 14. Chronic back pain. 15. Neuropathy. 16. PTSD. PAST SURGICAL HISTORY 1. Right hand surgery. 2. Shoulder surgery. 3. History of EGD and colonoscopy. FAMILY HISTORY Unable to obtain from the patient but upon review of medical records it appears that it is significant for coronary artery disease and CVA. SOCIAL HISTORY History of alcohol abuse, quit in June of 2016. No history of tobacco or drug abuse. MEDICATIONS Inpatient medications were reviewed. He is currently on - 1. Morphine sulfate 2 mg IV q.4 hours p.r.n. 2. Lactulose 30 cc p.o. t.i.d. 3. Ceftriaxone 1 gram IV q.24 hours. 4. Lasix 40 mg p.o. b.i.d. 5. Prozac 20 mg p.o. daily. 6. Folate 1 mg p.o. daily. 7. Neurontin 300 mg p.o. t.i.d. 8. Lactobacillus 1 tablet p.o. t.i.d. 9. Thiamine 100 mg 1 tablet p.o. daily. 10. Spirolactone 50 mg p.o. daily. 11. Propranolol 10 mg p.o. q.12 hours 12. Levothyroxine 75 mcg p.o. daily. 13. Vitamin B12 50 mcg p.o. q.h.s. 14. Cardizem 30 mg p.o. b.i.d. 15. Iron sulfate 325 mg p.o. b.i.d. 16. Protonix 40 mg p.o. q.12 hours. 17. DuoNebs 1 amp q.4 hours p.r.n. 18. Zofran 4 mg IV q.6 hours p.r.n. 19. Acetaminophen 650 mg p.o. q.6 hours p.r.n. 20. Volga 5/325 1 tablet p.o. q.4 hours p.r.n. 21. Milk of magnesia 30 cc 1 tablet p.o. q.12 hours p.r.n. 22. Senokot 17.2 mg p.o. q.12 hours p.r.n. 23. Bisacodyl 10 mg rectal suppository. 24. Xanax 0.25 mg p.o. q.8 hours p.r.n. ALLERGIES He is allergic to BUSPIRONE. PHYSICAL EXAMINATION VITAL SIGNS: Blood pressure is 132/62, respiratory rate is 18, pulse is in the 60s, temperature is 97.9, O2 sats are 98% on 2 liters by nasal cannula. GENERAL: Acutely ill patient who is currently encephalopathic. He opens his eyes on questioning but does not answer questions. HEENT: Pupils are equal, round, react to light. EOMI. No oral thrush. No oral lesions. NECK: Supple. No JVD, no bruits. No lymphadenopathy. CHEST: Clear to auscultation bilaterally. CARDIAC: S1-S2. Regular rate and rhythm. ABDOMEN: Soft, distended. A large liver and spleen palpated. Bowel sounds are decreased. EXTREMITIES: Trace edema bilateral lower extremities. SKIN: Without any petechiae, bruises or lesions. NEURO: No focal deficits. PSYCHIATRIC: Mood and affect is appropriate. IMAGING STUDIES Reviewed in the EMR and discussed in the HPI. ASSESSMENT AND PLAN This is a 70-year-old male who has multiple medical problems including liver disease, liver cirrhosis, hepatitis C, portal hypertension and splenomegaly, esophageal varices, history of GI bleeding, chronic thrombocytopenia who presents to the emergency room with worsening dyspnea and encephalopathy. Liver ultrasound revealed possible portal thrombosis which appears to be chronic. I have been consulted to make further recommendations in this patient. 1. Thrombosis has been discovered incidentally the patient has not had any symptoms of abdominal pain. Portal thrombosis is a common occurrence in patients with liver cirrhosis and advanced liver disease. There is no consensus of anticoagulation in patients with chronic portal vein thrombosis. However, anticoagulation does reduce the risk of recurrent thrombosis, prevent thrombus extension and promotes recanalization of the vasculature. While there is a risk of recurrent thrombosis, there is also had a competing risk of increased variceal bleeding. First we need to confirm whether there is actually a clot in the portal vein. I would recommend obtaining a CT of the abdomen with contrast. If there is a thrombosis confirmed, I would recommend starting heparin GTT and then transitioning him over to warfarin. He does have varices; however, his hemoglobin is stable and he has not had a GI bleed recently. His platelet count is adequate at this time. We will recheck his coagulation studies. On admission his PT and INR were within normal range. 2. History of liver disease, liver cirrhosis, portal hypertension and esophageal varices. 3. Encephalopathy due to advanced liver disease. Thank you for allowing me to participate in the care of this patient. I will continue to follow this patient along. MD HUGO William/JESUS /1:06 AM /5:30 AM
[2016-08-27] MEDS: LEVOTHYROXINE SODIUM 75 MCG TAB PO SCH (06:06)
[2016-08-27 06:52] LABS: MEAN CELL VOLUME 90.7 FL (80.0-100.0); MEAN CORPUSCULAR HEMOGLOBIN 30.5 PG (27.0-34.0); MEAN CORPUSCULAR HGB CONC 33.7 % (32.0-36.0); PLATELET COUNT 85 TH/MM3 (150-450); RED BLOOD COUNT 5.07 MIL/MM3 (4.50-5.90); RED CELL DISTRIBUTION WIDTH 18.2 % (11.6-17.2); WHITE BLOOD COUNT 11.3 TH/MM3 (4.0-11.0)
[2016-08-27 06:58] LABS: REVIEW FLAG FINAL
[2016-08-27 07:20] LABS: BICARBONATE 25.5 MEQ/L (21.0-32.0); INDIRECT BILIRUBIN 1.1 MG/DL (0.0-0.8); MAGNESIUM 1.8 MG/DL (1.5-2.5); POTASSIUM 4.5 MEQ/L (3.5-5.1)
[2016-08-27 07:26] LABS: INTERNATIONAL NORMALIZED RATIO 5.4 RATIO; PROTHROMBIN TIME - PATIENT 63.9 SEC (9.8-11.6)
[2016-08-27] MEDS: LACTULOSE SYRUP 20 GM/30 ML CUP PO SCH ×3 (07:58→17:20)
[2016-08-27] MEDS: FLUoxetine HCL 20 MG CAP PO SCH (07:58)
[2016-08-27] MEDS: FERROUS SULFATE 325 MG (65 MG ELEMENTAL IRON) TAB PO SCH ×2 (07:59→20:26)
[2016-08-27] MEDS: PROPRANOLOL HCL 10 MG TAB PO SCH ×2 (07:59→20:26)
[2016-08-27] MEDS: SPIRONOLACTONE 50 MG TAB PO SCH (07:59)
[2016-08-27] MEDS: FUROSEMIDE 40 MG TAB PO SCH ×2 (07:59→17:20)
[2016-08-27] MEDS: MULTIVITAMIN TAB PO SCH (07:59)
[2016-08-27] MEDS: FOLIC ACID 1 MG TAB PO SCH (07:59)
[2016-08-27] MEDS: DILTIAZEM HCL 30 MG TAB PO SCH ×2 (07:59→20:25)
[2016-08-27] MEDS: PANTOPRAZOLE SOD 40 MG DELAYED RELEASE TAB PO SCH ×2 (07:59→20:29)
[2016-08-27] MEDS: LACTOBACILLUS ACIDOPHILUS TAB PO SCH ×3 (08:00→17:21)
[2016-08-27] MEDS: THIAMINE HCL 100 MG TAB PO SCH (08:00)
[2016-08-27] MEDS: GABAPENTIN 300 MG CAP PO SCH ×3 (08:00→17:20)
[2016-08-27] MEDS: DOCUSATE SODIUM 50 MG/SENNA 8.6 MG TAB PO SCH ×2 (08:00→20:27)
[2016-08-27] MEDS: SODIUM CHLORIDE 0.9% FLUSH 10 ML FLUSH IV FLUSH SCH ×2 (08:00→20:25)
[2016-08-27] MEDS: SODIUM CHLORIDE 0.9% FLUSH 10 ML FLUSH IV FLUSH PRN (08:02)
--- NOTE | 2016-08-27 11:44 | PD.ONC.PN ---
Subjective Subjective Remarks Afebrile overnight. patient resting in bed. No overnight events per nurse. INR this morning >5. Objective Data Date Time Temp Pulse Resp B/P Pulse Ox O2 Delivery O2 Flow Rate FiO2 08/27/16 08:27 98 Nasal Cannula 2.00 08/27/16 06:00 68 08/27/16 04:00 67 08/27/16 04:00 96.7 67 17 141/65 98 08/27/16 02:00 63 08/27/16 00:00 62 08/27/16 00:00 96.8 62 12 125/61 98 08/26/16 22:00 66 08/26/16 20:00 97.9 70 21 109/82 98 08/26/16 20:00 70 08/26/16 19:20 98 Nasal Cannula 2.00 08/26/16 19:00 100 Nasal Cannula 2.00 08/26/16 18:00 68 08/26/16 16:00 68 08/26/16 16:00 97.9 68 18 136/62 98 08/26/16 15:25 20 08/26/16 14:00 69 08/26/16 12:00 97.8 62 26 149/73 97 08/26/16 12:00 62 08/27/16 08/27/16 08/27/16 07:00 15:00 23:00 Intake Total 20 ml Output Total 1000 ml Balance -980 ml Result Diagram: 08/27/16 0452 08/27/16 0522 Laboratory Results Laboratory Tests Test 08/26/16 08/26/16 08/27/16 08/27/16 12:34 19:55 04:52 05:22 Total Bilirubin 2.1 MG/DL 1.7 MG/DL 2.0 MG/DL Direct Bilirubin 1.0 MG/DL 0.9 MG/DL Indirect Bilirubin 1.1 MG/DL 1.1 MG/DL Aspartate Amino Transf 62 U/L 100 U/L 68 U/L (AST/SGOT) Alanine Aminotransferase 96 U/L 101 U/L 98 U/L (ALT/SGPT) Alkaline Phosphatase 207 U/L 212 U/L 208 U/L Total Protein 5.6 GM/DL 5.8 GM/DL 5.8 GM/DL Albumin 1.9 GM/DL 1.6 GM/DL 1.9 GM/DL Sodium Level 129 MEQ/L 136 MEQ/L Potassium Level 5.4 MEQ/L 4.5 MEQ/L Chloride Level 100 MEQ/L 101 MEQ/L Carbon Dioxide Level 18.0 MEQ/L 25.5 MEQ/L Anion Gap 11 MEQ/L 10 MEQ/L Blood Urea Nitrogen 77 MG/DL 79 MG/DL Creatinine 1.71 MG/DL 1.70 MG/DL Estimat Glomerular Filtration 40 ML/MIN 40 ML/MIN Rate Random Glucose 107 MG/DL 84 MG/DL Calcium Level 9.1 MG/DL 9.5 MG/DL Ammonia 121 MCMOL/L White Blood Count 11.3 TH/MM3 Red Blood Count 5.07 MIL/MM3 Hemoglobin 15.5 GM/DL Hematocrit 46.0 % Mean Corpuscular Volume 90.7 FL Mean Corpuscular Hemoglobin 30.5 PG Mean Corpuscular Hemoglobin 33.7 % Concent Red Cell Distribution Width 18.2 % Platelet Count 85 TH/MM3 Mean Platelet Volume 8.8 FL Prothrombin Time 63.9 SEC Prothromb Time International 5.4 RATIO Ratio Magnesium Level 1.8 MG/DL Culture Results Microbiology Date/Time Procedure Status Source Growth 08/27/16 05:10 Aerobic Blood Culture Received Blood Peripheral Pending 08/27/16 05:10 Anaerobic Blood Culture Received Blood Peripheral Pending 08/27/16 05:22 Aerobic Blood Culture Received Blood Peripheral Pending 08/27/16 05:22 Anaerobic Blood Culture Received Blood Peripheral Pending Administered Medications Medications (Trade) Dose Ordered Sig/Ana Route PRN Reason Start Time Stop Time Status Last Admin Dose Admin Furosemide (Lasix) 40 mg BID@,18 PO 08/22/16 09:00 08/27/16 07:59 Sodium Chloride (NS Flush) 2 ml UNSCH PRN IV FLUSH FLUSH AFTER USING IV ACCESS 08/21/16 19:45 08/27/16 08:02 Sodium Chloride (NS Flush) 2 ml BID IV FLUSH 08/21/16 21:00 08/27/16 08:00 Acetaminophen/ Hydrocodone Bitart (Raymond 5-325 Mg) 1 tab Q4H PRN PO PAIN SCALE 3 TO 5 08/21/16 19:45 08/24/16 16:04 Senna/Docusate Sodium (Paula-Colace) 1 tab BID PO 08/21/16 21:00 08/25/16 09:33 Cyanocobalamin (Vitamin B12) 50 mcg HS PO 08/21/16 21:00 08/26/16 22:50 Diltiazem HCl (Cardizem) 30 mg BID PO 08/21/16 21:00 08/27/16 07:59 Ferrous Sulfate (Ferrous Sulfate) 325 mg BID PO 08/21/16 21:00 08/27/16 07:59 Fluoxetine HCl (PROzac) 20 mg DAILY PO 08/22/16 09:00 08/27/16 07:58 Folic Acid (Folate) 1 mg DAILY PO 08/22/16 09:00 08/27/16 07:59 Gabapentin (Neurontin) 300 mg TID PO 08/22/16 09:00 08/27/16 08:00 Lactobacillus Acidophilus (Lactinex) 1 tab TID PO 08/22/16 09:00 08/27/16 08:00 Levothyroxine Sodium (Synthroid) 75 mcg DAILY@06 PO 08/22/16 06:00 08/27/16 06:06 Pantoprazole Sodium (Protonix) 40 mg Q12HR PO 08/21/16 21:00 08/27/16 07:59 Thiamine HCl (Vitamin B1) 100 mg DAILY PO 08/22/16 09:00 08/27/16 08:00 Multivitamins (Theragran) 1 tab DAILY PO NS 08/22/16 09:00 08/27/16 07:59 Spironolactone (Aldactone) 50 mg DAILY PO 08/22/16 09:00 08/27/16 07:59 Propranolol HCl (Inderal) 10 mg Q12HR PO 08/22/16 09:00 08/27/16 07:59 Lactulose (Lactulose Liq) 30 ml TID PO 08/26/16 18:00 08/27/16 07:58 Morphine Sulfate 2 mg 2 mg Q4H PRN IV Pain 6-10 08/26/16 20:45 08/27/16 10:12 Ceftriaxone Sodium/Sodium Chloride (Rocephin Inj/NS Inj) 100 ml @ 200 mls/hr Q24H IV 08/26/16 18:00 08/26/16 18:13 Objective Remarks GENERAL: Somnolent male, supine in bed in nad. SKIN: Warm and dry. HEAD: Normocephalic. EYES: No injection or drainage. NECK: Supple, trachea midline. CARDIOVASCULAR: Regular rate and rhythm RESPIRATORY: Breath sounds equal bilaterally. No accessory muscle use. GASTROINTESTINAL: Abdomen mildly distended. EXTREMITIES: No cyanosis MUSCULOSKELETAL: Adequate muscle tone. NEUROLOGICAL: awake and alert, normal speech. moving all extremities. Assessment/Plan Problem List: (1) Thrombosis Status: Acute Plan: --Liver ultrasound revealed possible portal thrombosis which appears to be chronic. --Portal thrombosis is a common occurrence in patients with liver cirrhosis and advanced liver disease. There is no consensus of anticoagulation in patients with chronic portal vein thrombosis. --will obtain CT ab/pelvis to confirm PVT Assessment 70y/o with a diagnosis of liver disease, liver cirrhosis, portal hypertension, esophageal varices who was found to have portal vein thrombosis. h/o hepatitis C, liver cirrhosis/liver disease, grade 2 esophageal varices, alcohol abuse, history of GI bleeding, chronic thrombocytopenia and a history of a Stage II decubitus ulcer Plan 1. CT ab/pelvis to confirm PVT 2. monitor CBC, coags Attending Statement The exam, history, and the medical decision-making described in the above note were completed with the assistance of the mid-level provider. I reviewed and agree with the findings presented. I attest that I had a [id number] encounter with the patient on the same day, and personally performed and documented my assessment and findings in the medical record CT abdomen to conform portal vein thrombus if confirmed will start Heparin GTT Roopa Martínez Aug 27, 2016 11:44 Partha Turner MD Aug 27, 2016 22:58
[2016-08-27 12:45] LABS: APTT (PATIENT) 31.8 SEC (24.3-30.1); INTERNATIONAL NORMALIZED RATIO 1.1 RATIO; PROTHROMBIN TIME - PATIENT 12.7 SEC (9.8-11.6)
--- NOTE | 2016-08-27 14:20 | HHI.GIFU ---
Subjective Remarks Resting in bed. Somnolent. Mild diffuse abdominal tenderness. Family at bedside- long discussion with son. Son seems to feel that this was a sudden decompensation with increased fluid overload. He reports that he got out of rehab and was doing well, walking 1 mile per day and had a sudden onset of swelling in his ble despite taking diuretics. CT scan ordered for today per hematology. Family says that he did have US and CT scan earlier this year while at [facility]. Our office obtained records and the US was a soft tissue US and the CT scan of the abdomen and pelvis was without contrast. (Abby Garza) Objective Vitals I&O Vital Signs Date Time Temp Pulse Resp B/P Pulse Ox O2 Delivery O2 Flow Rate FiO2 08/27/16 08:27 98 Nasal Cannula 2.00 08/27/16 08:00 71 08/27/16 06:00 68 08/27/16 04:00 67 08/27/16 04:00 96.7 67 17 141/65 98 08/27/16 02:00 63 08/27/16 00:00 62 08/27/16 00:00 96.8 62 12 125/61 98 08/26/16 22:00 66 08/26/16 20:00 97.9 70 21 109/82 98 08/26/16 20:00 70 08/26/16 19:20 98 Nasal Cannula 2.00 08/26/16 19:00 100 Nasal Cannula 2.00 08/26/16 18:00 68 08/26/16 16:00 68 08/26/16 16:00 97.9 68 18 136/62 98 08/26/16 15:25 20 I/O 08/26/16 08/26/16 08/26/16 08/27/16 08/27/16 08/27/16 07:00 15:00 23:00 07:00 15:00 23:00 Intake Total 100 ml 750 ml 150 ml 20 ml Output Total 975 ml 710 ml 760 ml 1000 ml Balance -875 ml 40 ml -610 ml -980 ml Intake Oral 100 ml 750 ml 50 ml 20 ml IV Total 0 ml 100 ml Output Urine Total 350 ml 350 ml 250 ml 500 ml Chest Tube Drainage Total 625 ml 360 ml 510 ml 500 ml # Bowel Movements 1 1 Laboratory Laboratory Tests Test 6/1308/27/16 08/27/16 08/27/16 19:55 04:52 05:22 12:00 Sodium Level 129 136 Potassium Level 5.4 4.5 Chloride Level 100 101 Carbon Dioxide Level 18.0 25.5 Anion Gap 11 10 Blood Urea Nitrogen 77 79 Creatinine 1.71 1.70 Estimat Glomerular Filtration 40 40 Rate Random Glucose 107 84 Calcium Level 9.1 9.5 Total Bilirubin 1.7 2.0 Aspartate Amino Transf 100 68 (AST/SGOT) Alanine Aminotransferase 101 98 (ALT/SGPT) Alkaline Phosphatase 212 208 Ammonia 121 Total Protein 5.8 5.8 Albumin 1.6 1.9 White Blood Count 11.3 Red Blood Count 5.07 Hemoglobin 15.5 Hematocrit 46.0 Mean Corpuscular Volume 90.7 Mean Corpuscular Hemoglobin 30.5 Mean Corpuscular Hemoglobin 33.7 Concent Red Cell Distribution Width 18.2 Platelet Count 85 Mean Platelet Volume 8.8 Prothrombin Time 63.9 12.7 Prothromb Time International 5.4 1.1 Ratio Magnesium Level 1.8 Direct Bilirubin 0.9 Indirect Bilirubin 1.1 Activated Partial 31.8 Thromboplast Time Test 08/27/16 12:10 Fibrinogen 309 Date/Time Procedure Status Source Growth 08/27/16 05:22 Aerobic Blood Culture Received Blood Peripheral Pending 08/27/16 05:22 Anaerobic Blood Culture Received Blood Peripheral Pending 08/23/16 18:00 Gram Stain - Final Complete Fluid Pleural Fluid 08/23/16 18:00 Body Fluid Culture - Final Complete Fluid Pleural Fluid NO GROWTH IN 72 HRS.--AEROBICALLY OR ... 08/23/16 18:00 Acid Fast Stain - Final Resulted Fluid Pleural Fluid NO ACID FAST BACILLI SEEN 08/23/16 18:00 Mycobacterial Culture Resulted Fluid Pleural Fluid Pending Imaging Last Impressions Liver Ultrasound 08/25/16 0000 Signed Impressions: Service Date/Time: Thursday, August 25, 2016 20:06 - CONCLUSION: 1. 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 No focal hepatic lesion demonstrated. 2. No evidence of acute cholecystitis or biliary obstruction. 3. Mild splenomegaly. 4. Mild ascites. Orlin Mooney MD Chest X-Ray 08/23/16 0000 Signed Impressions: Service Date/Time: Tuesday, August 23, 2016 09:10 - CONCLUSION: Rapid reaccumulation of the right pleural effusion. Discussed with Dr. Garrison Denton chest tube will be placed on the right. Eduar Pederson MD FACR Chest Tube Insertion 08/23/16 0000 Signed Impressions: Service Date/Time: Tuesday, August 23, 2016 17:29 - CONCLUSION: Uncomplicated right chest tube placement as above. Effusion will be drained slowly over the ensuing hours. Juan Jose Mcguire Jr., MD Thoracentesis Ultrasound 08/22/16 0000 Signed Impressions: Service Date/Time: Monday, August 22, 2016 10:00 - CONCLUSION: Uncomplicated ultrasound guided thoracentesis. Que Beard MD Lower Extremity Ultrasound 08/21/16 0000 Signed Impressions: Service Date/Time: August 16:37 - CONCLUSION: 1. No DVT identified within either lower extremity. 2. Diffuse edema within both lower extremities. Jose Pederson MD Physical Exam HEENT: Normocephalic; atraumatic; no jaundice. CHEST: Resp shallow/even. Right CT with large amount of serous drainage. CARDIAC: RRR ABDOMEN: Soft, nondistended, nontender; small amount of ascites, hepatosplenomegaly; bowel sounds are present in all four quadrants. EXTREMITIES: BLE edema. SKIN: Normal; no rash; no jaundice. FOOD AND BEVERAGE DIRECTOR: Very lethargic somnolent. (Abby Garza) Assessment and Plan Plan ASSESSMENT: - Liver Cirrhosis. He has a hx of alcohol abuse, but stopped drinking completely on 04/19/16, when he was told by a physician that they suspected that he had liver disease. [facility] Iron saturation 11%, HBsAg negative, HBsAb negative, HCV nonreactive. He is currently in the ICU for pleural effusion/respiratory issues. His prognosis is poor and he is being followed by the Palliative care service. His son Lupillo Delgado is his durable power of assistant prosecuting attorney/healthcare surrogate. His phone number is . Spoke to son/sisters re: not a candidate for liver transplant at this time secondary to MELD score 10, has not been ETOH free x 6 months, and likely because of overall condition at this time. Verbalizes understanding. Liver Ultrasound (08/25/16)----> 1. 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 No focal hepatic lesion demonstrated. 2. No evidence of acute cholecystitis or biliary obstruction. 3. Mild splenomegaly. 4. Mild ascites. JOSE neg AMA pending, ASMA pending, Alpha 1 Antitrypsin 143, ceruloplasmin pending. AFP 0.8. Ferritin 282. T. Bili 2.0, AST 68, ALT 98, ALk phosph 208. 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 No prior imaging to compare. Platelets 86,000. Will get hematology evaluation for further recommendations. Hematology following. Of note, patient reports son says this was a sudden decompensation with fluid retention despite diuretics. CT scan abdomen and pelvis pending. (He did say that patient had CT earlier this year at [facility], but our office reviewed records and this was noncontrasted. They are faxing to floor. It was done in 05/02. - Hepatic encephalopathy. Ammonia 121. Lactulose. Will add Xifaxan. - Esophageal varices and hx of duodenal ulcer. Had EGD (05/10/16) and this revealed duodenal ulcer, gastropathy, grade II esophageal varices, colon polyps. Pathology revealed stomach antrum with superficially denuded gastric mucosa, and ascending colon polyp with tubular adenoma. He is scheduled for a repeat EGD on 09/05/16 as outpatient with our service. He is not currently having any active bleeding. - Pleural Effusion. Has CT right by IR. Pulmonology following. - HTN, Anxiety/Depression, RA, CKD, Gout, Neuropathy, Chronic back pain per primary PLAN: - CAROL - Dietary consult - Await ASMA, AMA - Await Ceruloplasmin - Cont. Lasix, Aldactone (had hyperkalemia so leary of increasing aldactone) - Cont. Lactulose - Cont. Propranolol - Cont. Protonix - Add Xifaxan - Monitor labs - Supportive care - Hematology following - Further recommendations to follow based on results of above - EGD only if active bleeding - Long discussion with family, questions answered. - Pt seen and examined by Dr. Perez and myself and this note is written on his behalf (Abby Garza) Physician Comments Seen and examined , agree with above. [place] in progress for decompensated liver disease, Hematology consulted for Portal vein thrombosis. (Lorelei Perez MD) Abby Garza Aug 27, 2016 14:20 Lorelei Perez MD Aug 27, 2016 15:59
[2016-08-27] MEDS: cefTRIAXone INJ 1,000 MG in SODIUM CHLORIDE 0.9% INJ 100 ML IV SCH (17:20)
--- NOTE | 2016-08-27 17:30 | HHI.PR ---
Subjective Remarks The patient was lethargic. He would open his eyes but would not communicate. Discussed with nursing. He has been more sleepy since getting morphine. Objective Vitals Vital Signs Date Time Temp Pulse Resp B/P Pulse Ox O2 Delivery O2 Flow Rate FiO2 08/27/16 08:27 98 Nasal Cannula 2.00 08/27/16 08:00 71 08/27/16 06:00 68 08/27/16 04:00 67 08/27/16 04:00 96.7 67 17 141/65 98 08/27/16 02:00 63 08/27/16 00:00 62 08/27/16 00:00 96.8 62 12 125/61 98 08/26/16 22:00 66 08/26/16 20:00 97.9 70 21 109/82 98 08/26/16 20:00 70 08/26/16 19:20 98 Nasal Cannula 2.00 08/26/16 19:00 100 Nasal Cannula 2.00 08/26/16 18:00 68 I/O 08/26/16 08/26/16 08/26/16 08/27/16 08/27/16 08/27/16 07:00 15:00 23:00 07:00 15:00 23:00 Intake Total 100 ml 750 ml 150 ml 20 ml Output Total 975 ml 710 ml 760 ml 1000 ml Balance -875 ml 40 ml -610 ml -980 ml Intake Oral 100 ml 750 ml 50 ml 20 ml IV Total 0 ml 100 ml Output Urine Total 350 ml 350 ml 250 ml 500 ml Chest Tube Drainage Total 625 ml 360 ml 510 ml 500 ml # Bowel Movements 1 1 Result Diagram: 08/27/16 0452 08/27/16 0522 Imaging Last Impressions Liver Ultrasound 08/25/16 0000 Signed Impressions: Service Date/Time: Thursday, August 25, 2016 20:06 - CONCLUSION: 1. 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 No focal hepatic lesion demonstrated. 2. No evidence of acute cholecystitis or biliary obstruction. 3. Mild splenomegaly. 4. Mild ascites. Orlin Mooney MD Chest X-Ray 08/23/16 0000 Signed Impressions: Service Date/Time: Tuesday, August 23, 2016 09:10 - CONCLUSION: Rapid reaccumulation of the right pleural effusion. Discussed with Dr. S. White chest tube will be placed on the right. Eduar Pederson MD FACR Chest Tube Insertion 08/23/16 0000 Signed Impressions: Service Date/Time: Tuesday, August 23, 2016 17:29 - CONCLUSION: Uncomplicated right chest tube placement as above. Effusion will be drained slowly over the ensuing hours. Juan Jose Mcguire Jr., MD Thoracentesis Ultrasound 08/22/16 0000 Signed Impressions: Service Date/Time: Monday, August 22, 2016 10:00 - CONCLUSION: Uncomplicated ultrasound guided thoracentesis. Que Beard MD Lower Extremity Ultrasound 08/21/16 0000 Signed Impressions: Service Date/Time: August 16:37 - CONCLUSION: 1. No DVT identified within either lower extremity. 2. Diffuse edema within both lower extremities. Jose Pederson MD Objective Remarks GENERAL: No acute distress. Drowsy. HEENT: PERRLA, EOMI. No scleral icterus or conjunctival pallor. No lid lag or facial droop. CARDIOVASCULAR: Regular rate and rhythm. No obvious murmurs to auscultation. No chest tenderness to palpation. RESPIRATORY: Decreased breath sounds. Chest tube in place. GASTROINTESTINAL: Abdomen soft, non-tender, nondistended. BS normal. MUSCULOSKELETAL: Extremities without clubbing, cyanosis. 2+ bilateral lower extremity edema. No obvious deformities. NEUROLOGICAL: Patient is somnolent, responsive to verbal stimuli but he goes right back to sleep. PSYCH: Flattened affect. Medications and IVs Current Medications Medications (Trade) Dose Ordered Sig/Ana Route Start Time Stop Time Status Last Admin (Lasix) 40 mg BID@,18 PO 08/22/16 09:00 08/27/16 17:20 (NS Flush) 2 ml UNSCH PRN IV FLUSH 08/21/16 19:45 08/27/16 08:02 (NS Flush) 2 ml BID IV FLUSH 08/21/16 21:00 08/27/16 08:00 (Zofran Inj) 4 mg Q6H PRN IVP 08/21/16 19:45 (Tylenol) 650 mg Q6H PRN PO 08/21/16 19:45 (Paula-Colace) 1 tab BID PO 08/21/16 21:00 08/25/16 09:33 (Milk Of Magnesia Liq) 30 ml Q12H PRN PO 08/21/16 19:45 (Senokot) 17.2 mg Q12H PRN PO 08/21/16 19:45 (Dulcolax Supp) 10 mg DAILY PRN RECTAL 08/21/16 19:45 (Xanax) 0.25 mg Q8H PRN PO 08/21/16 19:45 (Vitamin B12) 50 mcg HS PO 08/21/16 21:00 08/26/16 22:50 (Cardizem) 30 mg BID PO 08/21/16 21:00 08/27/16 07:59 (Ferrous Sulfate) 325 mg BID PO 08/21/16 21:00 08/27/16 07:59 (PROzac) 20 mg DAILY PO 08/22/16 09:00 08/27/16 07:58 (Folate) 1 mg DAILY PO 08/22/16 09:00 08/27/16 07:59 (Neurontin) 300 mg TID PO 08/22/16 09:00 08/27/16 17:20 (Lactinex) 1 tab TID PO 08/22/16 09:00 08/27/16 17:21 (Synthroid) 75 mcg DAILY@06 PO 08/22/16 06:00 08/27/16 06:06 (Protonix) 40 mg Q12HR PO 08/21/16 21:00 08/27/16 07:59 (Vitamin B1) 100 mg DAILY PO 08/22/16 09:00 08/27/16 08:00 (Theragran) 1 tab DAILY PO 08/22/16 09:00 08/27/16 07:59 (Aldactone) 50 mg DAILY PO 08/22/16 09:00 08/27/16 07:59 (Inderal) 10 mg Q12HR PO 08/22/16 09:00 08/27/16 07:59 Lactulose 30 ml 30 ml TID PO 08/26/16 18:00 08/27/16 17:20 (Rocephin Inj/NS Inj) 100 ml @ 200 mls/hr Q24H IV 08/26/16 18:00 08/27/16 17:20 (Xifaxan) 550 mg BID PO 08/27/16 21:00 (Roxicodone) 5 mg Q4H PRN PO 08/27/16 17:15 UNV A/P Problem List: (1) Pleural effusion ICD Code: J90 Status: Acute (2) Elevated troponin ICD Code: R74.8 Status: Acute (3) Hyperkalemia ICD Code: E87.5 Status: Acute (4) Thrombocytopenia ICD Code: D69.6 Status: Acute (5) Cirrhosis ICD Code: K74.60 Status: Acute (6) HTN (hypertension) ICD Code: I10 Status: Chronic (7) H/O: GI bleed ICD Code: Z87.19 Status: Acute (8) Alcohol abuse ICD Code: F10.10 Status: Acute (9) Sacral decubitus ulcer, stage II ICD Code: L89.152 Status: Acute Assessment and Plan Cirrhosis/ Failure to thrive H/o alcohol abuse and Hepatitis C w/ h/o cirrhosis. GI consult appreciated. Ammonia level elevated. - resume Lasix, add Aldactone and propranolol. Holding diuretics at this time due to acute renal insufficiency. - follow with palliative care. Consider hospice. - ST/ PT/ OT. - add standing lactulose TID and follow ammonia level. Right Pleural Effusion Recurrent. Recent admit 08/11-08/17/16 for similar. S/p thoracentesis by IR w/ removal of 4450cc fluid, transudate thought to be secondary to cirrhosis. Now w/ recurrent right pleural effusion and SOB. CXR w/ complete opacification of right hemithorax due to effusion. Status post thoracentesis. - Hold diuresis. - follow up with pulmonology. Portal vein thrombosis Noted on imaging. - hematology consult appreciated. CT abdomen pending. Acute on chronic renal insufficiency Likely secondary to diuretic use. - Hold diuretics for now. - Follow labs in morning. Leukocytosis Unsure of etiology. Improving. - check blood cultures x 2. - start ceftriaxone. - defer paracentesis to GI. Elevated Trop Trop 0.11, similar to previous admit, no c/o chest pain, EKG w/ no acute changes. Likely secondary to cirrhosis, strain from large effusion. Poor candidate for anticoagulation in light of thrombocytopenia, coagulopathy and previous h/o GI bleed w/ esophageal varices. - continue cardiac regimen. Hyperkalemia S/p Ca/Insulin/D50. - telemetry. - continue monitoring. HTN Relatively well controlled. - Monitor BP, resume home medications. Thrombocytopenia Chronic. Stable. No active bleeding at this time. - Monitor closely. H/o GI bleed Secondary to alcohol abuse/cirrhosis/grade II esophageal varices, no signs of bleeding at this time. Hgb stable. - monitor. Alcohol Abuse h/o alcohol abuse, 1pint Vodka/day, states he quit 05/2016. - Continue Thiamine/Folate/MVT replacement. Sacral Decubitus Ulcer Stage II. Present on arrival. - Wound Consult for further evaluation. DVT Prophylaxis: Pharmacologic contraindication secondary to h/o GI Bleed, Varices and Thrombocytopenia. Mechanical contraindication secondary to significant edema. Discharge Planning Awaiting clinical improvement. Emerson Pruitt DO Aug 27, 2016 17:30
[2016-08-27] MEDS ORDERED: IODIXANOL 320 MG/ML 10 ML VIAL (for Rad CT) IV ONE (17:51)
--- NOTE | 2016-08-27 18:27 | RADRPT ---
EXAM DATE/TIME: 08/27/2016 17:43 [facility] COMPARISON: US ABDOMEN - LIVER, August 25, 2016, 20:06. INDICATIONS : Abnormal ultrasound. Evaluate for portal vein thrombosis. ORAL CONTRAST: Yes RADIATION DOSE: 21.66 CTDIvol (mGy) MEDICAL HISTORY : Hypertension. Cirrhosis. SURGICAL HISTORY : No ENCOUNTER: Initial ACUITY: One day PAIN SCALE: 5 LOCATION: Upper abdomen TECHNIQUE: Volumetric scanning of the abdomen was performed. Using automated exposure control and adjustment of the mA and/or kV according to patient size, radiation dose was kept as low as reasonably achievable to obtain optimal diagnostic quality images. FINDINGS: Shrunken nodular liver typical of cirrhosis noted. There is heterogeneous but primarily low attenuati on in the portal vein relative to other vessels. There is small ascites. Spleen size is within normal limits. Trace pericholecystic fluid, presumably related to chronic liver disease. Pancreas, adrenal glands and kidneys are without an acute abnormality. No obstruction or acute inflam matory changes are seen of the visualized gastrointestinal tract. There is a small left pleural effusion. CONCLUSION: Sclerotic changes of the liver and similar to the ultrasound, CT findings would also support the like lihood of portal vein thrombosis. Small ascites. No splenomegaly. Orlin Mooney MD on August 27, 2016 at 18:20 Board Certified Radiologist. This report was verified electronically.
--- NOTE | 2016-08-27 18:44 | HHI.PR ---
Subjective Remarks 70 [address] with recurrent [address] effusion Had right chest tube placed Breathing better No Fever Chest tube draining Ammonia level 121 Objective Vital Signs Vital Signs Date Time Temp Pulse Resp B/P Pulse Ox O2 Delivery O2 Flow Rate FiO2 08/27/16 16:00 97.5 58 16 116/56 97 08/27/16 16:00 58 08/27/16 16:00 97 Nasal Cannula 2.00 08/27/16 14:00 56 08/27/16 12:00 56 08/27/16 12:00 98 Nasal Cannula 2.00 08/27/16 12:00 97.4 56 17 124/58 97 08/27/16 10:00 61 08/27/16 08:27 98 Nasal Cannula 2.00 08/27/16 08:00 Nasal Cannula 2.00 08/27/16 08:00 97.1 65 16 154/74 98 08/27/16 08:00 71 08/27/16 06:00 68 08/27/16 04:00 67 08/27/16 04:00 96.7 67 17 141/65 98 08/27/16 02:00 63 08/27/16 00:00 62 08/27/16 00:00 96.8 62 12 125/61 98 08/26/16 22:00 66 08/26/16 20:00 97.9 70 21 109/82 98 08/26/16 20:00 70 08/26/16 19:20 98 Nasal Cannula 2.00 08/26/16 19:00 100 Nasal Cannula 2.00 I/O 08/26/16 08/26/16 08/26/16 08/27/16 08/27/16 08/27/16 07:00 15:00 23:00 07:00 15:00 23:00 Intake Total 100 ml 750 ml 150 ml 20 ml 100 ml Output Total 975 ml 710 ml 760 ml 1000 ml 1100 ml Balance -875 ml 40 ml -610 ml -980 ml -1000 ml Intake Oral 100 ml 750 ml 50 ml 20 ml 100 ml IV Total 0 ml 100 ml Output Urine Total 350 ml 350 ml 250 ml 500 ml 350 ml Chest Tube Drainage Total 625 ml 360 ml 510 ml 500 ml 750 ml # Bowel Movements 1 1 1 Result Diagram: 08/27/16 0452 08/27/16 0522 Objective Remarks GENERAL: MBMN WM mild sob SKIN: Warm and dry. HEAD: Normocephalic. EYES: No scleral icterus. No injection or drainage. NECK: Supple, trachea midline. No JVD or lymphadenopathy. CARDIOVASCULAR: Regular rate and rhythm without murmurs, gallops, or rubs. RESPIRATORY: Breath sounds equal bilaterally. No accessory muscle use. Right chest tube draining GASTROINTESTINAL: Abdomen soft, non-tender, nondistended. MUSCULOSKELETAL: No cyanosis, or edema. BACK: Nontender without obvious deformity. No CVA tenderness. A/P Assessment and Plan Recurrent pl effusion right chest tube placement cirrhosis of liver HTN Hepatic encephalopathy PLAN: Chest tube to suction Supplement 02 Humidify 02 DW family Cont Abx. Cheikh Goetz MD Aug 27, 2016 18:43
[2016-08-27] MEDS: RIFAXIMIN 550 MG TAB PO SCH (20:26)
[2016-08-27] MEDS: CYANOCOBALAMIN 1,000 MCG TAB PO SCH (20:26)
[2016-08-28] VITALS (23 sets, daily range): BP systolic 144–177; BP diastolic 70–93; PULSE 63–87; RESP 13–46; TEMP 97.4–98.3; O2SAT 92–99
[2016-08-28] MEDS ORDERED: LABETALOL HCL 100 MG/20 ML VIAL IV PUSH PRN (02:15)
[2016-08-28] MEDS: LEVOTHYROXINE SODIUM 75 MCG TAB PO SCH (05:05)
[2016-08-28 07:05] LABS: AUTOMATED NEUTROPHIL # 9.9 TH/MM3 (1.8-7.7); BASOPHIL % 0.1 % (0.0-2.0); EOSINOPHIL % 0.2 % (0.0-4.0); HEMATOCRIT 48.3 % (39.0-51.0); LYMPH % 10.5 % (9.0-44.0); LYMPHOCYTE # 1.3 TH/MM3 (1.0-4.8); MEAN CELL VOLUME 91.7 FL (80.0-100.0); MEAN CORPUSCULAR HEMOGLOBIN 30.6 PG (27.0-34.0); MEAN CORPUSCULAR HGB CONC 33.3 % (32.0-36.0); MONO % 6.8 % (0.0-8.0); NEUT % 82.4 % (16.0-70.0); PLATELET COUNT 94 TH/MM3 (150-450); RED BLOOD COUNT 5.27 MIL/MM3 (4.50-5.90); RED CELL DISTRIBUTION WIDTH 18.1 % (11.6-17.2); WHITE BLOOD COUNT 12.1 TH/MM3 (4.0-11.0)
[2016-08-28 07:06] LABS: HEMO FLAGS AUTO DIFF
[2016-08-28 07:12] LABS: ALT (GPT) 98 U/L (12-78); ANION GAP 9 MEQ/L (5-15); AST (GOT) 68 U/L (15-37); BICARBONATE 24.6 MEQ/L (21.0-32.0); BLOOD UREA NITROGEN 87 MG/DL (7-18); CHLORIDE 103 MEQ/L (98-107); GLOMERULAR FILTRATION RATE 38 ML/MIN (>89); POTASSIUM 4.8 MEQ/L (3.5-5.1); SODIUM (NA) 137 MEQ/L (136-145)
[2016-08-28 07:15] LABS: ALKALINE PHOSPHATASE 221 U/L (45-117)
[2016-08-28 08:04] LABS: PLATELET ESTIMATE SMEAR LOW (NORMAL); PLATELET MORPHOLOGY NORMAL (NORMAL)
[2016-08-28 08:05] LABS: SCAN/DIFF AUTO DIFF CONFIRMED
[2016-08-28] MEDS: FLUoxetine HCL 20 MG CAP PO SCH (08:16)
[2016-08-28] MEDS: PANTOPRAZOLE SOD 40 MG DELAYED RELEASE TAB PO SCH ×2 (08:16→21:00)
[2016-08-28] MEDS: FERROUS SULFATE 325 MG (65 MG ELEMENTAL IRON) TAB PO SCH ×2 (08:16→21:00)
[2016-08-28] MEDS: PROPRANOLOL HCL 10 MG TAB PO SCH ×2 (08:16→21:40)
[2016-08-28] MEDS: LACTULOSE SYRUP 20 GM/30 ML CUP PO SCH ×3 (08:16→17:54)
[2016-08-28] MEDS: DILTIAZEM HCL 30 MG TAB PO SCH ×2 (08:17→21:40)
[2016-08-28] MEDS: THIAMINE HCL 100 MG TAB PO SCH (08:17)
[2016-08-28] MEDS: GABAPENTIN 300 MG CAP PO SCH ×3 (08:17→17:16)
[2016-08-28] MEDS: FOLIC ACID 1 MG TAB PO SCH (08:17)
[2016-08-28] MEDS: DOCUSATE SODIUM 50 MG/SENNA 8.6 MG TAB PO SCH ×2 (08:17→21:40)
[2016-08-28] MEDS: SODIUM CHLORIDE 0.9% FLUSH 10 ML FLUSH IV FLUSH SCH ×2 (08:17→21:40)
[2016-08-28] MEDS: RIFAXIMIN 550 MG TAB PO SCH ×2 (08:17→21:40)
[2016-08-28] MEDS: LACTOBACILLUS ACIDOPHILUS TAB PO SCH ×3 (08:17→17:16)
[2016-08-28] MEDS: MULTIVITAMIN TAB PO SCH (08:17)
--- NOTE | 2016-08-28 11:12 | HHI.GIFU ---
Subjective Remarks Resting in bed. Lethargic. Nonverbal. Drainage from CT and BLE edema has seemed to decrease. + BM (Abby Garza) Objective Vitals I&O Vital Signs Date Time Temp Pulse Resp B/P Pulse Ox O2 Delivery O2 Flow Rate FiO2 08/28/16 10:00 71 08/28/16 09:00 77 08/28/16 09:00 77 27 173/84 99 08/28/16 08:52 96 Nasal Cannula 2.00 08/28/16 08:40 87 08/28/16 08:40 87 23 155/86 98 08/28/16 08:00 97.7 78 20 170/81 98 08/28/16 08:00 78 08/28/16 08:00 96 Nasal Cannula 2.00 08/28/16 07:00 82 08/28/16 07:00 82 24 171/92 08/28/16 06:00 78 08/28/16 04:00 65 08/28/16 04:00 98.0 66 13 145/70 98 08/28/16 04:00 96 Nasal Cannula 2.00 08/28/16 02:00 67 08/28/16 00:00 73 08/28/16 00:00 98.3 73 32 177/80 97 08/28/16 00:00 97 Nasal Cannula 2.00 08/27/16 22:00 62 08/27/16 20:00 66 08/27/16 20:00 96 Nasal Cannula 2.00 08/27/16 20:00 97.9 66 33 165/80 96 08/27/16 19:27 96 Nasal Cannula 2.00 08/27/16 18:00 61 08/27/16 16:00 97.5 58 16 116/56 97 08/27/16 16:00 58 08/27/16 16:00 97 Nasal Cannula 2.00 08/27/16 14:00 56 08/27/16 12:00 56 08/27/16 12:00 98 Nasal Cannula 2.00 08/27/16 12:00 97.4 56 17 124/58 97 I/O 08/27/16 08/27/16 08/27/16 08/28/16 08/28/16 08/28/16 07:00 15:00 23:00 07:00 15:00 23:00 Intake Total 20 ml 100 ml 190 ml 0 ml Output Total 1000 ml 1100 ml 700 ml 600 ml Balance -980 ml -1000 ml -510 ml -600 ml Intake Oral 20 ml 100 ml IV Total 190 ml 0 ml Output Urine Total 500 ml 350 ml 300 ml 300 ml Chest Tube Drainage Total 500 ml 750 ml 400 ml 300 ml # Bowel Movements 1 1 Laboratory Laboratory Tests Test 08/27/16 08/27/16 08/28/16 12:00 12:10 06:39 Prothrombin Time 12.7 Prothromb Time International 1.1 Ratio Activated Partial 31.8 Thromboplast Time Fibrinogen 309 White Blood Count 12.1 Red Blood Count 5.27 Hemoglobin 16.1 Hematocrit 48.3 Mean Corpuscular Volume 91.7 Mean Corpuscular Hemoglobin 30.6 Mean Corpuscular Hemoglobin 33.3 Concent Red Cell Distribution Width 18.1 Platelet Count 94 Mean Platelet Volume 8.6 Neutrophils (%) (Auto) 82.4 Lymphocytes (%) (Auto) 10.5 Monocytes (%) (Auto) 6.8 Eosinophils (%) (Auto) 0.2 Basophils (%) (Auto) 0.1 Neutrophils # (Auto) 9.9 Lymphocytes # (Auto) 1.3 Monocytes # (Auto) 0.8 Eosinophils # (Auto) 0.0 Basophils # (Auto) 0.0 CBC Comment AUTO DIFF Differential Comment AUTO DIFF CONFIRMED Platelet Estimate LOW Platelet Morphology Comment NORMAL Sodium Level 137 Potassium Level 4.8 Chloride Level 103 Carbon Dioxide Level 24.6 Anion Gap 9 Blood Urea Nitrogen 87 Creatinine 1.77 Estimat Glomerular Filtration 38 Rate Random Glucose 96 Calcium Level 9.4 Total Bilirubin 2.0 Aspartate Amino Transf 68 (AST/SGOT) Alanine Aminotransferase 98 (ALT/SGPT) Alkaline Phosphatase 221 Ammonia 55 Total Protein 5.8 Albumin 1.8 Date/Time Procedure Status Source Growth 08/27/16 05:22 Aerobic Blood Culture Received Blood Peripheral Pending 08/27/16 05:22 Anaerobic Blood Culture Received Blood Peripheral Pending 08/23/16 18:00 Gram Stain - Final Complete Fluid Pleural Fluid 08/23/16 18:00 Body Fluid Culture - Final Complete Fluid Pleural Fluid NO GROWTH IN 72 HRS.--AEROBICALLY OR ... 08/23/16 18:00 Acid Fast Stain - Final Resulted Fluid Pleural Fluid NO ACID FAST BACILLI SEEN 08/23/16 18:00 Mycobacterial Culture Resulted Fluid Pleural Fluid Pending Imaging Last Impressions Abdomen CT 08/27/16 Signed Impressions: Service Date/Time: Saturday, August 27, 2016 17:43 - CONCLUSION: Sclerotic changes of the liver and similar to the ultrasound, CT findings would also support the likelihood of portal vein thrombosis. Small ascites. No splenomegaly. Orlin Mooney MD Liver Ultrasound 08/25/16 Signed Impressions: Service Date/Time: Thursday, August 25, 2016 20:06 - CONCLUSION: 1. 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 No focal hepatic lesion demonstrated. 2. No evidence of acute cholecystitis or biliary obstruction. 3. Mild splenomegaly. 4. Mild ascites. Orlin Mooney MD Chest X-Ray 08/23/16 Signed Impressions: Service Date/Time: Tuesday, August 23, 2016 09:10 - CONCLUSION: Rapid reaccumulation of the right pleural effusion. Discussed with Dr. Garrison Denton chest tube will be placed on the right. Eduar Pederson MD FACR Chest Tube Insertion 08/23/16 Signed Impressions: Service Date/Time: Tuesday, August 23, 2016 17:29 - CONCLUSION: Uncomplicated right chest tube placement as above. Effusion will be drained slowly over the ensuing hours. Juan Jose Mcguire Jr., MD Thoracentesis Ultrasound 08/22/16 Signed Impressions: Service Date/Time: Monday, August 22, 2016 10:00 - CONCLUSION: Uncomplicated ultrasound guided thoracentesis. Que Beard MD Lower Extremity Ultrasound 08/21/16 Signed Impressions: Service Date/Time: August 16:37 - CONCLUSION: 1. No DVT identified within either lower extremity. 2. Diffuse edema within both lower extremities. Jose Pederson MD Physical Exam HEENT: Normocephalic; atraumatic; no jaundice. CHEST: Resp shallow/even. Right CT with small to moderate amount of serous drainage. CARDIAC: RRR ABDOMEN: Soft, nondistended, nontender; small amount of ascites, hepatosplenomegaly; bowel sounds are present in all four quadrants. EXTREMITIES: Mild BLE edema. SKIN: Normal; no rash; no jaundice. LONG TERM CARE ADMINISTRATOR: Somnolent. (Abby Garza) Assessment and Plan Plan ASSESSMENT: - Liver Cirrhosis. He has a hx of alcohol abuse, but stopped drinking completely on 04/19/16, when he was told by a physician that they suspected that he had liver disease. He had some workup through the [facility] on (06/02/16)- Iron saturation 11%, HBsAg negative, HBsAb negative, HCV nonreactive. He is currently in the ICU for pleural effusion/respiratory issues. His prognosis is poor and he is being followed by the Palliative care service. His son Lupillo Delgado is his durable power of securities attorney/healthcare surrogate. His phone number is . Spoke to son/sisters re: not a candidate for liver transplant at this time secondary to MELD score 10, has not been ETOH free x 6 months, and likely because of overall condition at this time. Verbalizes understanding. Liver Ultrasound (08/25/16)----> 1. 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 No focal hepatic lesion demonstrated. 2. No evidence of acute cholecystitis or biliary obstruction. 3. Mild splenomegaly. 4. Mild ascites. JOSE neg AMA pending, ASMA negative, Alpha 1 Antitrypsin 143, ceruloplasmin 34. AFP 0.8. Ferritin 282. T. Bili 2.0, AST 68, ALT 98, ALk phosph 221. His edema seems to be improving. 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 No prior imaging to compare. Platelets 86,000. Will get hematology evaluation for further recommendations. Hematology following. Of note, patient reports son says this was a sudden decompensation with fluid retention despite diuretics. CT scan abdomen and pelvis pending. (He did say that patient had CT earlier this year at [facility], but our office reviewed records and this was noncontrasted. They are faxing to floor. It was done in 05/02. Abdomen CT (08/27/16)---> Sclerotic changes of the liver and similar to the ultrasound, CT findings would also support the likelihood of portal vein thrombosis. Small ascites. No splenomegaly. - Hepatic encephalopathy. Ammonia 55. Lactulose, Xifaxan. Remains somnolent - Malnutrition. S/P Dado Operator evaluation. [facility] soft cardiac w/nectar thick liqs Ensure tid (necthk), Theragran, Thiamine, Folate and Ferrous Sulfate supplementation If po intake remains poor, may want to consider alternate route of nutrition. Nurse reports he is taking very little po intake. Will place NGT and start TF. ? Family may need to consider PEG tube if they choose to continue aggressive care. - Esophageal varices and hx of duodenal ulcer. Had EGD (05/10/16) and this revealed duodenal ulcer, gastropathy, grade II esophageal varices, colon polyps. Pathology revealed stomach antrum with superficially denuded gastric mucosa, and ascending colon polyp with tubular adenoma. He is scheduled for a repeat EGD on 09/05/16 as outpatient with our service. He is not currently having any active bleeding. - Pleural Effusion. Has CT right by IR. Pulmonology following. - HTN, Anxiety/Depression, RA, CKD, Gout, Neuropathy, Chronic back pain per primary PLAN: - Insert NGT - Nutrihep at 30cc/hr and then advance to GR as recommended by mailroom clerk - Mechanical soft cardiac w/nectar thick liqs Ensure tid (necthk) - Cont. Folate - Cont. Thiamine - Cont. Theragran - Cont. Ferrous sulfate - Await AMA - Cont. Lasix, Aldactone (had hyperkalemia so leary of increasing aldactone) - Cont. Lactulose/Xifaxan - Cont. Propranolol - Cont. Protonix - Monitor labs - Supportive care - Hematology following - EGD only if active bleeding - Long discussion with family, questions answered. - Palliative care following. ? Family may need to consider PEG tube placement if they continue to want aggressive care - Pt seen and examined by Dr. Perez and myself and this note is written on his behalf (Abby Garza) Physician Comments Seen and examined with KENNETH, grade 3 encepahaolpathy. No active bleeding. No treatment for Portal vein thrombosis recommended due to poor status. Hospice consulted. GI will sign off. Thank you (Lorelei Perez MD) Abby Garza Aug 28, 2016 11:12 Lorelei Preez MD Aug 28, 2016 14:38
--- NOTE | 2016-08-28 13:29 | PD.ONC.PN ---
Subjective Subjective Remarks Afebrile overnight. patient remains non-verbal. Resting in bed. Objective Data Date Time Temp Pulse Resp B/P Pulse Ox O2 Delivery O2 Flow Rate FiO2 08/28/16 10:00 71 08/28/16 09:00 77 08/28/16 09:00 77 27 173/84 99 08/28/16 08:52 96 Nasal Cannula 2.00 08/28/16 08:40 87 08/28/16 08:40 87 23 155/86 98 08/28/16 08:00 97.7 78 20 170/81 98 08/28/16 08:00 78 08/28/16 08:00 96 Nasal Cannula 2.00 08/28/16 07:00 82 08/28/16 07:00 82 24 171/92 08/28/16 06:00 78 08/28/16 04:00 65 08/28/16 04:00 98.0 66 13 145/70 98 08/28/16 04:00 96 Nasal Cannula 2.00 08/28/16 02:00 67 08/28/16 00:00 73 08/28/16 00:00 98.3 73 32 177/80 97 08/28/16 00:00 97 Nasal Cannula 2.00 08/27/16 22:00 62 08/27/16 20:00 66 08/27/16 20:00 96 Nasal Cannula 2.00 08/27/16 20:00 97.9 66 33 165/80 96 08/27/16 19:27 96 Nasal Cannula 2.00 08/27/16 18:00 61 08/27/16 16:00 97.5 58 16 116/56 97 08/27/16 16:00 58 08/27/16 16:00 97 Nasal Cannula 2.00 08/27/16 14:00 56 08/28/16 08/28/16 08/28/16 07:00 15:00 23:00 Intake Total 0 ml Output Total 600 ml Balance -600 ml Result Diagram: 08/28/16 0639 08/28/16 0639 Laboratory Results Laboratory Tests Test 08/28/16 06:39 White Blood Count 12.1 TH/MM3 Red Blood Count 5.27 MIL/MM3 Hemoglobin 16.1 GM/DL Hematocrit 48.3 % Mean Corpuscular Volume 91.7 FL Mean Corpuscular Hemoglobin 30.6 PG Mean Corpuscular Hemoglobin 33.3 % Concent Red Cell Distribution Width 18.1 % Platelet Count 94 TH/MM3 Mean Platelet Volume 8.6 FL Neutrophils (%) (Auto) 82.4 % Lymphocytes (%) (Auto) 10.5 % Monocytes (%) (Auto) 6.8 % Eosinophils (%) (Auto) 0.2 % Basophils (%) (Auto) 0.1 % Neutrophils # (Auto) 9.9 TH/MM3 Lymphocytes # (Auto) 1.3 TH/MM3 Monocytes # (Auto) 0.8 TH/MM3 Eosinophils # (Auto) 0.0 TH/MM3 Basophils # (Auto) 0.0 TH/MM3 CBC Comment AUTO DIFF Differential Comment AUTO DIFF CONFIRMED Platelet Estimate LOW Platelet Morphology Comment NORMAL Sodium Level 137 MEQ/L Potassium Level 4.8 MEQ/L Chloride Level 103 MEQ/L Carbon Dioxide Level 24.6 MEQ/L Anion Gap 9 MEQ/L Blood Urea Nitrogen 87 MG/DL Creatinine 1.77 MG/DL Estimat Glomerular Filtration 38 ML/MIN Rate Random Glucose 96 MG/DL Calcium Level 9.4 MG/DL Total Bilirubin 2.0 MG/DL Aspartate Amino Transf 68 U/L (AST/SGOT) Alanine Aminotransferase 98 U/L (ALT/SGPT) Alkaline Phosphatase 221 U/L Ammonia 55 MCMOL/L Total Protein 5.8 GM/DL Albumin 1.8 GM/DL Culture Results Microbiology Date/Time Procedure Status Source Growth 08/27/16 05:10 Aerobic Blood Culture - Preliminary Resulted Blood Peripheral NO GROWTH IN 1 DAY 08/27/16 05:10 Anaerobic Blood Culture - Preliminary Resulted Blood Peripheral NO GROWTH IN 1 DAY 08/27/16 05:22 Aerobic Blood Culture - Preliminary Resulted Blood Peripheral NO GROWTH IN 1 DAY 08/27/16 05:22 Anaerobic Blood Culture - Preliminary Resulted Blood Peripheral NO GROWTH IN 1 DAY Administered Medications Medications (Trade) Dose Ordered Sig/Ana Route PRN Reason Start Time Stop Time Status Last Admin Dose Admin Furosemide (Lasix) 40 mg BID@09,18 PO 08/22/16 09:00 Hold 08/27/16 17:20 Sodium Chloride (NS Flush) 2 ml UNSCH PRN IV FLUSH FLUSH AFTER USING IV ACCESS 08/21/16 19:45 08/27/16 08:02 Sodium Chloride (NS Flush) 2 ml BID IV FLUSH 08/21/16 21:00 08/28/16 08:17 Senna/Docusate Sodium (Paula-Colace) 1 tab BID PO 08/21/16 21:00 08/27/16 20:27 Cyanocobalamin (Vitamin B12) 50 mcg HS PO 08/21/16 21:00 08/27/16 20:26 Diltiazem HCl (Cardizem) 30 mg BID PO 08/21/16 21:00 08/28/16 08:17 Ferrous Sulfate (Ferrous Sulfate) 325 mg BID PO 08/21/16 21:00 08/28/16 08:16 Fluoxetine HCl (PROzac) 20 mg DAILY PO 08/22/16 09:00 08/28/16 08:16 Folic Acid (Folate) 1 mg DAILY PO 08/22/16 09:00 08/28/16 08:17 Gabapentin (Neurontin) 300 mg TID PO 08/22/16 09:00 08/28/16 08:17 Lactobacillus Acidophilus (Lactinex) 1 tab TID PO 08/22/16 09:00 08/28/16 08:17 Levothyroxine Sodium (Synthroid) 75 mcg DAILY@06 PO 08/22/16 06:00 08/27/16 06:06 Pantoprazole Sodium (Protonix) 40 mg Q12HR PO 08/21/16 21:00 08/28/16 08:16 Thiamine HCl (Vitamin B1) 100 mg DAILY PO 08/22/16 09:00 08/28/16 08:17 Multivitamins (Theragran) 1 tab DAILY PO NS 08/22/16 09:00 08/28/16 08:17 Spironolactone (Aldactone) 50 mg DAILY PO 08/22/16 09:00 Hold 08/27/16 07:59 Propranolol HCl (Inderal) 10 mg Q12HR PO 08/22/16 09:00 08/28/16 08:16 Lactulose 30 ml 30 ml TID PO 08/26/16 18:00 08/28/16 08:16 Ceftriaxone Sodium/Sodium Chloride (Rocephin Inj/NS Inj) 100 ml @ 200 mls/hr Q24H IV 08/26/16 18:00 08/27/16 17:20 Rifaximin (Xifaxan) 550 mg BID PO 08/27/16 21:00 08/28/16 08:17 Oxycodone HCl (Roxicodone) 5 mg Q4H PRN PO pain 310 08/27/16 17:15 08/27/16 23:45 Objective Remarks GENERAL: Somnolent male, lying in bed, sleeping on approach. SKIN: Warm and dry. HEAD: Normocephalic. EYES: No injection or drainage. NECK: Supple, trachea midline. CARDIOVASCULAR: Regular rate and rhythm RESPIRATORY: Breath sounds equal bilaterally. No accessory muscle use. GASTROINTESTINAL: Abdomen mildly distended. EXTREMITIES: No cyanosis MUSCULOSKELETAL: Adequate muscle tone. NEUROLOGICAL: somnolent. non-verbal Assessment/Plan Problem List: (1) Thrombosis Status: Acute Plan: --Liver ultrasound revealed possible portal thrombosis which appears to be chronic. --Portal thrombosis is a common occurrence in patients with liver cirrhosis and advanced liver disease. There is no consensus of anticoagulation in patients with chronic portal vein thrombosis. --CT ab/pelvis confirms PVT Assessment 70y/o with a diagnosis of liver disease, liver cirrhosis, portal hypertension, esophageal varices who was found to have portal vein thrombosis. h/o hepatitis C, liver cirrhosis/liver disease, grade 2 esophageal varices, alcohol abuse, history of GI bleeding, chronic thrombocytopenia and a history of a Stage II decubitus ulcer Plan 1. CT ab/pelvis confirms PVT. However, patient remains somnolent and non- verbal. He is at high risk for bleeding with liver cirrhosis and esophageal varices. Therefore, we do not recommend starting any type of anticoagulation at this time. Patient would be appropriate for hospice. 2. monitor CBC, coags Attending Statement The exam, history, and the medical decision-making described in the above note were completed with the assistance of the mid-level provider. I reviewed and agree with the findings presented. I attest that I had a [id number] encounter with the patient on the same day, and personally performed and documented my assessment and findings in the medical record patient has very poor prognosis. encephalopathic at this time high risk for bleeding if anti-coagulated. He is appropriate candidate for palliative care. Goals of care need to be discussed with family Roopa Martínez Aug 28, 2016 13:28 Partha Turner MD Aug 28, 2016 23:44
[2016-08-28 13:53] LABS: MITOCHONDRIAL ABS LESS THAN 20.0 U (())
--- NOTE | 2016-08-28 16:27 | HHI.PR ---
Subjective Remarks The patient was lethargic. He was able to look around but was unable to answer appropriately to questions. He had pulled out his NG tube. Discussed with nursing at bedside. Objective Vitals Vital Signs Date Time Temp Pulse Resp B/P Pulse Ox O2 Delivery O2 Flow Rate FiO2 08/28/16 14:00 67 08/28/16 14:00 67 24 158/79 97 08/28/16 13:00 63 28 155/74 98 08/28/16 13:00 63 08/28/16 12:01 87 46 144/74 92 08/28/16 12:01 87 08/28/16 12:00 96 Nasal Cannula 2.00 08/28/16 12:00 83 08/28/16 12:00 97.4 83 35 96 08/28/16 11:00 66 24 160/73 98 08/28/16 11:00 66 08/28/16 10:00 71 24 167/79 98 08/28/16 10:00 71 08/28/16 09:00 77 08/28/16 09:00 77 27 173/84 99 08/28/16 08:52 96 Nasal Cannula 2.00 08/28/16 08:40 87 08/28/16 08:40 87 23 155/86 98 08/28/16 08:00 97.7 78 20 170/81 98 08/28/16 08:00 78 08/28/16 08:00 96 Nasal Cannula 2.00 08/28/16 07:00 82 08/28/16 07:00 82 24 171/92 08/28/16 06:00 78 08/28/16 04:00 65 08/28/16 04:00 98.0 66 13 145/70 98 08/28/16 04:00 96 Nasal Cannula 2.00 08/28/16 02:00 67 08/28/16 00:00 73 08/28/16 00:00 98.3 73 32 177/80 97 08/28/16 00:00 97 Nasal Cannula 2.00 08/27/16 22:00 62 08/27/16 20:00 66 08/27/16 20:00 96 Nasal Cannula 2.00 08/27/16 20:00 97.9 66 33 165/80 96 08/27/16 19:27 96 Nasal Cannula 2.00 6/14/17 18:00 61 I/O 08/27/16 08/27/16 08/27/16 08/28/16 08/28/16 08/28/16 07:00 15:00 23:00 07:00 15:00 23:00 Intake Total 20 ml 100 ml 190 ml 0 ml 240 ml Output Total 1000 ml 1100 ml 700 ml 600 ml 250 ml Balance -980 ml -1000 ml -510 ml -600 ml -10 ml Intake Oral 20 ml 100 ml 120 ml IV Total 190 ml 0 ml 0 ml Other 120 ml Output Urine Total 500 ml 350 ml 300 ml 300 ml 250 ml Chest Tube Drainage Total 500 ml 750 ml 400 ml 300 ml # Bowel Movements 1 1 3 Result Diagram: 08/28/16 0639 08/28/16 0639 Imaging Last Impressions Abdomen CT 08/27/16 0000 Signed Impressions: Service Date/Time: Saturday, August 27, 2016 17:43 - CONCLUSION: Sclerotic changes of the liver and similar to the ultrasound, CT findings would also support the likelihood of portal vein thrombosis. Small ascites. No splenomegaly. Orlin Mooney MD Liver Ultrasound 08/25/16 0000 Signed Impressions: Service Date/Time: Thursday, August 25, 2016 20:06 - CONCLUSION: 1. 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 No focal hepatic lesion demonstrated. 2. No evidence of acute cholecystitis or biliary obstruction. 3. Mild splenomegaly. 4. Mild ascites. Orlin Mooney MD Chest X-Ray 08/23/16 0000 Signed Impressions: Service Date/Time: Tuesday, August 23, 2016 09:10 - CONCLUSION: Rapid reaccumulation of the right pleural effusion. Discussed with Dr. Garrison Denton chest tube will be placed on the right. Eduar Pederson MD FACR Chest Tube Insertion 08/23/16 0000 Signed Impressions: Service Date/Time: Tuesday, August 23, 2016 17:29 - CONCLUSION: Uncomplicated right chest tube placement as above. Effusion will be drained slowly over the ensuing hours. Juan Jose Mcguire Jr., MD Thoracentesis Ultrasound 08/22/16 0000 Signed Impressions: Service Date/Time: Monday, August 22, 2016 10:00 - CONCLUSION: Uncomplicated ultrasound guided thoracentesis. Que Beard MD Lower Extremity Ultrasound 08/21/16 0000 Signed Impressions: Service Date/Time: August 16:37 - CONCLUSION: 1. No DVT identified within either lower extremity. 2. Diffuse edema within both lower extremities. Jose Pederson MD Objective Remarks GENERAL: No acute distress. Drowsy. HEENT: PERRLA, EOMI. No scleral icterus or conjunctival pallor. No lid lag or facial droop. CARDIOVASCULAR: Regular rate and rhythm. No obvious murmurs to auscultation. No chest tenderness to palpation. RESPIRATORY: Decreased breath sounds. Chest tube in place. GASTROINTESTINAL: Abdomen soft, non-tender, nondistended. BS normal. MUSCULOSKELETAL: Extremities without clubbing, cyanosis. 2+ bilateral lower extremity edema. No obvious deformities. NEUROLOGICAL: Patient is somnolent, responsive to verbal stimuli briefly. PSYCH: Flattened affect. Medications and IVs Current Medications Medications (Trade) Dose Ordered Sig/Ana Route Start Time Stop Time Status Last Admin (Lasix) 40 mg BID@,18 PO 08/22/16 09:00 Hold 08/27/16 17:20 (NS Flush) 2 ml UNSCH PRN IV FLUSH 08/21/16 19:45 08/27/16 08:02 (NS Flush) 2 ml BID IV FLUSH 08/21/16 21:00 08/28/16 08:17 (Zofran Inj) 4 mg Q6H PRN IVP 08/21/16 19:45 (Tylenol) 650 mg Q6H PRN PO 08/21/16 19:45 (Paula-Colace) 1 tab BID PO 08/21/16 21:00 08/27/16 20:27 (Milk Of Magnesia Liq) 30 ml Q12H PRN PO 08/21/16 19:45 (Senokot) 17.2 mg Q12H PRN PO 08/21/16 19:45 (Dulcolax Supp) 10 mg DAILY PRN RECTAL 08/21/16 19:45 (Vitamin B12) 50 mcg HS PO 08/21/16 21:00 08/27/16 20:26 (Cardizem) 30 mg BID PO 08/21/16 21:00 08/28/16 08:17 (Ferrous Sulfate) 325 mg BID PO 08/21/16 21:00 08/28/16 08:16 (PROzac) 20 mg DAILY PO 08/22/16 09:00 08/28/16 08:16 (Folate) 1 mg DAILY PO 08/22/16 09:00 08/28/16 08:17 (Neurontin) 300 mg TID PO 08/22/16 09:00 08/28/16 14:26 (Lactinex) 1 tab TID PO 08/22/16 09:00 08/28/16 14:26 (Synthroid) 75 mcg DAILY@06 PO 08/22/16 06:00 08/27/16 06:06 (Protonix) 40 mg Q12HR PO 08/21/16 21:00 08/28/16 08:16 (Vitamin B1) 100 mg DAILY PO 08/22/16 09:00 08/28/16 08:17 (Theragran) 1 tab DAILY PO 08/22/16 09:00 08/28/16 08:17 (Aldactone) 50 mg DAILY PO 08/22/16 09:00 Hold 08/27/16 07:59 (Inderal) 10 mg Q12HR PO 08/22/16 09:00 08/28/16 08:16 Lactulose 30 ml 30 ml TID PO 08/26/16 18:00 08/28/16 14:26 (Rocephin Inj/NS Inj) 100 ml @ 200 mls/hr Q24H IV 08/26/16 18:00 08/27/16 17:20 (Xifaxan) 550 mg BID PO 08/27/16 21:00 08/28/16 08:17 (Trandate Inj) 10 mg Q4H PRN IV PUSH 08/28/16 02:15 (Albumin 25% Inj) 12.5 gm ONCE ONCE IV 08/28/16 16:30 08/28/16 16:31 UNV A/P Problem List: (1) Pleural effusion ICD Code: J90 Status: Acute (2) Elevated troponin ICD Code: R74.8 Status: Acute (3) Hyperkalemia ICD Code: E87.5 Status: Acute (4) Thrombocytopenia ICD Code: D69.6 Status: Acute (5) Cirrhosis ICD Code: K74.60 Status: Acute (6) HTN (hypertension) ICD Code: I10 Status: Chronic (7) H/O: GI bleed ICD Code: Z87.19 Status: Acute (8) Alcohol abuse ICD Code: F10.10 Status: Acute (9) Sacral decubitus ulcer, stage II ICD Code: L89.152 Status: Acute Assessment and Plan Cirrhosis/ Failure to thrive H/o alcohol abuse and Hepatitis C w/ h/o cirrhosis. GI consult appreciated. Ammonia level elevated. - resume Lasix, add Aldactone and propranolol. Holding diuretics at this time due to acute renal insufficiency. - follow with palliative care. Consider hospice. Family meeting scheduled for Thursday. - ST/ PT/ OT. - add standing lactulose TID and follow ammonia level. - NG tube for tube feeds. Right Pleural Effusion Recurrent. Recent admit 08/11-08/17/16 for similar. S/p thoracentesis by IR w/ removal of 4450cc fluid, transudate thought to be secondary to cirrhosis. Now w/ recurrent right pleural effusion and SOB. CXR w/ complete opacification of right hemithorax due to effusion. Status post thoracentesis. - Hold diuresis. - follow up with pulmonology. Portal vein thrombosis Noted on imaging. - hematology consult appreciated. High risk for anticoagulation. Acute on chronic renal insufficiency Likely secondary to diuretic use. Possibly hepatorenal syndrome. - Hold diuretics for now. - Trial of albumin. - Follow labs in morning. Leukocytosis Unsure of etiology. Improving. - check blood cultures x 2. - start ceftriaxone. - defer paracentesis to GI. Elevated Trop Trop 0.11, similar to previous admit, no c/o chest pain, EKG w/ no acute changes. Likely secondary to cirrhosis, strain from large effusion. Poor candidate for anticoagulation in light of thrombocytopenia, coagulopathy and previous h/o GI bleed w/ esophageal varices. - continue cardiac regimen. Hyperkalemia S/p Ca/Insulin/D50. - telemetry. - continue monitoring. HTN Relatively well controlled. - Monitor BP, resume home medications. Thrombocytopenia Chronic. Stable. No active bleeding at this time. - Monitor closely. H/o GI bleed Secondary to alcohol abuse/cirrhosis/grade II esophageal varices, no signs of bleeding at this time. Hgb stable. - monitor. Alcohol Abuse h/o alcohol abuse, 1pint Vodka/day, states he quit 05/2016. - Continue Thiamine/Folate/MVT replacement. Sacral Decubitus Ulcer Stage II. Present on arrival. - Wound Consult for further evaluation. DVT Prophylaxis: Pharmacologic contraindication secondary to h/o GI Bleed, Varices and Thrombocytopenia. Mechanical contraindication secondary to significant edema. Discharge Planning Awaiting family meeting. Consider hospice Emerson Pruitt DO Aug 28, 2016 16:27
[2016-08-28] MEDS ORDERED: ALBUMIN HUMAN 25% 12.5 GM/50 ML BAGP IV ONE (16:30)
[2016-08-28] MEDS: cefTRIAXone INJ 1,000 MG in SODIUM CHLORIDE 0.9% INJ 100 ML IV SCH (17:54)
[2016-08-28 19:10] LABS: APTT (PATIENT) 29.4 SEC (24.3-30.1); INTERNATIONAL NORMALIZED RATIO 1.1 RATIO; PROTHROMBIN TIME - PATIENT 12.2 SEC (9.8-11.6)
--- NOTE | 2016-08-28 19:26 | HHI.PR ---
Subjective Remarks 70 YOWM with recurrent pl effusion Had right chest tube placed Breathing better No Fever Chest tube draining Ammonia level decreasd 56 On Lactulose Objective Vital Signs Vital Signs Date Time Temp Pulse Resp B/P Pulse Ox O2 Delivery O2 Flow Rate FiO2 08/28/16 18:00 79 32 95 08/28/16 18:00 79 08/28/16 17:00 78 28 148/86 95 08/28/16 17:00 78 08/28/16 16:56 95 21 08/28/16 16:00 97.7 77 24 155/79 98 08/28/16 16:00 77 08/28/16 16:00 96 Nasal Cannula 2.00 08/28/16 15:00 78 08/28/16 15:00 78 31 162/82 97 08/28/16 14:00 67 08/28/16 14:00 67 24 158/79 97 08/28/16 13:00 63 28 155/74 98 08/28/16 13:00 63 08/28/16 12:01 87 46 144/74 92 08/28/16 12:01 87 08/28/16 12:00 96 Nasal Cannula 2.00 08/28/16 12:00 83 08/28/16 12:00 97.4 83 35 96 08/28/16 11:00 66 24 160/73 98 08/28/16 11:00 66 08/28/16 10:00 71 24 167/79 98 08/28/16 10:00 71 08/28/16 09:00 77 08/28/16 09:00 77 27 173/84 99 08/28/16 08:52 96 Nasal Cannula 2.00 08/28/16 08:40 87 08/28/16 08:40 87 23 155/86 98 08/28/16 08:00 97.7 78 20 170/81 98 08/28/16 08:00 78 08/28/16 08:00 96 Nasal Cannula 2.00 08/28/16 07:00 82 08/28/16 07:00 82 24 171/92 08/28/16 06:00 78 08/28/16 04:00 65 08/28/16 04:00 98.0 66 13 145/70 98 08/28/16 04:00 96 Nasal Cannula 2.00 08/28/16 02:00 67 08/28/16 00:00 73 08/28/16 00:00 98.3 73 32 177/80 97 08/28/16 00:00 97 Nasal Cannula 2.00 08/27/16 22:00 62 08/27/16 20:00 66 08/27/16 20:00 96 Nasal Cannula 2.00 08/27/16 20:00 97.9 66 33 165/80 96 08/27/16 19:27 96 Nasal Cannula 2.00 I/O 08/27/16 08/27/16 08/27/16 08/28/16 08/28/16 08/28/16 07:00 15:00 23:00 07:00 15:00 23:00 Intake Total 20 ml 100 ml 190 ml 0 ml 240 ml Output Total 1000 ml 1100 ml 700 ml 600 ml 250 ml Balance -980 ml -1000 ml -510 ml -600 ml -10 ml Intake Oral 20 ml 100 ml 120 ml IV Total 190 ml 0 ml 0 ml Other 120 ml Output Urine Total 500 ml 350 ml 300 ml 300 ml 250 ml Chest Tube Drainage Total 500 ml 750 ml 400 ml 300 ml # Bowel Movements 1 1 3 Result Diagram: 08/28/1639 08/28/1639 Objective Remarks GENERAL: MBMN WM mild sob SKIN: Warm and dry. HEAD: Normocephalic. EYES: No scleral icterus. No injection or drainage. NECK: Supple, trachea midline. No JVD or lymphadenopathy. CARDIOVASCULAR: Regular rate and rhythm without murmurs, gallops, or rubs. RESPIRATORY: Breath sounds equal bilaterally. No accessory muscle use. Right chest tube draining GASTROINTESTINAL: Abdomen soft, non-tender, nondistended. MUSCULOSKELETAL: No cyanosis, or edema. BACK: Nontender without obvious deformity. No CVA tenderness. A/P Assessment and Plan Recurrent pl effusion right chest tube placement cirrhosis of liver HTN Hepatic encephalopathy PLAN: Chest tube to suction Supplement 02 Humidify 02 DW family Cont Abx. Family considering hospice Cheikh Goetz MD Aug 28, 2016 19:26
[2016-08-28] MEDS: CYANOCOBALAMIN 1,000 MCG TAB PO SCH (21:40)
[2016-08-28] MEDS: MORPHINE SULFATE 4 MG/ML INJ IV PRN (21:42)
[2016-08-29] VITALS (13 sets, daily range): BP systolic 133–174; BP diastolic 68–83; PULSE 56–72; RESP 13–40; TEMP 97.2–98; O2SAT 91–95
[2016-08-29] MEDS: MORPHINE SULFATE 4 MG/ML INJ IV PRN ×3 (01:21→12:12)
[2016-08-29] MEDS: LEVOTHYROXINE SODIUM 75 MCG TAB PO SCH (05:16)
[2016-08-29 07:24] LABS: MAGNESIUM 2.3 MG/DL (1.5-2.5); POTASSIUM 4.2 MEQ/L (3.5-5.1)
[2016-08-29] MEDS: THIAMINE HCL 100 MG TAB PO SCH (08:40)
[2016-08-29] MEDS: RIFAXIMIN 550 MG TAB PO SCH (08:40)
[2016-08-29] MEDS: DILTIAZEM HCL 30 MG TAB PO SCH (08:40)
[2016-08-29] MEDS: FOLIC ACID 1 MG TAB PO SCH (08:40)
[2016-08-29] MEDS: MULTIVITAMIN TAB PO SCH (08:40)
[2016-08-29] MEDS: DOCUSATE SODIUM 50 MG/SENNA 8.6 MG TAB PO SCH (08:40)
[2016-08-29] MEDS: GABAPENTIN 300 MG CAP PO SCH ×2 (08:40→12:12)
[2016-08-29] MEDS: FLUoxetine HCL 20 MG CAP PO SCH (08:40)
[2016-08-29] MEDS: LACTOBACILLUS ACIDOPHILUS TAB PO SCH ×2 (08:40→12:12)
[2016-08-29] MEDS: LACTULOSE SYRUP 20 GM/30 ML CUP PO SCH ×2 (08:40→12:12)
[2016-08-29] MEDS: SODIUM CHLORIDE 0.9% FLUSH 10 ML FLUSH IV FLUSH SCH (08:40)
[2016-08-29] MEDS: PROPRANOLOL HCL 10 MG TAB PO SCH (08:40)
[2016-08-29] MEDS: FERROUS SULFATE 325 MG (65 MG ELEMENTAL IRON) TAB PO SCH (08:41)
[2016-08-29] MEDS: PANTOPRAZOLE SOD 40 MG DELAYED RELEASE TAB PO SCH (08:42)
--- NOTE | 2016-08-29 11:01 | HHI.HCPN ---
Reason for visit a. To assist with evaluation and management of symptoms including: Dyspnea, edema, abdominal pain, anxiety b. To assist medical decision maker(s) with: better understanding of current medical conditions; weighing benefits/burdens of medical treatment options; making medical treatment decisions. Subjective/Interval History 70-year-old male with end-stage liver disease, not responding to therapy, obtunded, not eating. NG tube placed yesterday with tube feeding. Labs show a continued decline. Patient not responding to verbal stimuli. Family has questions about hospice and requested family meeting. Laboratory studies sodium 141, potassium 4.2, BUN 97, creatinine 2.21. CT of the abdomen shows sclerotic changes of the liver similar to the ultrasound, supporting the likelihood of portal vein thrombosis, small ascites. . Family/friend interactions Contacted by the son for bedside meeting. He had reviewed his father is living will and felt that per his father's wishes he would not want to continue treatment with an end-stage condition. Patient clearly declining, not responding to therapy, family requesting hospice consultation with hopeful transfer to [facility] to be closer to family. Hospice consult placed. . Advance Directives Living Will: Copy in medical record Health Care Surrogate: Copy in medical record Durable Power of Corporate Librarian: Copy in medical record Advance Directive Specifics Health Care Surrogate(s): Lupillo Delgado Documented care wishes: DO NOT RESUSCITATE Objective Vital Signs Date Time Temp Pulse Resp B/P Pulse Ox O2 Delivery O2 Flow Rate FiO2 08/29/16 09:28 91 21 08/29/16 08:46 15 08/29/16 06:00 69 08/29/16 04:00 71 08/29/16 04:00 98.0 71 18 133/68 92 08/29/16 04:00 95 Nasal Cannula 2.00 08/29/16 02:00 70 08/29/16 00:00 69 08/29/16 00:00 97.9 69 15 174/83 95 08/29/16 00:00 96 Nasal Cannula 2.00 08/28/16 22:00 67 08/28/16 20:00 97.9 79 31 174/93 95 08/28/16 20:00 95 Nasal Cannula 2.00 08/28/16 20:00 79 08/28/16 19:58 96 21 08/28/16 18:00 79 32 95 08/28/16 18:00 79 08/28/16 17:00 78 28 148/86 95 08/28/16 17:00 78 08/28/16 16:56 95 21 08/28/16 16:00 97.7 77 24 155/79 98 08/28/16 16:00 77 08/28/16 16:00 96 Nasal Cannula 2.00 08/28/16 15:00 78 08/28/16 15:00 78 31 162/82 97 08/28/16 14:00 67 08/28/16 14:00 67 24 158/79 97 08/28/16 13:00 63 28 155/74 98 08/28/16 13:00 63 08/28/16 12:01 87 46 144/74 92 08/28/16 12:01 87 08/28/16 12:00 96 Nasal Cannula 2.00 08/28/16 12:00 83 08/28/16 12:00 97.4 83 35 96 08/28/16 11:00 66 24 160/73 98 08/28/16 11:00 66 Intake & Output 08/29/16 08/29/16 07:00 19:00 Intake Total 354 ml Output Total 1000 ml Balance -646 ml IV Total 0 ml Tube Feeding 254 ml Tube Irrigant 100 ml Output Urine Total 650 ml Chest Tube Drainage Total 350 ml # Bowel Movements 1 Physical Exam CONSTITUTIONAL/GENERAL: This is a thin patient, obtunded not responding to verbal stimuli. TUBES/LINES/DRAINS: Left forearm PIV SKIN: Mild jaundice, bilateral upper extremity skin tears. Ecchymoses on upper extremities. CARDIOVASCULAR: Regular rate and rhythm without murmurs, gallops, or rubs. Peripheral pulses difficult to palpate due to 2+ edema. Extremities warm RESPIRATORY/CHEST: Symmetric, unlabored respirations. Clear to auscultation. Breath sounds diminished bilaterally. No wheezes, rales, or rhonchi. Right Chest tube draining serous fluid to Pleur-evac. No airleak. GASTROINTESTINAL: Abdomen soft, tender to palpation, mildly distended. Bowel sounds present. GENITOURINARY: Without palpable bladder distension. Condom catheter intact MUSCULOSKELETAL: Extremities without clubbing, cyanosis. 2+ dependent edema, no weeping seen at this evaluation NEUROLOGICAL: Obtunded PSYCHIATRIC: Obtunded . Diagnostic Tests Laboratory Laboratory Tests Test 08/26/16 08/26/16 08/27/16 08/27/16 12:34 19:55 04:52 05:22 Total Bilirubin 2.1 MG/DL 1.7 MG/DL 2.0 MG/DL (0.2-1.0) (0.2-1.0) (0.2-1.0) Direct Bilirubin 1.0 MG/DL 0.9 MG/DL (0.0-0.2) (0.0-0.2) Indirect Bilirubin 1.1 MG/DL 1.1 MG/DL (0.0-0.8) (0.0-0.8) Aspartate Amino Transf 62 U/L (15-37) 100 U/L (15-37) 68 U/L (15-37) (AST/SGOT) Alanine Aminotransferase 96 U/L (12-78) 101 U/L (12-78) 98 U/L (12-78) (ALT/SGPT) Alkaline Phosphatase 207 U/L 212 U/L 208 U/L (45-117) (45-117) (45-117) Total Protein 5.6 GM/DL 5.8 GM/DL 5.8 GM/DL (6.4-8.2) (6.4-8.2) (6.4-8.2) Albumin 1.9 GM/DL 1.6 GM/DL 1.9 GM/DL (3.4-5.0) (3.4-5.0) (3.4-5.0) Sodium Level 129 MEQ/L 136 MEQ/L (136-145) (136-145) Potassium Level 5.4 MEQ/L 4.5 MEQ/L (3.5-5.1) (3.5-5.1) Chloride Level 100 MEQ/L 101 MEQ/L (98-107) (98-107) Carbon Dioxide Level 18.0 MEQ/L 25.5 MEQ/L (21.0-32.0) (21.0-32.0) Anion Gap 11 MEQ/L (5-15) 10 MEQ/L (5-15) Blood Urea Nitrogen 77 MG/DL (7-18) 79 MG/DL (7-18) Creatinine 1.71 MG/DL 1.70 MG/DL (0.60-1.30) (0.60-1.30) Estimat Glomerular Filtration 40 ML/MIN (>89) 40 ML/MIN (>89) Rate Random Glucose 107 MG/DL 84 MG/DL (74-106) (74-106) Calcium Level 9.1 MG/DL 9.5 MG/DL (8.5-10.1) (8.5-10.1) Ammonia 121 MCMOL/L (11-32) White Blood Count 11.3 TH/MM3 (4.0-11.0) Red Blood Count 5.07 MIL/MM3 (4.50-5.90) Hemoglobin 15.5 GM/DL (13.0-17.0) Hematocrit 46.0 % (39.0-51.0) Mean Corpuscular Volume 90.7 FL (80.0-100.0) Mean Corpuscular Hemoglobin 30.5 PG (27.0-34.0) Mean Corpuscular Hemoglobin 33.7 % Concent (32.0-36.0) Red Cell Distribution Width 18.2 % (11.6-17.2) Platelet Count 85 TH/MM3 (150-450) Mean Platelet Volume 8.8 FL (7.0-11.0) Prothrombin Time 63.9 SEC (9.8-11.6) Prothromb Time International 5.4 RATIO Ratio Magnesium Level 1.8 MG/DL (1.5-2.5) Test 08/27/16 08/27/16 08/28/16 08/28/16 12:00 12:10 06:39 18:12 Prothrombin Time 12.7 SEC 12.2 SEC (9.8-11.6) (9.8-11.6) Prothromb Time International 1.1 RATIO 1.1 RATIO Ratio Activated Partial 31.8 SEC 29.4 SEC Thromboplast Time (24.3-30.1) (24.3-30.1) Fibrinogen 309 mg/dL 318 mg/dL (227-377) (227-377) White Blood Count 12.1 TH/MM3 (4.0-11.0) Red Blood Count 5.27 MIL/MM3 (4.50-5.90) Hemoglobin 16.1 GM/DL (13.0-17.0) Hematocrit 48.3 % (39.0-51.0) Mean Corpuscular Volume 91.7 FL (80.0-100.0) Mean Corpuscular Hemoglobin 30.6 PG (27.0-34.0) Mean Corpuscular Hemoglobin 33.3 % Concent (32.0-36.0) Red Cell Distribution Width 18.1 % (11.6-17.2) Platelet Count 94 TH/MM3 (150-450) Mean Platelet Volume 8.6 FL (7.0-11.0) Neutrophils (%) (Auto) 82.4 % (16.0-70.0) Lymphocytes (%) (Auto) 10.5 % (9.0-44.0) Monocytes (%) (Auto) 6.8 % (0.0-8.0) Eosinophils (%) (Auto) 0.2 % (0.0-4.0) Basophils (%) (Auto) 0.1 % (0.0-2.0) Neutrophils # (Auto) 9.9 TH/MM3 (1.8-7.7) Lymphocytes # (Auto) 1.3 TH/MM3 (1.0-4.8) Monocytes # (Auto) 0.8 TH/MM3 (0-0.9) Eosinophils # (Auto) 0.0 TH/MM3 (0-0.4) Basophils # (Auto) 0.0 TH/MM3 (0-0.2) CBC Comment AUTO DIFF Differential Comment AUTO DIFF CONFIRMED Platelet Estimate LOW (NORMAL) Platelet Morphology Comment NORMAL (NORMAL) Sodium Level 137 MEQ/L (136-145) Potassium Level 4.8 MEQ/L (3.5-5.1) Chloride Level 103 MEQ/L (98-107) Carbon Dioxide Level 24.6 MEQ/L (21.0-32.0) Anion Gap 9 MEQ/L (5-15) Blood Urea Nitrogen 87 MG/DL (7-18) Creatinine 1.77 MG/DL (0.60-1.30) Estimat Glomerular Filtration 38 ML/MIN (>89) Rate Random Glucose 96 MG/DL (74-106) Calcium Level 9.4 MG/DL (8.5-10.1) Total Bilirubin 2.0 MG/DL (0.2-1.0) Aspartate Amino Transf 68 U/L (15-37) (AST/SGOT) Alanine Aminotransferase 98 U/L (12-78) (ALT/SGPT) Alkaline Phosphatase 221 U/L (45-117) Ammonia 55 MCMOL/L (11-32) Total Protein 5.8 GM/DL (6.4-8.2) Albumin 1.8 GM/DL (3.4-5.0) Test 08/29/16 06:01 Sodium Level 141 MEQ/L (136-145) Potassium Level 4.2 MEQ/L (3.5-5.1) Chloride Level 105 MEQ/L (98-107) Carbon Dioxide Level 26.0 MEQ/L (21.0-32.0) Anion Gap 10 MEQ/L (5-15) Blood Urea Nitrogen 97 MG/DL (7-18) Creatinine 2.21 MG/DL (0.60-1.30) Estimat Glomerular Filtration 30 ML/MIN (>89) Rate Random Glucose 147 MG/DL (74-106) Calcium Level 9.6 MG/DL (8.5-10.1) Magnesium Level 2.3 MG/DL (1.5-2.5) Result Diagram: 08/28/16 0639 08/29/16 0601 Microbiology Microbiology Date/Time Procedure Status Source Growth 08/27/16 05:10 Aerobic Blood Culture - Preliminary Resulted Blood Peripheral NO GROWTH IN 1 DAY 08/27/16 05:10 Anaerobic Blood Culture - Preliminary Resulted Blood Peripheral NO GROWTH IN 1 DAY 08/27/16 05:22 Aerobic Blood Culture - Preliminary Resulted Blood Peripheral NO GROWTH IN 1 DAY 08/27/16 05:22 Anaerobic Blood Culture - Preliminary Resulted Blood Peripheral NO GROWTH IN 1 DAY Imaging Last Impressions Abdomen CT 08/27/16 0000 Signed Impressions: Service Date/Time: Saturday, August 27, 2016 17:43 - CONCLUSION: Sclerotic changes of the liver and similar to the ultrasound, CT findings would also support the likelihood of portal vein thrombosis. Small ascites. No splenomegaly. Orlin Mooney MD Liver Ultrasound 08/25/16 0000 Signed Impressions: Service Date/Time: Thursday, August 25, 2016 20:06 - CONCLUSION: 1. 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 No focal hepatic lesion demonstrated. 2. No evidence of acute cholecystitis or biliary obstruction. 3. Mild splenomegaly. 4. Mild ascites. Orlin Mooney MD Chest X-Ray 08/23/16 Signed Impressions: Service Date/Time: Tuesday, August 23, 2016 09:10 - CONCLUSION: Rapid reaccumulation of the right pleural effusion. Discussed with Dr. Garrison Denton chest tube will be placed on the right. Eduar Pederson MD FACR Chest Tube Insertion 08/23/16 Signed Impressions: Service Date/Time: Tuesday, August 23, 2016 17:29 - CONCLUSION: Uncomplicated right chest tube placement as above. Effusion will be drained slowly over the ensuing hours. Juan Jose Mcguire Jr., MD Thoracentesis Ultrasound 08/22/16 Signed Impressions: Service Date/Time: Monday, August 22, 2016 10:00 - CONCLUSION: Uncomplicated ultrasound guided thoracentesis. Que Beard MD Lower Extremity Ultrasound 08/21/16 Signed Impressions: Service Date/Time: August 16:37 - CONCLUSION: 1. No DVT identified within either lower extremity. 2. Diffuse edema within both lower extremities. Jose Pederson MD Procedures 08/22/16-thoracentesis 08/23/16-chest tube insertion . Assessment and Plan Disease Oriented Problem List: (1) Back pain (2) Anemia (3) HLD (hyperlipidemia) (4) Gout (5) Hyperlipidemia (6) Depression (7) Anemia requiring transfusions (8) Esophageal varices (9) Neuropathic pain (10) Respiratory distress (11) Bilateral lower extremity edema (12) Hyperkalemia (13) Cirrhosis (14) Pleural effusion (15) Thrombocytopenia (16) HTN (hypertension) (17) Elevated troponin (18) Impaired mobility and activities of daily living Symptom Scale: (1) Abdominal pain 0-10 Scale: Unable to quantify (2) Edema 0-10 Scale: Unable to quantify (3) Anxiety 0-10 Scale: Unable to quantify (4) Dyspnea and respiratory abnormalities 0-10 Scale: Unable to quantify Pertinent Non-Medical Issues Psychosocial:He was born in [place], [place], but moved frequently as his father worked construction. He moved to [place] 35 years to assist in caring for his mother. 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 He was and twice and has 2 children one boy Lupillo, who is the healthcare surrogate and a daughter. He is a [place] of the [employer] service, exposed to agent orange from which he suffered decreased hearing and tinnitus. His sister provides much of his care after moving to [place] 3 years ago. He was raised Muslim but is currently not attending pentecostal. Per his sister he would appreciate welcome wagon hostess visits. Spiritual: Raised Muslim, would accept welcome wagon hostess visits. Legal: DURABLE POWER OF GLOBAL PRESIDENT naming his son Lpuillo Delgado, living will, designation of healthcare surrogate naming his son Lupillo Delgado are scanned into the chart. Ethical issues impacting care: Important Contacts Son-Lupillo Delgado [phone] Sister-Kelsey Armstrong Prognosis His prognosis is poor. He is having recurrent pleural effusions greater than 3 L reoccurring every 3-4 days with significant bilateral lower extremity edema, likely related to cirrhosis of the liver. He has also experienced recent gastrointestinal bleed, thrombocytopenia, weakness and dyspnea. His liver compromise is contributing to risk of bleeding, poor healing of skin wound, sepsis and continued decline. His past medical history is extensive to include hepatitis C, cirrhosis, grade 2 esophageal varices, history of GI bleed , thrombocytopenia, stage II sacral decubitus ulcer, rheumatoid arthritis, chronic kidney disease and recurrent pancreatitis. His functional status is declining and his readmissions to the hospital increase at shorter intervals. Code Status: No Code Plan PLAN: Legal decision maker: Lupillo Marcelo Goals: Currently conservative, has requested DNR CODE STATUS: DNR SYMPTOMS: * Abdominal pain- obtunded, not responding to voice or touch. * Edema- remains edematous. Poor protein stores, poor nutritional status. Family choosing hospice. * Dyspnea- respirations regular, no signs of dyspnea. Will transition to hospice. Requesting [facility]. * Anxiety- obtunded at this time, no sign of anxiety. Transition to hospice. Palliative care will continue to follow the patient during hospital course as condition evolves, to assist patient/decision-maker with understanding of their medical conditions, weighing benefits/burdens of treatment options, for clarification of goals of treatment. Additionally will assist with any symptoms of palliative concern Attestation To help prompt me to consider important information that might be impacting today's encounter and assessment, information from prior notes written by myself or my colleagues may have been "brought forward" into today's note. My signature on this note, however, is an attestation that I personally performed the exam, history, and/or decision-making noted today, and, unless otherwise indicated, the interactions with patient, family, and staff as well as the review of records all occurred today. I also attest that the listed assessment and stated plan reflect my best clinical judgment today based on the combination of historical information, prior notes, and today's exam/ interactions. When time spent is documented, it refers only to time spent today by the signer, or if indicated, combined time spent today by collaborating physician/nurse practitioner. Marisa Brink Aug 29, 2016 11:01
[2016-08-29] MEDS ORDERED: MORP1SOL3 PO (13:38)
[2016-08-29] MEDS ORDERED: ALPR0.25 PO (13:38)
--- NOTE | 2016-08-29 14:16 | RADRPT ---
EXAM DATE/TIME: 08/29/2016 12:30 [facility] COMPARISON: CT GUIDED CHEST TUBE PLACEMENT RIGHT, August 23, 2016, 17:29. CHEST SINGLE AP, August 23, 2016, 9:10. INDICATIONS : REMOVAL OF RIGHT TUBE DEVICE(S): 1.) Vaseline occlusive dressing PROCEDURE : Chest tube removal. Using aseptic technique the previously placed chest tube was easily removed in one piece and Vaseline gauze and sterile dressing was applied. The patient is to be transferred to hospice. CONCLUSION: Uncomplicated chest tube removal. Jose Pederson MD on August 29, 2016 at 13:48 Board Certified Radiologist. This report was verified electronically.
--- NOTE | 2016-08-29 14:37 | HHI.DCPOC ---
Discharge Care Plan Diagnosis: (1) Impaired mobility and activities of daily living (2) Abdominal pain (3) Esophageal varices (4) Edema (5) H/O: GI bleed (6) Cirrhosis (7) Acute renal failure superimposed on stage 3 chronic kidney disease Goals to Promote Your Health * To prevent worsening of your condition and complications * To maintain your health at the optimal level Directions to Meet Your Goals Take your medications as prescribed Follow your dietary instruction Follow activity as directed Keep your appointments as scheduled Take your immunizations and boosters as scheduled If your symptoms worsen call your PCP, if no PCP go to Urgent Care Center or Emergency Room Smoking is Dangerous to Your Health. Avoid second hand smoke Call the 24-hour hour crisis hotline for domestic abuse at Emerson Pruitt DO Aug 29, 2016 14:37
--- NOTE | 2016-08-29 14:45 | HHI.DS ---
Discharge Summary Admission Date Aug 21, 2016 at 19:15 Discharge Date: Aug 29, 2016 Admitting Diagnosis Right Sided Pleural Effusion, Bilateral Lower Extremity Edema (1) Pleural effusion ICD Code: J90 (2) Elevated troponin ICD Code: R74.8 (3) Hyperkalemia ICD Code: E87.5 (4) Thrombocytopenia ICD Code: D69.6 (5) Cirrhosis ICD Code: K74.60 Diagnosis: Principal (6) HTN (hypertension) ICD Code: I10 (7) H/O: GI bleed ICD Code: Z87.19 (8) Alcohol abuse ICD Code: F10.10 (9) Sacral decubitus ulcer, stage II ICD Code: L89.152 Procedures Chest tube placement Thoracentesis Brief History - From Admission This is a 70-year-old male with a PMH of HTN, Anxiety, Depression, Hepatitis C, Cirrhosis, Grade II Esophageal Varices, h/o GI Bleed, Thrombocytopenia, h/o Alcohol Abuse and Stage II Sacral Decubitus Ulcer who was brought to the ER by EMS secondary to SOB and worsening lower extremity edema x3-4 days. Recent admit 08/11- for similar complaints, noted to have right pleural effusion , s/p Thoracentesis by IR w/ transudate likely secondary to cirrhosis. Now w/ recurrent symptoms. On arrival, BP 174/98, HR 108, O2 sat 93% on RA, Afebrile. WBC 14.1. Platelets 117, previously 97 on 08/17/16. Chemistry essentially at baseline except for K+5.9. Trop 0.11. LFTs mildly increased in comparison to previous. INR 1.0. CXR with complete opacification of right hemithorax due to effusion. IR consulted by ER physician, plan is for Thoracentesis in am. Pt currently stable from respiratory standpoint. LE Doppler negative for DVT. CBC/BMP: 08/28/16 0639 08/29/16 0601 Significant Findings Laboratory Tests Test 08/26/16 08/27/16 08/27/16 08/27/16 19:55 04:52 05:22 12:00 Sodium Level 129 MEQ/L (136-145) Potassium Level 5.4 MEQ/L (3.5-5.1) Carbon Dioxide Level 18.0 MEQ/L (21.0-32.0) Blood Urea Nitrogen 77 MG/DL (7-18) 79 MG/DL (7-18) Creatinine 1.71 MG/DL 1.70 MG/DL (0.60-1.30) (0.60-1.30) Estimat Glomerular Filtration 40 ML/MIN (>89) 40 ML/MIN (>89) Rate Random Glucose 107 MG/DL (74-106) Total Bilirubin 1.7 MG/DL 2.0 MG/DL (0.2-1.0) (0.2-1.0) Aspartate Amino Transf 100 U/L (15-37) 68 U/L (15-37) (AST/SGOT) Alanine Aminotransferase 101 U/L (12-78) 98 U/L (12-78) (ALT/SGPT) Alkaline Phosphatase 212 U/L 208 U/L (45-117) (45-117) Ammonia 121 MCMOL/L (11-32) Total Protein 5.8 GM/DL 5.8 GM/DL (6.4-8.2) (6.4-8.2) Albumin 1.6 GM/DL 1.9 GM/DL (3.4-5.0) (3.4-5.0) White Blood Count 11.3 TH/MM3 (4.0-11.0) Red Cell Distribution Width 18.2 % (11.6-17.2) Platelet Count 85 TH/MM3 (150-450) Prothrombin Time 63.9 SEC 12.7 SEC (9.8-11.6) (9.8-11.6) Direct Bilirubin 0.9 MG/DL (0.0-0.2) Indirect Bilirubin 1.1 MG/DL (0.0-0.8) Activated Partial 31.8 SEC Thromboplast Time (24.3-30.1) Test 08/28/16 08/28/16 08/29/16 06:39 18:12 06:01 White Blood Count 12.1 TH/MM3 (4.0-11.0) Red Cell Distribution Width 18.1 % (11.6-17.2) Platelet Count 94 TH/MM3 (150-450) Neutrophils (%) (Auto) 82.4 % (16.0-70.0) Neutrophils # (Auto) 9.9 TH/MM3 (1.8-7.7) Platelet Estimate LOW (NORMAL) Blood Urea Nitrogen 87 MG/DL (7-18) 97 MG/DL (7-18) Creatinine 1.77 MG/DL 2.21 MG/DL (0.60-1.30) (0.60-1.30) Estimat Glomerular Filtration 38 ML/MIN (>89) 30 ML/MIN (>89) Rate Total Bilirubin 2.0 MG/DL (0.2-1.0) Aspartate Amino Transf 68 U/L (15-37) (AST/SGOT) Alanine Aminotransferase 98 U/L (12-78) (ALT/SGPT) Alkaline Phosphatase 221 U/L (45-117) Ammonia 55 MCMOL/L (11-32) Total Protein 5.8 GM/DL (6.4-8.2) Albumin 1.8 GM/DL (3.4-5.0) Prothrombin Time 12.2 SEC (9.8-11.6) Random Glucose 147 MG/DL (74-106) Imaging Last Impressions Tunnelled Chest Tube Removal 08/29/16 1200 Signed Impressions: Service Date/Time: Monday, August 29, 2016 12:30 - CONCLUSION: Uncomplicated chest tube removal. Jose Pederson MD Abdomen CT 08/27/16 0000 Signed Impressions: Service Date/Time: Saturday, August 27, 2016 17:43 - CONCLUSION: Sclerotic changes of the liver and similar to the ultrasound, CT findings would also support the likelihood of portal vein thrombosis. Small ascites. No splenomegaly. Orlin Mooney MD Liver Ultrasound 08/25/16 0000 Signed Impressions: Service Date/Time: Thursday, August 25, 2016 20:06 - CONCLUSION: 1. 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 No focal hepatic lesion demonstrated. 2. No evidence of acute cholecystitis or biliary obstruction. 3. Mild splenomegaly. 4. Mild ascites. Orlin Mooney MD Chest X-Ray 08/23/16 0000 Signed Impressions: Service Date/Time: Tuesday, August 23, 2016 09:10 - CONCLUSION: Rapid reaccumulation of the right pleural effusion. Discussed with Dr. Garrison Denton chest tube will be placed on the right. Eduar Pederson MD FACR Chest Tube Insertion 08/23/16 0000 Signed Impressions: Service Date/Time: Tuesday, August 23, 2016 17:29 - CONCLUSION: Uncomplicated right chest tube placement as above. Effusion will be drained slowly over the ensuing hours. Juan Jose Mcguire Jr., MD Thoracentesis Ultrasound 08/22/16 0000 Signed Impressions: Service Date/Time: Monday, August 22, 2016 10:00 - CONCLUSION: Uncomplicated ultrasound guided thoracentesis. Que Beard MD Lower Extremity Ultrasound 08/21/16 0000 Signed Impressions: Service Date/Time: August 16:37 - CONCLUSION: 1. No DVT identified within either lower extremity. 2. Diffuse edema within both lower extremities. Jose Pederson MD PE at Discharge GENERAL: Patient is obtunded. HEENT: PERRLA, EOMI. No scleral icterus or conjunctival pallor. No lid lag or facial droop. CARDIOVASCULAR: Regular rate and rhythm. No obvious murmurs to auscultation. No chest tenderness to palpation. RESPIRATORY: Decreased breath sounds. Chest tube in place. GASTROINTESTINAL: Abdomen soft, non-tender, nondistended. BS normal. MUSCULOSKELETAL: Extremities without clubbing, cyanosis. 2+ bilateral lower extremity edema. No obvious deformities. NEUROLOGICAL: Unable to assess. PSYCH: Flattened affect. Pt update on day of discharge The patient appeared comfortable in bed. The patient's family had a meeting with palliative care and agreed upon transfer to a hospice facility. Discussed with nursing. Hospital Course Cirrhosis/ Failure to thrive GI was consulted. Ammonia level was elevated. He was started on Lasix, Aldactone, rifaximin, lactulose and propranolol. We held diuretics due to acute renal insufficiency. Palliative care was consulted. The pt worked with ST / PT/ OT. An NG tube was placed for tube feeds. The pt's family had a meeting with palliative care and it was agreed to transfer the pt to hospice. Hospice was then consulted. Right Pleural Effusion Recurrent. Recent admit 08/11-08/17/16 for similar. S/p thoracentesis by IR w/ removal of 4450cc fluid, transudate thought to be secondary to cirrhosis. Now w/ recurrent right pleural effusion and SOB. CXR w/ complete opacification of right hemithorax due to effusion. Status post thoracentesis and chest tube placement. He was diuresed. Pulmonology was consulted. Portal vein thrombosis Noted on imaging. Hematology was consulted. He was deemed too high a risk for anticoagulation. Acute on chronic renal insufficiency Diuretics were held and he received IV albumin. Leukocytosis Blood cultures were negative. He was started on ceftriaxone. Elevated Trop Trop 0.11, similar to previous admit, no c/o chest pain, EKG w/ no acute changes. He was continued on his cardiac regimen. Hyperkalemia S/p Ca/Insulin/D50. He was monitored on telemetry. Alcohol Abuse H/o alcohol abuse, 1pint Vodka/day, states he quit 05/2016. He was continued on Thiamine/Folate/MVT replacement. Sacral Decubitus Ulcer Stage II. Present on arrival. Wound care was consulted. Pt Condition on Discharge: Deteriorating Discharge Disposition: Hospice/Med Facility Discharge Time: > 30 minutes Discharge Instructions DIET: Follow Instructions for: As Tolerated, No Restrictions Speech Therapy-Diet Recommends: Mechanical Soft, [place] Thickened Liquids, Chopped Meat w/Gravy Activities you can perform: Weight Bearing as Fannie New Medications: Morphine Liq (Morphine Liq) 10 Mg/5 Ml Liq 5 MG PO Q4H Pain Management #30 Ref 0 ML Continued Medications: Alprazolam (Alprazolam) 0.25 Mg Tab 0.25 MG PO Q8H PRN ANXIETY #12 Ref 0 TAB (This prescription has been renewed) Discontinued Medications: Allopurinol (Zyloprim) 100 Mg Tab 100 MG PO DAILY Days 30 TAB Atorvastatin (Lipitor) 20 Mg Tab 20 MG PO HS Days 30 TAB Cyanocobalamin (Vitamin B-12) 500 Mcg Tab 50 MCG PO HS Nutritional Supplement #1 Ref 0 BOTTLE Diltiazem (Cardizem) 30 Mg Tab 30 MG PO BID Days 30 TAB Ferrous Sulfate (Feosol) 200 Mg Tab 325 MG PO BID Nutritional Supplement #30 Ref 0 TAB Fluoxetine (Prozac) 20 Mg Cap 20 MG PO DAILY #30 Ref 0 CAP Fluticasone Nasal [place] (Fluticasone Nasal [place]) 50 Mcg/Act Naspr 1 SPRAY EACH NARE BID Days 30 BOTTLE Folic Acid (Folic Acid) 400 Mcg Tab 1 MG PO DAILY Nutritional Supplement Ref 0 TAB Furosemide (Furosemide) 40 Mg Tab 40 MG PO BID #60 Ref 0 TAB Gabapentin (Neurontin) 300 Mg Cap 300 MG PO TID Days 30 CAP Lactobacillus Acidophilus (Acidophilus/l-Sporogenes) 1 Tab Tab 1 TAB PO TID Days 30 TAB Levothyroxine (Synthroid) 75 Mcg Tab 75 MCG PO DAILY@06 Days 30 TAB Losartan (Cozaar) 25 Mg Tab 50 MG PO DAILY Days 30 TAB Multiple Vitamin (Multi-Vitamin Daily) 1 Tab Tab 1 TAB PO DAILY Nutritional Supplement Ref 0 TAB Pantoprazole (Protonix) 40 Mg Tab 40 MG PO Q12HR Reflux #30 Ref 0 TAB Thiamine (Vitamin B-1) 100 Mg Tab 100 MG PO DAILY Nutritional Supplement Ref 0 TAB Tramadol (Tramadol) 50 Mg Tab 50 MG PO Q4H PRN PAIN Ref 0 TAB Emerson Pruitt DO Aug 29, 2016 14:45
== END 2016-08-29 14:45 | disposition hospice, inpatient (51) | DRG 186 ==
LOC: NEPE 15:09 → NEDA 19:15 → HIMN 23:27
PROVIDERS: ADMIT Hospitalist; ATTEND Hospitalist
PROC: 0W993ZZ Drainage of Right Pleural Cavity, Percutaneous Approach (ICD-10-PCS; principal; 2016-08-22)
PROC: 0W9930Z Drainage of Right Pleural Cavity with Drainage Device, Percutaneous Approach (ICD-10-PCS; 2016-08-23)
DX: J90 Pleural effusion, not elsewhere classified (principal); I81 Portal vein thrombosis; L89.152 Pressure ulcer of sacral region, stage 2; E46 Unspecified protein-calorie malnutrition; I85.00 Esophageal varices without bleeding; K76.6 Portal hypertension; I85.10 Secondary esophageal varices without bleeding; D69.6 Thrombocytopenia, unspecified; N18.3 Chronic kidney disease, stage 3 (moderate); K70.31 Alcoholic cirrhosis of liver with ascites; Z99.81 Dependence on supplemental oxygen; E87.5 Hyperkalemia; G62.9 Polyneuropathy, unspecified; R74.8 Abnormal levels of other serum enzymes; M19.90 Unspecified osteoarthritis, unspecified site; F32.9 Major depressive disorder, single episode, unspecified; K21.9 Gastro-esophageal reflux disease without esophagitis; M10.9 Gout, unspecified; E78.5 Hyperlipidemia, unspecified; G89.29 Other chronic pain; K72.90 Hepatic failure, unspecified without coma; E03.9 Hypothyroidism, unspecified; I12.9 Hypertensive chronic kidney disease with stage 1 through stage 4 chronic kidney disease, or unspecified chronic kidney disease; M06.9 Rheumatoid arthritis, unspecified; F43.10 Post-traumatic stress disorder, unspecified; F10.10 Alcohol abuse, uncomplicated; M54.9 Dorsalgia, unspecified; K31.9 Disease of stomach and duodenum, unspecified; R62.7 Adult failure to thrive; N28.9 Disorder of kidney and ureter, unspecified; Z51.5 Encounter for palliative care; Z87.11 Personal history of peptic ulcer disease; T50.2X5A Adverse effect of carbonic-anhydrase inhibitors, benzothiadiazides and other diuretics, initial encounter; Z66 Do not resuscitate
CPT/HCPCS: 32555; 32557; 71010; 74160; 76705; 76937; 80048; 80053; 80076; 82103; 82105; 82140; 82150; 82390; 82728; 82945; 83520; 83615; 83735; 83880; 83986; 84132; 84157; 84484; 85007; 85025; 85027; 85384; 85610; 85730; 86038; 86256; 87015; 87040; 87070; 87116; 87205; 87206; 87641; 88112; 88305; 89051; 93005; 93970; C1729; C1769; J0610; J0696; J1815; J1940; J2250; J2270; J3010; P9047; Q9967